=== PATIENT | female | born 1935 | race Caucasian/White ===

== ENCOUNTER 2016-11-12 12:59 | Emergency (ER) | payer MEDICARE ==
[~2016-11-12] VITALS: Ht 154.9 cm; Wt 54.4 kg
[~2016-11-12 12:59] MED LIST: /ADVA50050; /GLIM2TA; /GLIM4TA; /MOXI40TA; /TIOT18INH; ACET65TA; AGGRCAP; ALBUTEROL LIQ; AVAP150T; BABY81CH; CLAR5CHW; FLON0.05; IBUP600T; JANUVIA; KENALOG; LASI40TA; LIPI10TA; LOPERAMIDE; MUCINEX; PAXI40TA; PRED10TA2; PRED20TA; PREDPOW10; PROV90AE; TOPR100T; TRAVATAN EYE DROP; TRAVATAN Z; TYL; VICO5TAB; VITAMIN D
[2016-11-12] MEDS ORDERED: LANTINJ4 (13:20)
[2016-11-12] MEDS ORDERED: METO50TA2 PO (13:20)
[2016-11-12] MEDS ORDERED: FURO40TA2 (13:20)
[2016-11-12] MEDS ORDERED: CLON0.5T (13:20)
[2016-11-12] MEDS ORDERED: GLIP5TAB8 PO (13:20)
[2016-11-12] MEDS ORDERED: AMIT25TA PO (13:20)
[2016-11-12] MEDS ORDERED: PROA1AER (13:20)
[2016-11-12 14:25] VITALS: BP 126/72
== END 2016-11-12 14:28 | disposition home or self-care (01) ==
LOC: M ED 14:13
DX: R04.0 Epistaxis (principal); I10 Essential (primary) hypertension; I50.20 Unspecified systolic (congestive) heart failure; Z86.73 Personal history of transient ischemic attack (TIA), and cerebral infarction without residual deficits; E78.00 Pure hypercholesterolemia, unspecified; F41.9 Anxiety disorder, unspecified; F32.9 Major depressive disorder, single episode, unspecified; Z87.891 Personal history of nicotine dependence; Z79.899 Other long term (current) drug therapy; Z79.52 Long term (current) use of systemic steroids; Z79.4 Long term (current) use of insulin

== ENCOUNTER 2016-11-15 19:54 | Inpatient (IN) | payer MEDICARE ==
[~2016-11-15] VITALS: Ht 152.4 cm; Wt 56.4 kg
[~2016-11-15 19:54] MED LIST changes: +AMIT25TA PO; +CLON0.5T; +FURO40TA2; +GLIP5TAB8 PO; +LANTINJ4; +METO50TA2 PO; +PROA1AER
[2016-11-15 20:37] LABS: BASO % 0.4 % (0.0-1.0); EOS % 0.4 % (0.0-3.0); LARGE UNSTAINED CELL # 0.2 K/mm3 (0.0-0.4); LARGE UNSTAINED CELL % 2.2 % (0.0-4.0); LYMPH # 1.4 K/mm3 (1.5-4.5); LYMPH % 15.1 % (24.0-44.0); MEAN CORPUSCULAR HEMOGLOBIN 29.6 pg (27.0-33.0); MEAN CORPUSCULAR HGB CONC 31.5 g/dl (32.0-36.5); MEAN CORPUSCULAR VOLUME 94.2 fl (80.0-96.0); MONO # 0.6 K/mm3 (0.0-0.8); MONO % 6.8 % (0.0-5.0); NEUTROPHILS # 6.8 K/mm3 (1.8-7.7); PLATELET COUNT, AUTOMATED 373 k/mm3 (150-450); RED CELL DISTRIBUTION WIDTH 13.8 % (11.5-14.5)
[2016-11-15 20:54] LABS: ANION GAP 6 MEQ/L (8-16); BLOOD UREA NITROGEN 40 MG/DL (7-18); CALCIUM LEVEL 9.1 MG/DL (8.8-10.2); CARBON DIOXIDE LEVEL 34 MEQ/L (21-32); CHLORIDE LEVEL 97 MEQ/L (98-107); CREATININE FOR GFR 2.05 MG/DL (0.55-1.02); GLOMERULAR FILTRATION RATE 24.9 (>39); GLUCOSE, FASTING 94 MG/DL (83-110); POTASSIUM SERUM 4.2 MEQ/L (3.5-5.1); SODIUM LEVEL 137 MEQ/L (136-145)
[2016-11-15] MEDS ORDERED: IPRATROPIUM 0.5MG/ALBUTEROL 2.5MG INH SOL UD 3ML (DUONEB)(J7620) NEB ONE (22:00)
[2016-11-15] MEDS ORDERED: NS 500 ML IV ONE (22:45)
[2016-11-15] MEDS ORDERED: FURO40TA2 PO (23:47)
[2016-11-15] MEDS ORDERED: INSULANT SC (23:50)
[2016-11-15] MEDS ORDERED: PROA1AER INH (23:50)
[2016-11-15] MEDS ORDERED: ALEV1TAB PO (23:50)
[2016-11-16] VITALS (7 sets, daily range): BP systolic 92–166; BP diastolic 56–72
[2016-11-16] MEDS ORDERED: ONDANSETRON 4MG/2ML VIAL (J2405) IV PRN (02:15)
[2016-11-16] MEDS ORDERED: ALBUTEROL 90 MCG/ACT 8GM HFA INHALER INH PRN (02:30)
[2016-11-16] MEDS: NS 1,000 ML IV SCH ×2 (03:28→12:22)
[2016-11-16] MEDS: AMITRIPTYLINE 25 MG TAB PO SCH ×2 (04:47→21:18)
--- NOTE | 2016-11-16 06:28 | ECGEPIP ---
Stationary ECG Study [facility] - ED Test Date: 2016-11-15 Pat Name: PINKY COOPER Department: Room: - Gender: F Machine [employer]: estrella : 1935 Requested By: AARON Robles Order Number: [id number] Reading MD: Gwyn Gaines Measurements Intervals [place] Rate: 89 P: 83 OK: 177 QRS: 142 QRSD: 149 T: 34 QT: 356 QTc: 435 Interpretive Statements SINUS RHYTHM RIGHT BUNDLE BRANCH BLOCK LEFT POSTERIOR FASCICULAR BLOCK SIMIILAR TO 05/21/14 Electronically Signed On 11-16-2016 6:28:12 EDT by Gwyn Gaines
[2016-11-16] MEDS ORDERED: glipiZIDE (GLUCOTROL) 5 MG TAB PO SCH (07:30)
[2016-11-16 08:19] LABS: BASO % 0.3 % (0.0-1.0); EOS % 0.2 % (0.0-3.0); LARGE UNSTAINED CELL # 0.2 K/mm3 (0.0-0.4); LARGE UNSTAINED CELL % 2.6 % (0.0-4.0); LYMPH # 1.3 K/mm3 (1.5-4.5); LYMPH % 19.7 % (24.0-44.0); MEAN CORPUSCULAR HGB CONC 30.5 g/dl (32.0-36.5); MEAN CORPUSCULAR VOLUME 94.9 fl (80.0-96.0); MONO # 0.4 K/mm3 (0.0-0.8); MONO % 7.1 % (0.0-5.0); NEUTROPHILS # 4.1 K/mm3 (1.8-7.7); RED CELL DISTRIBUTION WIDTH 13.8 % (11.5-14.5); WHITE BLOOD COUNT 5.8 K/mm3 (4.0-10.0)
[2016-11-16 08:30] LABS: PLATELET COUNT, AUTOMATED 261 k/mm3 (150-450)
[2016-11-16 08:36] LABS: ALBUMIN 2.4 GM/DL (3.2-5.2); ALBUMIN/GLOBULIN RATIO 0.62 (1.00-1.93); BILIRUBIN,TOTAL 0.3 MG/DL (0.2-1.0); CALCIUM LEVEL 7.9 MG/DL (8.8-10.2); CREATININE FOR GFR 1.98 MG/DL (0.55-1.02); GLOMERULAR FILTRATION RATE 25.9 (>39); MAGNESIUM LEVEL 1.7 MG/DL (1.8-2.4); POTASSIUM SERUM 3.7 MEQ/L (3.5-5.1); TOTAL PROTEIN 6.3 GM/DL (6.4-8.2)
--- NOTE | 2016-11-16 08:49 | REP ---
PORTABLE CHEST: AP portable view of the chest is performed and compared to a prior study of 07/11/2015. There is no acute infiltrate. Mild interstitial fibrotic changes are stable. The heart is normal in size. There is calcification of the thoracic aorta. The mediastinal silhouette is unchanged. IMPRESSION: Stable chronic findings without evidence of acute infiltrate. Signed by Bernabe Hill MD 11/16/2016 05:39 P
[2016-11-16] MEDS: METOPROLOL TART 50 MG TAB PO SCH ×2 (09:00→18:45)
[2016-11-16] MEDS: LEVEMIR (INSULIN DETEMIR) 1 UNITS/0.01ML SC SCH (09:03)
[2016-11-16] MEDS: PANTOPRAZOLE 40MG TAB (PROTONIX) PO SCH (09:03)
[2016-11-16] MEDS: ACETAMINOPHEN TAB 650MG DOSE (2X325MG) PO PRN ×2 (10:42→18:45)
[2016-11-16] MEDS ORDERED: GLUCOSE 4 GM CHEW TABLET PO PRN (11:30)
[2016-11-16] MEDS ORDERED: GLUCAGON FOR INJ 1 MG VIAL (J1610) SC PRN (11:30)
[2016-11-16] MEDS ORDERED: DEXTROSE 50% 50 ML SYRINGE IV PRN (11:30)
[2016-11-16] MEDS: HumaLOG INSULIN (NovoLOG) PER UNIT SC SCH ×3 (12:22→21:00)
[2016-11-16] MEDS: VANCOMYCIN ORAL SOL 250MG/5ML ORAL SYRINGE PO SCH ×3 (12:23→23:33)
[2016-11-16] MEDS: MAG SULF 1GM/100ML (MAG RUN) 1 GM in APPROPRIATE DILUENT 1 EA IV SCH ×2 (12:23→13:09)
[2016-11-16] MEDS ORDERED: BALMEX CREAM 60GM TOP PRN (16:00)
--- NOTE | 2016-11-16 16:22 | HPE ---
DATE OF ADMISSION: 11/16/2016 CHIEF COMPLAINT: Short of breath, lightheadedness. PRIMARY CARE PROVIDER: Yaakov Archuleta MD HISTORY OF PRESENT ILLNESS: This is a 80-year-old female who has been depressed since her recently . She has had decreased appetite. For the last 3 days she states she has not felt quite right. She has not eaten. She states for 2-3 days she was having chills and hot spells. She states she had been sipping on just some fluids. She states that she has a history of Crohn's and that she normally has loose stools, but for the last 2 days she had been having more loose stools than was normal for her, she states she has been having 6-7 a day. Denies any hematochezia, no melana, rectal bleeding. She was feeling lightheaded. Per her daughter, she felt the patient was hallucinating. The patient when assessed was pleasant and cooperative, denied any hallucination, was alert and oriented. Blood pressure upon arrival was 84/46, pulse 93, respiration rate 18, oxygen saturation was 90% on room air, temperature was 99.3. IV fluids were started. Orthostatics were done, the patient's pressure systolic dropped from 94 while lying, 83 when sitting, and 68/31 while standing and patient was lightheaded, pulse increased to 100. Fluid bolus initiated. Blood pressure gradually improved with the initiation of fluids to 100/58 supine. LABORATORY STUDIES: Showed glucose to be 94, BUN was elevated at 40, creatinine was elevated at 2.05 , sodium 137, potassium 4.2, chloride 97, CO2 34, calcium 9.1, CK was 42, CK-MB less than 1.0, troponin was less than 0.02, white count was 9, hemoglobin and hematocrit was 14.1 and 44.7, platelets 373. EKG was done and showed sinus rhythm of 89. Patient received one DuoNeb treatment and had no further complaints of shortness of breath. Assessment was done. Patient will be admitted with symptomatic orthostatic hypotension, dehydration, diarrhea, observation status to the medical floor. SOCIAL HISTORY: She currently lives alone, was recently . She does not smoke cigarettes. She does not drink alcohol. She does not use recreational drugs. ALLERGIES: PIOGLITAZONE, PENICILLIN causes hives. CURRENT MEDICATIONS: - metoprolol 50 mg by mouth twice a day (which I will hold) - amitriptyline 25 mg by mouth at bedtime - glipizide 5 mg by mouth twice a day - Lasix 40 mg by mouth daily (which I will hold) - Lantus 15 units subcutaneous daily - Aleve two tablets by mouth daily at bedtime (which I will hold) - albuterol two puffs by mouth every 4 hours as needed for shortness of breath or wheeze PAST MEDICAL HISTORY: 1. Hypertension. 2. Insulin dependent diabetes. 3. Crohn's disease. PAST SURGICAL HISTORY: 1. Cholecystectomy. 2. section. FAMILY HISTORY: Noncontributory. REVIEW OF SYSTEMS: No complaint of headache. No blurry or double vision. She has had chills. No tinnitus. No hoarseness. No difficulty swallowing. She was lightheaded, no vertigo. BREASTS: No masses. CARDIOVASCULAR: No complaints of chest pain. No hemoptysis. No orthopnea. No wheeze. No chronic cough or sputum production. GASTROINTESTINAL (GI): Lack of appetite. No nausea. Increased loose stools. No hematochezia. No melena. No complaints of abdominal pain. GENITOURINARY (): No hematuria, dysuria, or frequency. MUSCULOSKELETAL: No joint redness or swelling. ENDOCRINE: History of insulin dependent diabetes. HEMATOLOGICAL: No history of anemia. NEUROLOGICAL: No history of seizures or paralysis. PSYCHOLOGICAL: She has been grieving over the of her . She denies any suicidal ideation. PHYSICAL EXAMINATION: 80-year-old cooperative female in no acute distress, but pressure currently 92/60, pulse 80, respirations 18, oxygen saturation is 95%. Height 5 foot, weight 120 pounds. Patient is alert and oriented times three. Pupils equal and reactive to light. Extraocular movements are intact. Cornea and sclerae clear. Conjunctivae is normal. No facial asymmetry. Buccal mucosa slightly dry. Tongue midline. NECK: Supple without lymphadenopathy. No thyromegaly. No goiter. Carotids 2+ without bruit. CHEST: Clear to auscultation without wheeze or retraction. HEART: Regular. ABDOMEN: Soft, nontender. No masses, pulsations, or bruits. No organomegaly. Bowel sounds are positive. GENITOURINARY/RECTAL: Not done. EXTREMITIES: Show equal strength. Full range of motion. No cyanosis, clubbing , or edema. Peripheral pulses equal and palpable bilaterally. SKIN: Warm and dry. IMPRESSION/PLAN: Patient will be admitted to observation status to the medical floor for orthostatic hypotension, dehydration. Patient will receive general IV hydration. Gastrointestinal (GI) panel will be sent. Anti Hypertensive medications will be held. Repeat labs in the morning. MTDD
[2016-11-16] MEDS ORDERED: NS 1,000 ML IV SCH (19:00)
[2016-11-17] VITALS (7 sets, daily range): BP systolic 108–160; BP diastolic 51–75
[2016-11-17] MEDS: VANCOMYCIN ORAL SOL 250MG/5ML ORAL SYRINGE PO SCH ×4 (06:00→23:31)
[2016-11-17 06:48] LABS: BASO % 0.3 % (0.0-1.0); EOS % 0.6 % (0.0-3.0); LARGE UNSTAINED CELL # 0.3 K/mm3 (0.0-0.4); LARGE UNSTAINED CELL % 3.4 % (0.0-4.0); LYMPH # 1.8 K/mm3 (1.5-4.5); LYMPH % 20.7 % (24.0-44.0); MEAN CORPUSCULAR HEMOGLOBIN 29.9 pg (27.0-33.0); MEAN CORPUSCULAR HGB CONC 30.8 g/dl (32.0-36.5); MEAN CORPUSCULAR VOLUME 97.1 fl (80.0-96.0); MONO # 0.6 K/mm3 (0.0-0.8); MONO % 6.3 % (0.0-5.0); NEUTROPHILS # 6.1 K/mm3 (1.8-7.7); NEUTROPHILS % 68.7 % (36.0-66.0); PLATELET COUNT, AUTOMATED 305 k/mm3 (150-450); RED CELL DISTRIBUTION WIDTH 13.7 % (11.5-14.5); WHITE BLOOD COUNT 8.8 K/mm3 (4.0-10.0)
[2016-11-17 07:04] LABS: CALCIUM LEVEL 8.7 MG/DL (8.8-10.2); CREATININE FOR GFR 1.64 MG/DL (0.55-1.02); GLOMERULAR FILTRATION RATE 32.2 (>39); MAGNESIUM LEVEL 2.2 MG/DL (1.8-2.4)
[2016-11-17] MEDS: HumaLOG INSULIN (NovoLOG) PER UNIT SC SCH ×4 (07:30→20:42)
[2016-11-17] MEDS: PANTOPRAZOLE 40MG TAB (PROTONIX) PO SCH (07:59)
[2016-11-17] MEDS: METOPROLOL TART 50 MG TAB PO SCH ×2 (07:59→20:11)
[2016-11-17] MEDS: LEVEMIR (INSULIN DETEMIR) 1 UNITS/0.01ML SC SCH (07:59)
--- NOTE | 2016-11-17 12:40 | IPNPDOC ---
Subjective Date Seen The patient was seen on 11/17/16. Subjective Chief Complaint/HPI The patient is a 80-year-old female admitted with a reason for visit of Diarrhea ,Hypotension. General: Denies: ROS Unobtainable, Chills, Night Sweats, Fatigue, Malaise, Normal Appetite, Other Symptoms Constitutional: Reports: Chills, Fever, Denies: Malaise, Night Sweats, Weakness, Fatigue, Weight Loss, Lethargy, Other Eyes: Denies: Pain, Vision change, Conjunctivae inflammation, Eyelid inflammation, Redness, Other ENT: Denies: Head Aches, Ear Pain, Dysphagia, Sinus Congestion, Post Nasal Drip , Sore Throat, Epistaxis, Other Symptoms Skin: Denies: Rash, Lesions, Jaundice, Bruising, Itching, Dry, Breakdown, Nail Changes, Other Pulmonary: Denies: Dyspnea, Cough, Pleuritic Chest Pain, Other Symptoms Cardiovascular: Denies: Chest Pain, Palpitations, Orthopnea, Paroxysmal Noc. Dyspnea, Edema, Lt Headedness, Other Symptoms Gastrointestinal: Denies: Nausea, Vomiting, Abdominal Pain, Diarrhea, Constipation, Melena, Hematochezia, Other Symptoms Genitourinary: Denies: Dysuria, Frequency, Incontinence, Hematuria, Retention, Other Symptoms Objective Physical Examination General Exam: Positive: Alert, Cooperative, No Acute Distress, Other (elderly, frail) Eye Exam: Positive: PERRLA, Conjunctiva & lids normal, EOMI, Negative: Sclera icteric ENT Exam: Positive: Atraumatic, Mucous membr. moist/pink Neck Exam: Positive: Supple Chest Exam: Positive: Clear to auscultation, Normal air movement Heart Exam: Positive: Rate Normal, Regular Rhythm Abdomen Exam: Positive: Normal bowel sounds, Soft, Negative: Tenderness Psych Exam: Positive: Oriented x 3 Assessment /Plan Problems (1) C. difficile colitis Status: Acute Response to Treatment: Improving Discussed With: Patient Problem Specific Plan: Monitor Clinically, Repeat Labs Problem Text: Continue PO vanco, probiotics. Diarrhea significantly improved. (2) Diabetes Status: Chronic Discussed With: Patient Problem Specific Plan: Repeat Labs (3) Crohns disease Status: Chronic Discussed With: Patient Problem Specific Plan: Monitor Clinically (4) Diarrhea Response to Treatment: Improving Discussed With: Patient Problem Specific Plan: Monitor Clinically, Repeat Labs (5) Hypotension Status: Resolved Discussed With: Patient Problem Specific Plan: Monitor Clinically Problem Text: Patient history of hypertension. Continue beta guy, other home meds on hold. IV fluids stopped. Follow clinically. Plan/VTE VTE Prophylaxis Ordered?: Yes (mechanical) Plan IVF: Discontinue Diet: Continue Current Activity: Continue Current Diagnostics: Repeat Labs in AM Anticipated Discharge: Home, Home With Services VS, I&O, 24H, Fishbone Vital Signs/I&O Vital Signs Date Time Temp Pulse Resp B/P (MAP) Pulse Ox O2 Delivery O2 Flow Rate FiO2 11/17/16 10:00 99.3 92 20 108/56 (73) 90 Room Air 11/16/16 06:00 2.0 I&O- Last 24 Hours up to 6 AM 11/17/16 06:00 Intake Total 2680 ml Output Total 550 ml Balance 2130 ml Laboratory Data 24H LABS Laboratory Tests 2 11/16/16 17:37: Bedside Glucose (Misc Panel) 76L 11/16/16 20:43: Bedside Glucose (Misc Panel) 106 11/17/16 06:30: White Blood Count 8.8, Red Blood Count 4.17, Hemoglobin 12.5, Hematocrit 40.5, Mean Corpuscular Volume 97.1H, Mean Corpuscular Hemoglobin 29.9, Mean Corpuscular Hemoglobin Concent 30.8L, Red Cell Distribution Width 13.7, Platelet Count 305, Neutrophils (%) (Auto) 68.7H, Lymphocytes (%) (Auto) 20.7L, Monocytes (%) (Auto) 6.3H, Eosinophils (%) (Auto) 0.6, Basophils (%) (Auto) 0.3 , Neutrophils # (Auto) 6.1, Lymphocytes # (Auto) 1.8, Monocytes # (Auto) 0.6, Eosinophils # (Auto) 0.0, Basophils # (Auto) 0.0, Large Unclassified Cells % 3.4 , Large Unclassified Cells # 0.3, Anion Gap 7L, Glomerular Filtration Rate 32.2L , Blood Urea Nitrogen 25H, Creatinine 1.64H, Sodium Level 141, Potassium Level 4.0, Chloride Level 109H, Carbon Dioxide Level 25, Calcium Level 8.7L, Magnesium Level 2.2 11/17/16 11:28: Bedside Glucose (Misc Panel) 79L CBC/BMP Laboratory Tests 11/17/16 06:30 Red Blood Count 4.17, Mean Corpuscular Volume 97.1 H, Mean Corpuscular Hemoglobin 29.9, Mean Corpuscular Hemoglobin Concent 30.8 L, Red Cell Distribution Width 13.7, Neutrophils (%) (Auto) 68.7 H, Lymphocytes (%) (Auto) 20.7 L, Monocytes (%) (Auto) 6.3 H, Eosinophils (%) (Auto) 0.6, Basophils (%) ( Auto) 0.3, Neutrophils # (Auto) 6.1, Lymphocytes # (Auto) 1.8, Monocytes # (Auto ) 0.6, Eosinophils # (Auto) 0.0, Basophils # (Auto) 0.0, Calcium Level 8.7 L Microbiology Microbiology 11/16/16 Blood Culture - Preliminary, Resulted No growth after 24 hours . All specim... 11/16/16 Blood Culture - Preliminary, Resulted No growth after 24 hours . All specim... 11/16/16 Gastrointestinal Tract Panel (PCR) - Final, Complete Clostridium Difficile A/B RANI PHILLIPS MD November 17, 2016 12:40
--- NOTE | 2016-11-17 15:31 | REP ---
Chest two views HISTORY: Shortness of breath Comparison: 11/15/2016 An increase in interstitial markings is present in the lungs consistent with chronic interstitial fibrosis. The heart is normal in size. The pulmonary vasculature is normal in appearance. The bony structure is intact. IMPRESSION: Chronic interstitial fibrosis. Signed by Joshua Kaur MD 11/17/2016 03:22 P
[2016-11-17] MEDS: AMITRIPTYLINE 25 MG TAB PO SCH (20:11)
[2016-11-17] MEDS: ACETAMINOPHEN TAB 650MG DOSE (2X325MG) PO PRN (20:53)
[2016-11-18] VITALS (17 sets, daily range): BP systolic 78–139; BP diastolic 40–91
[2016-11-18] MEDS: ACETAMINOPHEN TAB 650MG DOSE (2X325MG) PO PRN ×2 (03:37→19:46)
[2016-11-18] MEDS ORDERED: SODIUM CHLORIDE 0.9% 1000 ML IV ONE (04:00)
[2016-11-18 04:42] LABS: BASO % 0.3 % (0.0-1.0); EOS # 0.1 K/mm3 (0.0-0.50); EOS % 0.7 % (0.0-3.0); LARGE UNSTAINED CELL # 0.2 K/mm3 (0.0-0.4); LYMPH # 1.5 K/mm3 (1.5-4.5); LYMPH % 12.7 % (24.0-44.0); MEAN CORPUSCULAR HEMOGLOBIN 28.9 pg (27.0-33.0); MEAN CORPUSCULAR HGB CONC 30.3 g/dl (32.0-36.5); MEAN CORPUSCULAR VOLUME 95.6 fl (80.0-96.0); MONO # 0.8 K/mm3 (0.0-0.8); MONO % 7.6 % (0.0-5.0); NEUTROPHILS # 7.6 K/mm3 (1.8-7.7); NEUTROPHILS % 76.6 % (36.0-66.0); PLATELET COUNT, AUTOMATED 248 k/mm3 (150-450); RED CELL DISTRIBUTION WIDTH 13.8 % (11.5-14.5); WHITE BLOOD COUNT 9.9 K/mm3 (4.0-10.0)
[2016-11-18 04:47] LABS: CALCIUM LEVEL 7.9 MG/DL (8.8-10.2); CREATININE FOR GFR 1.66 MG/DL (0.55-1.02); GLOMERULAR FILTRATION RATE 31.7 (>39); MAGNESIUM LEVEL 1.6 MG/DL (1.8-2.4); POTASSIUM SERUM 3.9 MEQ/L (3.5-5.1)
[2016-11-18] MEDS: VANCOMYCIN ORAL SOL 250MG/5ML ORAL SYRINGE PO SCH ×3 (05:40→21:58)
--- NOTE | 2016-11-18 05:50 | REPUSA ---
CLINICAL HISTORY: Abnormal lung sounds. COMMENTS: AP view of chest reveals no evidence of active pleural or pulmonary parenchymal abnormality. The cardiac silhouette is enlarged. The mediastinum and pulmonary vessels appear normal. Aorta is tor tuous. Degenerative changes are noted in the thoracic spine. IMPRESSION: No evidence of acute pulmonary pathology. Enlarged cardiac silhouette. Tortuous aorta. Thank you for your kind referral of this patient.
[2016-11-18] MEDS ORDERED: metroNIDAZOLE 500 MG in APPROPRIATE DILUENT 1 EA IV SCH (06:00)
[2016-11-18] MEDS ORDERED: MAG SULF 1GM/100ML (MAG RUN) 1 GM in APPROPRIATE DILUENT 1 EA IV ONE (06:30)
[2016-11-18] MEDS: HumaLOG INSULIN (NovoLOG) PER UNIT SC SCH ×4 (07:56→21:00)
--- NOTE | 2016-11-18 07:57 | IPNPDOC ---
Subjective Date Seen The patient was seen on 11/18/16. Subjective Chief Complaint/HPI The patient is a 80-year-old female admitted with a reason for visit of Diarrhea ,Hypotension. Events since last encounter spiked fevers last night General: Denies: ROS Unobtainable, Chills, Night Sweats, Fatigue, Malaise, Normal Appetite, Other Symptoms Constitutional: Denies: Chills, Fever, Malaise, Night Sweats, Weakness, Fatigue , Weight Loss, Lethargy, Other Eyes: Denies: Pain, Vision change, Conjunctivae inflammation, Eyelid inflammation, Redness, Other ENT: Denies: Head Aches, Ear Pain, Dysphagia, Sinus Congestion, Post Nasal Drip , Sore Throat, Epistaxis, Other Symptoms Skin: Denies: Rash, Lesions, Jaundice, Bruising, Itching, Dry, Breakdown, Nail Changes, Other Pulmonary: Reports: Cough, Denies: Dyspnea, Pleuritic Chest Pain, Other Symptoms Cardiovascular: Denies: Chest Pain, Palpitations, Orthopnea, Paroxysmal Noc. Dyspnea, Edema, Lt Headedness, Other Symptoms Gastrointestinal: Denies: Nausea, Vomiting, Abdominal Pain, Diarrhea, Constipation, Melena, Hematochezia, Other Symptoms Genitourinary: Denies: Dysuria, Frequency, Incontinence, Hematuria, Retention, Other Symptoms Objective Physical Examination General Exam: Positive: Alert, Cooperative, No Acute Distress, Other (elderly, frail) Eye Exam: Positive: PERRLA, Conjunctiva & lids normal, EOMI, Negative: Sclera icteric ENT Exam: Positive: Atraumatic, Mucous membr. moist/pink Neck Exam: Positive: Supple Chest Exam: Positive: Clear to auscultation, Normal air movement Heart Exam: Positive: Rate Normal, Regular Rhythm, Murmurs (soft systolic murmur) Abdomen Exam: Positive: Normal bowel sounds, Soft, Negative: Tenderness Psych Exam: Positive: Oriented x 3 Assessment /Plan Problems (1) C. difficile colitis Status: Acute Response to Treatment: Improving Discussed With: Patient Problem Specific Plan: Monitor Clinically, Repeat Labs Problem Text: Continue PO vanco, probiotics. fevers last night - added iv flagyl Diarrhea significantly improved. (2) Diabetes Status: Chronic Discussed With: Patient Problem Specific Plan: Repeat Labs Problem Text: blood sugars have been on the low side. held morning levemir, continue sliding scale (3) Crohns disease Status: Chronic Discussed With: Patient Problem Specific Plan: Monitor Clinically Problem Text: KUB pending grossly stable at this time (4) Diarrhea Response to Treatment: Improving Discussed With: Patient Problem Specific Plan: Monitor Clinically, Repeat Labs (5) Hypotension Status: Resolved Discussed With: Patient Problem Specific Plan: Monitor Clinically Problem Text: Patient history of hypertension. Home meds on hold. IV fluid boluses. Follow clinically. Plan/VTE VTE Prophylaxis Ordered?: Yes (mechanical) Plan IVF: Discontinue Diet: Continue Current Activity: Continue Current Diagnostics: Repeat Labs in AM Anticipated Discharge: Home, Home With Services PO vanco, IV flagyl monitor for diarrhea, fevers ADDDENDUM: Patient continue to be hypotensive, desaturating. Transferring to ICU. IV fluids. VS, I&O, 24H, Fishbone Vital Signs/I&O Vital Signs Date Time Temp Pulse Resp B/P (MAP) Pulse Ox O2 Delivery O2 Flow Rate FiO2 11/18/16 06:00 97.8 104 19 115/62 (79) 93 Nasal Cannula 1.0 I&O- Last 24 Hours up to 6 AM 11/18/16 05:59 Intake Total 590 ml Output Total 1600 ml Balance -1010 ml Laboratory Data 24H LABS Laboratory Tests 2 11/17/16 11:28: Bedside Glucose (Misc Panel) 79L 11/17/16 16:13: Bedside Glucose (Misc Panel) 66L 11/17/16 20:37: Bedside Glucose (Misc Panel) 108 11/18/16 04:22: White Blood Count 9.9, Red Blood Count 3.83L, Hemoglobin 11.1L, Hematocrit 36.6 , Mean Corpuscular Volume 95.6, Mean Corpuscular Hemoglobin 28.9, Mean Corpuscular Hemoglobin Concent 30.3L, Red Cell Distribution Width 13.8, Platelet Count 248, Neutrophils (%) (Auto) 76.6H, Lymphocytes (%) (Auto) 12.7L, Monocytes (%) (Auto) 7.6H, Eosinophils (%) (Auto) 0.7, Basophils (%) (Auto) 0.3 , Neutrophils # (Auto) 7.6, Lymphocytes # (Auto) 1.5, Monocytes # (Auto) 0.8, Eosinophils # (Auto) 0.1, Basophils # (Auto) 0.0, Large Unclassified Cells % 2.0 , Large Unclassified Cells # 0.2, Anion Gap 6L, Glomerular Filtration Rate 31.7L , Lactic Acid Level 0.7, Blood Urea Nitrogen 21H, Creatinine 1.66H, Sodium Level 137, Potassium Level 3.9, Chloride Level 106, Carbon Dioxide Level 25, Calcium Level 7.9L, Magnesium Level 1.6L CBC/BMP Laboratory Tests 11/18/16 04:22 Red Blood Count 3.83 L, Mean Corpuscular Volume 95.6, Mean Corpuscular Hemoglobin 28.9, Mean Corpuscular Hemoglobin Concent 30.3 L, Red Cell Distribution Width 13.8, Neutrophils (%) (Auto) 76.6 H, Lymphocytes (%) (Auto) 12.7 L, Monocytes (%) (Auto) 7.6 H, Eosinophils (%) (Auto) 0.7, Basophils (%) ( Auto) 0.3, Neutrophils # (Auto) 7.6, Lymphocytes # (Auto) 1.5, Monocytes # (Auto ) 0.8, Eosinophils # (Auto) 0.1, Basophils # (Auto) 0.0, Calcium Level 7.9 L Microbiology Microbiology 11/18/16 Blood Culture, Received Pending 11/18/16 Blood Culture, Received Pending 11/16/16 Blood Culture - Preliminary, Resulted No growth after 24 hours . All specim... 11/16/16 Blood Culture - Preliminary, Resulted No growth after 24 hours . All specim... 11/16/16 Gastrointestinal Tract Panel (PCR) - Final, Complete Clostridium Difficile A/B RANI PHILLIPS MD November 18, 2016 07:57
[2016-11-18] MEDS: LEVEMIR (INSULIN DETEMIR) 1 UNITS/0.01ML SC SCH (08:02)
[2016-11-18] MEDS: PANTOPRAZOLE 40MG TAB (PROTONIX) PO SCH (08:20)
[2016-11-18] MEDS ORDERED: NS 500 ML IV ONE (08:45)
[2016-11-18] MEDS: METOPROLOL TART 50 MG TAB PO SCH ×2 (08:46→21:58)
--- NOTE | 2016-11-18 09:10 | REP ---
KUB, ONE VIEW: HISTORY: Abdominal distention. Air is present in small and large intestine. There are several dilated loops of intestine. There are no air fluid levels. There is no pneumoperitoneum. Surgical clips are present in the right upper quadrant. IMPRESSION: The above findings may represent ileus or possibly early small bowel obstruction. A repeat examination is recommended for further evaluation. Signed by Joshua Kaur MD 11/18/2016 09:42 A
[2016-11-18 10:17] LABS: ABG BASE EXCESS -6.6 (-2.0-2.0); ABG HCO3 20.5 MEQ/L (22.0-26.0); ABG PARTIAL PRESSURE CO2 47.5 mmHg (35.0-45.0); ABG PARTIAL PRESSURE O2 78.3 mmHg (75.0-100.0); ABG pH (ARTERIAL) 7.253 UNITS (7.350-7.450)
[2016-11-18 10:39] LABS: BASO % 0.3 % (0.0-1.0); EOS % 0.2 % (0.0-3.0); LARGE UNSTAINED CELL # 0.4 K/mm3 (0.0-0.4); LARGE UNSTAINED CELL % 3.3 % (0.0-4.0); LYMPH # 3.6 K/mm3 (1.5-4.5); LYMPH % 25.9 % (24.0-44.0); MEAN CORPUSCULAR VOLUME 96.9 fl (80.0-96.0); MONO # 0.8 K/mm3 (0.0-0.8); MONO % 6.3 % (0.0-5.0); NEUTROPHILS # 7.9 K/mm3 (1.8-7.7); NEUTROPHILS % 64.1 % (36.0-66.0); PLATELET COUNT, AUTOMATED 267 k/mm3 (150-450); RED CELL DISTRIBUTION WIDTH 13.7 % (11.5-14.5); WHITE BLOOD COUNT 12.2 K/mm3 (4.0-10.0)
[2016-11-18 11:11] LABS: ALBUMIN 2.6 GM/DL (3.2-5.2); ALBUMIN/GLOBULIN RATIO 0.74 (1.00-1.93); BILIRUBIN,TOTAL 0.2 MG/DL (0.2-1.0); CALCIUM LEVEL 7.9 MG/DL (8.8-10.2); CREATININE FOR GFR 1.66 MG/DL (0.55-1.02); GLOMERULAR FILTRATION RATE 31.7 (>39); TOTAL PROTEIN 6.1 GM/DL (6.4-8.2)
[2016-11-18] MEDS: NS 1,000 ML IV SCH ×2 (11:36→22:43)
[2016-11-18] MEDS: LACTOBACILLUS ACIDOPHILUS CAP (BACID) PO SCH ×3 (11:36→21:57)
--- NOTE | 2016-11-18 12:09 | REP ---
CT ABDOMEN AND PELVIS WITHOUT CONTRAST: CT abdomen and pelvis performed without oral or IV contrast with sagittal and coronal reconstruction images also performed. There appears to be mild fibroatelectatic change in each lung base. 9 mm pericardial lymph node is seen on the right. Liver is grossly unremarkable. Patient has had a prior cholecystectomy. Spleen, adrenals and pancreas are grossly unremarkable. There is a cyst of the lower pole of the right kidney which is exophytic and measures approximately 2.7 cm in diameter. There is no hydroureteronephrosis or evidence of renal or ureteral calculus. There is no abdominal aortic aneurysm. There is an aortobifemoral graft. I see no adenopathy. There is no free air or free fluid. Terminal ileum is not optimally evaluated without oral or IV contrast but may be mildly thickened. No other definite bowel wall thickening is seen. No pelvic mass is seen. Urinary bladder is grossly unremarkable. IMPRESSION: Possible mild diffuse thickening of the terminal ileum, evaluation limited without oral or IV contrast. No free air or free fluid. Status post cholecystectomy. Mild bibasilar fibroatelectatic change in the visualized lung bases with a 9 mm right pericardial lymph node noted. Signed by Bernabe Hill MD 11/18/2016 04:46 P
[2016-11-18] MEDS: HEPARIN SOD (PORCINE) 5000 UNITS/ML VIAL SQ SCH ×2 (14:58→21:57)
[2016-11-18] MEDS: AMITRIPTYLINE 25 MG TAB PO SCH (21:57)
[2016-11-19] VITALS (7 sets, daily range): BP systolic 97–140; BP diastolic 56–90
[2016-11-19 05:16] LABS: BASO % 0.2 % (0.0-1.0); EOS % 0.2 % (0.0-3.0); LARGE UNSTAINED CELL # 0.2 K/mm3 (0.0-0.4); LARGE UNSTAINED CELL % 2.7 % (0.0-4.0); LYMPH # 1.3 K/mm3 (1.5-4.5); LYMPH % 15.8 % (24.0-44.0); MEAN CORPUSCULAR HEMOGLOBIN 29.9 pg (27.0-33.0); MEAN CORPUSCULAR HGB CONC 30.3 g/dl (32.0-36.5); MEAN CORPUSCULAR VOLUME 98.9 fl (80.0-96.0); MONO # 0.6 K/mm3 (0.0-0.8); MONO % 6.5 % (0.0-5.0); NEUTROPHILS # 6.3 K/mm3 (1.8-7.7); NEUTROPHILS % 74.5 % (36.0-66.0); PLATELET COUNT, AUTOMATED 286 k/mm3 (150-450); RED CELL DISTRIBUTION WIDTH 13.6 % (11.5-14.5); WHITE BLOOD COUNT 8.4 K/mm3 (4.0-10.0)
[2016-11-19 05:33] LABS: CREATININE FOR GFR 1.56 MG/DL (0.55-1.02); GLOMERULAR FILTRATION RATE 34.1 (>39); MAGNESIUM LEVEL 1.9 MG/DL (1.8-2.4); POTASSIUM SERUM 4.1 MEQ/L (3.5-5.1)
[2016-11-19] MEDS: HEPARIN SOD (PORCINE) 5000 UNITS/ML VIAL SQ SCH ×3 (05:49→21:48)
[2016-11-19] MEDS: HumaLOG INSULIN (NovoLOG) PER UNIT SC SCH ×4 (07:30→21:00)
[2016-11-19] MEDS: VANCOMYCIN ORAL SOL 250MG/5ML ORAL SYRINGE PO SCH ×3 (09:10→21:48)
[2016-11-19] MEDS: METOPROLOL TART 50 MG TAB PO SCH ×2 (09:11→21:50)
[2016-11-19] MEDS: LACTOBACILLUS ACIDOPHILUS CAP (BACID) PO SCH ×3 (09:11→21:48)
[2016-11-19] MEDS: PANTOPRAZOLE 40MG TAB (PROTONIX) PO SCH (09:11)
[2016-11-19] MEDS: LEVEMIR (INSULIN DETEMIR) 1 UNITS/0.01ML SC SCH (09:12)
[2016-11-19] MEDS: NS 1,000 ML IV SCH ×3 (09:13→22:25)
--- NOTE | 2016-11-19 10:14 | CR ---
DATE OF CONSULTATION: 11/18/2016 REASON FOR CONSULTATION: Hypotension, diarrhea, and abdominal distension. HISTORY OF THE PRESENT ILLNESS: The patient is a very pleasant, 80 year-old woman who was admitted on 11/16/2016 with a history of diarrhea for several days. A family member reports that she had been having some intermittent fevers as well for the last several days. She apparently also complained of some lightheadedness and some shortness of breath. She was found to be hypotensive and with orthostatic hypotension as well. She received some fluids. She was tested for Clostridium difficile with a positive finding. She was then started on some oral antibiotics for coverage. She had seemed to improve with some persistent abdominal distension, but on the morning of 11/18/2016 was found again to be hypotensive. She was moved to the intensive care unit. She did receive some additional fluid. She had some abdominal discomfort with some abdominal distension and there was concern about a possible intestinal obstruction. She also reports a long history of Crohn disease, though she has not been receiving any care for this or any treatment for this for many years. Because of her constellation of hypotension, abdominal distension and pain, I was consulted. She had a CT scan obtained. MEDICATIONS: The patient's current medications include: - Tylenol 650 mg by mouth every 4 hours as needed - Zofran 4 mg intravenously every 6 hours as needed - Protonix 40 mg by mouth daily - albuterol inhaler 2 puffs every 4 hours as needed, shortness of breath - Elavil 25 mg by mouth nightly - insulin Levemir 15 units subcutaneous daily - Humalog insulin as a sliding scale before food and nightly - metoprolol tartrate 50 mg by mouth twice daily - vancomycin 250 mg by mouth three times a day - Bacid one each by mouth three times a day - heparin 5000 units subcutaneous every 8 hours and some normal saline at 90 mL/hr. The patient's allergies are reported to PENICILLIN AND PIOGLITAZONE. Surgical history includes a cholecystectomy, aortobifemoral bypass graft, and a section. Medical history is significant for hypertension, insulin-requiring diabetes mellitus, and a long history of Crohn disease. SOCIAL HISTORY: The patient was recently after a 62-year marriage. She is currently living alone. She does not smoke nor drink any alcohol. Family history is noncontributory. Review of systems reveals no history of chest pain or palpitations. She denies any melena, hematochezia, hepatitis, pancreatitis or jaundice. She denies dysuria or hematuria. She has had no lower extremity swelling. She denies any history of chronic severe headaches or seizures. She has been quite saddened recently over the loss of her . PHYSICAL EXAMINATION: The patient's most recent vital signs show a pulse of 104 with a blood pressure of 110/65. Her most recent temperature was 98.8. Her oxygen saturations have been good on 2 liters of nasal cannula oxygen. She is alert, oriented and cooperative. She appears somewhat pale. Sclerae are anicteric. The mucous membranes are moist. The neck is supple. Heart exam shows a regular rhythm. The lungs were clear to auscultation bilaterally. The abdomen is somewhat distended. She has scarring consistent with her prior known surgery. She has some bowel sounds throughout the abdomen. There is no tenderness to percussion. There is some mild tympany to percussion in the mid to upper abdomen. The abdomen is soft to palpation and without discrete tenderness. There is no sign of hernia. Extremities show no peripheral edema. She has palpable radial and dorsalis pedis pulses. Her laboratory studies from 1027 hours on 11/18/2016 show white count of 12 with a hemoglobin of 12, hematocrit 37 and platelet count of 267,000. Differential count showed 64% neutrophils and 26% lymphocytes. Chemistry profile showed a sodium of 139, potassium 4.0, chloride 107, CO2 of 24 , BUN of 21, creatinine 1.66 and a glucose of 197. Total protein is 6.1 with an albumin of 2.6 and her liver function tests are normal. A urinalysis was done in the afternoon of 11/18/2016 and this showed a pH of 5.0 , specific gravity 1.006 with 1+ protein, trace ketones, positive nitrite and 1+ leukocyte esterase. Microscopic exam showed 31 white cells and 1 red cell per high-power field with 1+ bacteria. A CT scan of the abdomen and pelvis was obtained the late morning of 11/18/2016. This revealed what the radiologist reported as some possible mild thickening of the terminal ileum. There was no free air or free fluid. There were multiple clips in the gallbladder bed consistent with prior cholecystectomy. She had an aortobifemoral bypass graft in place with no evidence of infection. There was a small cyst on the right kidney. There is no evidence of intestinal obstruction. Impression is hypotension with abdominal discomfort and distension of unclear etiology. Other diagnoses include hypertension, diabetes mellitus, and Crohn disease. RECOMMENDATIONS: At this point, the patient does not appear to have a surgical issue. It may be that her low blood pressure and abdominal distension relate to the Clostridium difficile. Certainly people with Clostridium (C) difficile colitis can become septic or become hypotensive just from loss of fluids. She is on some antibiotic at this time and has had additional blood cultures obtained. I would recommend continued monitoring with intervention as necessary for low blood pressure. Broadening of her antibiotic coverage may be appropriate if blood cultures are positive or if she remains febrile or with signs of sepsis. I will be happy to check on the patient again on 11/19/2016 to see how she is doing. I have taken the liberty of allowing her some clear liquids orally at this point. ERICKA
--- NOTE | 2016-11-19 10:18 | IPNPDOC ---
Subjective Date Seen The patient was seen on 11/19/16. Subjective Chief Complaint/HPI The patient is a 80-year-old female admitted with a reason for visit of Diarrhea ,Hypotension. Events since last encounter Patient was noted to be hypotensive, in respiratory distress and was subsequently transferred to ICU. Patient stabilized in ICU being normotensive with 2L supplemental oxygen. Likely significant component of anxiety causing her distress. Today she states she is feeling much better, with no medical complaints. General: Denies: ROS Unobtainable, Chills, Night Sweats, Fatigue, Malaise, Normal Appetite, Other Symptoms Constitutional: Denies: Chills, Fever, Malaise, Night Sweats, Weakness, Fatigue , Weight Loss, Lethargy, Other Eyes: Denies: Pain, Vision change, Conjunctivae inflammation, Eyelid inflammation, Redness, Other ENT: Denies: Head Aches, Ear Pain, Dysphagia, Sinus Congestion, Post Nasal Drip , Sore Throat, Epistaxis, Other Symptoms Skin: Denies: Rash, Lesions, Jaundice, Bruising, Itching, Dry, Breakdown, Nail Changes, Other Pulmonary: Denies: Dyspnea, Cough, Pleuritic Chest Pain, Other Symptoms Cardiovascular: Denies: Chest Pain, Palpitations, Orthopnea, Paroxysmal Noc. Dyspnea, Edema, Lt Headedness, Other Symptoms Gastrointestinal: Denies: Nausea, Vomiting, Abdominal Pain, Diarrhea, Constipation, Melena, Hematochezia, Other Symptoms Objective Physical Examination General Exam: Positive: Alert, Cooperative, No Acute Distress, Other (elderly, frail) Eye Exam: Positive: PERRLA, Conjunctiva & lids normal, EOMI, Negative: Sclera icteric ENT Exam: Positive: Atraumatic, Mucous membr. moist/pink Neck Exam: Positive: Supple Chest Exam: Positive: Clear to auscultation, Normal air movement Heart Exam: Positive: Rate Normal, Regular Rhythm, Murmurs (soft systolic murmur) Telemetry: Positive: Tachycardia Abdomen Exam: Positive: Normal bowel sounds, Soft, Negative: Tenderness Psych Exam: Positive: Oriented x 3 Assessment /Plan Problems (1) Hypotension Status: Resolved Discussed With: Patient Problem Specific Plan: Monitor Clinically Problem Text: Patient history of hypertension. Home meds on hold. IV fluids. Follow clinically. (2) C. difficile colitis Status: Acute Response to Treatment: Improving Discussed With: Patient Problem Specific Plan: Monitor Clinically, Repeat Labs Problem Text: Continue PO vanco, probiotics. added iv flagyl Diarrhea significantly improved. leukocytosis resolved (3) Diabetes Status: Chronic Discussed With: Patient Problem Specific Plan: Repeat Labs Problem Text: blood sugars have been on the low side. held morning levemir, continue sliding scale (4) Crohns disease Status: Chronic Discussed With: Patient Problem Specific Plan: Monitor Clinically Problem Text: CT abd pelvis possible mild diffuse thickening of the terminal ileum, limited eval without contrast tolerating clear liquids KUB showed possible ileus/early SBO Surgery c/s pending, assistance appreciated (5) Diarrhea Status: Resolved Response to Treatment: Improving Discussed With: Patient Problem Specific Plan: Monitor Clinically, Repeat Labs Plan/VTE VTE Prophylaxis Ordered?: Yes (mechanical) Plan IVF: Discontinue Diet: Continue Current Activity: Continue Current Diagnostics: Repeat Labs in AM Anticipated Discharge: Home, Home With Services Disposition Likely downgrade to PCU today, vs medical floor tomorrow. VS, I&O, 24H, Fishbone Vital Signs/I&O Vital Signs Date Time Temp Pulse Resp B/P (MAP) Pulse Ox O2 Delivery O2 Flow Rate FiO2 11/19/16 09:11 104 123/69 11/19/16 06:00 18 94 Nasal Cannula 3.0 11/19/16 04:00 98.9 11/18/16 14:52 50 I&O- Last 24 Hours up to 6 AM 11/19/16 05:59 Intake Total 1600 ml Output Total 1050 ml Balance 550 ml Laboratory Data 24H LABS Laboratory Tests 2 11/18/16 10:27: White Blood Count 12.2H, Red Blood Count 3.84L, Hemoglobin 11.5L, Hematocrit 37.2, Mean Corpuscular Volume 96.9H, Mean Corpuscular Hemoglobin 30.0, Mean Corpuscular Hemoglobin Concent 31.0L, Red Cell Distribution Width 13.7, Platelet Count 267, Neutrophils (%) (Auto) 64.1, Lymphocytes (%) (Auto) 25.9, Monocytes (%) (Auto) 6.3H, Eosinophils (%) (Auto) 0.2, Basophils (%) (Auto) 0.3 , Neutrophils # (Auto) 7.9H, Lymphocytes # (Auto) 3.6, Monocytes # (Auto) 0.8, Eosinophils # (Auto) 0.0, Basophils # (Auto) 0.0, Large Unclassified Cells % 3.3 , Large Unclassified Cells # 0.4, Anion Gap 8, Glomerular Filtration Rate 31.7L , Lactic Acid Level 1.5, Blood Urea Nitrogen 21H, Creatinine 1.66H, Sodium Level 139, Potassium Level 4.0, Chloride Level 107, Carbon Dioxide Level 24, Calcium Level 7.9L, Aspartate Amino Transf (AST/SGOT) 23, Alanine Aminotransferase (ALT/SGPT) 19, Alkaline Phosphatase 103, Total Bilirubin 0.2, Total Protein 6.1L, Albumin 2.6L, Total Creatine Kinase 66, Creatine Kinase MB 2.4, Creatine Kinase MB Relative Index 3.63, Troponin I < 0.02, Albumin/ Globulin Ratio 0.74L 11/18/16 11:56: Bedside Glucose (Misc Panel) 183H 11/18/16 15:00: Urine Appearance HAZY, Urine Color YELLOW, Urine pH 5.0, Urine Specific [place] 1.006, Urine Protein 1+H, Urine Glucose (UA) NEGATIVE, Urine Ketones TRACEH, Urine Urobilinogen 0.2, Urine Bilirubin NEGATIVE, Urine Leukocyte Esterase 1+H, Urine Blood NEGATIVE, Urine Nitrite POSITIVE, Urine WBC (Auto) 38H, Urine RBC ( Auto) 1, Urine Hyaline Casts (Auto) 0, Urine Bacteria (Auto) 1+H, Urine Squamous Epithelial Cells 0, Urine Amorphous Sediment SMALLH, Urine Mucus (Auto ) SMALL, Urine Sperm (Auto) 11/18/16 17:03: Bedside Glucose (Misc Panel) 152H 11/18/16 21:31: Bedside Glucose (Misc Panel) 145H 11/19/16 04:57: White Blood Count 8.4, Red Blood Count 3.59L, Hemoglobin 10.7L, Hematocrit 35.5L , Mean Corpuscular Volume 98.9H, Mean Corpuscular Hemoglobin 29.9, Mean Corpuscular Hemoglobin Concent 30.3L, Red Cell Distribution Width 13.6, Platelet Count 286, Neutrophils (%) (Auto) 74.5H, Lymphocytes (%) (Auto) 15.8L, Monocytes (%) (Auto) 6.5H, Eosinophils (%) (Auto) 0.2, Basophils (%) (Auto) 0.2 , Neutrophils # (Auto) 6.3, Lymphocytes # (Auto) 1.3L, Monocytes # (Auto) 0.6, Eosinophils # (Auto) 0.0, Basophils # (Auto) 0.0, Large Unclassified Cells % 2.7 , Large Unclassified Cells # 0.2, Anion Gap 8, Glomerular Filtration Rate 34.1L , Blood Urea Nitrogen 22H, Creatinine 1.56H, Sodium Level 141, Potassium Level 4.1, Chloride Level 110H, Carbon Dioxide Level 23, Calcium Level 8.0L, Magnesium Level 1.9 11/19/16 07:33: Bedside Glucose (Misc Panel) 118H CBC/BMP Laboratory Tests 11/18/16 10:27 Red Blood Count 3.84 L, Mean Corpuscular Volume 96.9 H, Mean Corpuscular Hemoglobin 30.0, Mean Corpuscular Hemoglobin Concent 31.0 L, Red Cell Distribution Width 13.7, Neutrophils (%) (Auto) 64.1, Lymphocytes (%) (Auto) 25.9, Monocytes (%) (Auto) 6.3 H, Eosinophils (%) (Auto) 0.2, Basophils (%) ( Auto) 0.3, Neutrophils # (Auto) 7.9 H, Lymphocytes # (Auto) 3.6, Monocytes # ( Auto) 0.8, Eosinophils # (Auto) 0.0, Basophils # (Auto) 0.0, Calcium Level 7.9 L , Aspartate Amino Transf (AST/SGOT) 23, Alanine Aminotransferase (ALT/SGPT) 19, Alkaline Phosphatase 103, Total Bilirubin 0.2, Total Protein 6.1 L, Albumin 2.6 L 11/19/16 04:57 Red Blood Count 3.59 L, Mean Corpuscular Volume 98.9 H, Mean Corpuscular Hemoglobin 29.9, Mean Corpuscular Hemoglobin Concent 30.3 L, Red Cell Distribution Width 13.6, Neutrophils (%) (Auto) 74.5 H, Lymphocytes (%) (Auto) 15.8 L, Monocytes (%) (Auto) 6.5 H, Eosinophils (%) (Auto) 0.2, Basophils (%) ( Auto) 0.2, Neutrophils # (Auto) 6.3, Lymphocytes # (Auto) 1.3 L, Monocytes # ( Auto) 0.6, Eosinophils # (Auto) 0.0, Basophils # (Auto) 0.0, Calcium Level 8.0 L Microbiology Microbiology 11/18/16 Blood Culture - Preliminary, Resulted No growth after 24 hours . All specim... 11/18/16 Blood Culture - Preliminary, Resulted No growth after 24 hours . All specim... 11/16/16 Blood Culture - Preliminary, Resulted No Growth after 48 hours. All Specime... 11/16/16 Blood Culture - Preliminary, Resulted No Growth after 48 hours. All Specime... 11/16/16 Gastrointestinal Tract Panel (PCR) - Final, Complete Clostridium Difficile A/B 11/18/16 Respiratory Virus Panel (PCR) ([facility]) - Final, Complete 11/18/16 Urine Culture, Received Pending RANI PHILLIPS MD November 19, 2016 10:18
--- NOTE | 2016-11-19 18:17 | ECGEPIP ---
Stationary ECG Study [facility] Test Date: 2016-11-18 Pat Name: PINKY COOPER Department: Room: [place] [address] Gender: F [employer]: : [id number] Requested By: JAYSHREE LOPEZ Order Number: [id number] Reading MD: Chaparro Ross Measurements Intervals [place] Rate: 110 P: 80 SC: 189 QRS: 141 QRSD: 154 T: 42 QT: 348 QTc: 471 Interpretive Statements SINUS TACHYCARDIA RIGHT BUNDLE BRANCH BLOCK LEFT POSTERIOR FASCICULAR BLOCK COMPARED TO THE LAST 3 TRACINGS IN THE SYSTEM, NO SIGNIFICANT CHANGES BUT FASTER HEART RATE Electronically Signed On 11-19-2016 18:17:33 EDT by Chaparro Ross
[2016-11-19] MEDS: AMITRIPTYLINE 25 MG TAB PO SCH (21:48)
[2016-11-20] VITALS (8 sets, daily range): BP systolic 97–141; BP diastolic 46–75
[2016-11-20] MEDS: ACETAMINOPHEN TAB 650MG DOSE (2X325MG) PO PRN (00:40)
[2016-11-20 04:54] LABS: BASO % 0.2 % (0.0-1.0); EOS % 0.3 % (0.0-3.0); LARGE UNSTAINED CELL # 0.2 K/mm3 (0.0-0.4); LARGE UNSTAINED CELL % 2.7 % (0.0-4.0); LYMPH # 1.3 K/mm3 (1.5-4.5); LYMPH % 12.3 % (24.0-44.0); MEAN CORPUSCULAR HEMOGLOBIN 29.6 pg (27.0-33.0); MEAN CORPUSCULAR HGB CONC 30.5 g/dl (32.0-36.5); MEAN CORPUSCULAR VOLUME 97.3 fl (80.0-96.0); MONO # 0.6 K/mm3 (0.0-0.8); MONO % 7.3 % (0.0-5.0); NEUTROPHILS # 6.6 K/mm3 (1.8-7.7); NEUTROPHILS % 77.2 % (36.0-66.0); PLATELET COUNT, AUTOMATED 292 k/mm3 (150-450); RED CELL DISTRIBUTION WIDTH 13.8 % (11.5-14.5); WHITE BLOOD COUNT 8.6 K/mm3 (4.0-10.0)
[2016-11-20 04:58] LABS: CREATININE FOR GFR 1.66 MG/DL (0.55-1.02); GLOMERULAR FILTRATION RATE 31.7 (>39); POTASSIUM SERUM 4.2 MEQ/L (3.5-5.1)
[2016-11-20] MEDS: HEPARIN SOD (PORCINE) 5000 UNITS/ML VIAL SQ SCH ×3 (05:23→21:31)
[2016-11-20 06:44] LABS: ABG BASE EXCESS -8.7 (-2.0-2.0); ABG HCO3 19.2 MEQ/L (22.0-26.0); ABG PARTIAL PRESSURE CO2 50.3 mmHg (35.0-45.0); ABG STANDARD HCO3 17.4 MEQ/L (22.0-26.0); ABG TOTAL CO2 20.7 MEQ/L (23.0-31.0)
[2016-11-20 06:47] LABS: ABG pH (ARTERIAL) 7.199 UNITS (7.350-7.450)
[2016-11-20] MEDS: HumaLOG INSULIN (NovoLOG) PER UNIT SC SCH ×4 (07:30→21:00)
--- NOTE | 2016-11-20 08:39 | IPNPDOC ---
Subjective Date Seen The patient was seen on 11/20/16. Subjective Chief Complaint/HPI The patient is a 80-year-old female admitted with a reason for visit of Diarrhea ,Hypotension. Events since last encounter Reported she was agitated and confused last night. This morning she does appear slightly off her baseline mentation. She does note frequent urination, also noted by overnight staff. She also admits to continued diarrhea. Denies chest pain, abdominal pain. TMax 103 General: Denies: ROS Unobtainable, Chills, Night Sweats, Fatigue, Malaise, Normal Appetite, Other Symptoms Constitutional: Reports: Fever, Denies: Chills, Malaise, Night Sweats, Weakness, Fatigue, Weight Loss, Lethargy, Other Eyes: Denies: Pain, Vision change, Conjunctivae inflammation, Eyelid inflammation, Redness, Other ENT: Denies: Head Aches, Ear Pain, Dysphagia, Sinus Congestion, Post Nasal Drip , Sore Throat, Epistaxis, Other Symptoms Skin: Denies: Rash, Lesions, Jaundice, Bruising, Itching, Dry, Breakdown, Nail Changes, Other Pulmonary: Reports: Dyspnea, Cough, Denies: Pleuritic Chest Pain, Other Symptoms Cardiovascular: Denies: Chest Pain, Palpitations, Orthopnea, Paroxysmal Noc. Dyspnea, Edema, Lt Headedness, Other Symptoms Gastrointestinal: Reports: Diarrhea, Denies: Nausea, Vomiting, Abdominal Pain, Constipation, Melena, Hematochezia , Other Symptoms Genitourinary: Reports: Frequency, Denies: Dysuria, Incontinence, Hematuria, Retention, Other Symptoms Objective Physical Examination General Exam: Positive: Alert, Cooperative, No Acute Distress, Other (elderly, frail) Eye Exam: Positive: PERRLA, Conjunctiva & lids normal, EOMI, Negative: Sclera icteric ENT Exam: Positive: Atraumatic, Mucous membr. moist/pink Neck Exam: Positive: Supple Chest Exam: Positive: Clear to auscultation, Normal air movement, Diminished Heart Exam: Positive: Rate Normal, Regular Rhythm, Murmurs (soft systolic murmur) Telemetry: Positive: No significant arrhythmia Abdomen Exam: Positive: Normal bowel sounds, Soft, Negative: Tenderness Psych Exam: Positive: Oriented x 3 (grossly oriented to person place and time with prompting) Assessment /Plan Problems (1) C. difficile colitis Status: Acute Response to Treatment: Improving Discussed With: Patient Problem Specific Plan: Consult Specialist, Monitor Clinically, Repeat Labs Problem Text: Transitioned PO vanco to dificid. Still having diarrhea, fevers - TMax 103 leukocytosis resolved id consulted (2) UTI (urinary tract infection) Status: Acute Discussed With: Patient Problem Specific Plan: Consult Specialist, Monitor Clinically Problem Text: UA positive, UCx + E coli Symptomatic with polyuria ID consultation for further assistance (3) Diarrhea Status: Acute Response to Treatment: Improving Discussed With: Patient Problem Specific Plan: Monitor Clinically, Repeat Labs Problem Text: Still having some diarrhea (4) SOB (shortness of breath) Status: Acute Response to Treatment: Progressing Discussed With: Patient Problem Specific Plan: Monitor Clinically Problem Text: will check 2d echo, possibly fluid overload from fluids administered for hypotension supplemental oxygen as needed (5) Hypotension Status: Resolved Discussed With: Patient Problem Specific Plan: Monitor Clinically Problem Text: Patient history of hypertension. Home meds on hold. IV fluids discontinued secondary to sob. Follow clinically. (6) Diabetes Status: Chronic Discussed With: Patient Problem Specific Plan: Repeat Labs Problem Text: blood sugars have been on the low side. held morning levemir, continue sliding scale (7) Crohns disease Status: Chronic Discussed With: Patient Problem Specific Plan: Monitor Clinically Problem Text: CT abd pelvis possible mild diffuse thickening of the terminal ileum, limited eval without contrast tolerating clear liquids KUB showed possible ileus/early SBO Surgery c/s pending, assistance appreciated Plan/VTE VTE Prophylaxis Ordered?: Yes (mechanical) Plan IVF: Discontinue Diet: Continue Current Activity: Continue Current Respiratory: Wean Oxygen Diagnostics: Repeat Labs in AM, Ultrasound Anticipated Discharge: Home, Home With Services SOB - LE dopplers, CXR, 2d echo still diarrhea with fevers - transitioned po vanco to dificid, complicated with UTI - ID c/s Further discussion with family indicates she does have history chronic hypoxic respiratory failure - but has refused to wear supplemental oxygen. Also a history of congestive heart failure. VS, I&O, 24H, Fishbone Vital Signs/I&O Vital Signs Date Time Temp Pulse Resp B/P (MAP) Pulse Ox O2 Delivery O2 Flow Rate FiO2 11/20/16 04:00 98.6 84 22 99/55 (70) 96 Nasal Cannula 4.0 11/18/16 14:52 50 I&O- Last 24 Hours up to 6 AM 11/20/16 05:59 Intake Total 2820 ml Output Total 700 ml Balance 2120 ml Laboratory Data 24H LABS Laboratory Tests 2 11/19/16 12:18: Bedside Glucose (Misc Panel) 153H 11/19/16 16:15: Bedside Glucose (Misc Panel) 166H 11/19/16 21:39: Bedside Glucose (Misc Panel) 99 11/20/16 04:18: White Blood Count 8.6, Red Blood Count 3.50L, Hemoglobin 10.4L, Hematocrit 34.0L , Mean Corpuscular Volume 97.3H, Mean Corpuscular Hemoglobin 29.6, Mean Corpuscular Hemoglobin Concent 30.5L, Red Cell Distribution Width 13.8, Platelet Count 292, Neutrophils (%) (Auto) 77.2H, Lymphocytes (%) (Auto) 12.3L, Monocytes (%) (Auto) 7.3H, Eosinophils (%) (Auto) 0.3, Basophils (%) (Auto) 0.2 , Neutrophils # (Auto) 6.6, Lymphocytes # (Auto) 1.3L, Monocytes # (Auto) 0.6, Eosinophils # (Auto) 0.0, Basophils # (Auto) 0.0, Large Unclassified Cells % 2.7 , Large Unclassified Cells # 0.2, Anion Gap 8, Glomerular Filtration Rate 31.7L , Blood Urea Nitrogen 20H, Creatinine 1.66H, Sodium Level 140, Potassium Level 4.2, Chloride Level 110H, Carbon Dioxide Level 22, Calcium Level 8.0L, Magnesium Level 2.0 11/20/16 06:32: Blood Gas Bicarbonate Standard 17.4L, Arterial Blood pH 7.199*L, Arterial Blood Partial Pressure CO2 50.3H, Arterial Blood Partial Pressure O2 126.0H, Arterial Blood Total CO2 20.7L, Arterial Blood HCO3 19.2L, Arterial Blood Base Excess - 8.7L, Arterial Blood Oxygen Saturation 97.6 CBC/BMP Laboratory Tests 11/20/16 04:18 Red Blood Count 3.50 L, Mean Corpuscular Volume 97.3 H, Mean Corpuscular Hemoglobin 29.6, Mean Corpuscular Hemoglobin Concent 30.5 L, Red Cell Distribution Width 13.8, Neutrophils (%) (Auto) 77.2 H, Lymphocytes (%) (Auto) 12.3 L, Monocytes (%) (Auto) 7.3 H, Eosinophils (%) (Auto) 0.3, Basophils (%) ( Auto) 0.2, Neutrophils # (Auto) 6.6, Lymphocytes # (Auto) 1.3 L, Monocytes # ( Auto) 0.6, Eosinophils # (Auto) 0.0, Basophils # (Auto) 0.0, Calcium Level 8.0 L Microbiology Microbiology 11/18/16 Blood Culture - Preliminary, Resulted No Growth after 48 hours. All Specime... 11/18/16 Blood Culture - Preliminary, Resulted No Growth after 48 hours. All Specime... 11/16/16 Blood Culture - Preliminary, Resulted No Growth after 72 hours. All specime... 11/16/16 Blood Culture - Preliminary, Resulted No Growth after 72 hours. All specime... 11/16/16 Gastrointestinal Tract Panel (PCR) - Final, Complete Clostridium Difficile A/B 11/18/16 Respiratory Virus Panel (PCR) ([facility]) - Final, Complete 11/18/16 Urine Culture - Final, Complete Escherichia Coli RANI PHILLIPS MD November 20, 2016 08:39
[2016-11-20] MEDS: FIDAXOMICIN 200 MG TAB (DIFICID) PO SCH ×2 (08:52→21:30)
[2016-11-20] MEDS: LACTOBACILLUS ACIDOPHILUS CAP (BACID) PO SCH ×3 (08:52→21:30)
[2016-11-20] MEDS: PANTOPRAZOLE 40MG TAB (PROTONIX) PO SCH (08:52)
[2016-11-20] MEDS: METOPROLOL TART 50 MG TAB PO SCH ×2 (08:58→21:31)
[2016-11-20] MEDS: LEVEMIR (INSULIN DETEMIR) 1 UNITS/0.01ML SC SCH (09:00)
--- NOTE | 2016-11-20 10:35 | REP ---
PORTABLE CHEST: AP portable view of the chest is performed and compared to prior study of 11/18/2016. The patient is rotated. There is some motion which limits the exam. Cardiomediastinal silhouette has not definitely changed. Diffuse increased interstitial markings appear stable. IMPRESSION: Grossly stable exam. Signed by Bernabe Hill MD 11/20/2016 05:17 P
[2016-11-20] MEDS ORDERED: FUROSEMIDE 40 MG/4 ML VIAL (J1940) IV ONE (12:00)
--- NOTE | 2016-11-20 12:11 | REP ---
Bilateral lower extremity Duplex Doppler venous ultrasound: Real time compression and duplex Doppler interrogation of the bilateral lower extremity deep venous system is performed. Bilaterally, the common femoral, superficial femoral and popliteal veins are fully compressible with transducer pressure and demonstrate normal spontaneous and phasic flow, without evidence of deep venous thrombosis. Impression: No evidence of deep venous thrombosis of the bilateral lower extremity femoral popliteal venous system. Signed by Bernabe Hill MD 11/20/2016 12:03 P
[2016-11-20 15:13] LABS: ABG BASE EXCESS -5.2 (-2.0-2.0); ABG HCO3 22.1 MEQ/L (22.0-26.0); ABG PARTIAL PRESSURE CO2 51.2 mmHg (35.0-45.0); ABG PARTIAL PRESSURE O2 85.6 mmHg (75.0-100.0); ABG STANDARD HCO3 20.1 MEQ/L (22.0-26.0); ABG TOTAL CO2 23.7 MEQ/L (23.0-31.0); ABG pH (ARTERIAL) 7.253 UNITS (7.350-7.450)
[2016-11-20] MEDS ORDERED: FOSFOMYCIN TROMETHAMINE 3 GM POWDER PACKET (MONUROL) PO ONE (15:30)
--- NOTE | 2016-11-20 15:38 | CR ---
DATE OF CONSULTATION: 11/20/2016 REQUESTING PHYSICIAN: Joshua Haley MD. REASON FOR CONSULTATION: Asked to consult by Dr. Haley for evaluation of Clostridium (C.) difficile colitis and abnormal urine culture with Escherichia (E.) coli, possible urinary tract infection (UTI). HISTORY OF PRESENT ILLNESS: Mrs. Knight is a 80-year-old female who was admitted to the hospital on 11/16 with complaints of decreased appetite, fever, and diarrhea. The patient states she has a history of Crohn's disease and normally she has loose stools about two a day, but before admission she was having about seven a day. She denied any hematochezia, melena, rectal bleeding. She was lightheaded and according to her daughter, she was confused. The patient was hypotensive in the emergency room with a systolic blood pressure of 84/46, oxygen saturation 90%, and a temperature of 99.3. She was given intravenous (IV) fluids with improvement. The patient was treated with oral vancomycin 125 mg four times a day, that was increased a couple of days later to 250 mg. She was also given one dose of IV Flagyl. Her diarrhea was not severe. According to the nurse today, was semiformed and only had one. She does complaining of some burning on urination but she blames it on the fact that she has a rash and is excoriated from the diarrhea. She denies any flank pain. She has been confused. PAST MEDICAL HISTORY: Significant for: 1. Diabetes type 2 insulin dependent. 2. Vitamin D deficiency. 3. Osteoporosis. 4. Chronic obstructive pulmonary disease (COPD). Supposed to be on Advair which she does not take. She only takes Ventolin. 5. Hypertensive heart disease She has diastolic dysfunction with an ejection fraction of 60% by echocardiogram done in 2007. 6. 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 Off Paxil since 2007. 7. Crohn's disease without complication. She had cancelled her colonoscopy which was due in 2009. 8. Peripheral vascular disease and carotid artery stenosis. 9. Glaucoma. 10. Chronic kidney disease stage III. 11. Spinal stenosis. PAST SURGICAL HISTORY: 1. Cholecystectomy. 2. section. 3. Aortobifemoral bypass 2002. 4. Bilateral cataract surgery in 2014. FAMILY HISTORY: Father of malignancy at the age of 74. Mother of malignancy at 53. Sister had coronary artery bypass graft (CABG). SOCIAL HISTORY: She recently lost her . They were since 1956, about 60 years, and she has been depressed since his loss. She does not smoke or drink. Quit over 30 years ago her smoking. ALLERGIES: PIOGLITAZONE and PENICILLIN. MEDICATIONS: - fidaxomicin 200 mg by mouth twice a day which was started on 11/20. Prior to that, she had received five days of vancomycin - zinc oxide to buttock area - probiotics one tablet by mouth three times a day - Protonix 40 mg by mouth daily - Levemir 15 units subcutaneous daily - metoprolol 50 mg by mouth twice a day - albuterol two puffs every four hours as needed - Zofran 4 mg IV every six hours as needed - amitriptyline 25 mg by mouth at bedtime LABORATORY DATA: White count on admission was 9 on 11/18, increased to 12.2, and currently 8.6, hemoglobin 10.4, hematocrit 34, platelets 292, 77% neutrophils, 12% lymphocytes, 7% monocytes. Sodium 140, potassium 4.2, chloride 110, bicarbonate 22, BUN 20, creatinine 1.6, glucose 157, calcium 8, magnesium 2. MICROBIOLOGY: Urinalysis had 38 white cells, +1 leukocyte esterase, trace ketones, +1 bacteria. Blood cultures were drawn on 11/16 and 11/18; were no growth after 48 hours. Respiratory panel was negative. Stool for C. difficile on 11/16 was positive. Urine culture on 11/18 was positive for E. coli more than 100,000, only resistant to ampicillin and Unasyn, intermediate to cefazolin, sensitive to levofloxacin, tobramycin, ceftriaxone. IMAGING: Vascular ultrasound today showed no evidence of deep venous thrombosis (DVT) on 11/20. Chest x-ray portable shows grossly normal exam. CT abdomen done on 11/18 showed possible mild diffuse thickening of the terminal ileum. Evaluation limited without oral or IV contrast. No free air. Status post cholecystectomy, and atelectasis at the bases. Chest x-ray on admission also showed stable chronic findings without evidence of acute infiltrate. PHYSICAL EXAMINATION: GENERAL: She is an elderly, frail female in mild respiratory discomfort. HEART: Normal S1, S2. Distant, with a systolic ejection murmur 2/6. LUNGS: Crackles and a few rhonchi at the bases with fair diminished air entry. ABDOMEN: Soft, nontender, with a very large mid scar, probably from bypass surgery. EXTREMITIES: Trace edema. BACK: No costovertebral angle or lumbosacral tenderness. HEENT: Oropharynx is clear with no lesions. NEUROLOGIC: She is alert, but not oriented to place. She is oriented to person. Sitting at the bedside in the intensive care unit (ICU). VITAL SIGNS: Temperature currently is 100.7, pulse 89, respirations 20, blood pressure 124/64, oxygen saturation 97% on four liters nasal cannula. IMPRESSION: This is a 80-year-old female with a history of chronic obstructive pulmonary disease (COPD), peripheral vascular disease, diabetes on insulin, Crohn's disease not on treatment, who was admitted with worsening diarrhea. Her stool for Clostridium (C.) difficile was positive, although I could not find anywhere in the outpatient or inpatient record use of prior antibiotic. She was treated with vancomycin for the past five days with some improvement, although her fever persists. She was switched from vancomycin to Bacid today. According to nursing, she only had one small bowel movement that is semiformed. The patient does complain of dysuria but also has some irritation from chronic diarrhea. Her urinalysis had 38 white cells with Escherichia (E.) coli, resistant to ampicillin, as well as intermediate to cephazolin. Blood cultures have been negative. The question is whether her persistent fever is related to a urinary tract infection (UTI) as the patient does have dysuria, or to the C. difficile colitis. PLAN: Suggest obtaining a straight catheterization urine to make sure this is a real UTI and not a contamination from the fact that she has had diarrhea. I would actually suggest treating her with fosfomycin 3 grams and obtaining susceptibility on the E. coli to decrease use of broad-spectrum antibiotic as she is resistant to ampicillin and intermediate to cephazolin. If the patient deteriorates, then we could use a broad-spectrum ceftriaxone or quinolone to treat the urinary tract infection. Otherwise, I would continue with the probiotic, Bacid.
--- NOTE | 2016-11-20 16:00 | ECHO ---
DATE OF PROCEDURE: 11/20/2016 REFERRING PHYSICIAN: Dr. Joshua Haley INDICATION: Dyspnea. HEIGHT: 150 cm. WEIGHT: 61.1 kg. 2D MEASUREMENTS: Left atrium: 3.6 cm Ventricular septum: 1.19 cm Posterior wall: 1.16 cm Left ventricle diastole: 3.6 cm Aortic root: 2.7 cm Left atrium: 1.8 cm Aortic annulus: 1.7 cm Inferior vena cava: 2.1 cm DOPPLER MEASUREMENTS: Aortic valve velocity: 153 cm/s LVOT velocity: 82.7 cm/s LVOT VTI: 16.9 cm Mitral E velocity: 75.0 cm/s Mitral A velocity: 96.3 cm/s Very mild tricuspid regurgitation. Estimated right ventricular systolic pressure 33 mmHg. MITRAL ANNULAR TISSUE DOPPLER: E-prime septal 6.4 cm/s E-prime lateral 9.4 cm/s DESCRIPTION: The rhythm was sinus. This was a moderately technically difficult echocardiogram. No pericardial effusion. Appearance of a right bundle branch block morphology. CONCLUSIONS: 1. Hyperdynamic left ventricle (LV) systolic function. Normal LV wall thickness. No regional wall motion abnormalities. 2. Suggestive of grade 1 LV diastolic dysfunction (impaired relaxation filling pattern). Normal left atrial size. 3. Mild aortic valve sclerosis. 4. Suggestive of very mild elevation of pulmonary artery systolic pressure. 5. Suggestive of elevated central venous pressure of at least 20 mmHg.
[2016-11-20] MEDS: AMITRIPTYLINE 25 MG TAB PO SCH (21:30)
[2016-11-21] VITALS (7 sets, daily range): BP systolic 110–158; BP diastolic 49–69
[2016-11-21] MEDS ORDERED: diphenhydrAMINE INJ 50MG/ML VIAL (J1200) IV ONE (02:45)
[2016-11-21] MEDS ORDERED: diphenhydrAMINE INJ 50MG/ML VIAL (J1200) As Ordered ONE (02:49)
[2016-11-21] MEDS: ACETAMINOPHEN TAB 650MG DOSE (2X325MG) PO PRN (02:51)
[2016-11-21 04:53] LABS: BASO % 0.3 % (0.0-1.0); EOS # 0.1 K/mm3 (0.0-0.50); EOS % 0.8 % (0.0-3.0); LARGE UNSTAINED CELL # 0.2 K/mm3 (0.0-0.4); LARGE UNSTAINED CELL % 2.1 % (0.0-4.0); LYMPH # 1.1 K/mm3 (1.5-4.5); LYMPH % 12.8 % (24.0-44.0); MEAN CORPUSCULAR HEMOGLOBIN 29.8 pg (27.0-33.0); MEAN CORPUSCULAR HGB CONC 30.1 g/dl (32.0-36.5); MONO # 0.6 K/mm3 (0.0-0.8); MONO % 7.1 % (0.0-5.0); NEUTROPHILS # 6.4 K/mm3 (1.8-7.7); PLATELET COUNT, AUTOMATED 304 k/mm3 (150-450); RED CELL DISTRIBUTION WIDTH 13.9 % (11.5-14.5); WHITE BLOOD COUNT 8.3 K/mm3 (4.0-10.0)
[2016-11-21 05:08] LABS: CREATININE FOR GFR 1.74 MG/DL (0.55-1.02); MAGNESIUM LEVEL 1.9 MG/DL (1.8-2.4); POTASSIUM SERUM 3.7 MEQ/L (3.5-5.1)
[2016-11-21] MEDS: HEPARIN SOD (PORCINE) 5000 UNITS/ML VIAL SQ SCH ×3 (06:00→21:22)
[2016-11-21] MEDS ORDERED: FUROSEMIDE 40 MG/4 ML VIAL (J1940) IV ONE (06:30)
[2016-11-21] MEDS: PANTOPRAZOLE 40MG TAB (PROTONIX) PO SCH (08:13)
[2016-11-21] MEDS: HumaLOG INSULIN (NovoLOG) PER UNIT SC SCH ×4 (08:13→21:00)
[2016-11-21] MEDS: LEVEMIR (INSULIN DETEMIR) 1 UNITS/0.01ML SC SCH (08:13)
[2016-11-21] MEDS: FIDAXOMICIN 200 MG TAB (DIFICID) PO SCH ×2 (08:14→21:22)
[2016-11-21] MEDS: LACTOBACILLUS ACIDOPHILUS CAP (BACID) PO SCH ×3 (08:14→21:22)
[2016-11-21] MEDS: METOPROLOL TART 50 MG TAB PO SCH ×2 (08:14→21:22)
--- NOTE | 2016-11-21 09:53 | IPNPDOC ---
Subjective Date Seen The patient was seen on 11/21/16. Subjective Chief Complaint/HPI The patient is a 80-year-old female admitted with a reason for visit of Diarrhea ,Hypotension. General: Reports: ROS Unobtainable, Denies: Chills, Night Sweats, Fatigue, Malaise, Normal Appetite, Other Symptoms Constitutional: Denies: Chills, Fever, Malaise, Night Sweats, Weakness, Fatigue , Weight Loss, Lethargy, Other Eyes: Denies: Pain, Vision change, Conjunctivae inflammation, Eyelid inflammation, Redness, Other ENT: Denies: Head Aches, Ear Pain, Dysphagia, Sinus Congestion, Post Nasal Drip , Sore Throat, Epistaxis, Other Symptoms Skin: Denies: Rash, Lesions, Jaundice, Bruising, Itching, Dry, Breakdown, Nail Changes, Other Pulmonary: Reports: Dyspnea, Denies: Cough, Pleuritic Chest Pain, Other Symptoms Cardiovascular: Denies: Chest Pain, Palpitations, Orthopnea, Paroxysmal Noc. Dyspnea, Edema, Lt Headedness, Other Symptoms Gastrointestinal: Reports: Diarrhea, Denies: Nausea, Vomiting, Abdominal Pain, Constipation, Melena, Hematochezia , Other Symptoms Objective Physical Examination General Exam: Positive: Alert, Cooperative, Mild Distress, Other (elderly, frail) Eye Exam: Positive: PERRLA, Conjunctiva & lids normal, EOMI, Negative: Sclera icteric ENT Exam: Positive: Atraumatic, Mucous membr. moist/pink Neck Exam: Positive: Supple Chest Exam: Positive: Clear to auscultation, Normal air movement, Diminished Heart Exam: Positive: Rate Normal, Regular Rhythm, Murmurs (soft systolic murmur) Telemetry: Positive: No significant arrhythmia Abdomen Exam: Positive: Normal bowel sounds, Soft, Negative: Tenderness Psych Exam: Positive: Oriented x 3 (grossly oriented to person and place and time with prompting) Assessment /Plan Problems (1) C. difficile colitis Status: Acute Response to Treatment: Improving Discussed With: Patient Problem Specific Plan: Consult Specialist, Monitor Clinically, Repeat Labs Problem Text: Transitioned PO vanco to dificid. Still having diarrhea, fevers - TMax 100.7 leukocytosis resolved id consultation appreciated (2) UTI (urinary tract infection) Status: Acute Discussed With: Patient Problem Specific Plan: Consult Specialist, Monitor Clinically Problem Text: UA positive, UCx + E coli - obtained as clean catch Repeat UA improved, repeat culture pending - both obtained as straight cath Symptomatic with polyuria ID consultation appreciated (3) Diarrhea Status: Acute Response to Treatment: Improving Discussed With: Patient Problem Specific Plan: Monitor Clinically, Repeat Labs Problem Text: continue with diarrhea - as per cdiff (4) SOB (shortness of breath) Status: Acute Response to Treatment: Progressing Discussed With: Patient Problem Specific Plan: Monitor Clinically Problem Text: 2d echo suggestive of grade 1 LV diastolic dysfunction will continue with diuresis supplemental oxygen as needed (5) Hypotension Status: Resolved Discussed With: Patient Problem Specific Plan: Monitor Clinically Problem Text: Patient history of hypertension. Home meds on hold. IV fluids discontinued secondary to sob. Follow clinically. (6) Diabetes Status: Chronic Discussed With: Patient Problem Specific Plan: Repeat Labs Problem Text: blood sugars have been on the low side. held morning levemir, continue sliding scale (7) Crohns disease Status: Chronic Discussed With: Patient Problem Specific Plan: Monitor Clinically Problem Text: CT abd pelvis possible mild diffuse thickening of the terminal ileum, limited eval without contrast tolerating clear liquids KUB showed possible ileus/early SBO Surgery c/s pending, assistance appreciated Plan/VTE VTE Prophylaxis Ordered?: Yes (mechanical) Plan IVF: Discontinue Diet: Continue Current Activity: Continue Current Respiratory: Wean Oxygen Diagnostics: Repeat Labs in AM, CT Anticipated Discharge: Home, Home With Services Continue diuresis, taper O2. AMS - ammonia levels pending, CT head - likely TME secondary to CDiff CDiff - dificid UTI - pending urine cultures VS[facility] Sign[facility]I&O Vital Signs Date Time Temp Pulse Resp B/P (MAP) Pulse Ox O2 Delivery O2 Flow Rate FiO2 11/21/16 04:00 98.7 90 22 151/69 (96) 95 Nasal Cannula 4.0 11/18/16 14:52 50 I&O- Last 24 Hours up to 6 AM 11/21/16 05:59 Intake Total 870 ml Output Total 1200 ml Balance -330 ml Laboratory Data 24H LABS Laboratory Tests 2 11/20/16 11:47: Bedside Glucose (Misc Panel) 87 11/20/16 15:04: Blood Gas Bicarbonate Standard 20.1L, Arterial Blood pH 7.253L, Arterial Blood Partial Pressure CO2 51.2H, Arterial Blood Partial Pressure O2 85.6, Arterial Blood Total CO2 23.7, Arterial Blood HCO3 22.1, Arterial Blood Base Excess -5.2L , Arterial Blood Oxygen Saturation 95.3 11/20/16 16:19: Urine Appearance CLEAR, Urine Color STRAW, Urine pH 5.0, Urine Specific [place] 1.004, Urine Protein NEGATIVE, Urine Glucose (UA) NEGATIVE, Urine Ketones NEGATIVE, Urine Urobilinogen 0.2, Urine Bilirubin NEGATIVE, Urine Leukocyte Esterase NEGATIVE, Urine Blood NEGATIVE, Urine Nitrite POSITIVE, Urine WBC (Auto ) 5H, Urine RBC (Auto) 2, Urine Hyaline Casts (Auto) 0, Urine Bacteria (Auto) 1+ H, Urine Squamous Epithelial Cells 0, Urine Amorphous Sediment SMALLH, Urine Mucus (Auto) SMALL, Urine Sperm (Auto) 11/20/16 17:07: Bedside Glucose (Misc Panel) 62L 11/20/16 21:18: Bedside Glucose (Misc Panel) 121H 11/21/16 04:11: White Blood Count 8.3, Red Blood Count 3.30L, Hemoglobin 9.8L, Hematocrit 32.6L , Mean Corpuscular Volume 99.0H, Mean Corpuscular Hemoglobin 29.8, Mean Corpuscular Hemoglobin Concent 30.1L, Red Cell Distribution Width 13.9, Platelet Count 304, Neutrophils (%) (Auto) 77.0H, Lymphocytes (%) (Auto) 12.8L, Monocytes (%) (Auto) 7.1H, Eosinophils (%) (Auto) 0.8, Basophils (%) (Auto) 0.3 , Neutrophils # (Auto) 6.4, Lymphocytes # (Auto) 1.1L, Monocytes # (Auto) 0.6, Eosinophils # (Auto) 0.1, Basophils # (Auto) 0.0, Large Unclassified Cells % 2.1 , Large Unclassified Cells # 0.2, Anion Gap 7L, Glomerular Filtration Rate 30.0L , Blood Urea Nitrogen 21H, Creatinine 1.74H, Sodium Level 141, Potassium Level 3.7, Chloride Level 109H, Carbon Dioxide Level 25, Calcium Level 8.0L, Magnesium Level 1.9 CBC/BMP Laboratory Tests 11/21/16 04:11 Red Blood Count 3.30 L, Mean Corpuscular Volume 99.0 H, Mean Corpuscular Hemoglobin 29.8, Mean Corpuscular Hemoglobin Concent 30.1 L, Red Cell Distribution Width 13.9, Neutrophils (%) (Auto) 77.0 H, Lymphocytes (%) (Auto) 12.8 L, Monocytes (%) (Auto) 7.1 H, Eosinophils (%) (Auto) 0.8, Basophils (%) ( Auto) 0.3, Neutrophils # (Auto) 6.4, Lymphocytes # (Auto) 1.1 L, Monocytes # ( Auto) 0.6, Eosinophils # (Auto) 0.1, Basophils # (Auto) 0.0, Calcium Level 8.0 L Microbiology Microbiology 11/20/16 Blood Culture - Preliminary, Resulted No growth after 24 hours . All specim... 11/20/16 Blood Culture - Preliminary, Resulted No growth after 24 hours . All specim... 11/18/16 Blood Culture - Preliminary, Resulted No Growth after 72 hours. All specime... 11/18/16 Blood Culture - Preliminary, Resulted No Growth after 72 hours. All specime... 11/16/16 Blood Culture - Preliminary, Resulted No Growth after 72 hours. All specime... 11/16/16 Blood Culture - Preliminary, Resulted No Growth after 72 hours. All specime... 11/16/16 Gastrointestinal Tract Panel (PCR) - Final, Complete Clostridium Difficile A/B 11/18/16 Respiratory Virus Panel (PCR) ([facility]) - Final, Complete 11/20/16 Urine Culture, Received Pending 11/18/16 Urine Culture - Final, Complete Escherichia Coli RANI PHILLIPS MD November 21, 2016 09:53
[2016-11-21] MEDS: AMITRIPTYLINE 25 MG TAB PO SCH (21:22)
[2016-11-22] VITALS (7 sets, daily range): BP systolic 105–180; BP diastolic 54–77
[2016-11-22 05:51] LABS: BASO % 0.4 % (0.0-1.0); EOS # 0.1 K/mm3 (0.0-0.50); EOS % 1.9 % (0.0-3.0); LARGE UNSTAINED CELL # 0.1 K/mm3 (0.0-0.4); LYMPH # 1.2 K/mm3 (1.5-4.5); LYMPH % 17.4 % (24.0-44.0); MEAN CORPUSCULAR HEMOGLOBIN 29.2 pg (27.0-33.0); MEAN CORPUSCULAR HGB CONC 29.9 g/dl (32.0-36.5); MEAN CORPUSCULAR VOLUME 97.7 fl (80.0-96.0); MONO # 0.6 K/mm3 (0.0-0.8); MONO % 8.7 % (0.0-5.0); NEUTROPHILS # 4.9 K/mm3 (1.8-7.7); NEUTROPHILS % 69.7 % (36.0-66.0); PLATELET COUNT, AUTOMATED 346 k/mm3 (150-450); RED CELL DISTRIBUTION WIDTH 13.9 % (11.5-14.5); WHITE BLOOD COUNT 7.1 K/mm3 (4.0-10.0)
[2016-11-22 06:05] LABS: CALCIUM LEVEL 8.3 MG/DL (8.8-10.2); CREATININE FOR GFR 1.65 MG/DL (0.55-1.02); GLOMERULAR FILTRATION RATE 31.9 (>39); MAGNESIUM LEVEL 1.8 MG/DL (1.8-2.4)
[2016-11-22] MEDS: HEPARIN SOD (PORCINE) 5000 UNITS/ML VIAL SQ SCH ×3 (06:11→22:16)
[2016-11-22] MEDS ORDERED: POTASSIUM CHLORIDE 10 MEQ SR TABLET PO ONE (06:30)
--- NOTE | 2016-11-22 07:14 | REP ---
CT HEAD: HISTORY: Altered mental status. COMPARISON: 04/14/2008, the latest prior. There is no significant change from the prior exam. The ventricles and sulci are stable. There are no acute extra-axial fluid collections. There is no evidence of an acute intracranial hemorrhagic or nonhemorrhagic event. There is no shift of the midline structures. There is no change in the appearance of the imaged paranasal sinuses or mastoid air cells. IMPRESSION: No significant change. No evidence of acute disease. Signed by Payam Ware DO 11/22/2016 09:54 A
[2016-11-22] MEDS: HumaLOG INSULIN (NovoLOG) PER UNIT SC SCH ×4 (07:30→21:00)
--- NOTE | 2016-11-22 08:24 | IPNPDOC ---
Subjective Date Seen The patient was seen on 11/22/16. Subjective Chief Complaint/HPI The patient is a 80-year-old female admitted with a reason for visit of Diarrhea ,Hypotension. General: Denies: ROS Unobtainable, Chills, Night Sweats, Fatigue, Malaise, Normal Appetite, Other Symptoms Constitutional: Denies: Chills, Fever, Malaise, Night Sweats, Weakness, Fatigue , Weight Loss, Lethargy, Other Eyes: Denies: Pain, Vision change, Conjunctivae inflammation, Eyelid inflammation, Redness, Other ENT: Denies: Head Aches, Ear Pain, Dysphagia, Sinus Congestion, Post Nasal Drip , Sore Throat, Epistaxis, Other Symptoms Skin: Denies: Rash, Lesions, Jaundice, Bruising, Itching, Dry, Breakdown, Nail Changes, Other Pulmonary: Reports: Dyspnea, Denies: Cough, Pleuritic Chest Pain, Other Symptoms Cardiovascular: Denies: Chest Pain, Palpitations, Orthopnea, Paroxysmal Noc. Dyspnea, Edema, Lt Headedness, Other Symptoms Gastrointestinal: Denies: Nausea, Vomiting, Abdominal Pain, Diarrhea, Constipation, Melena, Hematochezia, Other Symptoms Objective Physical Examination General Exam: Positive: Alert, Cooperative, No Acute Distress, Other (elderly, frail) Eye Exam: Positive: PERRLA, Conjunctiva & lids normal, EOMI, Negative: Sclera icteric ENT Exam: Positive: Atraumatic, Mucous membr. moist/pink Neck Exam: Positive: Supple Chest Exam: Positive: Clear to auscultation, Normal air movement, Diminished Heart Exam: Positive: Rate Normal, Regular Rhythm, Murmurs (soft systolic murmur) Telemetry: Positive: No significant arrhythmia Abdomen Exam: Positive: Normal bowel sounds, Soft, Negative: Tenderness Psych Exam: Positive: Oriented x 3 (grossly oriented to person and place and time with prompting) Assessment /Plan Problems (1) C. difficile colitis Status: Acute Response to Treatment: Improving Discussed With: Patient Problem Specific Plan: Consult Specialist, Monitor Clinically, Repeat Labs Problem Text: Transitioned from PO vanco to dificid. diarrhea improving, low grade fever at midnight - TMax 100.0 leukocytosis resolved id consultation appreciated (2) UTI (urinary tract infection) Status: Acute Discussed With: Patient Problem Specific Plan: Consult Specialist, Monitor Clinically Problem Text: UA positive, UCx + E coli - obtained as clean catch Repeat UA improved, repeat culture showing e coli with good sensitivities was symptomatic - appears to have improved ID consultation appreciated (3) Diarrhea Status: Acute Response to Treatment: Improving Discussed With: Patient Problem Specific Plan: Monitor Clinically, Repeat Labs Problem Text: improving - as per cdiff (4) SOB (shortness of breath) Status: Acute Response to Treatment: Progressing Discussed With: Patient Problem Specific Plan: Monitor Clinically Problem Text: 2d echo = grade 1 LV diastolic dysfunction will continue with diuresis supplemental oxygen as needed (5) Hypotension Status: Resolved Discussed With: Patient Problem Specific Plan: Monitor Clinically Problem Text: Patient history of hypertension. Home meds on hold. IV fluids discontinued secondary to sob. Follow clinically. (6) Diabetes Status: Chronic Discussed With: Patient Problem Specific Plan: Repeat Labs Problem Text: blood sugars have been on the low side. held morning levemir, continue sliding scale (7) Crohns disease Status: Chronic Discussed With: Patient Problem Specific Plan: Monitor Clinically Problem Text: CT abd pelvis possible mild diffuse thickening of the terminal ileum, limited eval without contrast tolerating clear liquids KUB showed possible ileus/early SBO Surgery c/s pending, assistance appreciated (8) Altered mental status Status: Acute Response to Treatment: Improving Discussed With: Patient Problem Specific Plan: Monitor Clinically Problem Text: likely TME secondary to cdiff complicated with decomp chf slowly improving (9) Noncompliance Status: Chronic Problem Text: further complicating factor to her medical care apparently has been prescribed supplemental oxygen which she refused did not follow thru surveillance colonoscopy for crohn's in 2009 Plan/VTE VTE Prophylaxis Ordered?: Yes (mechanical) Plan IVF: Discontinue Diet: Continue Current Activity: Continue Current Therapy: PT Pt and Family Services: Other PFS Respiratory: Wean Oxygen Diagnostics: Repeat Labs in AM Anticipated Discharge: Home, Home With Services VS, I&O, 24H, [facility] Vital Signs/I&O Vital Signs Date Time Temp Pulse Resp B/P (MAP) Pulse Ox O2 Delivery O2 Flow Rate FiO2 11/22/16 07:46 Nasal Cannula 3.0 11/22/16 04:00 97.8 94 18 105/54 (71) 92 11/18/16 14:52 50 I&O- Last 24 Hours up to 6 AM 11/22/16 06:00 Intake Total 590 ml Output Total 2500 ml Balance -1910 ml Laboratory Data 24H LABS Laboratory Tests 2 11/21/16 10:08: Ammonia 16 11/21/16 12:02: Bedside Glucose (Misc Panel) 81L 11/21/16 16:38: Bedside Glucose (Misc Panel) 102 11/21/16 21:26: Bedside Glucose (Misc Panel) 117H 11/22/16 04:58: B-Type Natriuretic Peptide 381H 11/22/16 05:00: White Blood Count 7.1, Red Blood Count 3.44L, Hemoglobin 10.1L, Hematocrit 33.6L , Mean Corpuscular Volume 97.7H, Mean Corpuscular Hemoglobin 29.2, Mean Corpuscular Hemoglobin Concent 29.9L, Red Cell Distribution Width 13.9, Platelet Count 346, Neutrophils (%) (Auto) 69.7H, Lymphocytes (%) (Auto) 17.4L, Monocytes (%) (Auto) 8.7H, Eosinophils (%) (Auto) 1.9, Basophils (%) (Auto) 0.4 , Neutrophils # (Auto) 4.9, Lymphocytes # (Auto) 1.2L, Monocytes # (Auto) 0.6, Eosinophils # (Auto) 0.1, Basophils # (Auto) 0.0, Large Unclassified Cells % 2.0 , Large Unclassified Cells # 0.1, Anion Gap 7L, Glomerular Filtration Rate 31.9L , Blood Urea Nitrogen 19H, Creatinine 1.65H, Sodium Level 142, Potassium Level 3.0L, Chloride Level 106, Carbon Dioxide Level 29, Calcium Level 8.3L, Magnesium Level 1.8 CBC/BMP Laboratory Tests 11/22/16 05:00 Red Blood Count 3.44 L, Mean Corpuscular Volume 97.7 H, Mean Corpuscular Hemoglobin 29.2, Mean Corpuscular Hemoglobin Concent 29.9 L, Red Cell Distribution Width 13.9, Neutrophils (%) (Auto) 69.7 H, Lymphocytes (%) (Auto) 17.4 L, Monocytes (%) (Auto) 8.7 H, Eosinophils (%) (Auto) 1.9, Basophils (%) ( Auto) 0.4, Neutrophils # (Auto) 4.9, Lymphocytes # (Auto) 1.2 L, Monocytes # ( Auto) 0.6, Eosinophils # (Auto) 0.1, Basophils # (Auto) 0.0, Calcium Level 8.3 L Microbiology Microbiology 11/20/16 Blood Culture - Preliminary, Resulted No growth after 24 hours . All specim... 11/20/16 Blood Culture - Preliminary, Resulted No growth after 24 hours . All specim... 11/18/16 Blood Culture - Preliminary, Resulted No Growth after 72 hours. All specime... 11/18/16 Blood Culture - Preliminary, Resulted No Growth after 72 hours. All specime... 11/16/16 Blood Culture - Final, Complete NO GROWTH AFTER 5 DAYS 11/16/16 Blood Culture - Final, Complete NO GROWTH AFTER 5 DAYS 11/16/16 Gastrointestinal Tract Panel (PCR) - Final, Complete Clostridium Difficile A/B 11/18/16 Respiratory Virus Panel (PCR) ([facility]) - Final, Complete 11/20/16 Urine Culture - Final, Complete Escherichia Coli 11/18/16 Urine Culture - Final, Complete Escherichia Coli RANI PHILLIPS MD November 22, 2016 08:24
[2016-11-22] MEDS ORDERED: POTASSIUM CHLORIDE 10% LIQ 20 MEQ/15 ML UDC PO ONE (08:30)
[2016-11-22] MEDS: LEVEMIR (INSULIN DETEMIR) 1 UNITS/0.01ML SC SCH (09:00)
[2016-11-22] MEDS: FIDAXOMICIN 200 MG TAB (DIFICID) PO SCH ×2 (09:52→22:16)
[2016-11-22] MEDS: METOPROLOL TART 50 MG TAB PO SCH ×2 (09:53→22:15)
[2016-11-22] MEDS: LACTOBACILLUS ACIDOPHILUS CAP (BACID) PO SCH ×3 (09:53→22:15)
[2016-11-22] MEDS: PANTOPRAZOLE 40MG TAB (PROTONIX) PO SCH (09:53)
[2016-11-22] MEDS ORDERED: FUROSEMIDE 40 MG/4 ML VIAL (J1940) IV ONE (11:45)
[2016-11-22] MEDS: AMITRIPTYLINE 25 MG TAB PO SCH (22:15)
[2016-11-23 04:00] VITALS: BP 109/55
[2016-11-23 05:22] LABS: BASO % 0.4 % (0.0-1.0); EOS # 0.1 K/mm3 (0.0-0.50); EOS % 1.4 % (0.0-3.0); LARGE UNSTAINED CELL # 0.2 K/mm3 (0.0-0.4); LYMPH # 1.4 K/mm3 (1.5-4.5); LYMPH % 14.7 % (24.0-44.0); MEAN CORPUSCULAR HEMOGLOBIN 29.2 pg (27.0-33.0); MEAN CORPUSCULAR HGB CONC 29.9 g/dl (32.0-36.5); MEAN CORPUSCULAR VOLUME 97.8 fl (80.0-96.0); MONO # 0.6 K/mm3 (0.0-0.8); NEUTROPHILS # 7.4 K/mm3 (1.8-7.7); NEUTROPHILS % 75.5 % (36.0-66.0); PLATELET COUNT, AUTOMATED 401 k/mm3 (150-450); RED CELL DISTRIBUTION WIDTH 13.8 % (11.5-14.5); WHITE BLOOD COUNT 9.7 K/mm3 (4.0-10.0)
[2016-11-23 05:35] LABS: CALCIUM LEVEL 8.5 MG/DL (8.8-10.2); CREATININE FOR GFR 1.58 MG/DL (0.55-1.02); GLOMERULAR FILTRATION RATE 33.6 (>39); MAGNESIUM LEVEL 1.7 MG/DL (1.8-2.4); POTASSIUM SERUM 3.4 MEQ/L (3.5-5.1)
[2016-11-23] MEDS ORDERED: POTASSIUM CHLORIDE 10% LIQ 20 MEQ/15 ML UDC PO ONE (06:30)
[2016-11-23] MEDS ORDERED: MAG SULF 1GM/100ML (MAG RUN) 1 GM in APPROPRIATE DILUENT 1 EA IV ONE (06:30)
[2016-11-23] MEDS: HEPARIN SOD (PORCINE) 5000 UNITS/ML VIAL SQ SCH ×2 (06:53→14:19)
[2016-11-23] MEDS: HumaLOG INSULIN (NovoLOG) PER UNIT SC SCH ×4 (07:30→21:00)
[2016-11-23 08:00] VITALS: BP 128/67
[2016-11-23] MEDS: FIDAXOMICIN 200 MG TAB (DIFICID) PO SCH ×2 (08:38→22:09)
[2016-11-23] MEDS: LACTOBACILLUS ACIDOPHILUS CAP (BACID) PO SCH ×3 (08:38→22:09)
[2016-11-23] MEDS: PANTOPRAZOLE 40MG TAB (PROTONIX) PO SCH (08:38)
[2016-11-23] MEDS: METOPROLOL TART 50 MG TAB PO SCH ×2 (08:38→21:00)
[2016-11-23] MEDS ORDERED: TUBERCULIN PPD 5 UNITS/0.1 ML ID ONE (10:00)
--- NOTE | 2016-11-23 10:11 | REP ---
CT CHEST WITHOUT IV CONTRAST: CT chest is performed without IV contrast with sagittal and coronal reconstruction images performed. Comparison made with prior CT of the chest 11/15/2007. Consolidative atelectasis and/or infiltrate is seen in the anterior segment of the right lower lobe. In the dependent portion of the posterior right lower lobe, there is patchy atelectasis/infiltrate. There is a small right effusion. Very mild patchy atelectasis or infiltrate is seen in the dependent left lower lobe with a tiny left effusion. The heart is not significantly enlarged. There is no pericardial effusion. Several nonenlarged lymph nodes are seen in the mediastinal and hilar regions. The largest are 11 mm in short axis dimension in the precarinal and subcarinal regions, only slightly enlarged. There are moderate atherosclerotic calcifications of the thoracic aorta without aneurysm. There are degenerative changes of the spine. In the visualized portions of the upper abdomen, multiple metallic clips are seen in the gallbladder fossa status post cholecystectomy. IMPRESSION: Consolidative atelectasis and/or infiltrate anterior segment right lower lobe. Patchy bibasilar atelectasis/infiltrate inferiorly and posteriorly, right greater than left with small effusions, right greater than left. Mildly enlarged mediastinal lymph nodes are probably reactive in nature. Signed by Bernabe Hill MD 11/24/2016 04:01 P
[2016-11-23] MEDS ORDERED: SLF 3 ML SYR IV PRN (10:15)
--- NOTE | 2016-11-23 11:04 | IPNPDOC ---
Subjective Date Seen The patient was seen on 11/23/16. Subjective Chief Complaint/HPI The patient is a 80-year-old female admitted with a reason for visit of Diarrhea ,Hypotension. Events since last encounter No new complaints today. Still confused. Wants to go home. General: Denies: ROS Unobtainable, Chills, Night Sweats, Fatigue, Malaise, Normal Appetite, Other Symptoms Constitutional: Denies: Chills, Fever, Malaise, Night Sweats, Weakness, Fatigue , Weight Loss, Lethargy, Other Eyes: Denies: Pain, Vision change, Conjunctivae inflammation, Eyelid inflammation, Redness, Other ENT: Denies: Head Aches, Ear Pain, Dysphagia, Sinus Congestion, Post Nasal Drip , Sore Throat, Epistaxis, Other Symptoms Skin: Denies: Rash, Lesions, Jaundice, Bruising, Itching, Dry, Breakdown, Nail Changes, Other Pulmonary: Denies: Dyspnea, Cough, Pleuritic Chest Pain, Other Symptoms Cardiovascular: Denies: Chest Pain, Palpitations, Orthopnea, Paroxysmal Noc. Dyspnea, Edema, Lt Headedness, Other Symptoms Gastrointestinal: Denies: Nausea, Vomiting, Abdominal Pain, Diarrhea, Constipation, Melena, Hematochezia, Other Symptoms Objective Physical Examination General Exam: Positive: Alert, Cooperative, No Acute Distress, Other (elderly, frail) Eye Exam: Positive: PERRLA, Conjunctiva & lids normal, EOMI, Negative: Sclera icteric ENT Exam: Positive: Atraumatic, Mucous membr. moist/pink Neck Exam: Positive: Supple Chest Exam: Positive: Clear to auscultation, Normal air movement, Diminished Heart Exam: Positive: Rate Normal, Regular Rhythm, Murmurs (soft systolic murmur) Telemetry: Positive: No significant arrhythmia Abdomen Exam: Positive: Normal bowel sounds, Soft, Negative: Tenderness Psych Exam: Positive: Oriented x 3 (grossly oriented to person and place only) Assessment /Plan Problems (1) C. difficile colitis Status: Acute Response to Treatment: Improving Discussed With: Patient Problem Specific Plan: Consult Specialist, Monitor Clinically, Repeat Labs Problem Text: Transitioned from PO vanco to dificid. still having intermittent diarrhea no fevers - leukocytosis resolved id consultation appreciated (2) UTI (urinary tract infection) Status: Acute Discussed With: Patient Problem Specific Plan: Consult Specialist, Monitor Clinically Problem Text: UA positive, UCx + E coli - obtained as clean catch Repeat UA improved, repeat culture showing e coli with good sensitivities was symptomatic - appears to have improved ID consultation appreciated (3) Diarrhea Status: Acute Response to Treatment: Improving Discussed With: Patient Problem Specific Plan: Monitor Clinically, Repeat Labs Problem Text: improving - as per cdiff (4) SOB (shortness of breath) Status: Acute Response to Treatment: Progressing Discussed With: Patient Problem Specific Plan: Monitor Clinically Problem Text: 2d echo = grade 1 LV diastolic dysfunction will continue with diuresis supplemental oxygen as needed patient did require oxygen at home, but refused (5) Hypotension Status: Resolved Discussed With: Patient Problem Specific Plan: Monitor Clinically Problem Text: Patient history of hypertension. Home meds on hold. IV fluids discontinued secondary to sob. Follow clinically. (6) Diabetes Status: Chronic Discussed With: Patient Problem Specific Plan: Repeat Labs Problem Text: blood sugars have been on the low side. held morning levemir, continue sliding scale (7) Crohns disease Status: Chronic Discussed With: Patient Problem Specific Plan: Monitor Clinically Problem Text: CT abd pelvis possible mild diffuse thickening of the terminal ileum, limited eval without contrast tolerating clear liquids KUB showed possible ileus/early SBO Surgery c/s pending, assistance appreciated (8) Altered mental status Status: Acute Response to Treatment: Improving Discussed With: Patient Problem Specific Plan: Monitor Clinically Problem Text: likely TME secondary to cdiff complicated with decomp chf slowly improving (9) Noncompliance Status: Chronic Problem Text: further complicating factor to her medical care apparently has been prescribed supplemental oxygen which she refused did not follow thru surveillance colonoscopy for crohn's in 2009 Plan/VTE VTE Prophylaxis Ordered?: Yes (mechanical) Plan IVF: Discontinue Diet: Continue Current Activity: Continue Current Therapy: PT Pt and Family Services: Other PFS Respiratory: Wean Oxygen Diagnostics: Repeat Labs in AM Anticipated Discharge: Home, Home With Services Still requiring supplemental oxygen, but she does have history of chronic hypoxic resp. failure, non-compliant with O2 (sent her oxygen equipment back to supplier). Still diarrhea, but improving, continue with dificid, follow up ID. AMS likely TME, slowly improving. Will need placement -family prefers [facility]. PPD placed. PT/OT eval. VS, I&O, 24H, Fishbone Vital Signs/I&O Vital Signs Date Time Temp Pulse Resp B/P (MAP) Pulse Ox O2 Delivery O2 Flow Rate FiO2 11/23/16 08:38 95 128/67 11/23/16 08:00 97.9 18 90 Nasal Cannula 3.0 11/18/16 14:52 50 I&O- Last 24 Hours up to 6 AM 11/23/16 06:00 Intake Total 990 ml Output Total 450 ml Balance 540 ml Laboratory Data 24H LABS Laboratory Tests 2 11/22/16 11:42: Bedside Glucose (Misc Panel) 263H 11/22/16 16:34: Bedside Glucose (Misc Panel) 94 11/22/16 21:16: Bedside Glucose (Misc Panel) 42L 11/22/16 22:08: Bedside Glucose (Misc Panel) 114H 11/23/16 04:45: White Blood Count 9.7, Red Blood Count 3.52L, Hemoglobin 10.3L, Hematocrit 34.4L , Mean Corpuscular Volume 97.8H, Mean Corpuscular Hemoglobin 29.2, Mean Corpuscular Hemoglobin Concent 29.9L, Red Cell Distribution Width 13.8, Platelet Count 401, Neutrophils (%) (Auto) 75.5H, Lymphocytes (%) (Auto) 14.7L, Monocytes (%) (Auto) 6.0H, Eosinophils (%) (Auto) 1.4, Basophils (%) (Auto) 0.4 , Neutrophils # (Auto) 7.4, Lymphocytes # (Auto) 1.4L, Monocytes # (Auto) 0.6, Eosinophils # (Auto) 0.1, Basophils # (Auto) 0.0, Large Unclassified Cells % 2.0 , Large Unclassified Cells # 0.2, Anion Gap 5L, Glomerular Filtration Rate 33.6L , Blood Urea Nitrogen 17, Creatinine 1.58H, Sodium Level 142, Potassium Level 3.4L, Chloride Level 102, Carbon Dioxide Level 35H, Calcium Level 8.5L, Magnesium Level 1.7L CBC/BMP Laboratory Tests 11/23/16 04:45 Red Blood Count 3.52 L, Mean Corpuscular Volume 97.8 H, Mean Corpuscular Hemoglobin 29.2, Mean Corpuscular Hemoglobin Concent 29.9 L, Red Cell Distribution Width 13.8, Neutrophils (%) (Auto) 75.5 H, Lymphocytes (%) (Auto) 14.7 L, Monocytes (%) (Auto) 6.0 H, Eosinophils (%) (Auto) 1.4, Basophils (%) ( Auto) 0.4, Neutrophils # (Auto) 7.4, Lymphocytes # (Auto) 1.4 L, Monocytes # ( Auto) 0.6, Eosinophils # (Auto) 0.1, Basophils # (Auto) 0.0, Calcium Level 8.5 L Microbiology Microbiology 11/20/16 Blood Culture - Preliminary, Resulted No Growth after 72 hours. All specime... 11/20/16 Blood Culture - Preliminary, Resulted No Growth after 72 hours. All specime... 11/18/16 Blood Culture - Final, Complete NO GROWTH AFTER 5 DAYS 11/18/16 Blood Culture - Final, Complete NO GROWTH AFTER 5 DAYS 11/16/16 Blood Culture - Final, Complete NO GROWTH AFTER 5 DAYS 11/16/16 Blood Culture - Final, Complete NO GROWTH AFTER 5 DAYS 11/16/16 Gastrointestinal Tract Panel (PCR) - Final, Complete Clostridium Difficile A/B 11/18/16 Respiratory Virus Panel (PCR) ([facility]) - Final, Complete 11/20/16 Urine Culture - Final, Complete Escherichia Coli 11/18/16 Urine Culture - Final, Complete Escherichia Coli RANI PHILLIPS MD November 23, 2016 11:04
[2016-11-23 12:00] VITALS: BP 117/59
[2016-11-23] MEDS: SLF 3 ML SYR IV SCH ×2 (14:19→22:09)
[2016-11-23 16:00] VITALS: BP 126/59
[2016-11-23 20:14] VITALS: BP 105/63
[2016-11-23] MEDS: AMITRIPTYLINE 25 MG TAB PO SCH (22:07)
--- NOTE | 2016-11-23 22:07 | IPN ---
DATE: 11/23/2016 Mrs. Knight does not feel good today. She has no appetite and has been short of breath. Patient denies any dysuria or flank pain or urinary symptoms, frequency. Her diarrhea has improved. She had five bowel movements yesterday, four today. She has no abdominal pain. Her oxygen saturation is 93% on 3 liters nasal cannula. Temperature is 98.7, pulse 81, respirations 18, blood pressure 117/59. HEART: Normal S1, S2. LUNGS: A few crackles at the bases, diminished air entry. ABDOMEN: Soft, nontender, no visceromegaly. EXTREMITIES: Trace edema. MEDICATIONS: - fidaxomicin 200 mg by mouth twice a day was started on 11/20/2016 - probiotics one tablet by mouth three times a day IMPRESSION: 1. Clostridium (C) difficile colitis. On oral fidaxomicin, doing much better. She has about 4-5 bowel movements a day. Continue with probiotics. 2. Asymptomatic bacteriuria. She had two urine cultures which were for positive for Escherichia (E) coli more than 100,000. I asked her multiple times today about any symptomatic urinary tract infection (UTI), she states she does not have any symptoms. Initially she had some irritation from the chronic diarrhea and had some burning. I did order susceptibilities for the E. coli for fosfomycin which will be available tomorrow and if patient is symptomatic she could be treated with 3 grams of Monurol. 3. Shortness of breath, slightly elevated BNP. Patient on supplemental oxygen. CT was concerning for atelectasis and/or / infiltrates with right lower lobe patchy bibasilar atelectasis / infiltrate inferiorly and posteriorly, right greater than left with small effusion. I am concerned that this is congestive heart failure other than infection as her white count has remained stable and she has been afebrile for over 48 hours. PLAN: May possibly need more IV diuresis. Continue fidaxomicin, probiotics. If patient is symptomatic from E. coli, then will treat her with Monurol 3 grams times one dose.
[2016-11-24] VITALS (7 sets, daily range): BP systolic 108–148; BP diastolic 56–65
[2016-11-24] MEDS: SLF 3 ML SYR IV SCH ×3 (05:40→21:04)
[2016-11-24] MEDS: FUROSEMIDE 40 MG/4 ML VIAL (J1940) IV SCH ×3 (06:00→18:20)
[2016-11-24 06:45] LABS: BASO % 0.3 % (0.0-1.0); EOS # 0.2 K/mm3 (0.0-0.50); EOS % 1.7 % (0.0-3.0); LARGE UNSTAINED CELL # 0.2 K/mm3 (0.0-0.4); LARGE UNSTAINED CELL % 1.8 % (0.0-4.0); LYMPH # 1.2 K/mm3 (1.5-4.5); LYMPH % 13.2 % (24.0-44.0); MEAN CORPUSCULAR HEMOGLOBIN 29.4 pg (27.0-33.0); MEAN CORPUSCULAR HGB CONC 30.3 g/dl (32.0-36.5); MEAN CORPUSCULAR VOLUME 97.1 fl (80.0-96.0); MONO # 0.5 K/mm3 (0.0-0.8); MONO % 5.4 % (0.0-5.0); NEUTROPHILS # 7.2 K/mm3 (1.8-7.7); NEUTROPHILS % 77.5 % (36.0-66.0); PLATELET COUNT, AUTOMATED 386 k/mm3 (150-450); RED CELL DISTRIBUTION WIDTH 13.9 % (11.5-14.5); WHITE BLOOD COUNT 9.3 K/mm3 (4.0-10.0)
[2016-11-24 07:13] LABS: CALCIUM LEVEL 8.9 MG/DL (8.8-10.2); CREATININE FOR GFR 1.43 MG/DL (0.55-1.02); GLOMERULAR FILTRATION RATE 37.7 (>39); MAGNESIUM LEVEL 2.1 MG/DL (1.8-2.4); POTASSIUM SERUM 3.7 MEQ/L (3.5-5.1)
[2016-11-24] MEDS: LACTOBACILLUS ACIDOPHILUS CAP (BACID) PO SCH ×3 (08:45→21:02)
[2016-11-24] MEDS ORDERED: NITROGLYCERIN 2% OINT 1 GM *U/D* PKT TOP ONE (08:45)
[2016-11-24] MEDS: PANTOPRAZOLE 40MG TAB (PROTONIX) PO SCH (08:46)
[2016-11-24] MEDS: METOPROLOL TART 50 MG TAB PO SCH ×2 (08:46→21:03)
[2016-11-24] MEDS: FIDAXOMICIN 200 MG TAB (DIFICID) PO SCH ×2 (08:46→21:02)
[2016-11-24] MEDS: HumaLOG INSULIN (NovoLOG) PER UNIT SC SCH ×4 (08:47→21:04)
--- NOTE | 2016-11-24 15:55 | REP ---
Chest x-ray: Two views: History: Hypoxia. Comparison chest x-ray: 11/20/2016 Findings: There is hazy opacity in the right middle lobe distribution consistent with right middle lobe infiltrate versus atelectasis. Lung nugent are otherwise clear. There is slight blunting of the posterior and lateral pleural angles indicating small bilateral pleural effusions. Heart is not enlarged. Pulmonary vasculature is improved and no longer congested. There are clips in the right upper quadrant of the abdomen. There are degenerative changes in the thoracic spine. Impression: Atelectasis versus infiltrate in the right middle lobe. Slight blunting of the pleural angles bilaterally. Improved pulmonary vascular congestion. Signed by Michael Barclay MD 11/24/2016 04:40 P
--- NOTE | 2016-11-24 17:10 | IPNPDOC ---
Subjective Date Seen The patient was seen on 11/24/16. Subjective Chief Complaint/HPI The patient is a 80-year-old female admitted with a reason for visit of Diarrhea ,Hypotension. Events since last encounter had episode of chest pain while on toilet today, self resolve, short- pressure type, with some sob. Constitutional: Denies: Chills, Fever Skin: Denies: Rash Pulmonary: Denies: Dyspnea, Cough Cardiovascular: Reports: Chest Pain, Denies: Palpitations Gastrointestinal: Denies: Nausea, Vomiting, Abdominal Pain Objective Physical Examination General Exam: Positive: Cooperative, Other (elderly, frail) Eye Exam: Negative: Sclera icteric ENT Exam: Positive: Mucous membr. moist/pink Neck Exam: Positive: Supple Chest Exam: Positive: Clear to auscultation, Normal air movement, Diminished, Negative: Wheezing Heart Exam: Positive: Rate Normal, Regular Rhythm Abdomen Exam: Positive: Normal bowel sounds, Soft, Negative: Tenderness Psych Exam: Positive: Oriented x 3 (grossly oriented to person and place only) Assessment /Plan Problems (1) C. difficile colitis Status: Acute Response to Treatment: Improving Discussed With: Patient Problem Specific Plan: Consult Specialist, Monitor Clinically, Repeat Labs Problem Text: Transitioned from PO vanco to dificid. still having intermittent diarrhea no fevers - leukocytosis resolved id consultation appreciated Stool maybe more formed today (2) UTI (urinary tract infection) Status: Acute Discussed With: Patient Problem Specific Plan: Consult Specialist, Monitor Clinically Problem Text: UA positive, UCx + E coli - obtained as clean catch Repeat UA improved, repeat culture showing e coli with good sensitivities was symptomatic - appears to have improved ID consultation appreciated- considering monuril (3) Diarrhea Status: Acute Response to Treatment: Improving Discussed With: Patient Problem Specific Plan: Monitor Clinically, Repeat Labs Problem Text: improving - as per cdiff (4) SOB (shortness of breath) Status: Acute Response to Treatment: Progressing Discussed With: Patient Problem Specific Plan: Monitor Clinically Problem Text: 2d echo = grade 1 LV diastolic dysfunction will continue with diuresis supplemental oxygen as needed patient did require oxygen at home, but refused- open to the idea of being dc'd with supplemental oxygen Had chest dscomfot and shortness f breath while on toilet today- scheduled diuresis instead of intermittent, gave a single dose of nitrobid, ekg unchanged , cxr shows effusion especially on right (5) Hypotension Status: Resolved Discussed With: Patient Problem Specific Plan: Monitor Clinically Problem Text: Patient history of hypertension. Home meds on hold. IV fluids discontinued secondary to sob. Follow clinically. (6) Diabetes Status: Chronic Discussed With: Patient Problem Specific Plan: Repeat Labs Problem Text: blood sugars have been on the low side. held morning levemir, continue sliding scale (7) Crohns disease Status: Chronic Discussed With: Patient Problem Specific Plan: Monitor Clinically Problem Text: CT abd pelvis possible mild diffuse thickening of the terminal ileum, limited eval without contrast tolerating clear liquids KUB showed possible ileus/early SBO Surgery c/s pending, assistance appreciated (8) Altered mental status Status: Acute Response to Treatment: Improving Discussed With: Patient Problem Specific Plan: Monitor Clinically Problem Text: likely TME secondary to cdiff complicated with decomp chf slowly improving (9) Noncompliance Status: Chronic Problem Text: further complicating factor to her medical care apparently has been prescribed supplemental oxygen which she refused did not follow thru surveillance colonoscopy for crohn's in 2009 Plan/VTE VTE Prophylaxis Ordered?: Yes (mechanical) Plan IVF: Discontinue Diet: Continue Current Activity: Continue Current Therapy: PT Pt and Family Services: Other PFS Respiratory: Wean Oxygen Diagnostics: Repeat Labs in AM Anticipated Discharge: Home, Home With Services VS, I&O, 24H, Ingrid Vital Signs/I&O Vital Signs Date Time Temp Pulse Resp B/P (MAP) Pulse Ox O2 Delivery O2 Flow Rate FiO2 11/24/16 14:00 98.0 82 20 110/65 (80) 96 Venturi Mask 8.0 31 I&O- Last 24 Hours up to 6 AM 11/24/16 06:00 Intake Total 720 ml Output Total 100 ml Balance 620 ml Laboratory Data 24H LABS Laboratory Tests 2 11/23/16 21:26: Bedside Glucose (Misc Panel) 114H 11/24/16 06:28: White Blood Count 9.3, Red Blood Count 3.41L, Hemoglobin 10.0L, Hematocrit 33.1L , Mean Corpuscular Volume 97.1H, Mean Corpuscular Hemoglobin 29.4, Mean Corpuscular Hemoglobin Concent 30.3L, Red Cell Distribution Width 13.9, Platelet Count 386, Neutrophils (%) (Auto) 77.5H, Lymphocytes (%) (Auto) 13.2L, Monocytes (%) (Auto) 5.4H, Eosinophils (%) (Auto) 1.7, Basophils (%) (Auto) 0.3 , Neutrophils # (Auto) 7.2, Lymphocytes # (Auto) 1.2L, Monocytes # (Auto) 0.5, Eosinophils # (Auto) 0.2, Basophils # (Auto) 0.0, Large Unclassified Cells % 1.8 , Large Unclassified Cells # 0.2, Anion Gap 5L, Glomerular Filtration Rate 37.7L , Blood Urea Nitrogen 13, Creatinine 1.43H, Sodium Level 142, Potassium Level 3.7, Chloride Level 104, Carbon Dioxide Level 33H, Calcium Level 8.9, Magnesium Level 2.1 11/24/16 11:08: Total Creatine Kinase 29, Creatine Kinase MB 1.0, Creatine Kinase MB Relative Index 3.44, Troponin I < 0.02, B-Type Natriuretic Peptide 357H 11/24/16 12:04: Bedside Glucose (Misc Panel) 238H 11/24/16 16:53: Bedside Glucose (Misc Panel) 148H CBC/BMP Laboratory Tests 11/24/16 06:28 Red Blood Count 3.41 L, Mean Corpuscular Volume 97.1 H, Mean Corpuscular Hemoglobin 29.4, Mean Corpuscular Hemoglobin Concent 30.3 L, Red Cell Distribution Width 13.9, Neutrophils (%) (Auto) 77.5 H, Lymphocytes (%) (Auto) 13.2 L, Monocytes (%) (Auto) 5.4 H, Eosinophils (%) (Auto) 1.7, Basophils (%) ( Auto) 0.3, Neutrophils # (Auto) 7.2, Lymphocytes # (Auto) 1.2 L, Monocytes # ( Auto) 0.5, Eosinophils # (Auto) 0.2, Basophils # (Auto) 0.0, Calcium Level 8.9 Microbiology Microbiology 11/20/16 Blood Culture - Preliminary, Resulted No Growth after 72 hours. All specime... 11/20/16 Blood Culture - Preliminary, Resulted No Growth after 72 hours. All specime... 11/18/16 Blood Culture - Final, Complete NO GROWTH AFTER 5 DAYS 11/18/16 Blood Culture - Final, Complete NO GROWTH AFTER 5 DAYS 11/16/16 Blood Culture - Final, Complete NO GROWTH AFTER 5 DAYS 11/16/16 Blood Culture - Final, Complete NO GROWTH AFTER 5 DAYS 11/16/16 Gastrointestinal Tract Panel (PCR) - Final, Complete Clostridium Difficile A/B 11/18/16 Respiratory Virus Panel (PCR) ([facility]) - Final, Complete 11/20/16 Urine Culture - Preliminary, Resulted Escherichia Coli 11/18/16 Urine Culture - Final, Complete Escherichia Coli AB ORTIZ MD November 24, 2016 17:10
--- NOTE | 2016-11-24 19:05 | ECGEPIP ---
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
[2016-11-24] MEDS: AMITRIPTYLINE 25 MG TAB PO SCH (21:02)
--- NOTE | 2016-11-24 23:16 | IPN ---
DATE: 11/24/2016 Mrs. Knight seems to be doing a little better today. She wants to go home. The diarrhea has not been too bad. She denies any dysuria. She still has significant shortness of breath. She remains afebrile. Temperature is 98.3, pulse 98, oxygen saturation is 94% on 31% FiO2, respiratory rate is 20. HEART: Normal S1, S2, regular. LUNGS: Diminished air entry with few crackles at the bases. ABDOMEN: Soft, nontender. No hepatosplenomegaly. EXTREMITIES: Trace edema. IMPRESSION: 1. Clostridium (C) difficile colitis, improving on by mouth Dificid and probiotics. No fevers, and leukocytosis has resolved. She had a total of four bowel movements yesterday and three today. 2. Asymptomatic bacteruria with Escherichia (E) coli. Fosfomycin susceptibility has been ordered. If the patient becomes symptomatic, I would treat her with fosfomycin 3 grams time one dose, but at this point I have asked her daily about her symptoms, and states that the initial burning has resolved after the rash in the perineal area has been healed. 3. Congestive heart failure. The patient is currently being treated with intravenous (IV) furosemide 40 mg every 6 hours. Will continue to monitor. Chest CT showed multiple atelectasis versus infiltrate and patchy infiltrates and effusions, which are probably more related to congestive heart failure. PLAN: Will continue to follow. Will treat with the fidaxomicin for a total of 10-14 days. She is currently day #5.
[2016-11-25] MEDS: FUROSEMIDE 40 MG/4 ML VIAL (J1940) IV SCH (00:14)
[2016-11-25 02:00] VITALS: BP 122/58
[2016-11-25] MEDS ORDERED: LASI80TA PO (05:54)
[2016-11-25] MEDS ORDERED: DIFI200T PO (05:54)
--- NOTE | 2016-11-25 06:39 | IPNPDOC ---
Text Note Date of Service The patient was seen on 11/25/16. NOTE I was called to the bedside by nursing stating that the patient wanted to leave AMA. I had an extensive discussion with the patient, and I outlined the potential detrimental effects of leaving the hospital right now, including inadequate oxygenation, respiratory arrest, and . The patient is currently requiring 8 L of oxygen. The patient was accompanied by her 2 daughters at the bedside. The patient is able to voice to me and her daughter that she realizes that is a potential side effect of not getting enough oxygen. She maintains that she wants to go home, and her daughter who is a nurse states that after we complete the appropriate paperwork, she will take her home. The nursing staff completed AMA paperwork with the patient. I provided the patient with prescriptions for her antibiotic, as well as increased doses of by mouth Lasix, although I did explain that I did not expect this Lasix to be anywhere near as potent as the IV medication she was receiving here in the hospital, and me providing her with prescriptions did not in any way suggest that I supported her leaving the hospital. This entire conversation was witnessed by the nursing home manager at her bedside. The discharge summary will be completed by her daytime attending. VS,Fishbone, I+O VS, Fishbone, I+O Vital Signs Date Time Temp Pulse Resp B/P (MAP) Pulse Ox O2 Delivery O2 Flow Rate FiO2 11/25/16 02:00 98.1 94 20 122/58 (79) 95 Venturi Mask 8.0 31 I&O- Last 24 Hours up to 6 AM 11/25/16 05:59 Intake Total 480 ml Output Total 3100 ml Balance -2620 ml SRINIVASA TANNER November 25, 2016 06:39
[2016-11-25] MEDS ORDERED: PPD DOCUMENTATION ENTRY MISC XX SCH (10:00)
[2016-11-25] MEDS ORDERED: CLON0.5T PO (11:00)
--- NOTE | 2016-11-26 12:58 | DSES ---
DATE OF ADMISSION: 11/17/2016 DATE OF DISCHARGE: 11/25/2016 Patient left against medical advice. SPECIALISTS INVOLVED IN CARE: Dr. Headley. COMPLICATIONS DURING STAY: None. PROCEDURES PERFORMED DURING STAY: None. DISCHARGE DIAGNOSES: 1. Clostridium (C.) difficile colitis. 2. Urinary tract infection (UTI) with Escherichia (E) coli. 3. Congestive heart failure (CHF). 4. Grade 1 diastolic dysfunction. 5. Hypotension. 6. Diabetes. 7. Crohn's. 8. Metabolic encephalopathy. 9. Noncompliance. 10. Suspected depression or adjustment disorder related to the recent of her . SUMMARY OF HOSPITALIZATION: This is a 80-year-old patient of Dr. Archuleta, who presented with shortness of breath and lightheadedness. She was having multiple stools at the time of her presentation. She was found to be orthostatic and was admitted to the hospitalist service with orthostatic hypotension and dehydration. GI panel grew C difficile. She also had an abnormal urine culture with E coli and a possible urinary tract infection (UTI) and was seen by Dr. Headley of infectious disease. She has been treated with vancomycin. She was started on Dificid with much improvement and continued on probiotics. Plan was to continue treatment for urinary tract infection (UTI) with fosfomycin. She became quite focused on going home. She always had excellent family support during her hospitalization, but on the salesperson pianos and organs hours of today, 11/25/2016, she wished to leave against medical advice. Family was at bedside and quite distraught with her plan, but she clearly had capacity to go and was discharged. Anticipate a quick return. She was given a prescription for Dificid to take at home and should followup with Dr. Archuleta.
== END 2016-11-25 06:15 | disposition left against medical advice (07) | DRG 371 ==
LOC: M ED 21:40 → M ED INP 11-16 02:19 → M MSPAV 11-16 03:12 → OBSVTOIN 11-17 16:26 → M ICU 11-18 10:04 → M PCU 11-21 15:54 → M MSPAV 11-23 20:14
PROVIDERS: ADMIT Family Medicine; ATTEND Internal Medicine
DX: A04.7 Enterocolitis due to Clostridium difficile (principal); G93.41 Metabolic encephalopathy; J96.01 Acute respiratory failure with hypoxia; N39.0 Urinary tract infection, site not specified; I13.0 Hypertensive heart and chronic kidney disease with heart failure and stage 1 through stage 4 chronic kidney disease, or unspecified chronic kidney disease; K50.90 Crohn's disease, unspecified, without complications; Z91.19 Patient's noncompliance with other medical treatment and regimen; B96.29 Other Escherichia coli [E. coli] as the cause of diseases classified elsewhere; E11.9 Type 2 diabetes mellitus without complications; E86.0 Dehydration; F43.21 Adjustment disorder with depressed mood; Z79.899 Other long term (current) drug therapy; Z79.4 Long term (current) use of insulin; Z79.01 Long term (current) use of anticoagulants; E55.9 Vitamin D deficiency, unspecified; M81.0 Age-related osteoporosis without current pathological fracture; J44.9 Chronic obstructive pulmonary disease, unspecified; N18.3 Chronic kidney disease, stage 3 (moderate); I73.9 Peripheral vascular disease, unspecified; Z88.0 Allergy status to penicillin; Z88.8 Allergy status to other drugs, medicaments and biological substances; I95.1 Orthostatic hypotension

== ENCOUNTER 2016-11-25 10:45 | Inpatient (IN) | payer MEDICARE ==
[~2016-11-25] VITALS: Ht 154.9 cm; Wt 56.2 kg
[2016-11-25] MEDS: FIDAXOMICIN 200 MG TAB (DIFICID) PO SCH ×2 (09:00→21:36)
[~2016-11-25 10:45] MED LIST changes: +ALEV1TAB PO; +DIFI200T PO; +FURO40TA2 PO; +INSULANT SC; +LASI80TA PO; +PROA1AER INH
[2016-11-25] MEDS ORDERED: CLON0.5T PO (11:00)
[2016-11-25] MEDS ORDERED: ALBUTEROL SULFATE 2.5 MG/0.5 ML INH NEB SOLN INH ONE (11:30)
[2016-11-25] MEDS ORDERED: IPRATROPIUM 0.5MG/ALBUTEROL 2.5MG INH SOL UD 3ML (DUONEB)(J7620) NEB ONE (11:30)
[2016-11-25] MEDS ORDERED: methylPREDNISolone INJ 125 MG/2 ML VIAL (J2930) IV ONE (11:30)
[2016-11-25 11:44] LABS: BASO % 0.5 % (0.0-1.0); EOS # 0.1 K/mm3 (0.0-0.50); EOS % 1.4 % (0.0-3.0); LARGE UNSTAINED CELL # 0.2 K/mm3 (0.0-0.4); LARGE UNSTAINED CELL % 2.1 % (0.0-4.0); LYMPH # 1.5 K/mm3 (1.5-4.5); LYMPH % 14.6 % (24.0-44.0); MEAN CORPUSCULAR HEMOGLOBIN 29.5 pg (27.0-33.0); MEAN CORPUSCULAR HGB CONC 31.6 g/dl (32.0-36.5); MEAN CORPUSCULAR VOLUME 93.4 fl (80.0-96.0); MONO # 0.4 K/mm3 (0.0-0.8); MONO % 4.8 % (0.0-5.0); NEUTROPHILS # 6.8 K/mm3 (1.8-7.7); NEUTROPHILS % 76.5 % (36.0-66.0); PLATELET COUNT, AUTOMATED 431 k/mm3 (150-450); RED CELL DISTRIBUTION WIDTH 14.1 % (11.5-14.5); WHITE BLOOD COUNT 8.9 K/mm3 (4.0-10.0)
[2016-11-25] MEDS: HumaLOG INSULIN (NovoLOG) PER UNIT SC SCH ×3 (12:00→21:37)
[2016-11-25 12:07] LABS: ALBUMIN 2.4 GM/DL (3.2-5.2); ALKALINE PHOSPHATASE 117 U/L (45-117); ALT/SGPT 14 U/L (12-78); ANION GAP 6 MEQ/L (8-16); AST/SGOT 14 U/L (15-37); BILIRUBIN,DIRECT 0.1 MG/DL (0.0-0.2); BILIRUBIN,TOTAL 0.3 MG/DL (0.2-1.0); BLOOD UREA NITROGEN 16 MG/DL (7-18); CALCIUM LEVEL 8.7 MG/DL (8.8-10.2); CARBON DIOXIDE LEVEL 38 MEQ/L (21-32); CHLORIDE LEVEL 97 MEQ/L (98-107); GLOMERULAR FILTRATION RATE 33.1 (>39); GLUCOSE, FASTING 191 MG/DL (83-110); POTASSIUM SERUM 3.4 MEQ/L (3.5-5.1); SODIUM LEVEL 141 MEQ/L (136-145); THYROXINE (T4) 9.5 UG/DL (4.5-12.0); TOTAL PROTEIN 6.4 GM/DL (6.4-8.2)
[2016-11-25 12:26] LABS: ABG BASE EXCESS 12.8 (-2.0-2.0); ABG HCO3 38.3 MEQ/L (22.0-26.0); ABG PARTIAL PRESSURE CO2 54.5 mmHg (35.0-45.0); ABG PARTIAL PRESSURE O2 55.4 mmHg (75.0-100.0); ABG STANDARD HCO3 36.3 MEQ/L (22.0-26.0); ABG pH (ARTERIAL) 7.465 UNITS (7.350-7.450)
[2016-11-25] MEDS ORDERED: NS 500 ML IV ONE (12:45)
[2016-11-25] MEDS ORDERED: ONDANSETRON 4 MG TAB (S0181) PO PRN (13:00)
[2016-11-25] MEDS ORDERED: DEXTROSE 50% 50 ML SYRINGE IV PRN (13:00)
[2016-11-25] MEDS ORDERED: GLUCAGON FOR INJ 1 MG VIAL (J1610) SC PRN (13:00)
[2016-11-25] MEDS ORDERED: GLUCOSE 4 GM CHEW TABLET PO PRN (13:00)
[2016-11-25] MEDS ORDERED: ACETAMINOPHEN TAB 650MG DOSE (2X325MG) PO PRN (13:00)
--- NOTE | 2016-11-25 13:17 | REP ---
PORTABLE CHEST: AP portable view of the chest is performed and compared to prior study of 11/24/2016. No change is seen in the bibasilar parenchymal opacities compared to the prior exam. The heart is not enlarged and the mediastinal silhouette is unchanged. There is calcification of the thoracic aorta. IMPRESSION: Stable bibasilar parenchymal opacities unchanged since prior study 11/24/2016. Signed by Bernabe Hill MD 11/25/2016 04:57 P
--- NOTE | 2016-11-25 13:54 | HPE ---
DATE OF ADMISSION: 11/25/2016 PRIMARY CARE PROVIDER: Dr. Yaakov Archuleta HISTORY OF PRESENT ILLNESS: This patient is a 80-year-old female with a past medical history significant for Clostridium (C) difficile, hypertension, Crohn's, diabetes. Was initially hospitalized in [facility] from 11/17/2016 for C. difficile infection. On 11/25/2016, the patient decided wanted to sign out against medical advice (AMA). It occurred early in the morning. After the patient went home, the patient started having difficulty breathing, and pulse oximetry was performed at home, and the patient has an oxygen (O2) saturation of 50%. Portable oxygen was given to the patient and increased to the maximum outflow rate to 5 liters. However, the patient still cannot maintain satisfactory O2 saturation. Therefore, the family member brought the patient back to [facility]. After the acute management in the emergency room, the patient's vital signs stabilized, and the patient's O2 saturation is able to maintain with 2 liter nasal cannula, and the hospitalist team was called. ALLERGIES: PIOGLITAZONE, PENICILLIN. PAST MEDICAL HISTORY: 1. C. difficile colitis. 2. Urinary tract infection (UTI). 3. Hypotension. 4. Acute infection. 5. Chronic hypertension. 6. Diabetes. 7. Crohn disease. 8. Chronic noncompliance. PAST SURGICAL HISTORY: 1. Cholecystectomy. 2. (C) section. SOCIAL HISTORY: Denies smoking. Denies alcohol use. Denies any recreational drug use. The patient is a FULL CODE. REVIEW OF SYSTEMS: General: No fever. No chills. HEENT: No vision changes. No auditory changes. CARDIOVASCULAR: No chest pain. No palpitations. RESPIRATORY: Acute shortness of breath after the patient left the hospital AMA this morning. Requiring increased oxygen requirement. Breathing improved in the emergency room now. No cough. No sputum production. No wheezes. GASTROINTESTINAL (GI): The patient has been under treatment for acute C. difficile. Since the patient left the hospital, the patient did not have any bowel movement MUSCULOSKELETAL: No muscle pain or joint pain. NEUROLOGICAL: No numbness or tingling. OBJECTIVE: VITAL SIGNS: Temperature 98.1, pulse is 102, respiration 24, blood pressure is 141/64, pulse oximetry is 93% with 2 liter nasal cannula. GENERAL: Anxious. No sign of acute distress. Alert and oriented times three. HEENT: Normocephalic, atraumatic. Extraocular motor grossly intact. CARDIOVASCULAR: Positive systolic murmur best heard at 2nd intercostal space. Mildly tachycardic. RESPIRATORY: Some fine crackles located bilateral lower lobe. I cannot appreciate any significant wheezes. GASTROINTESTINAL (GI): Abdomen soft, nontender, nondistended. Bowel sounds present. No rebound. No guarding. MUSCULOSKELETAL: Trace edema bilaterally. No sign of cyanosis. LABORATORY DATA: WBC is 8.9, hemoglobin 10.4, hematocrit 32.9, platelet count is 431. Sodium is 141, potassium 3.4, chloride 97, carbon dioxide 38, BUN 16, creatinine 1.6, GFR 33.1, fasting glucose 191, lactic acid 1, calcium 8.7, total bilirubin 0.3, direct bilirubin 0.1, AST 14, ALT 14, alkaline phosphatase is 117, total CK is 3, troponin I is less than 0.02, BNP is 172, total protein 6.4, albumin is 2.4, TSH is 0.99, free T4 is 9.5. Arterial blood gas (ABG) show a pH of 7.465, PCO2 is 54.5, pO2 is 55.4, HCO3 is 38.3. MICROBIOLOGY: Blood cultures pending times two. Influenza is negative. IMAGING STUDIES: A chest x-ray, official report pending. Preliminary results showed no change of bibasilar opacities. ASSESSMENT AND PLAN: 1. Acute on chronic respiratory distress. The patient will be admitted to medical-surgical floor on inpatient status. Will continue the patient with oxygen support to maintain O2 saturation greater than 90%. The patient currently being treated for acute C. difficile infection. The patient also being treated for fluid overload. The patient continued on the Lasix. 2. Hypotension. The patient has a history of hypertension. However, due to current multiple medical conditions, the patient had hypotension during the last admission. The patient's blood pressure medication will be on hold at this moment. 3. Insulin-dependent diabetes. The patient also had an episode of hypotension. Will hold the long-acting insulin. The patient will be covered with sliding scale only, and the patient will be on consistent-carbohydrate diet. 4. Crohn disease. 5. History of noncompliance. The patient has a history of not having routine colonoscopy done for her Crohn disease. The patient was given oxygen to use at home to maintain O2 saturation. However, the patient stated she does not need it, and she is very reluctant to use the oxygen at home. 6. Deep venous thrombosis (DVT) prophylaxis. The patient will be on heparin.
[2016-11-25] MEDS: HEPARIN SOD (PORCINE) 5000 UNITS/ML VIAL SC SCH ×2 (14:00→21:17)
[2016-11-25 14:40] VITALS: BP 115/70
[2016-11-25] MEDS: LACTOBACILLUS ACIDOPHILUS CAP (BACID) PO SCH (17:17)
--- NOTE | 2016-11-25 20:21 | ECGEPIP ---
Stationary ECG Study [facility] - ED Test Date: 2016-11-25 Pat Name: PINKY COOPER Department: Room: - Gender: F Production Tester: mario : [id number] Requested By: Karlos Xiong Order Number: [id number] Reading MD: Karlos Xiong Measurements Intervals [place] Rate: 95 P: 70 NM: 136 QRS: 145 QRSD: 149 T: 29 QT: 388 QTc: 490 Interpretive Statements SINUS RHYTHM RIGHT BUNDLE BRANCH BLOCK LEFT POSTERIOR FASCICULAR BLOCK RAD CW 11/24/[address] T WAVE CHANGES Electronically Signed On 11-25-2016 20:21:28 EDT by Karlos Xiong
[2016-11-25] MEDS: AMITRIPTYLINE 25 MG TAB PO SCH (21:36)
[2016-11-25 21:50] VITALS: BP 110/70
[2016-11-26] MEDS: HEPARIN SOD (PORCINE) 5000 UNITS/ML VIAL SC SCH ×3 (05:24→21:00)
[2016-11-26 05:31] VITALS: BP 118/68
[2016-11-26 06:46] LABS: MEAN CORPUSCULAR HEMOGLOBIN 28.9 pg (27.0-33.0); MEAN CORPUSCULAR HGB CONC 30.3 g/dl (32.0-36.5); MEAN CORPUSCULAR VOLUME 95.3 fl (80.0-96.0); WHITE BLOOD COUNT 10.8 K/mm3 (4.0-10.0)
[2016-11-26 07:13] LABS: CALCIUM LEVEL 8.6 MG/DL (8.8-10.2); CREATININE FOR GFR 1.61 MG/DL (0.55-1.02); GLOMERULAR FILTRATION RATE 32.9 (>39); POTASSIUM SERUM 3.2 MEQ/L (3.5-5.1)
[2016-11-26] MEDS: LACTOBACILLUS ACIDOPHILUS CAP (BACID) PO SCH ×3 (08:09→17:18)
[2016-11-26] MEDS: HumaLOG INSULIN (NovoLOG) PER UNIT SC SCH ×4 (08:09→20:59)
[2016-11-26] MEDS: FIDAXOMICIN 200 MG TAB (DIFICID) PO SCH ×2 (08:10→20:59)
[2016-11-26] MEDS ORDERED: FUROSEMIDE 40 MG TAB PO SCH (09:00)
--- NOTE | 2016-11-26 11:18 | CR ---
DATE OF CONSULTATION: 11/25/2016 REQUESTING PROVIDER: Dr. Rachel Mauro CHIEF COMPLAINT: "I am doing okay." HISTORY OF PRESENT ILLNESS: 80-year-old female with medical history significant for Clostridium (C.) difficile, hypertension, Crohn's disease, diabetes, urinary tract infection (UTI), and shortness of breath with a 50% oxygen saturation, who was readmitted to the medical floor after she left against medical advice a few hours ago. I talked to the patient's sons, Chris Knight and Soy Knight, who said that their mother has been very depressed since her in August. They reports that she has been depressed, tearful with low energy, unable to sleep or eat. They also said that the patient has not been going to see a doctor for evaluation of depression. During the interview with the patient, the patient is minimizing the above symptoms, although she admits that she has been depressed. She was tearful part of the interview, making the comment of "I miss my ." She is only sleeping 3 to 4 hours a day for the last few days. She says that her appetite has dropped and has low self esteem. The patient also was talking about "I don't like when people do things behind my back." Her son Chris stated that while at the intensive care unit (ICU) she was seeing people that were not there. During the interview, the patient today is alert and oriented and is willing to stay in the hospital to finish the treatment. The patient said that she is not used to staying in the hospital and she appears to realize that she needs to stay in the hospital until she is stabilized. PAST MEDICAL HISTORY: As above, has a diagnosis of Crohn's disease, colitis, urinary tract infection (UTI), hypertension, although now her blood pressure has been running low, diabetes, and shortness of breath due to congestive heart failure (CHF). PAST PSYCHIATRIC HISTORY: The patient has no prior psychiatric history except the current depressive episode after her in August. SOCIAL HISTORY: She lives alone. As above, she is recently . She does not smoke cigarettes. She does not have any problems with drugs or alcohol. FAMILY HISTORY: Negative for psychiatric problems. LABORATORY DATA: At admission, after her readmission today, her CBC showed red blood cells of 3.52, hemoglobin of 10.4, hematocrit of 32.9. CMP showed a sodium of 3.4, BUN of 16, creatinine of 1.6, calcium of 8.7, albumin of 2.4. TSH within normal limits. MENTAL STATUS EXAMINATION: The patient is dressed in a hospital gown. The patient is cooperative during the examination. Speech is clear, although soft spoken. Has fair eye contact. Mood is depressed. Affect is labile and tearful. The patient is oriented to time, place, person, and situation. Maintains attention and concentration correctly. The patient denies auditory or visual hallucinations. The patient is somewhat paranoid and is talking about people talking behind her back. The patient denies suicidal or homicidal ideation. Judgment and insight are limited. DIAGNOSIS: AXIS I: Major depressive disorder. RECOMMENDATIONS: At this point, the patient is agreeable to stay in the hospital and finish the treatment until she is completely stabilized. I discussed the medical problems with her sons, Chris and Soy, and they are going to be supportive of the patient and making sure that she gets all the treatment. They feel that the patient needs to be in the hospital and continue the treatment until she is stabilized and is discharged. I discussed with the patient the fact that she may need treatment for depression. She does not want to stay taking medications at this point, but stated that she will see Dr. Archuleta after discharge from the hospital and talk to him about her depression and follow the recommendation of Dr. Archuleta.
[2016-11-26] MEDS ORDERED: POTASSIUM CHLORIDE 10 MEQ SR TABLET PO ONE (12:30)
[2016-11-26 14:00] VITALS: BP 163/70
[2016-11-26] MEDS ORDERED: TORSEMIDE 10 MG TABLET PO ONE (14:00)
--- NOTE | 2016-11-26 20:55 | IPNPDOC ---
Subjective Date Seen The patient was seen on 11/26/16. Subjective Chief Complaint/HPI The patient is a 80-year-old female admitted with a reason for visit of C. Difficile Colitis; Copd Exacerbation. Events since last encounter Willing to stay in hospital- not short of breath, willing to wear oxygen- plans to go to [facility] at dc/ resistant to [place] Pulmonary: Denies: Dyspnea, Cough Cardiovascular: Denies: Chest Pain Gastrointestinal: Denies: Nausea, Vomiting, Abdominal Pain Objective Physical Examination General Exam: Positive: Alert, Cooperative Eye Exam: Negative: Sclera icteric Chest Exam: Positive: Diminished, Negative: Rhonchi, Wheezing Heart Exam: Positive: Rate Normal, Normal S1, Normal S2 Abdomen Exam: Positive: Normal bowel sounds, Soft, Negative: Tenderness Extremity Exam: Negative: Edema Psych Exam: Negative: Mood NL Assessment /Plan Problems (1) SOB (shortness of breath) Status: Acute Problem Text: Patient appears to have acute on chronic hypoxic respiratory failure- previously on home oxygen discontinued perhaps based on patient preference, perhaps for medical reasons- appears to have compensated fluid status- will encourage the use of supplemental oxygen with plans for discharge home with the same. start torsemide. patient has poor iv access- no obvious need for picc line- would like to avoid complications of central iv access (2) Depression Problem Specific Plan: Consult Specialist Problem Text: I discussed the case in person with Dr. Chow yesterday Patient currently lacks ability to make reasonable medical decisions Currently on tca at (3) Epistaxis Status: Chronic (4) Crohns disease Status: Chronic (5) Diabetes Status: Chronic (6) C. difficile colitis Status: Acute Problem Text: on dificid - continue current plan case discussed with Dr. Headley- no mendel for further consultations VS, I&O[facility] Vital Signs/I&O Vital Signs Date Time Temp Pulse Resp B/P (MAP) Pulse Ox O2 Delivery O2 Flow Rate FiO2 11/26/16 14:00 97.9 102 20 163/70 (101) 92 Nasal Cannula 3.0 I&O- Last 24 Hours up to 6 AM 11/26/16 06:00 Intake Total 1100 ml Output Total 450 ml Balance 650 ml Laboratory Data 24H LABS Laboratory Tests 2 11/25/16 20:18: Bedside Glucose (Misc Panel) 397H 11/26/16 05:48: Urine Blood NEGATIVE, Urine Nitrite POSITIVE, Urine WBC (Auto) 162H, Urine RBC ( Auto) 5H, Urine Hyaline Casts (Auto) 0, Urine Bacteria (Auto) 2+H, Urine Squamous Epithelial Cells 1, Urine Mucus (Auto) SMALL, Urine Sperm (Auto) 11/26/16 06:24: Anion Gap 9, Glomerular Filtration Rate 32.9L, Blood Urea Nitrogen 22H, Creatinine 1.61H, Sodium Level 138, Potassium Level 3.2L, Chloride Level 99, Carbon Dioxide Level 30, Calcium Level 8.6L 11/26/16 11:33: Bedside Glucose (Misc Panel) 91 11/26/16 16:05: Bedside Glucose (Misc Panel) 330H CBC/BMP Laboratory Tests 11/26/16 06:24 Red Blood Count 3.49 L, Mean Corpuscular Volume 95.3, Mean Corpuscular Hemoglobin 28.9, Mean Corpuscular Hemoglobin Concent 30.3 L, Red Cell Distribution Width 14.0, Calcium Level 8.6 L Microbiology Microbiology 11/25/16 Blood Culture - Preliminary, Resulted No growth after 24 hours . All specim... 11/25/16 Blood Culture - Preliminary, Resulted No growth after 24 hours . All specim... 11/25/16 Influenza Virus Type A Antigen - Final, Complete 11/25/16 Influenza Virus Type B Antigen - Final, Complete AB ORTIZ MD November 26, 2016 20:55
[2016-11-26] MEDS: AMITRIPTYLINE 25 MG TAB PO SCH (20:59)
[2016-11-26 22:00] VITALS: BP 168/62
[2016-11-27] MEDS: HEPARIN SOD (PORCINE) 5000 UNITS/ML VIAL SC SCH ×3 (05:26→21:31)
[2016-11-27 06:00] VITALS: BP 148/52
[2016-11-27 06:26] LABS: MEAN CORPUSCULAR HEMOGLOBIN 28.8 pg (27.0-33.0); MEAN CORPUSCULAR HGB CONC 30.6 g/dl (32.0-36.5); RED CELL DISTRIBUTION WIDTH 14.1 % (11.5-14.5); WHITE BLOOD COUNT 9.6 K/mm3 (4.0-10.0)
[2016-11-27 06:49] LABS: CALCIUM LEVEL 8.4 MG/DL (8.8-10.2); CREATININE FOR GFR 1.71 MG/DL (0.55-1.02); GLOMERULAR FILTRATION RATE 30.7 (>39); POTASSIUM SERUM 3.1 MEQ/L (3.5-5.1)
[2016-11-27] MEDS: FIDAXOMICIN 200 MG TAB (DIFICID) PO SCH ×2 (09:23→21:31)
[2016-11-27] MEDS: TORSEMIDE 10 MG TABLET PO SCH (09:23)
[2016-11-27] MEDS: LACTOBACILLUS ACIDOPHILUS CAP (BACID) PO SCH ×3 (09:23→17:45)
[2016-11-27] MEDS: HumaLOG INSULIN (NovoLOG) PER UNIT SC SCH ×4 (09:24→21:00)
[2016-11-27] MEDS: POTASSIUM CHLORIDE 10 MEQ SR TABLET PO SCH ×2 (11:48→21:32)
[2016-11-27 14:00] VITALS: BP 147/63
--- NOTE | 2016-11-27 15:25 | IPNPDOC ---
Subjective Date Seen The patient was seen on 11/27/16. Subjective Chief Complaint/HPI The patient is a 80-year-old female admitted with a reason for visit of C. Difficile Colitis; Copd Exacerbation. Events since last encounter Has been up to bathroom, wants to take a shower, wishes to return home, tolerating diet, loose stools back to baseline, no abdominal pain Constitutional: Denies: Chills, Fever Pulmonary: Denies: Dyspnea, Cough Cardiovascular: Denies: Chest Pain, Palpitations Gastrointestinal: Denies: Nausea, Vomiting, Abdominal Pain Objective Physical Examination General Exam: Positive: Alert, Cooperative, No Acute Distress Eye Exam: Negative: Sclera icteric Chest Exam: Positive: Diminished, Negative: Rhonchi, Wheezing Heart Exam: Positive: Rate Normal, Normal S1, Normal S2, Negative: Tachycardic Abdomen Exam: Positive: Normal bowel sounds, Soft, Negative: Tenderness Extremity Exam: Negative: Edema Psych Exam: Positive: Mood NL, Negative: Anxiety Assessment /Plan Problems (1) SOB (shortness of breath) Status: Acute Problem Text: Patient appears to have acute on chronic hypoxic respiratory failure- previously on home oxygen discontinued perhaps based on patient preference, perhaps for medical reasons- appears to have continued compensated fluid status- will encourage the use of supplemental oxygen with plans for discharge home with the same. started torsemide. Negative fluid status and increased weight? appears euvolemic patient has poor iv access- no obvious need for picc line- would like to avoid complications of central iv access (2) Depression Problem Specific Plan: Consult Specialist Problem Text: I discussed the case in person with Dr. Chow 11/26/16 Patient currently lacks ability to make reasonable medical decisions Currently on tca at which is a reasonable choice- she reports a good night of sleep last evening (3) Epistaxis Status: Chronic (4) Crohns disease Status: Chronic (5) Diabetes Status: Chronic (6) C. difficile colitis Status: Acute Problem Text: on dificid - continue current plan case discussed with Dr. Headley- no roll for further consultations Plan/VTE VTE Prophylaxis Ordered?: Yes VS, I&O, 24H, Fishbone Vital Signs/I&O Vital Signs Date Time Temp Pulse Resp B/P (MAP) Pulse Ox O2 Delivery O2 Flow Rate FiO2 11/27/16 14:00 97.2 101 18 147/63 (91) 94 Nasal Cannula 3.0 I&O- Last 24 Hours up to 6 AM 11/27/16 06:00 Intake Total 1080 ml Output Total 3125 ml Balance -2045 ml Laboratory Data 24H LABS Laboratory Tests 2 11/26/16 16:05: Bedside Glucose (Misc Panel) 330H 11/26/16 20:16: Bedside Glucose (Misc Panel) 65L 11/26/16 20:44: Bedside Glucose (Misc Panel) 92 11/27/16 06:16: Anion Gap 6L, Glomerular Filtration Rate 30.7L, Blood Urea Nitrogen 25H, Creatinine 1.71H, Sodium Level 141, Potassium Level 3.1L, Chloride Level 97L, Carbon Dioxide Level 38H, Calcium Level 8.4L 11/27/16 11:34: Bedside Glucose (Misc Panel) 160H CBC/BMP Laboratory Tests 11/27/16 06:16 Red Blood Count 3.52 L, Mean Corpuscular Volume 94.0, Mean Corpuscular Hemoglobin 28.8, Mean Corpuscular Hemoglobin Concent 30.6 L, Red Cell Distribution Width 14.1, Calcium Level 8.4 L Microbiology Microbiology 11/25/16 Blood Culture - Preliminary, Resulted No Growth after 48 hours. All Specime... 11/25/16 Blood Culture - Preliminary, Resulted No Growth after 48 hours. All Specime... 11/25/16 Influenza Virus Type A Antigen - Final, Complete 11/25/16 Influenza Virus Type B Antigen - Final, Complete AB ORTIZ MD November 27, 2016 15:25
[2016-11-27 20:30] VITALS: BP 169/74
[2016-11-27] MEDS: AMITRIPTYLINE 25 MG TAB PO SCH (21:31)
[2016-11-28] MEDS: HEPARIN SOD (PORCINE) 5000 UNITS/ML VIAL SC SCH (05:03)
[2016-11-28 05:35] VITALS: BP 128/56
[2016-11-28 06:04] LABS: MEAN CORPUSCULAR HEMOGLOBIN 29.1 pg (27.0-33.0); MEAN CORPUSCULAR HGB CONC 29.9 g/dl (32.0-36.5); MEAN CORPUSCULAR VOLUME 97.1 fl (80.0-96.0); WHITE BLOOD COUNT 8.7 K/mm3 (4.0-10.0)
[2016-11-28 06:11] LABS: CALCIUM LEVEL 8.6 MG/DL (8.8-10.2); CREATININE FOR GFR 1.67 MG/DL (0.55-1.02); GLOMERULAR FILTRATION RATE 31.5 (>39)
[2016-11-28] MEDS: TORSEMIDE 10 MG TABLET PO SCH (08:25)
[2016-11-28] MEDS: FIDAXOMICIN 200 MG TAB (DIFICID) PO SCH (08:25)
[2016-11-28] MEDS: LACTOBACILLUS ACIDOPHILUS CAP (BACID) PO SCH ×2 (08:25→12:30)
[2016-11-28] MEDS: HumaLOG INSULIN (NovoLOG) PER UNIT SC SCH ×2 (08:25→12:30)
[2016-11-28] MEDS ORDERED: RISATAB3 PO (10:17)
[2016-11-28] MEDS ORDERED: VANC1CAP6 PO (11:30)
--- NOTE | 2016-11-28 17:01 | DSES ---
DATE OF ADMISSION: 11/25/2016 DATE OF DISCHARGE: 11/28/2016 SPECIALISTS: There are no specialists involved in care. COMPLICATIONS: No complications during her stay. PROCEDURES: No procedures performed during her stay. CONSULTANTS DURING STAY: Dr. Chow. DISCHARGE DIAGNOSES: 1. Acute on chronic hypoxic respiratory failure, previously on home oxygen. 2. Poor intravenous (IV) access. 3. Depression. 4. Chronic epistaxis. 5. Crohn's disease. 6. Diabetes. 7. Clostridium (C.) difficile colitis. SUMMARY OF HER HOSPITALIZATION: This is a 80-year-old who during her recent hospitalization left against medical advice as she was tired of being in the hospital. She was brought in to the hospital to be evaluated, hypoxic at home. Was seen in consultation by Dr. Chow, and was found to lack the capacity to make her own medical decisions, although she did not need inpatient mental healthcare. She stayed in the hospital. Oxygen arranged for home. She continued on treatment for C. difficile. It was determined that the Dificid co-pay was 1200 dollars. After further discussion with Dr. Headley who was consulted during her previous stay, it was elected to return the patient to vancomycin at this point to continue her on treatment to her normal level of frequency and consistency, which would be abnormal by other people's standards due to her underlying Crohn's disease. Physical therapy and thought appropriate for discharge with 24-hour home care. Discussion today with the daughter at bedside is that has been arranged. Plan is to discharge the patient to her home with 24-hour home care. We have arranged for home physical therapy and alternate plan to get the patient to [facility]. PHYSICAL EXAMINATION: VITAL SIGNS: Temperature is 98, pulse 97, respiratory rate 18, blood pressure 128/56, 92% on three liters nasal cannula. GENERAL: She is awake, appropriately interactive, pleasantly conversant. Seems much more able to make her own medical decisions at this point. HEART: Distant sounding normal S1, S2. ABDOMEN: Soft, hyperactive bowel sounds. Nontender. Nondistended. LABORATORY DATA: White cell count 8.6, hemoglobin 10.8. BUN 24, creatinine 1.67. DISCHARGE INSTRUCTIONS: Followup with Dr. Archuleta within one week. Diet and activity as tolerated. She has been placed on: - probiotic tablets - vancomycin 125 mg by mouth four times a day for 10 days - albuterol every two hours as needed for shortness of breath - amitriptyline 25 mg by mouth at bedtime - Lasix 40 mg daily - glipizide 5 mg by mouth twice a day - Lantus 15 units subcutaneous daily - metoprolol tartrate 50 mg by mouth twice a day I have recommended that she stop her Aleve PM, and the patient is no longer to take Dificid due to the high co-pay. She was given a prescription for home oxygen with portability.
== END 2016-11-28 13:07 | disposition home health service (06) | DRG 189 ==
LOC: EDBD 10:45 → M ED 12:10 → M ED INP 13:00 → M MSPAV 14:29
PROVIDERS: ADMIT Internal Medicine; ATTEND Internal Medicine
DX: J96.21 Acute and chronic respiratory failure with hypoxia (principal); K50.90 Crohn's disease, unspecified, without complications; A04.7 Enterocolitis due to Clostridium difficile; J44.1 Chronic obstructive pulmonary disease with (acute) exacerbation; I10 Essential (primary) hypertension; R04.0 Epistaxis; F32.9 Major depressive disorder, single episode, unspecified; E11.9 Type 2 diabetes mellitus without complications; Z91.19 Patient's noncompliance with other medical treatment and regimen; Z88.0 Allergy status to penicillin; Z88.8 Allergy status to other drugs, medicaments and biological substances; Z63.4 Disappearance and death of family member; Z79.84 Long term (current) use of oral hypoglycemic drugs; Z79.4 Long term (current) use of insulin; Z79.899 Other long term (current) drug therapy

== ENCOUNTER → 2016-12-15 | Outpatient (CLI) | payer MEDICARE ==
[~2016-12-15] MED LIST changes: +CLON0.5T PO; +RISATAB3 PO; +VANC1CAP6 PO
--- NOTE | 2016-12-15 18:43 | REP ---
RIGHT HAND: REASON: Pain. COMPARISON: None. Degenerative changes are seen throughout the hand and wrist. There is no evidence of an acute fracture. IMPRESSION: Degenerative changes. Signed by Payam Ware DO 12/15/2016 07:03 P
== END ==
LOC: M WUC 17:49
PROVIDERS: ATTEND Physician Assistant
DX: M79.641 Pain in right hand (principal); M19.041 Primary osteoarthritis, right hand

== ENCOUNTER → 2017-02-05 | Outpatient (REF) | payer MEDICARE ==
[~2017-02-05] MED LIST changes: +ADV250INH INH; +AMIT50TA PO; +ASPI81TA85 PO; +CALC1CAP31 PO; +DOXY-278 PO; +FLAG500T PO; +LEVO500T3 PO; +METO1TAB87 PO; +METO25TA4 PO; -METO50TA2 PO; +METO50TA7 PO; +PRED10TA2 PO; -PROA1AER; -PROA1AER INH; +PROAAER10; +PROAAER10 INH; +SPIR1CAP INH; +TYLE650T35 PO
[2017-02-05 18:19] LABS: ALBUMIN 3.6 GM/DL (3.2-5.2); ALBUMIN/GLOBULIN RATIO 1.09 (1.00-1.93); BILIRUBIN,TOTAL 0.4 MG/DL (0.2-1.0); CALCIUM LEVEL 8.7 MG/DL (8.8-10.2); CREATININE FOR GFR 2.08 MG/DL (0.55-1.02); GLOMERULAR FILTRATION RATE 24.4 (>32); MAGNESIUM LEVEL 2.5 MG/DL (1.8-2.4); POTASSIUM SERUM 4.7 MEQ/L (3.5-5.1); TOTAL PROTEIN 6.9 GM/DL (6.4-8.2)
[2017-02-05 19:33] LABS: MEAN CORPUSCULAR HEMOGLOBIN 29.9 pg (27.0-33.0); MEAN CORPUSCULAR HGB CONC 31.3 g/dl (32.0-36.5); MEAN CORPUSCULAR VOLUME 95.5 fl (80.0-96.0); RED CELL DISTRIBUTION WIDTH 14.2 % (11.5-14.5); WHITE BLOOD COUNT 10.2 K/mm3 (4.0-10.0)
== END ==
LOC: M SFHCPLAZ 14:27
PROVIDERS: ATTEND Internal Medicine
DX: N18.3 Chronic kidney disease, stage 3 (moderate) (principal); E11.9 Type 2 diabetes mellitus without complications; E55.9 Vitamin D deficiency, unspecified

== ENCOUNTER 2017-02-23 17:29 | Inpatient (IN) | payer MEDICARE ==
[~2017-02-23] VITALS: Ht 154.9 cm; Wt 51.8 kg
[~2017-02-23 17:29] MED LIST changes: -ADV250INH INH; -AMIT50TA PO; -ASPI81TA85 PO; -CALC1CAP31 PO; -DOXY-278 PO; -FLAG500T PO; -LEVO500T3 PO; -METO1TAB87 PO; -METO25TA4 PO; -PRED10TA2 PO; -SPIR1CAP INH; -TYLE650T35 PO
[2017-02-23] MEDS ORDERED: CALC1CAP31 PO (17:44)
[2017-02-23] MEDS ORDERED: AMIT50TA PO (17:44)
[2017-02-23 19:08] LABS: BASO # 0.1 K/mm3 (0.0-0.2); BASO % 0.6 % (0.0-1.0); EOS # 0.2 K/mm3 (0.0-0.50); EOS % 2.1 % (0.0-3.0); LARGE UNSTAINED CELL # 0.2 K/mm3 (0.0-0.4); LYMPH # 1.6 K/mm3 (1.5-4.5); LYMPH % 12.6 % (24.0-44.0); MEAN CORPUSCULAR HEMOGLOBIN 29.3 pg (27.0-33.0); MEAN CORPUSCULAR HGB CONC 31.5 g/dl (32.0-36.5); MEAN CORPUSCULAR VOLUME 93.2 fl (80.0-96.0); MONO # 0.6 K/mm3 (0.0-0.8); MONO % 5.5 % (0.0-5.0); NEUTROPHILS # 8.6 K/mm3 (1.8-7.7); NEUTROPHILS % 77.2 % (36.0-66.0); PLATELET COUNT, AUTOMATED 354 k/mm3 (150-450); WHITE BLOOD COUNT 11.1 K/mm3 (4.0-10.0)
[2017-02-23 19:35] LABS: ALBUMIN 2.8 GM/DL (3.2-5.2); ALBUMIN/GLOBULIN RATIO 0.62 (1.00-1.93); ALKALINE PHOSPHATASE 121 U/L (45-117); ALT/SGPT 21 U/L (12-78); ANION GAP 3 MEQ/L (8-16); AST/SGOT 17 U/L (15-37); BILIRUBIN,DIRECT < 0.1 MG/DL (0.0-0.2); BILIRUBIN,TOTAL 0.2 MG/DL (0.2-1.0); BLOOD UREA NITROGEN 37 MG/DL (7-18); CARBON DIOXIDE LEVEL 33 MEQ/L (21-32); CHLORIDE LEVEL 100 MEQ/L (98-107); CREATININE FOR GFR 1.88 MG/DL (0.55-1.02); GLOMERULAR FILTRATION RATE 27.4 (>32); GLUCOSE, FASTING 88 MG/DL (83-110); SODIUM LEVEL 136 MEQ/L (136-145); TOTAL PROTEIN 7.3 GM/DL (6.4-8.2)
--- NOTE | 2017-02-23 19:35 | REP ---
PORTABLE CHEST: AP portable view of the chest is performed. There is no acute infiltrate. There is mild cardiomegaly. There is calcification of the thoracic aorta. The mediastinal silhouette is unchanged. IMPRESSION: No acute infiltrate. Mild cardiomegaly. Signed by Bernabe Hill MD 02/23/2017 08:16 P
[2017-02-23 19:49] LABS: POTASSIUM SERUM 5.4 MEQ/L (3.5-5.1)
[2017-02-23] MEDS ORDERED: DEXTROSE 50% 50 ML SYRINGE IV STA ×2 (20:14→22:34)
[2017-02-23] MEDS ORDERED: HumuLIN R (REGULAR) INSULIN (NovoLIN R) **100U/ML** PER UNIT IV STA (20:14)
[2017-02-23] MEDS ORDERED: SOD POLYSTYRENE SULFONATE SUSP 15 GM/60 ML UD PO ONE (20:15)
[2017-02-23] MEDS ORDERED: CALCIUM GLUCONATE 1,000 MG in D5W MINI-BAG PLUS 100 ML IV ONE (20:15)
[2017-02-23] MEDS ORDERED: DEXTROSE 50% 50 ML SYRINGE IV PRN (20:30)
[2017-02-23] MEDS ORDERED: GLUCAGON FOR INJ 1 MG VIAL (J1610) SC PRN (20:30)
[2017-02-23] MEDS ORDERED: ACETAMINOPHEN TAB 650MG DOSE (2X325MG) PO PRN (20:30)
[2017-02-23] MEDS ORDERED: GLUCOSE 4 GM CHEW TABLET PO PRN (20:30)
[2017-02-23] MEDS ORDERED: BISACODYL 5 MG TAB PO PRN (20:30)
[2017-02-23] MEDS ORDERED: ONDANSETRON 4MG/2ML VIAL (J2405) IV PRN (20:30)
[2017-02-23] MEDS ORDERED: HumaLOG INSULIN (NovoLOG) PER UNIT SC SCH (21:00)
[2017-02-23] MEDS: METOPROLOL TART 50 MG TAB PO SCH (21:00)
--- NOTE | 2017-02-23 21:30 | REPUSA ---
HISTORY: CHEST PAIN SOB. TECHNIQUE: Axial CT imaging of chest with coronal and sagittal reformatted imaging, without contrast. DLP= 282.3 mGy-cm. FINDINGS: Lung windows demonstrate hyperaeration of the lungs and early emphysematous changes with no nspecific interstitial disease and focal areas of groundglass opacification in the lungs bilaterally. No significant alveolar consolidation is seen. No suspicious pulmonary mass lesions are seen. No pneumothorax or pleural effusion is seen. Mediastinal windows demonstrate extensive calcification of the left main, LAD, circumflex, and RCA ar teries. The heart is enlarged. There is calcification throughout the thoracic aorta with no evidenc e of aneurysm. Thyroid gland is normal. Multiple small mediastinal lymph nodes are seen, largest in the pretracheal region measuring 1.2 cm in longitudinal dimension, most likely postinflammatory and benign. No other mediastinal mass lesions are seen. Upper abdomen demonstrates no pathologic mass o r abnormal fluid collections. Bone windows demonstrate degenerative changes in the thoracic spine. No fracture, destructive bony l esion is seen in the chest. IMPRESSION: 1. 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 2. Extensive calcifications noted in the left main, LAD, circumflex, and RCA coronary arteries and c ardiomegaly. 3. Small postinflammatory benign mediastinal and hilar lymph nodes noted with no other mediastinal m ass lesions seen.
[2017-02-23] MEDS ORDERED: TYLE650T35 PO (21:40)
--- NOTE | 2017-02-23 22:00 | REPUSA ---
CLINICAL HISTORY: Shortness of breath and chest pain. TECHNIQUE: Duplex ultrasound of the bilateral lower extremity veins was performed with grayscale, col or flow imaging and Doppler spectral analysis, without and with compression. BILATERAL LOWER EXTREMITY VENOUS DUPLEX ULTRASOUND: Right lower extremity: There is normal compressibility, flow and augmentation of the common femoral, superficial femoral, popliteal veins. Left lower extremity: There is normal compressibility, flow and augmentation of the common femoral, s uperficial femoral, popliteal veins. IMPRESSION: No evidence of DVT in the bilateral lower extremity veins.
[2017-02-23] MEDS ORDERED: LEVALBUTEROL 1.25 MG/0.5 ML CONCENTRATE NEB INH PRN (22:30)
--- NOTE | 2017-02-23 22:31 | HPE ---
DATE OF ADMISSION: 02/23/2017 PRIMARY CARE PROVIDER: Dr. Yaakov Archuleta HOSPITALIST ATTENDING: Joshua Haley MD. CHIEF COMPLAINT: Chest pain, shortness of breath. HISTORY OF PRESENT ILLNESS: 81-year-old female with history of congestive heart failure, grade I left ventricular diastolic dysfunction with preserved ejection fraction, chronic right bundle branch block, left posterior fascicular block with abnormal EKG, chronic hypoxic respiratory failure on as needed oxygen, prior history of COPD with no documented pulmonary function testing follows with Dr. Yaakov Archuleta. History of Crohn disease, Clostridium (C.) difficile colitis, urinary tract infection (UTI), diabetes, hypertension and chronic noncompliance presents to the emergency room with complaints of chest pain, shortness of breath that was noted initially on Wednesday into Wednesday. The patient usually is able to clean her home without any oxygen. On Wednesday and into Wednesday after exposure to a daughter with upper respiratory infection the patient did have increasing shortness of breath, unable to ambulate from bedroom to the kitchen without difficulty. She denies any fever, chills, has had a clear cough productive of white sputum and felt cold. No nausea, vomiting, abdominal pain or headaches. She describes the chest pain as substernal with no radiation. Described as heaviness. No aspirin or nitroglycerin taken for this, associated with cough, at times resolves with rest, worse with exertion. She also describes numbness of bilateral lower extremities on and off for the past few days without any back pain, urine or problem with incontinence, and no lower extremity weakness. She has had to get some assistance when she ambulates due to numbness of the legs, but usually does not walk with a cane or walker. She denies any lower extremity edema, no weight gain, weight loss, changes in appetite. Hospitalist service was called for admission for evaluation of chest pain, shortness of breath. EKG was unremarkable. Has chronic right bundle branch block. Sinus rhythm. No acute ischemic changes with chronic left posterior fascicular block. Chest x-ray shows no acute infiltrate or consolidation, effusion or pulmonary edema. CT chest is pending. Lab data notable for potassium 5.4, chronic kidney disease with creatinine 1.8, BNP of 224 with negative troponin. PAST MEDICAL HISTORY: C. difficile colitis. UTI. CHF. Diastolic dysfunction. Grade I left ventricular diastolic dysfunction. Chronic hypertension. Diabetes. Coronary artery disease. Chronic noncompliance. History of COPD with no pulmonary function testing. Vitamin D deficiency. Hypertensive heart disease. Chronic kidney disease, stage III. Dysthymic disorder. PAST SURGICAL HISTORY: Cholecystectomy. section. Aortobifemoral bypass. Right eye cataract extraction. Left eye cataract extraction. SOCIAL HISTORY: Currently denies any smoking cigarette use. Smoked over 10 years ago. 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 The patient is a FULL CODE. ALLERGIES: PIOGLITAZONE causes severe hives and PENICILLIN. PENICILLIN CROSS-REACTORS. ACTOS causing allergy. HOME MEDICATIONS: - albuterol HFA two puffs every 4 hours as needed - amitriptyline 50 mg at bedtime - calcitriol 1 tablet daily - Lasix 40 daily - glipizide 5 mg twice a day - Lantus insulin 50 units subcutaneous daily - metoprolol 50 twice a day - probiotics 2 tablets with meals FAMILY HISTORY: Noncontributory due to age. Father of malignancy age 74. Mother at age 53. Sister with CABG. Four children. Daughter had brain tumor. Daughter at the age of 27. REVIEW OF SYSTEMS: Twelve point system negative aside from positive findings in HPI. PHYSICAL EXAMINATION: Temperature 99.4, pulse 68, respiratory rate 18, currently on 94% 2 liters nasal cannula. Blood pressure 146/62. GENERAL: Awake, alert, oriented times three, answering questions appropriately. No icterus. No jaundice. Anicteric sclera. Pupils round, reactive to light and accommodation. Poor dentition. Missing teeth. No jugular venous distention, thyromegaly. No cervical lymphadenopathy. LUNGS: Diminished. No wheezing or rales. HEART: S1, S2, sinus rhythm. ABDOMEN: Soft, nontender, nondistended. Positive bowel sounds. EXTREMITIES: No cyanosis, clubbing or trace pitting edema. NEUROLOGICAL: Awake, alert and oriented times three. Answering questions appropriately. Motor function 5 out of 5 lower extremities. Diminished sensation bilateral lower extremities. White count 11, hemoglobin 10, hematocrit 33, platelet count 354. Sodium 136, potassium 5.4, chloride 100, bicarbonate 32, BUN 37, creatinine 1.88. Baseline creatinine is 1.7 to 2.08. ASSESSMENT AND PLAN: This is an 81-year-old female with history of diastolic dysfunction, CHF, preserved ejection fraction, COPD, no pulmonary function tests , hypertensive heart disease, diabetes, Crohn disease, chronic noncompliance presents to the emergency room with complaints of chest heaviness and shortness of breath since Wednesday, worsening into Wednesday, found to be hypoxic. Chest x- ray was unremarkable for acute infiltrate or edema. No wheezing on examination. CURRENT ISSUES: 1. Shortness of breath associated with chest heaviness. Rule out acute coronary syndrome. The patient will be admitted to telemetry. Continue on nebulizer treatments. If needed, Supplemental oxygen. Obtain CT chest without contrast tonight to rule out infectious etiology, no empiric steroids as no wheezing on exam, no empiric antibiotics due to risk of Cdiff. Obtain a V/Q scan to rule out pulmonary embolism (PE) in the morning. Check venous Dopplers of lower extremities. The patient has been ambulating well in the past few weeks. Change since last Wednesday and this Wednesday. Unlikely to be secondary to deep venous thrombosis (DVT). Therefore, will continue on heparin subcutaneous due to history of chronic kidney disease. At this time, the patient does not appear to be fluid overloaded. Has not had any weight gain, paroxysmal nocturnal dyspnea (PND) orthopnea. No significant lower extremity edema and no pulmonary edema on chest x-ray despite slightly increased BNP. Patient will be kept in PCU for arhythmia monitoring. Check respiratory panel. 2. Hyperkalemia. Kayexalate, calcium gluconate, regular insulin and D50. Recheck potassium every 6 hourly. hypertension, 3. Type 2 diabetes. Sliding scale Lantus insulin for now. Check A1c. Hold oral hypogylcemics duriing hospital stay. consistent carbs diet. 4. Hypoxia. Unknown etiology. Prior history of COPD. Will need pulmonary function testing as outpatient. Keep saturations above 92% with supplemental oxygen, nebs. 6. Hypertensive heart disease. Continue on home medications, metoprolol., hypertension, uncontrolled at the bedside. Currently 167/87. Resume home dose of metoprolol 50 twice a day. 7. History of bilateral lower extremity numbness. Obtain venous Doppler to the lower extremities. May need vascular surgery referral as outpatient if to followup symptomatic claudication symptoms. Currently denies any pain with ambulation. 8. Chronic anemia. Most likely related to chronic renal failure. Check iron studies. 9. Chronic kidney disease, stage III, avoid nephrotoxins, renally dose all medications. May resume home dose of calcitriol. DVT prophylaxis: heparin sq. The patient will be assigned to Dr. Joshua Haley at 7:00 a.m 02/24/17. MTDD
[2017-02-23] MEDS ORDERED: D5W/0.45% SODIUM CHLORIDE 1,000 ML IV SCH (22:45)
[2017-02-24] VITALS (7 sets, daily range): BP systolic 113–189; BP diastolic 53–88
[2017-02-24] MEDS: LEVALBUTEROL 1.25 MG/0.5 ML CONCENTRATE NEB INH SCH ×7 (03:12→23:22)
[2017-02-24] MEDS: HEPARIN SOD (PORCINE) 5000 UNITS/ML VIAL SC SCH ×3 (05:01→21:18)
[2017-02-24 06:14] LABS: BASO % 0.5 % (0.0-1.0); EOS # 0.2 K/mm3 (0.0-0.50); EOS % 2.2 % (0.0-3.0); LARGE UNSTAINED CELL # 0.1 K/mm3 (0.0-0.4); LARGE UNSTAINED CELL % 1.4 % (0.0-4.0); LYMPH # 1.5 K/mm3 (1.5-4.5); MEAN CORPUSCULAR HEMOGLOBIN 29.2 pg (27.0-33.0); MEAN CORPUSCULAR HGB CONC 31.1 g/dl (32.0-36.5); MEAN CORPUSCULAR VOLUME 93.9 fl (80.0-96.0); MONO # 0.8 K/mm3 (0.0-0.8); MONO % 7.8 % (0.0-5.0); NEUTROPHILS # 7.8 K/mm3 (1.8-7.7); NEUTROPHILS % 75.1 % (36.0-66.0); PLATELET COUNT, AUTOMATED 376 k/mm3 (150-450); WHITE BLOOD COUNT 10.3 K/mm3 (4.0-10.0)
[2017-02-24 06:35] LABS: ANION GAP 10 MEQ/L (8-16); CALCIUM LEVEL 8.7 MG/DL (8.8-10.2); CARBON DIOXIDE LEVEL 27 MEQ/L (21-32); CHLORIDE LEVEL 104 MEQ/L (98-107); CREATININE FOR GFR 1.57 MG/DL (0.55-1.02); GLOMERULAR FILTRATION RATE 33.7 (>32); GLUCOSE, FASTING 129 MG/DL (83-110); POTASSIUM SERUM 4.7 MEQ/L (3.5-5.1); SODIUM LEVEL 141 MEQ/L (136-145)
[2017-02-24 06:37] LABS: BLOOD UREA NITROGEN 31 MG/DL (7-18)
[2017-02-24] MEDS ORDERED: LEVEMIR (INSULIN DETEMIR) 1 UNITS/0.01ML SC SCH (09:00)
[2017-02-24] MEDS: METOPROLOL TART 50 MG TAB PO SCH ×2 (09:00→21:17)
[2017-02-24] MEDS: HumaLOG INSULIN (NovoLOG) PER UNIT SC SCH ×3 (09:43→17:28)
--- NOTE | 2017-02-24 11:21 | REP ---
Radionuclide pulmonary ventilation and perfusion scan: Comparison studies are the portable plain film study of the chest dated 02/23/[address] without IV contrast dated 02/23/2017. The study is performed with 1 mCi of technetium 99m labeled DTPA aerosol followed by 5 mCi of technetium 99m labeled MAA intravenously. There are multiple matched ventilation / perfusion defects. No mismatched defects are identified. There is precipitation radiotracer in the central large airways compatible with COPD. Impression: Low probability of pulmonary embolus. There are no mismatched defects. There are multiple matched defects. Signed by Bernabe Gorman MD 02/24/2017 11:13 A
--- NOTE | 2017-02-24 13:43 | IPNPDOC ---
Text Note Date of Service The patient was seen on 02/24/17. NOTE This is an 81-year-old female with history of diastolic dysfunction, CHF, preserved ejection fraction, COPD, no pulmonary function tests, hypertensive heart disease, diabetes, Crohn disease, chronic noncompliance presents to the emergency room with complaints of chest heaviness and shortness of breath since Wednesday, worsening into Wednesday, found to be hypoxic. Chest x-ray was unremarkable for acute infiltrate or edema. No wheezing on examination. Subjective: Patient seen and examined at bedside. Family at bedside. No new medical complaints. Denies any worsening shortness of breath, denies chest pain. Objective: GENERAL: NAD, lying comfortably in bed, elderly, frail LUNGS: Diminished. No wheezing or rales. HEART: S1, S2, sinus rhythm, systolic murmur ABDOMEN: Soft, nontender, nondistended. Positive bowel sounds. EXTREMITIES: No cyanosis, clubbing or trace pitting edema. NEUROLOGICAL: Awake, alert and oriented times three. Answering questions appropriately. No calf tenderness PLAN: 1. Shortness of breath associated with chest heaviness. - Rule out acute coronary syndrome. - Supplemental oxygen - VQ scan low probability - LE dopplers negative - likely secondary to over exertion and not using supplemental oxygen 2. Hyperkalemia - resolved - s/p Kayexalate, calcium gluconate, regular insulin and D50. 3. Type 2 diabetes - Sliding scale Lantus insulin for now - consistent carbs diet. 4. Hypertensive heart disease - Continue on home medications, metoprolol. 5. History of bilateral lower extremity numbness 6. Chronic anemia 7. Chronic kidney disease, stage III DVT prophylaxis: heparin sq. VS,Fishbone, I+O VS, Fishbone, I+O Laboratory Tests 02/23/17 17:53 Red Blood Count 3.63 L, Mean Corpuscular Volume 93.2, Mean Corpuscular Hemoglobin 29.3, Mean Corpuscular Hemoglobin Concent 31.5 L, Red Cell Distribution Width 14.0, Neutrophils (%) (Auto) 77.2 H, Lymphocytes (%) (Auto) 12.6 L, Monocytes (%) (Auto) 5.5 H, Eosinophils (%) (Auto) 2.1, Basophils (%) ( Auto) 0.6, Neutrophils # (Auto) 8.6 H, Lymphocytes # (Auto) 1.6, Monocytes # ( Auto) 0.6, Eosinophils # (Auto) 0.2, Basophils # (Auto) 0.1 02/24/17 05:19 Red Blood Count 3.64 L, Mean Corpuscular Volume 93.9, Mean Corpuscular Hemoglobin 29.2, Mean Corpuscular Hemoglobin Concent 31.1 L, Red Cell Distribution Width 14.0, Neutrophils (%) (Auto) 75.1 H, Lymphocytes (%) (Auto) 13.0 L, Monocytes (%) (Auto) 7.8 H, Eosinophils (%) (Auto) 2.2, Basophils (%) ( Auto) 0.5, Neutrophils # (Auto) 7.8 H, Lymphocytes # (Auto) 1.5, Monocytes # ( Auto) 0.8, Eosinophils # (Auto) 0.2, Basophils # (Auto) 0.0, Calcium Level 8.7 L , Total Creatine Kinase 73 02/24/17 12:11 Vital Signs Date Time Temp Pulse Resp B/P (MAP) Pulse Ox O2 Delivery O2 Flow Rate FiO2 02/24/17 12:00 97.3 110 18 120/53 (75) 97 Nasal Cannula 3.0 I&O- Last 24 Hours up to 6 AM 02/24/17 05:59 Intake Total 240 ml Output Total 0 ml Balance 240 ml RANI PHILLIPS MD Feb 24, 2017 13:43
--- NOTE | 2017-02-24 20:16 | ECGEPIP ---
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
[2017-02-25 00:11] VITALS: BP 100/60
[2017-02-25] MEDS: LEVALBUTEROL 1.25 MG/0.5 ML CONCENTRATE NEB INH SCH ×4 (03:46→16:00)
[2017-02-25 04:00] VITALS: BP 144/67
[2017-02-25] MEDS: HEPARIN SOD (PORCINE) 5000 UNITS/ML VIAL SC SCH ×2 (06:17→13:13)
[2017-02-25 06:58] LABS: BASO % 0.5 % (0.0-1.0); EOS # 0.3 K/mm3 (0.0-0.50); EOS % 3.7 % (0.0-3.0); LARGE UNSTAINED CELL # 0.2 K/mm3 (0.0-0.4); LARGE UNSTAINED CELL % 2.4 % (0.0-4.0); LYMPH # 1.9 K/mm3 (1.5-4.5); LYMPH % 19.7 % (24.0-44.0); MEAN CORPUSCULAR HEMOGLOBIN 29.1 pg (27.0-33.0); MEAN CORPUSCULAR HGB CONC 30.8 g/dl (32.0-36.5); MEAN CORPUSCULAR VOLUME 94.3 fl (80.0-96.0); MONO # 0.7 K/mm3 (0.0-0.8); MONO % 7.6 % (0.0-5.0); NEUTROPHILS # 5.7 K/mm3 (1.8-7.7); NEUTROPHILS % 66.1 % (36.0-66.0); PLATELET COUNT, AUTOMATED 383 k/mm3 (150-450); RED CELL DISTRIBUTION WIDTH 14.1 % (11.5-14.5); WHITE BLOOD COUNT 8.7 K/mm3 (4.0-10.0)
[2017-02-25 07:15] LABS: CALCIUM LEVEL 8.6 MG/DL (8.8-10.2); CREATININE FOR GFR 1.51 MG/DL (0.55-1.02); GLOMERULAR FILTRATION RATE 35.3 (>32); POTASSIUM SERUM 3.9 MEQ/L (3.5-5.1)
[2017-02-25 08:00] VITALS: BP 120/63
[2017-02-25 08:34] VITALS: BP 126/78
[2017-02-25] MEDS: METOPROLOL TART 50 MG TAB PO SCH (08:34)
[2017-02-25 11:53] VITALS: BP 160/72
[2017-02-25] MEDS ORDERED: METO25TA4 PO (14:26)
--- NOTE | 2017-02-26 13:09 | DS.PDOC ---
Discharge Summary General Date of Admission Feb 23, 2017 at 20:16 Date of Discharge 02/25/17 Discharge Summary PROCEDURES PERFORMED DURING STAY: [None]. DISCHARGE DIAGNOSES: 1. CHF - diastolic dysfunction 2. hypertension 3. diabetes 4. CAD 5. noncompliance 6. COPD 7. hypertensive heart disease 8. CKD COMPLICATIONS/CHIEF COMPLAINT: Chest Pain. HOSPITAL COURSE: 81 yo female presents for chest heaviness and shortness of breath. Admitted for further evaluation. ACS ruled out, low probability for PE by V/Q scan. Lower extremity dopplers were negative for DVT. Shortness of breath likely secondary to non-compliance, patient states she was not using her oxygen, and was very active, at which point she developed her shortness of breath and chest heaviness. Potassium was elevated on admission, which resolved. Hospital stay unremarkable, patient discharge in stable condition. DISCHARGE MEDICATIONS: Please see below. ALLERGIES: Please see below. PHYSICAL EXAMINATION ON DISCHARGE: VITAL SIGNS: Please see below. GENERAL: NAD, elderly, frail HEENT: NC/AT NECK: supple CARDIOVASCULAR EXAMINATION: +S1S2, RRR, systolic murmur RESPIRATORY EXAMINATION: CTA B/L ABDOMINAL EXAMINATION: soft, NT, +BS EXTREMITIES: no edema PSYCHIATRIC EXAMINATION: AAOx3 LABORATORY DATA: Please see below. ACTIVITY: [As tolerated]. DIET: 2 gram sodium, carb consistent DISPOSITION: 01 Home, Self-Care. DISCHARGE INSTRUCTIONS: 1. PCP in 3-5 days DISCHARGE CONDITION: [Stable]. TIME SPENT ON DISCHARGE: Greater than 30 minutes. Vital Signs/I&Os Vital Signs Date Time Temp Pulse Resp B/P (MAP) Pulse Ox O2 Delivery O2 Flow Rate FiO2 02/25/17 11:53 98.0 96 18 160/72 (101) 96 Nasal Cannula 3.0 I&O- Last 24 Hours up to 6 AM 02/26/17 05:59 Intake Total 960 ml Output Total 600 ml Balance 360 ml Microbiology Microbiology 02/23/17 Blood Culture - Preliminary, Resulted No Growth after 48 hours. All Specime... 02/23/17 Blood Culture - Preliminary, Resulted No Growth after 48 hours. All Specime... 02/24/17 Respiratory Virus Panel (PCR) ([facility]) - Final, Complete Discharge Medications Scheduled Acetaminophen (Tylenol 8 Hour Arthritis) 650 Mg Tab, 650 MG PO QHS, (Reported) Amitriptyline HCl (Amitriptyline HCl) 50 Mg Tab, 1 TAB PO QHS, (Reported) Calcitriol (Calcitriol) 0.25 Mcg Cap, 1 TAB PO DAILY, (Reported) Furosemide (Furosemide) 40 Mg Tab, 40 MG PO DAILY, (Reported) Glipizide (Glipizide) 5 Mg Tab, 5 MG PO BID, (Reported) Insulin Glargine (Lantus) 1 Units/0.01 Ml Susp, 15 UNITS SC DAILY, (Reported) Metoprolol Tartrate (Metoprolol Tartrate) 25 Mg Tab, 25 MG PO BID Scheduled PRN Albuterol Sulfate (Proair Hfa) 108 Mcg/Act Aer, 2 PUFF INH Q4H PRN for SHORTNESS OF BREATH, (Reported) Allergies Coded Allergies: Penicillins (Verified Allergy, Unknown, HIVES, 11/15/16) Penicillins Cross Reactors (Verified Allergy, Unknown, HIVES, 11/15/16) Pioglitazone (Verified Adverse Reaction, Intermediate, CHF, 11/15/16) RANI PHILLIPS MD Feb 26, 2017 13:09
== END 2017-02-25 18:30 | disposition home or self-care (01) | DRG 191 ==
LOC: M ED 17:29 → M ED INP 20:16 → M PCU 23:58
PROVIDERS: ADMIT General Practice; ATTEND Internal Medicine
DX: J44.9 Chronic obstructive pulmonary disease, unspecified (principal); I13.0 Hypertensive heart and chronic kidney disease with heart failure and stage 1 through stage 4 chronic kidney disease, or unspecified chronic kidney disease; I50.32 Chronic diastolic (congestive) heart failure; R06.02 Shortness of breath; R07.9 Chest pain, unspecified; N18.3 Chronic kidney disease, stage 3 (moderate); E11.9 Type 2 diabetes mellitus without complications; Z79.4 Long term (current) use of insulin; Z88.0 Allergy status to penicillin; Z79.899 Other long term (current) drug therapy; Z90.49 Acquired absence of other specified parts of digestive tract; Z98.41 Cataract extraction status, right eye; Z98.42 Cataract extraction status, left eye; Z87.891 Personal history of nicotine dependence; E87.5 Hyperkalemia

== ENCOUNTER 2017-05-07 17:22 | Inpatient (IN) | payer MEDICARE ==
[~2017-05-07] VITALS: Ht 152.4 cm; Wt 53.1 kg
[~2017-05-07 17:22] MED LIST changes: +AMIT50TA PO; +CALC1CAP31 PO; +METO25TA4 PO; +TYLE650T35 PO
[2017-05-07] MEDS ORDERED: SPIR1CAP INH (17:37)
[2017-05-07] MEDS ORDERED: ADV250INH INH (17:37)
[2017-05-07 18:40] LABS: BASO # 0.1 10^3/uL (0.0-0.2); BASO % 0.4 % (0.0-1.0); EOS % 0.3 % (0.0-3.0); IMMATURE GRANULOCYTE % 0.6 % (0-0); LYMPH # 1.6 10^3/uL (1.5-4.5); LYMPH % 10.3 % (24.0-44.0); MEAN CORPUSCULAR HEMOGLOBIN 26.7 pg (27.0-33.0); MEAN CORPUSCULAR VOLUME 86.4 fl (80.0-96.0); MONO # 1.5 10^3/uL (0.0-0.8); MONO % 9.2 % (0.0-5.0); NEUTROPHILS # 12.6 10^3/uL (1.8-7.7); NEUTROPHILS % 79.2 % (36.0-66.0); PLATELET COUNT, AUTOMATED 493 10^3/uL (150-450); RED CELL DISTRIBUTION WIDTH 15.9 % (11.5-14.5); WHITE BLOOD COUNT 15.9 10^3/uL (4.0-10.0)
[2017-05-07 18:54] LABS: ANION GAP 6 MEQ/L (8-16); BLOOD UREA NITROGEN 54 MG/DL (7-18); CALCIUM LEVEL 9.3 MG/DL (8.8-10.2); CARBON DIOXIDE LEVEL 30 MEQ/L (21-32); CHLORIDE LEVEL 95 MEQ/L (98-107); GLOMERULAR FILTRATION RATE 25.5 (>32); GLUCOSE, FASTING 186 MG/DL (83-110); SODIUM LEVEL 131 MEQ/L (136-145)
[2017-05-07 18:55] LABS: POTASSIUM SERUM 5.2 MEQ/L (3.5-5.1)
[2017-05-07 18:59] LABS: ALBUMIN 2.7 GM/DL (3.2-5.2); ALBUMIN/GLOBULIN RATIO 0.69 (1.00-1.93); BILIRUBIN,DIRECT 0.2 MG/DL (0.0-0.2); BILIRUBIN,TOTAL 0.4 MG/DL (0.2-1.0); TOTAL PROTEIN 6.6 GM/DL (6.4-8.2)
--- NOTE | 2017-05-07 19:50 | REPUSA ---
HISTORY: SOB. TECHNIQUE: Frontal and lateral views. FINDINGS: Heart and vessels are normal. Aorta is partially calcified. No mediastinal or hilar mass lesions are seen. There is hyperaeration of the lungs and flattening of the diaphragms consistent with COPD. There is hazy infiltrate or fibrosis in the left upper lobe in which pneumonia cannot be excluded at this celestina e. Right lung is clear of consolidation. No pneumothorax or pleural effusion is seen. IMPRESSION: 1. COPD with hazy infiltrate or fibrosis in the left upper lobe in which pneumonia canno t be excluded at this time. 2. No evidence of CHF. Clinical correlation and followup imaging may be warranted as clinically indicated.
[2017-05-07] MEDS ORDERED: SOD POLYSTYRENE SULFONATE SUSP 15 GM/60 ML UD PO ONE (20:15)
[2017-05-07] MEDS ORDERED: METO1TAB87 PO (20:18)
[2017-05-07] MEDS ORDERED: ASPI81TA85 PO (20:20)
[2017-05-07] MEDS ORDERED: GLUCAGON FOR INJ 1 MG VIAL (J1610) SC PRN (20:45)
[2017-05-07] MEDS ORDERED: DEXTROSE 50% 50 ML SYRINGE IV PRN (20:45)
[2017-05-07] MEDS ORDERED: ONDANSETRON 4MG/2ML VIAL (J2405) IV PRN (20:45)
[2017-05-07] MEDS ORDERED: IPRATROPIUM 0.5MG/ALBUTEROL 2.5MG INH SOL UD 3ML (DUONEB)(J7620) NEB PRN (20:45)
[2017-05-07] MEDS ORDERED: GLUCOSE 4 GM CHEW TABLET PO PRN (20:45)
[2017-05-07] MEDS: HumaLOG INSULIN (NovoLOG) PER UNIT SC SCH (21:00)
--- NOTE | 2017-05-07 22:12 | HPEPDOC ---
General Date of Admission May 07, 2017 at 20:43 Primary Care Physician: Yaakov Archuleta Attending Physician: ASUNCION NEIL MD Chief Complaint The patient is a 81-year-old female admitted with a reason for visit of Copd Exacerbation. Source: Patient, Family History of Present Illness 81-year-old female with past medical history of diastolic congestive heart failure, COPD, diabetes mellitus, hypertension, chronic kidney disease stage III , Crohn's disease, and C. difficile presented to the ER with a chief complaint of increased shortness of breath, cough productive of yellowish sputum, and generalized lethargy/malaise over the last 3 days. The patient states that this has been accompanied by subjective fevers, chills, and also generalized body aches. She denies any sick contacts. She does state that she most recently had her influenza vaccination. She denies any acute complaints of chest pain, palpitations, abdominal pain, or any nausea/vomiting. Home Medications Scheduled Acetaminophen (Tylenol 8 Hour Arthritis) 650 Mg Tab, 650 MG PO QHS, (Reported) Amitriptyline HCl (Amitriptyline HCl) 50 Mg Tab, 50 MG PO QHS, (Reported) Aspirin (Aspir-81) 81 Mg Tab, 81 MG PO DAILY, (Reported) Calcitriol (Calcitriol) 0.25 Mcg Cap, 0.25 MG PO DAILY, (Reported) Furosemide (Furosemide) 40 Mg Tab, 40 MG PO DAILY, (Reported) Glipizide (Glipizide) 5 Mg Tab, 5 MG PO BID, (Reported) Insulin Glargine (Lantus) 1 Units/0.01 Ml Susp, 15 UNITS SC DAILY, (Reported) Metoprolol Tartrate (Metoprolol Tartrate) 25 Mg Tab, 25 MG PO BID, (Reported) Salmeterol/Fluticasone (Advair Diskus 250-50 Mcg/Dose) 14 Puff/Inhaler Aerp, 1 PUFF INH BID, (Reported) Tiotropium [place] Monohydrate (Spiriva Handihaler) 18 Mcg Cap, 1 PUFF INH DAILY , (Reported) Scheduled PRN Albuterol Sulfate (Proair Hfa) 108 Mcg/Act Aer, 2 PUFF INH Q4H PRN for SHORTNESS OF BREATH, (Reported) Allergies Coded Allergies: Penicillins (Verified Allergy, Unknown, HIVES, 11/15/16) Penicillins Cross Reactors (Verified Allergy, Unknown, HIVES, 11/15/16) Pioglitazone (Verified Adverse Reaction, Intermediate, CHF, 11/15/16) Past Medical History Medical History As noted above. Surgical History 1. Cholecystectomy. 2. (C) section. Family History Significant Family History: No pertinent family hx Social History * Smoker: former Smoker (smoked half pack per day for 40+ years, quit 23 years ago) Alcohol: Denies Drugs: denies Lives at [facility]. Usually ambulates independently, however has been using a rolling walker over the last few days. Review of Symptoms Other systems 10 point review of systems negative unless otherwise specified in HPI. Physical Examination General Exam: Positive: Alert, Cooperative, No Acute Distress ENT Exam: Positive: Atraumatic, Mucous membr. moist/pink Neck Exam: Negative: JVD Chest Exam: Positive: Diminished Heart Exam: Positive: Rate Normal, Normal S1, Normal S2 Abdomen Exam: Positive: Soft, Negative: Tenderness Extremity Exam: Negative: Tenderness, Swelling Psych Exam: Positive: Oriented x 3 Vital Signs Vital Signs Date Time Temp Pulse Resp B/P (MAP) Pulse Ox O2 Delivery O2 Flow Rate FiO2 05/07/17 20:07 94 96 05/07/17 17:54 Nasal Cannula 2.0 05/07/17 17:54 05/07/17 17:23 99.7 16 Laboratory Data Labs 24H Laboratory Tests 2 05/07/17 18:19: Immature Granulocyte % (Auto) 0.6H, White Blood Count 15.9H, Red Blood Count 3.74L, Hemoglobin 10.0L, Hematocrit 32.3L, Mean Corpuscular Volume 86.4, Mean Corpuscular Hemoglobin 26.7L, Mean Corpuscular Hemoglobin Concent 31.0L, Red Cell Distribution Width 15.9H, Platelet Count 493H, Neutrophils (%) (Auto) 79.2H , Lymphocytes (%) (Auto) 10.3L, Monocytes (%) (Auto) 9.2H, Eosinophils (%) (Auto ) 0.3, Basophils (%) (Auto) 0.4, Neutrophils # (Auto) 12.6H, Lymphocytes # (Auto ) 1.6, Monocytes # (Auto) 1.5H, Eosinophils # (Auto) 0.0, Basophils # (Auto) 0.1 , Immature Granulocyte # (Auto) 0.1H, Nucleated Red Blood Cells % (auto) 0.0, Anion Gap 6L, Glomerular Filtration Rate 25.5L, Blood Urea Nitrogen 54H, Creatinine 2.00H, Sodium Level 131L, Potassium Level 5.2H, Chloride Level 95L, Carbon Dioxide Level 30, Calcium Level 9.3, Total Creatine Kinase 43, Aspartate Amino Transf (AST/SGOT) 40H, Alanine Aminotransferase (ALT/SGPT) 37, Alkaline Phosphatase 139H, Total Bilirubin 0.4, Direct Bilirubin 0.2, Creatine Kinase MB 1.0, Creatine Kinase MB Relative Index 2.32, Troponin I < 0.02, XS-Izm-F-Type Natriuretic Peptide 2347H, Total Protein 6.6, Albumin 2.7L, Albumin/Globulin Ratio 0.69L, Thyroid Stimulating Hormone (TSH) 0.829 CBC/BMP Laboratory Tests 05/07/17 18:19 Red Blood Count 3.74 L, Mean Corpuscular Volume 86.4, Mean Corpuscular Hemoglobin 26.7 L, Mean Corpuscular Hemoglobin Concent 31.0 L, Red Cell Distribution Width 15.9 H, Neutrophils (%) (Auto) 79.2 H, Lymphocytes (%) (Auto ) 10.3 L, Monocytes (%) (Auto) 9.2 H, Eosinophils (%) (Auto) 0.3, Basophils (%) (Auto) 0.4, Neutrophils # (Auto) 12.6 H, Lymphocytes # (Auto) 1.6, Monocytes # ( Auto) 1.5 H, Eosinophils # (Auto) 0.0, Basophils # (Auto) 0.1, Calcium Level 9.3 , Total Creatine Kinase 43 Microbiology Microbiology 05/07/17 Blood Culture, Received Pending 05/07/17 Blood Culture, Received Pending 05/07/17 Influenza Virus Type A Antigen - Final, Complete 05/07/17 Influenza Virus Type B Antigen - Final, Complete Plan / VTE VTE Prophylaxis Ordered?: Yes Plan Plan COPD Exacerbation Possibly 2/2 Viral Etiology CXR noted Sputum Culture, Respiratory Panel, Rapid Flu studies ordered IV Steroids, inhaler, and nebulizer therapy ordered The patient's symptomatology and presentation more consistent with a viral etiology. Given the patient's history of C. difficile, and lower probability of bacterial infection at this time--We will with-hold Abx therapy at this time. However, if the patient's symptoms and clinical presentation do not improve, and the patient's viral respiratory panel is negative--can consider starting antibiotics We will continue to monitor the patient's respiratory status Chronic kidney disease stage III Serum Cr noted to be 2.0 (Baseline 1.5-1.8) Will hold nephrotoxic meds at this time Encourage PO Intake of gentle fluids Will cont to monitor BMP Hyperkalemia Serum K noted to be 5.2 Given a dose of Kayexalate Recheck Serum K in the AM Hyponatremia Serum Sodium noted to be 131 Likely 2/2 Decreased PO Intake Serum Cortisol, Urine Studies ordered Encouraged PO Intake We will recheck serum Na in the AM Hx of Diastolic CHF The patient does not appear volume overloaded Lasix dose held 2/2 above Diabetes mellitus Continue home dose of basal insulin Insulin sliding scale ordered for additional coverage Hypertension, stable Continue antihypertensive regimen as ordered Hx of Crohn's Disease, C. Diff The patient does state that she has diarrhea at baseline but there has been an increase in the frequency of loose stools over the last 2 weeks. She denies any complaints of abdominal pain, or any nausea/vomiting GI panel ordered DVT prophylaxis Subcutaneous heparin The patient will be admitted under the service of Dr. Neil, who will begin to follow the patient on 05/08/17 at 7 AM ARMANDO CAT MD May 07, 2017 22:12
[2017-05-07] MEDS: ADVAIR HFA 115/21MCG INHALER INH SCH (22:36)
[2017-05-08] VITALS: BP 132/74
[2017-05-08] MEDS: AMITRIPTYLINE 50 MG TAB PO SCH ×2 (00:24→21:16)
[2017-05-08] MEDS: methylPREDNISolone INJ 40 MG/1 ML VIAL (J2920) IV SCH ×3 (00:25→16:05)
[2017-05-08] MEDS: METOPROLOL TART 25 MG TABLET PO SCH ×3 (00:26→21:00)
[2017-05-08] MEDS: ACETAMINOPHEN 650MG ER TAB (TYLENOL ARTHRITIS) PO SCH ×2 (00:30→21:16)
[2017-05-08] MEDS: IPRATROPIUM 0.5MG/ALBUTEROL 2.5MG INH SOL UD 3ML (DUONEB)(J7620) NEB SCH ×4 (02:00→19:50)
[2017-05-08 03:08] LABS: BASO # 0.1 10^3/uL (0.0-0.2); BASO % 0.4 % (0.0-1.0); EOS % 0.2 % (0.0-3.0); IMMATURE GRANULOCYTE % 0.5 % (0-0); LYMPH # 0.9 10^3/uL (1.5-4.5); LYMPH % 5.2 % (24.0-44.0); MEAN CORPUSCULAR HEMOGLOBIN 26.8 pg (27.0-33.0); MEAN CORPUSCULAR HGB CONC 31.1 g/dl (32.0-36.5); MEAN CORPUSCULAR VOLUME 86.1 fl (80.0-96.0); MONO # 0.5 10^3/uL (0.0-0.8); MONO % 3.1 % (0.0-5.0); NEUTROPHILS # 14.7 10^3/uL (1.8-7.7); NEUTROPHILS % 90.6 % (36.0-66.0); PLATELET COUNT, AUTOMATED 474 10^3/uL (150-450); RED CELL DISTRIBUTION WIDTH 15.8 % (11.5-14.5); WHITE BLOOD COUNT 16.2 10^3/uL (4.0-10.0)
[2017-05-08 03:38] LABS: ALBUMIN 2.8 GM/DL (3.2-5.2); ALBUMIN/GLOBULIN RATIO 0.7 (1.00-1.93); BILIRUBIN,TOTAL 0.4 MG/DL (0.2-1.0); CREATININE FOR GFR 2.14 MG/DL (0.55-1.02); GLOMERULAR FILTRATION RATE 23.6 (>32); MAGNESIUM LEVEL 1.9 MG/DL (1.8-2.4); TOTAL PROTEIN 6.8 GM/DL (6.4-8.2)
[2017-05-08] MEDS: HEPARIN SOD (PORCINE) 5000 UNITS/ML VIAL SC SCH ×3 (05:22→21:16)
--- NOTE | 2017-05-08 05:58 | ECGEPIP ---
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
[2017-05-08 06:00] VITALS: BP 125/59
[2017-05-08] MEDS: TIOTROPIUM INHALER/CAPSULE (SPIRIVA) INH SCH (08:09)
[2017-05-08] MEDS: ADVAIR HFA 115/21MCG INHALER INH SCH ×2 (08:10→19:50)
[2017-05-08] MEDS: HumaLOG INSULIN (NovoLOG) PER UNIT SC SCH ×4 (08:41→21:16)
[2017-05-08] MEDS: CALCITRIOL 0.25 MCG CAP (S0169) PO SCH (08:41)
[2017-05-08] MEDS: ASPIRIN 81 MG ENTERIC TAB PO SCH (08:41)
[2017-05-08] MEDS: LEVEMIR (INSULIN DETEMIR) 1 UNITS/0.01ML SC SCH (08:42)
[2017-05-08 09:21] LABS: OSMOLALITY URINE 289 MOSM/KG (500-800)
[2017-05-08] MEDS ORDERED: NS 1,000 ML IV SCH (13:30)
[2017-05-08 14:00] VITALS: BP 123/62
--- NOTE | 2017-05-08 14:17 | IPN ---
DATE OF EXAM: 05/08/2017 SUBJECTIVE: The patient tells me that she is feeling significantly better, and briefly tells me that she presented to the hospital because the last several days she had been so weak and shortness of breath that she could not walk and did not feel like eating. She tells me that after receiving treatments in the emergency room and on the medical floor yesterday she feel significantly better and is able to eat her own breakfast and is able to go a walk. She denies chest pressure, fevers, chills, nausea, vomiting, or diarrhea. OBJECTIVE: VITAL SIGNS: Temperature 97.1, pulse 84, respiratory rate 17, blood pressure (BP) 125/59, oxygen saturation 89% on 2 liters, on room air at rest she desaturates to 85%. GENERAL: She is a frail elderly female sitting on the edge of her bed. She does not appear to be in acute distress. She was accompanied by one her daughters and also assisted with much of the history, and spends nights with her. HEENT: Cranial nerves II-XII are grossly intact. She has moist mucous membranes. She appears mildly pale. No elevation in jugular venous pulse (JVP). CARDIOVASCULAR EXAM: S1, S2, regular. RESPIRATORY EXAM: Is actually, fairly clear at this time. However, she has prolonged expiratory phase and is mildly barrel-chested. ABDOMINAL EXAM: Is benign. EXTREMITIES: No clubbing, cyanosis or edema. LABORATORY STUDIES: WBC 16.2, hemoglobin 10.2, platelet count 474. Chemistry panel: Sodium 133, up from 131, potassium 4.0, down from 5.2, chloride 96, bicarbonate 38, BUN 51, creatinine 2.4. Two sets of cardiac enzymes are negative. Slightly elevated AST at 44 and a low sodium of 133 and alkaline phosphatase at 140. MICROBIOLOGY: Blood cultures are pending. Sputum culture is pending. Influenza swab is negative. IMAGING: The patient did have a chest x-ray. This revealed chronic obstructive pulmonary disease (COPD) with hazy infiltrate of fibrosis in the left upper lobe, which pneumonia cannot be excluded. No evidence of congestive heart failure. ASSESSMENT AND PLAN: This is an 81-year-old female with shortness of breath. PROBLEMS: 1. Shortness of breath. Possibly decompensated COPD versus secondary to non adherence. Patient admits to me that she at home is prescribed oxygen but she does not wear it. I suspect that if she had been prescribed it in the past she likely needs it and not wearing may have led her to have her progressive shortness of breath. She does have increased cough but no increased sputum production. No change in its quality. At this time, we will continue her on nebulized treatments and Solu-Medrol. She is improving with this regimen. I agree with Dr. Hawkins's suspicion for an infectious etiology is quite low. I will check a respiratory polymerase chain reaction (PCR) panel and hold off on bacterial studies given that she does have some hyponatremia, elevation in her AST, given her advanced age and her pulmonary disease with recent outbreaks, will check urine legionella as well as sputum legionella culture. I would not expect her to improve without antibiotic bacterial therapy. 2. Acute on chronic kidney injury. She tells me that in present history that she has not eaten very well for the last several days. BUN and creatinine ratio are greater than 41. At this time, we will provide with gentle fluid hydration. We are holding nephrotoxin medications. 3. Hyperkalemia, resolved. 4. Hyponatremia. Likely hypovolemic hyponatremia. Will gently hydrate and reassess. She does appear to be improving at this time. 5. Diastolic congestive heart failure. She is euvolemic. We are holding her Lasix. We are actually providing her with gentle fluid hydration. She is continued on her beta-guy. 6. Diabetes mellitus. She is on sliding scale insulin. 7. History of Crohn's disease, Controlled at her baseline. No symptoms. 8. Deep venous thrombosis (DVT) prophylaxis. She is on heparin. DISPOSITION: Will continue to monitor the patient for an additional 24 hours. I suspect if she continues to improve at her current rate she may be able to discharged within the next 24-48.
[2017-05-08] MEDS ORDERED: cefTRIAXone SOD 1 GM in D5W 50 ML IV ONE (15:30)
[2017-05-08 22:00] VITALS: BP 92/51
[2017-05-09] MEDS: methylPREDNISolone INJ 40 MG/1 ML VIAL (J2920) IV SCH ×2 (00:11→08:29)
[2017-05-09] MEDS: IPRATROPIUM 0.5MG/ALBUTEROL 2.5MG INH SOL UD 3ML (DUONEB)(J7620) NEB SCH ×4 (01:48→20:00)
[2017-05-09] MEDS: HEPARIN SOD (PORCINE) 5000 UNITS/ML VIAL SC SCH ×3 (05:26→22:24)
[2017-05-09 06:00] VITALS: BP 141/64
[2017-05-09 06:11] LABS: BASO % 0.1 % (0.0-1.0); IMMATURE GRANULOCYTE % 0.7 % (0-0); LYMPH # 1.1 10^3/uL (1.5-4.5); LYMPH % 5.3 % (24.0-44.0); MEAN CORPUSCULAR HEMOGLOBIN 26.5 pg (27.0-33.0); MEAN CORPUSCULAR VOLUME 85.7 fl (80.0-96.0); MONO # 0.6 10^3/uL (0.0-0.8); MONO % 2.8 % (0.0-5.0); NEUTROPHILS # 19.1 10^3/uL (1.8-7.7); NEUTROPHILS % 91.1 % (36.0-66.0); PLATELET COUNT, AUTOMATED 601 10^3/uL (150-450); RED CELL DISTRIBUTION WIDTH 15.6 % (11.5-14.5)
[2017-05-09 06:35] LABS: ALBUMIN 2.6 GM/DL (3.2-5.2); ALBUMIN/GLOBULIN RATIO 0.52 (1.00-1.93); BILIRUBIN,TOTAL 0.1 MG/DL (0.2-1.0); CALCIUM LEVEL 9.1 MG/DL (8.8-10.2); CREATININE FOR GFR 2.41 MG/DL (0.55-1.02); GLOMERULAR FILTRATION RATE 20.6 (>32); MAGNESIUM LEVEL 2.1 MG/DL (1.8-2.4); POTASSIUM SERUM 3.5 MEQ/L (3.5-5.1); TOTAL PROTEIN 7.6 GM/DL (6.4-8.2)
[2017-05-09] MEDS: TIOTROPIUM INHALER/CAPSULE (SPIRIVA) INH SCH (08:25)
[2017-05-09] MEDS: ADVAIR HFA 115/21MCG INHALER INH SCH ×2 (08:25→20:10)
[2017-05-09] MEDS: CALCITRIOL 0.25 MCG CAP (S0169) PO SCH (08:29)
[2017-05-09 08:30] VITALS: BP 141/64
[2017-05-09] MEDS: METOPROLOL TART 25 MG TABLET PO SCH ×2 (08:30→22:23)
[2017-05-09] MEDS: ASPIRIN 81 MG ENTERIC TAB PO SCH (08:30)
[2017-05-09] MEDS: HumaLOG INSULIN (NovoLOG) PER UNIT SC SCH ×4 (08:30→21:00)
[2017-05-09] MEDS: LEVEMIR (INSULIN DETEMIR) 1 UNITS/0.01ML SC SCH (08:31)
--- NOTE | 2017-05-09 09:17 | REP ---
CT of the chest without IV contrast: Comparisons are the PA and lateral chest 05/07/[address] of 11/23/2016. There is a right upper lobe infiltrate compatible with pneumonia. This was not present on the comparison CT but can be seen on the comparison plain film study. There are no other infiltrates. No pleural effusions. No interstitial infiltrates. There is no mediastinal adenopathy. There are a few normal-sized nodes. Thoracic aorta is unremarkable except for calcified atheroma. Cardiac size is normal. There is a small pericardial effusion measuring 3 ml in depth anteriorly. The upper abdomen there is a cholecystectomy. The visualized upper abdominal contents are otherwise unremarkable. Impression: Left upper lobe infiltrate. No interstitial infiltrates. No pleural effusions. Small pericardial effusion. Signed by Bernabe Gorman MD 05/09/2017 08:15 A
[2017-05-09 14:00] VITALS: BP 153/72
[2017-05-09] MEDS ORDERED: AZITHROMYCIN INJ 500 MG, VIAL MATE ADAPTER 1 EACH in D5W 250 ML IV SCH (14:00)
[2017-05-09] MEDS: predniSONE 20 MG TAB PO SCH (14:17)
--- NOTE | 2017-05-09 15:01 | REP ---
Renal ultrasound: The kidneys are in the low normal size range. Right kidney measures 9.5 x 4.2 x 3.9 cm. Left kidney measures 9.5 x 4.43 point 5 cm. The right renal cortex demonstrates normal echogenicity. The left renal cortex is echogenic compatible with medical renal disease. There is no hydronephrosis. There are no solid renal masses. There is a 2.3 cm right renal cyst. There are no renal calculi. The bladder is not adequately distended and cannot be evaluated. Impression: Right renal cyst. Left renal cortex is echogenic. Otherwise, negative renal ultrasound. No hydronephrosis. Signed by Bernabe Gorman MD 05/09/2017 02:51 P
[2017-05-09] MEDS ORDERED: cefTRIAXone SOD 1 GM in D5W 50 ML IV SCH (16:00)
[2017-05-09 22:00] VITALS: BP 136/59
[2017-05-09] MEDS: ACETAMINOPHEN 650MG ER TAB (TYLENOL ARTHRITIS) PO SCH (22:24)
[2017-05-09] MEDS: AMITRIPTYLINE 50 MG TAB PO SCH (22:24)
[2017-05-10] MEDS: IPRATROPIUM 0.5MG/ALBUTEROL 2.5MG INH SOL UD 3ML (DUONEB)(J7620) NEB SCH ×2 (02:00→08:00)
[2017-05-10] MEDS: HEPARIN SOD (PORCINE) 5000 UNITS/ML VIAL SC SCH (05:16)
[2017-05-10 06:00] VITALS: BP 153/68
[2017-05-10 06:50] LABS: BASO % 0.1 % (0.0-1.0); EOS % 0.1 % (0.0-3.0); IMMATURE GRANULOCYTE % 0.7 % (0-0); LYMPH # 1.2 10^3/uL (1.5-4.5); LYMPH % 6.5 % (24.0-44.0); MEAN CORPUSCULAR HEMOGLOBIN 26.4 pg (27.0-33.0); MEAN CORPUSCULAR HGB CONC 30.6 g/dl (32.0-36.5); MEAN CORPUSCULAR VOLUME 86.2 fl (80.0-96.0); MONO # 0.9 10^3/uL (0.0-0.8); MONO % 4.9 % (0.0-5.0); NEUTROPHILS # 16.1 10^3/uL (1.8-7.7); NEUTROPHILS % 87.7 % (36.0-66.0); PLATELET COUNT, AUTOMATED 580 10^3/uL (150-450); RED CELL DISTRIBUTION WIDTH 15.6 % (11.5-14.5); WHITE BLOOD COUNT 18.3 10^3/uL (4.0-10.0)
[2017-05-10 07:11] LABS: ALBUMIN 2.6 GM/DL (3.2-5.2); ALBUMIN/GLOBULIN RATIO 0.55 (1.00-1.93); BILIRUBIN,TOTAL 0.2 MG/DL (0.2-1.0); CALCIUM LEVEL 9.1 MG/DL (8.8-10.2); CREATININE FOR GFR 1.82 MG/DL (0.55-1.02); GLOMERULAR FILTRATION RATE 28.5 (>32); MAGNESIUM LEVEL 2.1 MG/DL (1.8-2.4); POTASSIUM SERUM 3.7 MEQ/L (3.5-5.1); TOTAL PROTEIN 7.3 GM/DL (6.4-8.2)
[2017-05-10] MEDS: HumaLOG INSULIN (NovoLOG) PER UNIT SC SCH (07:30)
[2017-05-10] MEDS: CALCITRIOL 0.25 MCG CAP (S0169) PO SCH (08:24)
[2017-05-10] MEDS: METOPROLOL TART 25 MG TABLET PO SCH (08:24)
[2017-05-10] MEDS: ASPIRIN 81 MG ENTERIC TAB PO SCH (08:24)
[2017-05-10] MEDS: predniSONE 20 MG TAB PO SCH (08:25)
[2017-05-10] MEDS: LEVEMIR (INSULIN DETEMIR) 1 UNITS/0.01ML SC SCH (08:27)
[2017-05-10] MEDS: TIOTROPIUM INHALER/CAPSULE (SPIRIVA) INH SCH (08:55)
[2017-05-10] MEDS: ADVAIR HFA 115/21MCG INHALER INH SCH (08:55)
[2017-05-10] MEDS ORDERED: LEVO500T3 PO (09:45)
[2017-05-10] MEDS ORDERED: PRED10TA2 PO (09:45)
--- NOTE | 2017-05-10 09:55 | IPN ---
DATE OF EXAMINATION: 05/09/2017 SUBJECTIVE: The patient tells me that she is feeling significantly better. She denies chest pressure, shortness of breath, nausea, vomiting, diarrhea. She tells me that she feels back to her normal. OBJECTIVE: VITAL SIGNS: Temperature 96.8, pulse 96, respiratory rate 20, blood pressure (BP) 141/64, oxygen (O2) saturation she is 95% on room air while I am in the room examining her. In general, she appears pale. An elderly female sitting on the edge of her bed. She is accompanied by her daughter. HEENT: Cranial nerves II-XII are grossly intact. She has moist mucous membranes. No elevation in central venous pressure (CVP). CARDIOVASCULAR EXAMINATION: S1, S2. She is not tachycardic at the time of my examination. RESPIRATORY EXAMINATION: Is surprisingly clear with prolonged expiratory phase. ABDOMINAL EXAMINATION: Is benign. EXTREMITIES: No clubbing, cyanosis, or edema. LABORATORY STUDIES: WBC 21, hemoglobin 10.4, platelet count 601. Chemistry panel: Sodium 132, potassium 3.5, chloride 95, bicarbonate 25, BUN 68, creatinine 2.4 up from 2.0 at the time of admission. She has multiple sets of cardiac enzymes, which are negative. MICROBIOLOGY: An influenza swab from 05/07/2017 is negative. Blood cultures: One of two bottles from 05/07/2017 is preliminarily positive for gram-positive cocci in pairs and chains. A respiratory PCR panel is negative. Repeat blood cultures and Legionella cultures are currently pending. ASSESSMENT AND PLAN: This is an 81-year-old female with shortness of breath. PROBLEMS: 1. Shortness of breath. There is concern for decompensated chronic obstructive pulmonary disease (COPD) versus now I am also more concerned for community-acquired pneumonia. The patient is on steroids and nebulizer treatments, and her shortness of breath has improved. However, leukocytosis appears to be rising out of proportion, and she did have a leukocytosis prior to her arrival and initiation of steroids. She is tachycardic, and her renal function continues to decline with one out of two bottles positive for blood cultures. Fluid is said to be Streptococcus pneumoniae. She did receive a dose of ceftriaxone yesterday afternoon. I will continue her on ceftriaxone and azithromycin. Her respiratory status is improving. We will continue to monitor her closely. 2. Acute on chronic kidney injury. She did receive intravenous (IV) fluids yesterday, but this actually worsened her renal function. She does not appear to be fluid overloaded at all on her examination. We will treat her for pneumonia and will followup her BUN and creatinine. Tomorrow will check a renal ultrasound, as well as urine electrolytes. Should her renal function fail to improve, will treat her for pneumonia. At that point, I will consider a nephrology consultation. 3. Hyperkalemia, resolved. 4. Hyponatremia, worsened with IV fluid resuscitation. Will hold off on any further fluid resuscitation at this time, and we will treat her with antibiotics for pneumonia. I will not diurese her at this time, as she does not appear to be grossly volume overloaded whatsoever on examination. 5. Diastolic congestive heart failure. She is fairly euvolemic. Her Lasix is on hold. She did receive some gentle fluids, but she does not appear to be fluid overloaded at this time. We will simply continue to monitor. 6. Diabetes mellitus. She is on sliding scale insulin. 7. History of Crohn disease. She is at her baseline. No symptoms. 8. Deep venous thrombosis (DVT) prophylaxis. She is on heparin. DISPOSITION: Pending improvement in her renal function.
[2017-05-10] MEDS ORDERED: FLAG500T PO (11:54)
[2017-05-10] MEDS ORDERED: DOXY-278 PO (11:55)
[2017-05-10 12:01] LABS: CORTISOL AM 14.7 UG/DL (4.3-22.4)
--- NOTE | 2017-05-10 14:24 | DSES ---
DATE OF ADMISSION: 05/07/2017 DATE OF DISCHARGE: 05/10/2017 DISCHARGE DIAGNOSIS: Community-acquired pneumonia. SECONDARY DIAGNOSES: Acute kidney injury. Decompensated chronic obstructive pulmonary disease (COPD). Clostridium (C) difficile colitis. Shortness of breath. Hyperkalemia. Hyponatremia. Diastolic congestive heart failure. Type 2 diabetes. Crohn disease. HOSPITAL COURSE: The patient is an 81-year-old female who presented with shortness of breath, poor appetite, and dyspnea on exertion. She was felt initially to having decompensated chronic obstructive pulmonary disease (COPD) and was admitted with intravenous (IV) Solu-Medrol and nebulizer treatments. Her respiratory status did improve. However, renal function continued to decline, and she did have leukocytosis at the time of her admission prior to steroid administration. As such, CT of her chest was checked, and it did reveal a left lobe infiltrate. She was started on treatment for community-acquired pneumonia, and her renal function did quickly improve. At the time of admission, there was initially concern that the patient had episodes of diarrhea during her stay. However, it had resolved. A gastrointestinal (GI) PCR panel was eventually collected, and on the day of discharge, it returned positive for C. difficile. The patient had one bowel movement this morning and had no bowel movements yesterday, and her bowel movements were soft. However, given that the patient is being discharged home on further antibiotics, she is being treated for C. difficile concurrently. SUBJECTIVE: This morning, the patient tells me that she feels great, she wants to go home, and has no complaints. OBJECTIVE: VITAL SIGNS: Temperature 96.7. Pulse 89. Respiratory rate 17. Blood pressure (BP) 153/68. Oxygen (O2) saturation 97% on 2 liters nasal cannula. GENERAL: She is a very pleasant elderly female, sitting on the edge of the bed. She does not appear to be in any acute distress whatsoever. HEENT: Cranial nerves II-XII are grossly intact. She has moist mucous membranes. No elevation in central venous pressure (CVP). CARDIOVASCULAR EXAMINATION: S1, S2, regular. She is not tachycardic. RESPIRATORY EXAMINATION: Is actually fairly clear with a prolonged expiratory phase. ABDOMINAL EXAMINATION: Bowel sounds are present. The abdomen is soft and nontender. Even to deep palpation, her examination is benign. EXTREMITIES: No clubbing, cyanosis, or edema. LABORATORY STUDIES: WBC 18.3 down from 21, hemoglobin 9.4, platelet count 580. Chemistry panel: Sodium 140, potassium 3.7, chloride 105, bicarbonate 28, BUN 64, creatinine 1.8 down from 2.4. 1.8 appears to be close to her baseline. Multiple sets of cardiac enzymes were negative. TSH was within normal limits. MICROBIOLOGY: Blood cultures were negative. Urine and Legionella is pending. Respiratory PCR panel was negative. She did have one blood culture that was preliminarily positive from 05/08/2017, but all repeats were negative, and there was only one of two bottles. Influenza swab was negative. Her stool PCR panel from 05/10/2017 is positive for C. difficile. IMAGING: She had a renal ultrasound that did not reveal any hydronephrosis. A CT scan of the chest that revealed left upper lobe infiltrate. ASSESSMENT AND PLAN: This is an 81-year-old female with community-acquired pneumonia. PROBLEMS: 1. Community-acquired pneumonia, improving with antibiotics. Respiratory status is at her baseline. She has home oxygen. She has been cleared by physical therapy. She is independent of her activities of daily living (ADLs), and she is being discharged home. Her family is at bedside and have been notified. All questions were answered to their satisfaction and to the patient's. 2. Acute kidney injury, improving with treatment for pneumonia. She does not appear to be fluid overloaded whatsoever. 3. Hyperkalemia, resolved. 4. Hyponatremia, resolved. 5. Diastolic congestive heart failure, euvolemic. Her Lasix was on hold during this stay and recommended it be held at the time of discharge until followup with her primary care provider within the next 1 week. She will be provided a prescription to have her basic metabolic panel checked on 05/12/2017 with the results sent to Dr. Archuleta. 6. Diabetes mellitus. She is on sliding scale insulin. 7. Crohn disease. She is at her baseline without any symptoms. 8. Clostridium (C) difficile colitis. The patient had that prior to her hospitalization. While she was here, she did not have a significant number of bowel movements. A sample was collected and did return positive. My suspicion for C. difficile is lower. However, she is now on antibiotics and will be on antibiotics to complete 5 more days. I will provide her with 10 days of by mouth Flagyl to help get her through this period and, hopefully, without developing significant diarrheal symptoms associated with her C. difficile. 9. Chronic obstructive pulmonary disease (COPD). Likely, a contributing factor to her shortness of breath. She did improve with Solu-Medrol and nebulizer treatments. She will be discharged on a prednisone taper and continued on her home breathing treatments. DISPOSITION: The patient is being discharged home, she has been cleared by physical therapy, to her previous living environment. She will followup with her primary care provider in 7 days. Her activity and diet are as prior to admission. She is to hold Lasix until followup with her primary care provider and recheck a basic metabolic profile (BMP) on 05/12/2017 with results sent to Dr. Archuleta. MEDICATIONS AT THE TIME OF DISCHARGE: - doxycycline 100 mg every 12 hours for 5 days - Flagyl 500 mg every 8 hours for 10 days - prednisone taper, four tablets for 3 days, three tablets for 3 days, two tablets for 3 days, one tablet for 3 days, and then stop - Tylenol 650 mg nightly - ProAir HFA two puffs every 4 hours as needed for shortness of breath - amitriptyline 50 mg nightly - aspirin 81 mg daily - calcitriol 0.25 mg daily - glipizide 5 mg twice a day - Lantus 15 units daily - metoprolol tartrate 25 mg twice a day - Advair Diskus 250/50 one puff twice a day - Spiriva 18 mcg inhaled daily Greater than 30 minutes in organizing disposition.
== END 2017-05-10 12:13 | disposition home or self-care (01) | DRG 190 ==
LOC: M ED 17:22 → M ED INP 20:43 → M MSPAV 23:56
PROVIDERS: ADMIT Internal Medicine; ATTEND Internal Medicine
DX: J44.1 Chronic obstructive pulmonary disease with (acute) exacerbation (principal); J18.9 Pneumonia, unspecified organism; I50.32 Chronic diastolic (congestive) heart failure; N17.9 Acute kidney failure, unspecified; E87.1 Hypo-osmolality and hyponatremia; A04.71 Enterocolitis due to Clostridium difficile, recurrent; I13.0 Hypertensive heart and chronic kidney disease with heart failure and stage 1 through stage 4 chronic kidney disease, or unspecified chronic kidney disease; E11.9 Type 2 diabetes mellitus without complications; E87.5 Hyperkalemia; R06.02 Shortness of breath; D72.829 Elevated white blood cell count, unspecified; K52.9 Noninfective gastroenteritis and colitis, unspecified; Z79.899 Other long term (current) drug therapy; Z79.4 Long term (current) use of insulin; N18.3 Chronic kidney disease, stage 3 (moderate); Z79.82 Long term (current) use of aspirin; Z88.0 Allergy status to penicillin; Z88.8 Allergy status to other drugs, medicaments and biological substances; Z87.891 Personal history of nicotine dependence; Z91.19 Patient's noncompliance with other medical treatment and regimen; J84.10 Pulmonary fibrosis, unspecified

== ENCOUNTER 2017-07-07 14:35 | Emergency (ER) | payer MEDICARE ==
[~2017-07-07] VITALS: Ht 154.9 cm; Wt 53.6 kg
[~2017-07-07 14:35] MED LIST changes: +ADV250INH INH; +ASPI81TA85 PO; +DOXY-278 PO; +FLAG500T PO; +LEVO500T3 PO; +METO1TAB87 PO; +PRED10TA2 PO; +SPIR1CAP INH
[2017-07-07] MEDS ORDERED: NS 1,000 ML IV ONE (16:00)
[2017-07-07 16:46] LABS: WHITE BLOOD COUNT 11.3 10^3/uL (4.0-10.0)
[2017-07-07 16:47] LABS: BASO # 0.1 10^3/uL (0.0-0.2); BASO % 0.7 % (0.0-1.0); EOS # 0.3 10^3/uL (0.0-0.50); EOS % 2.5 % (0.0-3.0); IMMATURE GRANULOCYTE % 0.2 % (0-0); LYMPH # 2.2 10^3/uL (1.5-4.5); LYMPH % 19.2 % (24.0-44.0); MEAN CORPUSCULAR HEMOGLOBIN 27.8 pg (27.0-33.0); MEAN CORPUSCULAR HGB CONC 30.8 g/dl (32.0-36.5); MEAN CORPUSCULAR VOLUME 90.2 fl (80.0-96.0); MONO % 8.4 % (0.0-5.0); NEUTROPHILS # 7.8 10^3/uL (1.8-7.7); PLATELET COUNT, AUTOMATED 376 10^3/uL (150-450); RED CELL DISTRIBUTION WIDTH 17.2 % (11.5-14.5)
[2017-07-07 17:15] LABS: ALBUMIN 3.6 GM/DL (3.2-5.2); ALBUMIN/GLOBULIN RATIO 0.97 (1.00-1.93); BILIRUBIN,TOTAL 0.2 MG/DL (0.2-1.0); CALCIUM LEVEL 9.6 MG/DL (8.8-10.2); CREATININE FOR GFR 1.87 MG/DL (0.55-1.02); GLOMERULAR FILTRATION RATE 27.6 (>32); POTASSIUM SERUM 4.9 MEQ/L (3.5-5.1); TOTAL PROTEIN 7.3 GM/DL (6.4-8.2)
[2017-07-07 18:17] LABS: MUCUS, URINE RFX SMALL (NEGATIVE); SQUAM EPITHELIAL CELL UR AURFX 0 /HPF (0-6)
[2017-07-07 19:34] LABS: ALBUMIN 3.3 GM/DL (3.2-5.2); ALBUMIN/GLOBULIN RATIO 0.85 (1.00-1.93); BILIRUBIN,TOTAL 0.2 MG/DL (0.2-1.0); CALCIUM LEVEL 9.3 MG/DL (8.8-10.2); CREATININE FOR GFR 1.75 MG/DL (0.55-1.02); GLOMERULAR FILTRATION RATE 29.8 (>32); POTASSIUM SERUM 4.3 MEQ/L (3.5-5.1); TOTAL PROTEIN 7.2 GM/DL (6.4-8.2)
[2017-07-07 20:37] VITALS: BP 156/80
--- NOTE | 2017-07-08 07:27 | REP ---
REASON: Pain after trauma. COMPARISON: None. The bones are demineralized. There are chronic changes seen throughout the wrist. There is a lucency seen involving the radial styloid. There are calcifications in the triangular fibrocartilage complex. IMPRESSION: There are chronic degenerative changes noted and evidence of a subtle radial styloid fracture. Signed by Payam Ware DO 07/09/2017 01:53 P
--- NOTE | 2017-07-08 07:29 | REP ---
REASON: Pain after trauma. There is heavy partial syndesmophyte formation seen at every level bilaterally particularly L2-3. There is advanced disc space narrowing at every level with air densities in the L3-4 and L4-5 disc spaces consistent with vacuum phenomenon from degenerative disc disease. Degenerative facet joint changes are present at every level bilaterally particularly L4-5 and L5-S1. Vertebral body height is within normal limits. There is no evidence of spondylolysis or spondylolisthesis. Vertebral body alignment is within normal limits. The bones appear somewhat demineralized. IMPRESSION: Advanced chronic changes. Signed by Payam Ware DO 07/09/2017 01:53 P
== END 2017-07-07 20:38 | disposition home or self-care (01) ==
LOC: M ED 14:35
DX: S52.615A Nondisplaced fracture of left ulna styloid process, initial encounter for closed fracture (principal); W01.0XXA Fall on same level from slipping, tripping and stumbling without subsequent striking against object, initial encounter; Y92.099 Unspecified place in other non-institutional residence as the place of occurrence of the external cause; Y93.9 Activity, unspecified; Y99.9 Unspecified external cause status; N18.3 Chronic kidney disease, stage 3 (moderate); E11.9 Type 2 diabetes mellitus without complications; M48.00 Spinal stenosis, site unspecified; Z91.81 History of falling; I10 Essential (primary) hypertension; J44.9 Chronic obstructive pulmonary disease, unspecified; F32.9 Major depressive disorder, single episode, unspecified; Z87.891 Personal history of nicotine dependence; Z79.82 Long term (current) use of aspirin; Z79.4 Long term (current) use of insulin; Z79.899 Other long term (current) drug therapy; Z88.0 Allergy status to penicillin; Z88.8 Allergy status to other drugs, medicaments and biological substances

== ENCOUNTER → 2017-08-09 | Outpatient (REF) | payer MEDICARE ==
[2017-08-09 13:36] LABS: ALBUMIN 3.6 GM/DL (3.2-5.2); ALBUMIN/GLOBULIN RATIO 1.13 (1.00-1.93); ALKALINE PHOSPHATASE 85 U/L (45-117); ALT/SGPT 18 U/L (12-78); ANION GAP 6 MEQ/L (8-16); AST/SGOT 18 U/L (7-37); BILIRUBIN,TOTAL 0.3 MG/DL (0.2-1.0); BLOOD UREA NITROGEN 55 MG/DL (7-18); CALCIUM LEVEL 9.9 MG/DL (8.8-10.2); CARBON DIOXIDE LEVEL 35 MEQ/L (21-32); CHLORIDE LEVEL 100 MEQ/L (98-107); CHOLESTEROL LEVEL 179 MG/DL (<200); CHOLESTEROL RISK RATIO 2.521 (<5); CREATININE FOR GFR 2.24 MG/DL (0.55-1.02); GLOMERULAR FILTRATION RATE 22.4 (>32); GLUCOSE, FASTING 82 MG/DL (70-100); HDL CHOLESTEROL 71 MG/DL (>40); HEMOGLOBIN 12.9 g/dl (12.0-16.0); LDL CHOLESTEROL 82.2 MG/DL (<100); MEAN CORPUSCULAR HEMOGLOBIN 28.2 pg (27.0-33.0); MEAN CORPUSCULAR HGB CONC 30.7 g/dl (32.0-36.5); MEAN CORPUSCULAR VOLUME 91.7 fl (80.0-96.0); NON-HDL-C 108 MG/DL; PLATELET COUNT, AUTOMATED 323 10^3/uL (150-450); POTASSIUM SERUM 4.2 MEQ/L (3.5-5.1); RED BLOOD COUNT 4.58 10^6/uL (4.00-5.40); RED CELL DISTRIBUTION WIDTH 14.8 % (11.5-14.5); SODIUM LEVEL 141 MEQ/L (136-145); TOTAL PROTEIN 6.8 GM/DL (6.4-8.2); TRIGLYCERIDES LEVEL 129 MG/DL (<150); WHITE BLOOD COUNT 9.8 10^3/uL (4.0-10.0)
[2017-08-09 13:44] LABS: PTH INTACT 46.4 PG/ML (14.0-72.0); TOTAL 25(OH) VITAMIN D 22.8 NG/ML (30.0-100.0)
[2017-08-09 14:22] LABS: CREATININE, URINE 75.2 MG/DL; MAU/CREAT RATIO 41.2 MCG/MG (0.0-30.0)
[2017-08-09 14:24] LABS: ESTIMATED AVERAGE GLUCOSE 148 MG/DL (60-110); HEMOGLOBIN A1c 6.8 %
== END ==
LOC: M SFHCPLAZ 09:05
DX: N18.3 Chronic kidney disease, stage 3 (moderate) (principal); E11.9 Type 2 diabetes mellitus without complications; E55.9 Vitamin D deficiency, unspecified
CPT/HCPCS: 80053

== ENCOUNTER 2017-09-20 17:39 | Emergency (ER) | payer MEDICARE ==
[2017-09-20] MEDS: methylPREDNISolone INJ 125 MG/2 ML VIAL (J2930) IV (18:30)
[2017-09-20] MEDS: ALBUTEROL SULFATE 2.5 MG/0.5 ML INH NEB SOLN NEB (18:31)
[2017-09-20 18:37] LABS: BASO # 0.1 10^3/uL (0.0-0.2); BASO % 0.4 % (0.0-1.0); EOS # 0.1 10^3/uL (0.0-0.50); EOS % 0.7 % (0.0-3.0); HEMATOCRIT 44.8 % (36.0-47.0); HEMOGLOBIN 14.5 g/dl (12.0-16.0); IMMATURE GRANULOCYTE % 0.4 % (0-3.0); LYMPH # 2.2 10^3/uL (1.5-4.5); LYMPH % 11.7 % (24.0-44.0); MEAN CORPUSCULAR HEMOGLOBIN 29.2 pg (27.0-33.0); MEAN CORPUSCULAR HGB CONC 32.4 g/dl (32.0-36.5); MEAN CORPUSCULAR VOLUME 90.1 fl (80.0-96.0); MONO # 1.2 10^3/uL (0.0-0.8); MONO % 6.5 % (0.0-5.0); NEUTROPHILS % 80.3 % (36.0-66.0); PLATELET COUNT, AUTOMATED 292 10^3/uL (150-450); RED BLOOD COUNT 4.97 10^6/uL (4.00-5.40); RED CELL DISTRIBUTION WIDTH 14.2 % (11.5-14.5); WHITE BLOOD COUNT 18.7 10^3/uL (4.0-10.0)
[2017-09-20 18:49] LABS: INFLUENZA A AMPLIFICATION NEGATIVE (NEGATIVE); INFLUENZA B AMPLIFICATION NEGATIVE (NEGATIVE)
[2017-09-20 19:01] LABS: ANION GAP 8 MEQ/L (8-16); BLOOD UREA NITROGEN 71 MG/DL (7-18); CARBON DIOXIDE LEVEL 31 MEQ/L (21-32); CHLORIDE LEVEL 104 MEQ/L (98-107); CREATININE FOR GFR 2.14 MG/DL (0.55-1.30); GLOMERULAR FILTRATION RATE 23.6 (>32); GLUCOSE, FASTING 119 MG/DL (70-100); POTASSIUM SERUM 3.9 MEQ/L (3.5-5.1); SODIUM LEVEL 143 MEQ/L (136-145)
[2017-09-20] MEDS: NS 1,000 ML IV (19:10)
[2017-09-20 19:36] LABS: KETONE, URINE AUTO RFX NEGATIVE (NEGATIVE); MUCUS, URINE RFX SMALL (NEGATIVE); NITRITE, URINE AUTO RFX NEGATIVE (NEGATIVE); RBC, URINE AUTO RFX 2 /HPF (0-3); SPECIFIC GRAVITY UR AUTO RFX 1.008 (1.002-1.035); SQUAM EPITHELIAL CELL UR AURFX 2 /HPF (0-6); WBC, URINE AUTO RFX 4 /HPF (0-3)
[2017-09-20 19:37] LABS: LEUKOCYTE ESTERASE UR AUTO RFX 1+ (NEGATIVE)
== END 2017-09-20 21:25 | disposition home or self-care (01) ==
LOC: M ED 17:39
DX: J44.1 Chronic obstructive pulmonary disease with (acute) exacerbation (principal); N39.0 Urinary tract infection, site not specified; I50.9 Heart failure, unspecified; E11.9 Type 2 diabetes mellitus without complications; I10 Essential (primary) hypertension; Z86.73 Personal history of transient ischemic attack (TIA), and cerebral infarction without residual deficits; E78.5 Hyperlipidemia, unspecified; Z86.19 Personal history of other infectious and parasitic diseases; N18.3 Chronic kidney disease, stage 3 (moderate); M48.00 Spinal stenosis, site unspecified; Z87.891 Personal history of nicotine dependence; Z79.82 Long term (current) use of aspirin; Z79.4 Long term (current) use of insulin; Z79.899 Other long term (current) drug therapy; Z88.0 Allergy status to penicillin; Z88.8 Allergy status to other drugs, medicaments and biological substances
CPT/HCPCS: J2930

== ENCOUNTER 2017-10-06 15:50 | Emergency (ER) | payer MEDICARE | END 2017-10-06 19:33 | disposition home or self-care (01) | LOC: M ED 15:50 | DX: S70.01XA Contusion of right hip, initial encounter (principal); S70.02XA Contusion of left hip, initial encounter; S00.03XA Contusion of scalp, initial encounter; W01.0XXD Fall on same level from slipping, tripping and stumbling without subsequent striking against object, subsequent encounter; Y92.098 Other place in other non-institutional residence as the place of occurrence of the external cause; I11.0 Hypertensive heart disease with heart failure; I50.9 Heart failure, unspecified; I73.9 Peripheral vascular disease, unspecified; E78.9 Disorder of lipoprotein metabolism, unspecified; Z86.73 Personal history of transient ischemic attack (TIA), and cerebral infarction without residual deficits; Z87.891 Personal history of nicotine dependence; Z88.8 Allergy status to other drugs, medicaments and biological substances; Z88.0 Allergy status to penicillin; Z79.899 Other long term (current) drug therapy; Z79.51 Long term (current) use of inhaled steroids; Z79.4 Long term (current) use of insulin; Z79.82 Long term (current) use of aspirin | CPT/HCPCS: 73502 ==

== ENCOUNTER → 2018-01-26 | Outpatient (REF) | payer MEDICARE ==
[2018-01-26 13:17] LABS: HEMATOCRIT 45.9 % (36.0-47.0); HEMOGLOBIN 14.9 g/dl (12.0-15.5); MEAN CORPUSCULAR HEMOGLOBIN 29.9 pg (27.0-33.0); MEAN CORPUSCULAR HGB CONC 32.5 g/dl (32.0-36.5); MEAN CORPUSCULAR VOLUME 92.2 fl (80.0-96.0); PLATELET COUNT, AUTOMATED 397 10^3/uL (150-450); RED BLOOD COUNT 4.98 10^6/uL (4.00-5.40); RED CELL DISTRIBUTION WIDTH 12.7 % (11.5-14.5); WHITE BLOOD COUNT 11.1 10^3/uL (4.0-10.0)
[2018-01-26 13:50] LABS: PTH INTACT 35.9 PG/ML (18.5-88.0)
[2018-01-26 14:00] LABS: BLOOD UREA NITROGEN 51 MG/DL (7-18); CREATININE FOR GFR 2.35 MG/DL (0.55-1.30); GLUCOSE, FASTING 82 MG/DL (70-100)
[2018-01-26 14:01] LABS: ALBUMIN 3.8 GM/DL (3.2-5.2); ALBUMIN/GLOBULIN RATIO 0.97 (1.00-1.93); ALKALINE PHOSPHATASE 102 U/L (45-117); ALT/SGPT 23 U/L (12-78); ANION GAP 5 MEQ/L (8-16); AST/SGOT 20 U/L (7-37); BILIRUBIN,TOTAL 0.4 MG/DL (0.2-1.0); CALCIUM LEVEL 10.6 MG/DL (8.8-10.2); CARBON DIOXIDE LEVEL 35 MEQ/L (21-32); CHLORIDE LEVEL 99 MEQ/L (98-107); GLOMERULAR FILTRATION RATE 21.1 (>32); POTASSIUM SERUM 4.6 MEQ/L (3.5-5.1); SODIUM LEVEL 139 MEQ/L (136-145); TOTAL PROTEIN 7.7 GM/DL (6.4-8.2)
[2018-01-26 15:56] LABS: ESTIMATED AVERAGE GLUCOSE 166 MG/DL (60-110); HEMOGLOBIN A1c 7.4 %
== END ==
LOC: M SFHCPLAZ 11:56
DX: J44.9 Chronic obstructive pulmonary disease, unspecified (principal); N18.3 Chronic kidney disease, stage 3 (moderate); E11.22 Type 2 diabetes mellitus with diabetic chronic kidney disease
CPT/HCPCS: 83735

== ENCOUNTER 2018-02-05 19:16 | Emergency (ER) | payer MEDICARE ==
[2018-02-05 20:38] LABS: BASO # 0.1 10^3/uL (0.0-0.2); BASO % 0.5 % (0.0-1.0); EOS # 0.3 10^3/uL (0.0-0.50); EOS % 3.2 % (0.0-3.0); HEMATOCRIT 42.9 % (36.0-47.0); HEMOGLOBIN 13.8 g/dl (12.0-15.5); IMMATURE GRANULOCYTE % 0.2 % (0-3.0); LYMPH # 2.2 10^3/uL (1.5-4.5); LYMPH % 22.4 % (24.0-44.0); MEAN CORPUSCULAR HEMOGLOBIN 29.8 pg (27.0-33.0); MEAN CORPUSCULAR HGB CONC 32.2 g/dl (32.0-36.5); MEAN CORPUSCULAR VOLUME 92.7 fl (80.0-96.0); MONO # 0.8 10^3/uL (0.0-0.8); MONO % 7.8 % (0.0-5.0); NEUTROPHILS # 6.4 10^3/uL (1.8-7.7); NEUTROPHILS % 65.9 % (36.0-66.0); PLATELET COUNT, AUTOMATED 356 10^3/uL (150-450); RED BLOOD COUNT 4.63 10^6/uL (4.00-5.40); WHITE BLOOD COUNT 9.6 10^3/uL (4.0-10.0)
[2018-02-05 20:54] LABS: ANION GAP 8 MEQ/L (8-16); BLOOD UREA NITROGEN 44 MG/DL (7-18); CALCIUM LEVEL 9.5 MG/DL (8.8-10.2); CARBON DIOXIDE LEVEL 34 MEQ/L (21-32); CHLORIDE LEVEL 97 MEQ/L (98-107); CREATININE FOR GFR 2.18 MG/DL (0.55-1.30); GLUCOSE, FASTING 185 MG/DL (70-100); POTASSIUM SERUM 3.8 MEQ/L (3.5-5.1); SODIUM LEVEL 139 MEQ/L (136-145)
[2018-02-05] MEDS: LevoFLOXacin 500 MG TABLET PO (22:38)
== END 2018-02-05 22:42 | disposition home or self-care (01) ==
LOC: M ED 19:16
DX: L03.115 Cellulitis of right lower limb (principal); R60.0 Localized edema; I10 Essential (primary) hypertension; E11.9 Type 2 diabetes mellitus without complications; J44.9 Chronic obstructive pulmonary disease, unspecified; K50.90 Crohn's disease, unspecified, without complications; N28.9 Disorder of kidney and ureter, unspecified; Z87.891 Personal history of nicotine dependence; Z79.899 Other long term (current) drug therapy; Z79.51 Long term (current) use of inhaled steroids; Z79.4 Long term (current) use of insulin; Z79.82 Long term (current) use of aspirin; Z86.73 Personal history of transient ischemic attack (TIA), and cerebral infarction without residual deficits
CPT/HCPCS: 93971

== ENCOUNTER 2018-02-09 18:26 | Inpatient (IN) | payer MEDICARE ==
[2018-02-09 19:31] LABS: BASO % 0.4 % (0.0-1.0); EOS # 0.2 10^3/uL (0.0-0.50); EOS % 1.9 % (0.0-3.0); HEMATOCRIT 42.3 % (36.0-47.0); HEMOGLOBIN 13.6 g/dl (12.0-15.5); IMMATURE GRANULOCYTE % 0.5 % (0-3.0); LYMPH # 1.5 10^3/uL (1.5-4.5); LYMPH % 15.3 % (24.0-44.0); MEAN CORPUSCULAR HGB CONC 32.2 g/dl (32.0-36.5); MEAN CORPUSCULAR VOLUME 93.4 fl (80.0-96.0); MONO # 0.8 10^3/uL (0.0-0.8); MONO % 8.1 % (0.0-5.0); NEUTROPHILS # 7.2 10^3/uL (1.8-7.7); NEUTROPHILS % 73.8 % (36.0-66.0); PLATELET COUNT, AUTOMATED 406 10^3/uL (150-450); RED BLOOD COUNT 4.53 10^6/uL (4.00-5.40); RED CELL DISTRIBUTION WIDTH 12.9 % (11.5-14.5); WHITE BLOOD COUNT 9.8 10^3/uL (4.0-10.0)
[2018-02-09 19:35] LABS: INR 0.93; PROTHROMBIN TIME 12.5 SECONDS (12.1-14.4)
[2018-02-09 19:36] LABS: PARTIAL THROMBOPLASTIN TIME 33.7 SECONDS (25.4-37.6)
[2018-02-09 19:43] LABS: ANION GAP 7 MEQ/L (8-16); BLOOD UREA NITROGEN 38 MG/DL (7-18); CALCIUM LEVEL 10.2 MG/DL (8.8-10.2); CARBON DIOXIDE LEVEL 33 MEQ/L (21-32); CHLORIDE LEVEL 99 MEQ/L (98-107); CPK CREATINE PHOSPHOKINASE 167 U/L (26-192); CREATININE FOR GFR 2.62 MG/DL (0.55-1.30); GLOMERULAR FILTRATION RATE 18.6 (>32); GLUCOSE, FASTING 249 MG/DL (70-100); POTASSIUM SERUM 4.4 MEQ/L (3.5-5.1); SODIUM LEVEL 139 MEQ/L (136-145); TROPONIN I < 0.02 NG/ML (< 0.10)
[2018-02-09 19:49] LABS: CK-MB VALUE MASS 6.7 NG/ML (<3.6); MB/CK RELATIVE INDEX 4.01 (< OR =4)
[2018-02-09] MEDS ORDERED: GLUCOSE 4 GM CHEW TABLET PO (21:45)
[2018-02-09] MEDS ORDERED: GLUCAGON FOR INJ 1 MG VIAL (J1610) SC (21:45)
[2018-02-09] MEDS: HumaLOG INSULIN (NovoLOG) PER UNIT SC (23:08)
[2018-02-09] MEDS: AMITRIPTYLINE 50 MG TAB PO (23:10)
[2018-02-09] MEDS: NS 1,000 ML IV (23:55)
[2018-02-09] MEDS: ACETAMINOPHEN TAB 650MG DOSE (2X325MG) PO (23:59)
[2018-02-10 02:37] LABS: BEDSIDE GLUCOSE 134 MG/DL (83-110)
[2018-02-10 05:36] LABS: ANION GAP 6 MEQ/L (8-16); BLOOD UREA NITROGEN 39 MG/DL (7-18); CALCIUM LEVEL 9.8 MG/DL (8.8-10.2); CARBON DIOXIDE LEVEL 32 MEQ/L (21-32); CHLORIDE LEVEL 102 MEQ/L (98-107); GLOMERULAR FILTRATION RATE 20.6 (>32); GLUCOSE, FASTING 93 MG/DL (70-100); POTASSIUM SERUM 4.1 MEQ/L (3.5-5.1); SODIUM LEVEL 140 MEQ/L (136-145)
[2018-02-10] MEDS: HEPARIN SOD (PORCINE) 5000 UNITS/ML VIAL SC (06:32)
[2018-02-10] MEDS: HumaLOG INSULIN (NovoLOG) PER UNIT SC ×4 (07:30→21:00)
[2018-02-10] MEDS: NS 1,000 ML IV (08:48)
[2018-02-10] MEDS: LEVEMIR (INSULIN DETEMIR) 1 UNITS/0.01ML SC (09:00)
[2018-02-10] MEDS ORDERED: ASPIRIN 81 MG ENTERIC TAB PO (09:00)
[2018-02-10 12:13] LABS: BEDSIDE GLUCOSE 53 MG/DL (83-110)
[2018-02-10] MEDS: DEXTROSE 50% 50 ML SYRINGE IV ×2 (12:22→16:50)
[2018-02-10 12:49] LABS: BEDSIDE GLUCOSE 107 MG/DL (83-110)
[2018-02-10] MEDS: D5W/0.45% SODIUM CHLORIDE 1,000 ML IV (12:51)
[2018-02-10 14:58] LABS: BEDSIDE GLUCOSE 75 MG/DL (83-110)
[2018-02-10] MEDS ORDERED: SLF 3 ML SYR IV ×3 (17:30→22:00)
[2018-02-10 17:43] LABS: BEDSIDE GLUCOSE 71 MG/DL (83-110)
[2018-02-10 17:52] LABS: BEDSIDE GLUCOSE 110 MG/DL (83-110)
[2018-02-10] MEDS: VANCOMYCIN HCL 1,000 MG, VIAL MATE ADAPTER 1 EACH in D5W 250 ML IV (20:49)
[2018-02-10] MEDS: SLF 3 ML SYR IV (22:00)
[2018-02-10 22:19] LABS: BEDSIDE GLUCOSE 140 MG/DL (83-110)
[2018-02-10] MEDS: AMITRIPTYLINE 50 MG TAB PO (22:20)
[2018-02-11] MEDS: ACETAMINOPHEN TAB 650MG DOSE (2X325MG) PO ×3 (00:28→20:14)
[2018-02-11] MEDS: SLF 3 ML SYR IV ×3 (06:00→20:14)
[2018-02-11] MEDS: HumaLOG INSULIN (NovoLOG) PER UNIT SC ×4 (07:30→20:15)
[2018-02-11 07:56] LABS: HEMATOCRIT 40.8 % (36.0-47.0); HEMOGLOBIN 13.2 g/dl (12.0-15.5); MEAN CORPUSCULAR HEMOGLOBIN 30.1 pg (27.0-33.0); MEAN CORPUSCULAR HGB CONC 32.4 g/dl (32.0-36.5); MEAN CORPUSCULAR VOLUME 92.9 fl (80.0-96.0); PLATELET COUNT, AUTOMATED 359 10^3/uL (150-450); RED BLOOD COUNT 4.39 10^6/uL (4.00-5.40); RED CELL DISTRIBUTION WIDTH 12.9 % (11.5-14.5)
[2018-02-11 08:01] LABS: BEDSIDE GLUCOSE 141 MG/DL (83-110)
[2018-02-11] MEDS: LEVEMIR (INSULIN DETEMIR) 1 UNITS/0.01ML SC (09:00)
[2018-02-11 09:18] LABS: ANION GAP 4 MEQ/L (8-16); BLOOD UREA NITROGEN 26 MG/DL (7-18); CALCIUM LEVEL 8.5 MG/DL (8.8-10.2); CARBON DIOXIDE LEVEL 32 MEQ/L (21-32); CHLORIDE LEVEL 107 MEQ/L (98-107); CREATININE FOR GFR 1.86 MG/DL (0.55-1.30); GLOMERULAR FILTRATION RATE 27.7 (>32); GLUCOSE, FASTING 113 MG/DL (70-100); POTASSIUM SERUM 3.8 MEQ/L (3.5-5.1); SODIUM LEVEL 143 MEQ/L (136-145)
[2018-02-11] MEDS: D5W/0.45% SODIUM CHLORIDE 1,000 ML IV (09:55)
[2018-02-11 11:16] LABS: BEDSIDE GLUCOSE 128 MG/DL (83-110)
[2018-02-11] MEDS: LIDOCAINE 1% SDV INJ 30 ML VIAL As Ordered (12:35)
[2018-02-11] MEDS: MUPIROCIN 2% OINT 22 GM TUBE As Ordered (12:35)
[2018-02-11] MEDS: VANCOMYCIN 1000 MG/20 ML VIAL (J3370) As Ordered (13:54)
[2018-02-11] MEDS ORDERED: ONDANSETRON 4MG/2ML VIAL (J2405) As Ordered (14:09)
[2018-02-11] MEDS ORDERED: PROPOFOL 200 MG/20 ML VIAL As Ordered ×4 (14:09→15:27)
[2018-02-11] MEDS ORDERED: PHENYLephrine HCL 500 MCG/5 ML (100MCG/ML) SYRINGE (J2370) As Ordered (14:33)
[2018-02-11] MEDS: ISOVUE-300 61% 50ML VIAL (Q9967) As Ordered (14:46)
[2018-02-11 17:26] LABS: BEDSIDE GLUCOSE 107 MG/DL (83-110)
[2018-02-11] MEDS ORDERED: SLF 3 ML SYR IV (17:30)
[2018-02-11] MEDS ORDERED: LR 1,000 ML IV (17:30)
[2018-02-11] MEDS ORDERED: ONDANSETRON 4MG/2ML VIAL (J2405) IV (17:30)
[2018-02-11] MEDS ORDERED: fentaNYL 100 MCG/2 ML INJECTION (J3010) As Ordered (17:40)
[2018-02-11] MEDS: fentaNYL 100 MCG/2 ML INJECTION (J3010) IV (17:41)
[2018-02-11 20:03] LABS: BEDSIDE GLUCOSE 182 MG/DL (83-110)
[2018-02-11] MEDS: AMITRIPTYLINE 50 MG TAB PO (20:14)
[2018-02-11] MEDS: ASCORBIC ACID 250 MG TAB PO (20:14)
[2018-02-11] MEDS: METOPROLOL TART 50 MG TAB PO (20:52)
[2018-02-12] MEDS: NS 250 ML IV
[2018-02-12 04:57] LABS: HEMOGLOBIN 11.4 g/dl (12.0-15.5); MEAN CORPUSCULAR HEMOGLOBIN 29.2 pg (27.0-33.0); MEAN CORPUSCULAR HGB CONC 30.8 g/dl (32.0-36.5); MEAN CORPUSCULAR VOLUME 94.9 fl (80.0-96.0); PLATELET COUNT, AUTOMATED 314 10^3/uL (150-450); RED CELL DISTRIBUTION WIDTH 12.8 % (11.5-14.5); WHITE BLOOD COUNT 14.4 10^3/uL (4.0-10.0)
[2018-02-12 05:12] LABS: ANION GAP 7 MEQ/L (8-16); BLOOD UREA NITROGEN 26 MG/DL (7-18); CALCIUM LEVEL 8.4 MG/DL (8.8-10.2); CARBON DIOXIDE LEVEL 29 MEQ/L (21-32); CHLORIDE LEVEL 104 MEQ/L (98-107); GLUCOSE, FASTING 170 MG/DL (70-100); POTASSIUM SERUM 3.7 MEQ/L (3.5-5.1); SODIUM LEVEL 140 MEQ/L (136-145)
[2018-02-12] MEDS: SLF 3 ML SYR IV ×3 (05:18→20:49)
[2018-02-12] MEDS: NS 500 ML IV (08:00)
[2018-02-12] MEDS: NS 1,000 ML IV ×2 (08:00→16:09)
[2018-02-12] MEDS: HumaLOG INSULIN (NovoLOG) PER UNIT SC ×4 (09:01→20:49)
[2018-02-12] MEDS: LEVEMIR (INSULIN DETEMIR) 1 UNITS/0.01ML SC (09:01)
[2018-02-12] MEDS: ASCORBIC ACID 250 MG TAB PO ×2 (09:02→20:49)
[2018-02-12 12:05] LABS: BEDSIDE GLUCOSE 177 MG/DL (83-110)
[2018-02-12 13:12] LABS: LACTIC ACID SEPSIS PROTOCOL 1.6 MMOL/L (0.4-2.0)
[2018-02-12] MEDS: ACETAMINOPHEN TAB 650MG DOSE (2X325MG) PO (16:09)
[2018-02-12 17:07] LABS: BEDSIDE GLUCOSE 175 MG/DL (83-110)
[2018-02-12 20:18] LABS: BEDSIDE GLUCOSE 181 MG/DL (83-110)
[2018-02-12] MEDS: AMITRIPTYLINE 50 MG TAB PO (20:49)
[2018-02-13] MEDS: ACETAMINOPHEN TAB 650MG DOSE (2X325MG) PO ×3 (01:06→16:33)
[2018-02-13 04:34] LABS: HEMATOCRIT 36.1 % (36.0-47.0); HEMOGLOBIN 11.3 g/dl (12.0-15.5); MEAN CORPUSCULAR HEMOGLOBIN 29.5 pg (27.0-33.0); MEAN CORPUSCULAR HGB CONC 31.3 g/dl (32.0-36.5); MEAN CORPUSCULAR VOLUME 94.3 fl (80.0-96.0); PLATELET COUNT, AUTOMATED 257 10^3/uL (150-450); RED BLOOD COUNT 3.83 10^6/uL (4.00-5.40); WHITE BLOOD COUNT 9.9 10^3/uL (4.0-10.0)
[2018-02-13 04:48] LABS: ANION GAP 5 MEQ/L (8-16); BLOOD UREA NITROGEN 22 MG/DL (7-18); CALCIUM LEVEL 8.1 MG/DL (8.8-10.2); CARBON DIOXIDE LEVEL 27 MEQ/L (21-32); CHLORIDE LEVEL 113 MEQ/L (98-107); CREATININE FOR GFR 1.69 MG/DL (0.55-1.30); GLOMERULAR FILTRATION RATE 30.9 (>32); GLUCOSE, FASTING 89 MG/DL (70-100); POTASSIUM SERUM 3.9 MEQ/L (3.5-5.1); SODIUM LEVEL 145 MEQ/L (136-145)
[2018-02-13] MEDS: NS 1,000 ML IV (05:04)
[2018-02-13] MEDS: SLF 3 ML SYR IV ×3 (05:04→21:02)
[2018-02-13] MEDS: HumaLOG INSULIN (NovoLOG) PER UNIT SC ×4 (07:10→21:00)
[2018-02-13] MEDS: ASCORBIC ACID 250 MG TAB PO ×2 (09:51→21:00)
[2018-02-13] MEDS: LEVEMIR (INSULIN DETEMIR) 1 UNITS/0.01ML SC (09:51)
[2018-02-13 12:15] LABS: BEDSIDE GLUCOSE 190 MG/DL (83-110)
[2018-02-13] MEDS: ATORVASTATIN 20 MG TAB PO (13:13)
[2018-02-13 16:35] LABS: BEDSIDE GLUCOSE 138 MG/DL (83-110)
[2018-02-13 20:53] LABS: BEDSIDE GLUCOSE 183 MG/DL (83-110)
[2018-02-13] MEDS: AMITRIPTYLINE 50 MG TAB PO (21:00)
[2018-02-14 04:34] LABS: HEMATOCRIT 36.3 % (36.0-47.0); HEMOGLOBIN 11.5 g/dl (12.0-15.5); MEAN CORPUSCULAR HEMOGLOBIN 29.4 pg (27.0-33.0); MEAN CORPUSCULAR HGB CONC 31.7 g/dl (32.0-36.5); MEAN CORPUSCULAR VOLUME 92.8 fl (80.0-96.0); PLATELET COUNT, AUTOMATED 291 10^3/uL (150-450); RED BLOOD COUNT 3.91 10^6/uL (4.00-5.40); RED CELL DISTRIBUTION WIDTH 12.8 % (11.5-14.5); WHITE BLOOD COUNT 12.1 10^3/uL (4.0-10.0)
[2018-02-14 04:48] LABS: ANION GAP 5 MEQ/L (8-16); BLOOD UREA NITROGEN 18 MG/DL (7-18); CALCIUM LEVEL 8.3 MG/DL (8.8-10.2); CARBON DIOXIDE LEVEL 27 MEQ/L (21-32); CHLORIDE LEVEL 111 MEQ/L (98-107); GLOMERULAR FILTRATION RATE 35.5 (>32); GLUCOSE, FASTING 157 MG/DL (70-100); POTASSIUM SERUM 4.2 MEQ/L (3.5-5.1); SODIUM LEVEL 143 MEQ/L (136-145)
[2018-02-14] MEDS: SLF 3 ML SYR IV ×3 (06:00→20:59)
[2018-02-14] MEDS: ACETAMINOPHEN TAB 650MG DOSE (2X325MG) PO ×2 (06:16→20:59)
[2018-02-14] MEDS: HumaLOG INSULIN (NovoLOG) PER UNIT SC ×4 (07:55→20:58)
[2018-02-14] MEDS: ASCORBIC ACID 250 MG TAB PO ×2 (09:41→20:59)
[2018-02-14] MEDS: ATORVASTATIN 20 MG TAB PO (09:41)
[2018-02-14] MEDS: LEVEMIR (INSULIN DETEMIR) 1 UNITS/0.01ML SC (09:42)
[2018-02-14 11:57] LABS: BEDSIDE GLUCOSE 96 MG/DL (83-110)
[2018-02-14 16:51] LABS: BEDSIDE GLUCOSE 124 MG/DL (83-110)
[2018-02-14] MEDS: FUROSEMIDE 40 MG TAB PO (17:00)
[2018-02-14 20:43] LABS: BEDSIDE GLUCOSE 109 MG/DL (83-110)
[2018-02-14] MEDS: AMITRIPTYLINE 50 MG TAB PO (20:59)
[2018-02-14] MEDS: RAMELTEON 8 MG TAB (ROZEREM) PO (23:48)
[2018-02-15 05:04] LABS: HEMATOCRIT 37.7 % (36.0-47.0); HEMOGLOBIN 12.1 g/dl (12.0-15.5); MEAN CORPUSCULAR HEMOGLOBIN 29.4 pg (27.0-33.0); MEAN CORPUSCULAR HGB CONC 32.1 g/dl (32.0-36.5); MEAN CORPUSCULAR VOLUME 91.5 fl (80.0-96.0); PLATELET COUNT, AUTOMATED 280 10^3/uL (150-450); RED BLOOD COUNT 4.12 10^6/uL (4.00-5.40); RED CELL DISTRIBUTION WIDTH 12.5 % (11.5-14.5); WHITE BLOOD COUNT 9.1 10^3/uL (4.0-10.0)
[2018-02-15 05:18] LABS: ANION GAP 8 MEQ/L (8-16); BLOOD UREA NITROGEN 17 MG/DL (7-18); CALCIUM LEVEL 8.5 MG/DL (8.8-10.2); CARBON DIOXIDE LEVEL 29 MEQ/L (21-32); CHLORIDE LEVEL 109 MEQ/L (98-107); CREATININE FOR GFR 1.43 MG/DL (0.55-1.30); GLOMERULAR FILTRATION RATE 37.5 (>32); GLUCOSE, FASTING 54 MG/DL (70-100); POTASSIUM SERUM 3.6 MEQ/L (3.5-5.1); SODIUM LEVEL 146 MEQ/L (136-145)
[2018-02-15] MEDS: SLF 3 ML SYR IV ×3 (06:00→20:24)
[2018-02-15] MEDS: HumaLOG INSULIN (NovoLOG) PER UNIT SC ×4 (07:30→20:20)
[2018-02-15] MEDS: ATORVASTATIN 20 MG TAB PO (08:07)
[2018-02-15] MEDS: FUROSEMIDE 40 MG TAB PO (08:07)
[2018-02-15] MEDS: ASCORBIC ACID 250 MG TAB PO ×2 (08:07→20:23)
[2018-02-15 12:01] LABS: BEDSIDE GLUCOSE 202 MG/DL (83-110)
[2018-02-15] MEDS: ASPIRIN 325 MG TAB PO (12:09)
[2018-02-15 15:46] LABS: BEDSIDE GLUCOSE 178 MG/DL (83-110)
[2018-02-15 16:23] LABS: BEDSIDE GLUCOSE 178 MG/DL (83-110)
[2018-02-15 19:57] LABS: BEDSIDE GLUCOSE 155 MG/DL (83-110)
[2018-02-15] MEDS: AMITRIPTYLINE 50 MG TAB PO (20:23)
[2018-02-15] MEDS: ACETAMINOPHEN TAB 650MG DOSE (2X325MG) PO (20:23)
[2018-02-16] MEDS: SLF 3 ML SYR IV ×3 (05:12→20:22)
[2018-02-16 06:21] LABS: HEMATOCRIT 37.1 % (36.0-47.0); HEMOGLOBIN 11.9 g/dl (12.0-15.5); MEAN CORPUSCULAR HEMOGLOBIN 29.1 pg (27.0-33.0); MEAN CORPUSCULAR HGB CONC 32.1 g/dl (32.0-36.5); MEAN CORPUSCULAR VOLUME 90.7 fl (80.0-96.0); PLATELET COUNT, AUTOMATED 321 10^3/uL (150-450); RED BLOOD COUNT 4.09 10^6/uL (4.00-5.40); RED CELL DISTRIBUTION WIDTH 12.5 % (11.5-14.5); WHITE BLOOD COUNT 7.8 10^3/uL (4.0-10.0)
[2018-02-16 06:34] LABS: ANION GAP 7 MEQ/L (8-16); BLOOD UREA NITROGEN 20 MG/DL (7-18); CALCIUM LEVEL 8.5 MG/DL (8.8-10.2); CARBON DIOXIDE LEVEL 32 MEQ/L (21-32); CHLORIDE LEVEL 105 MEQ/L (98-107); CREATININE FOR GFR 1.67 MG/DL (0.55-1.30); GLOMERULAR FILTRATION RATE 31.3 (>32); GLUCOSE, FASTING 131 MG/DL (70-100); POTASSIUM SERUM 4.1 MEQ/L (3.5-5.1); SODIUM LEVEL 144 MEQ/L (136-145)
[2018-02-16] MEDS: ATORVASTATIN 20 MG TAB PO (08:16)
[2018-02-16] MEDS: ASCORBIC ACID 250 MG TAB PO ×2 (08:16→20:21)
[2018-02-16] MEDS: ASPIRIN 325 MG TAB PO (08:16)
[2018-02-16] MEDS: FUROSEMIDE 40 MG TAB PO (08:16)
[2018-02-16] MEDS: HumaLOG INSULIN (NovoLOG) PER UNIT SC ×4 (08:18→20:18)
[2018-02-16] MEDS: ALBUTEROL 90 MCG/ACT 8GM HFA INHALER INH (09:13)
[2018-02-16 11:19] LABS: BEDSIDE GLUCOSE 220 MG/DL (83-110)
[2018-02-16 13:07] LABS: URIC ACID 7.3 MG/DL (2.6-6.0)
[2018-02-16 17:01] LABS: BEDSIDE GLUCOSE 79 MG/DL (83-110)
[2018-02-16] MEDS: methylPREDNISolone INJ 125 MG/2 ML VIAL (J2930) IV (17:51)
[2018-02-16 20:16] LABS: BEDSIDE GLUCOSE 158 MG/DL (83-110)
[2018-02-16] MEDS: AMITRIPTYLINE 50 MG TAB PO (20:21)
[2018-02-16] MEDS: ACETAMINOPHEN TAB 650MG DOSE (2X325MG) PO (20:22)
[2018-02-17] MEDS: SLF 3 ML SYR IV ×2 (05:22→14:00)
[2018-02-17 06:27] LABS: HEMATOCRIT 38.5 % (36.0-47.0); HEMOGLOBIN 12.3 g/dl (12.0-15.5); MEAN CORPUSCULAR HEMOGLOBIN 28.9 pg (27.0-33.0); MEAN CORPUSCULAR HGB CONC 31.9 g/dl (32.0-36.5); MEAN CORPUSCULAR VOLUME 90.4 fl (80.0-96.0); PLATELET COUNT, AUTOMATED 356 10^3/uL (150-450); RED BLOOD COUNT 4.26 10^6/uL (4.00-5.40); RED CELL DISTRIBUTION WIDTH 12.3 % (11.5-14.5); WHITE BLOOD COUNT 7.7 10^3/uL (4.0-10.0)
[2018-02-17 06:41] LABS: ANION GAP 8 MEQ/L (8-16); BLOOD UREA NITROGEN 29 MG/DL (7-18); CALCIUM LEVEL 8.7 MG/DL (8.8-10.2); CARBON DIOXIDE LEVEL 33 MEQ/L (21-32); CHLORIDE LEVEL 100 MEQ/L (98-107); CREATININE FOR GFR 1.96 MG/DL (0.55-1.30); GLOMERULAR FILTRATION RATE 26.1 (>32); GLUCOSE, FASTING 372 MG/DL (70-100); POTASSIUM SERUM 4.8 MEQ/L (3.5-5.1); SODIUM LEVEL 141 MEQ/L (136-145)
[2018-02-17 07:51] LABS: BEDSIDE GLUCOSE 347 MG/DL (83-110)
[2018-02-17] MEDS: ASPIRIN 325 MG TAB PO (08:11)
[2018-02-17] MEDS: HumaLOG INSULIN (NovoLOG) PER UNIT SC ×2 (08:11→12:10)
[2018-02-17] MEDS: ATORVASTATIN 20 MG TAB PO (08:12)
[2018-02-17] MEDS: ASCORBIC ACID 250 MG TAB PO (08:12)
[2018-02-17] MEDS: FUROSEMIDE 40 MG TAB PO (08:12)
[2018-02-17 12:00] LABS: BEDSIDE GLUCOSE 246 MG/DL (83-110)
== END 2018-02-17 17:52 | disposition home health service (06) | DRG 243 ==
LOC: M ICU 02-10 00:34 → M MSPAV 02-15 15:08 → M ED 18:26 → M ED INP 21:39
PROC: 0JH606Z Insertion of Pacemaker, Dual Chamber into Chest Subcutaneous Tissue and Fascia, Open Approach (ICD-10-PCS; principal; 2018-02-11 13:30)
PROC: 02HK3JZ Insertion of Pacemaker Lead into Right Ventricle, Percutaneous Approach (ICD-10-PCS; 2018-02-11 13:30)
PROC: 02H63JZ Insertion of Pacemaker Lead into Right Atrium, Percutaneous Approach (ICD-10-PCS; 2018-02-11 13:30)
DX: I44.2 Atrioventricular block, complete (principal); I50.32 Chronic diastolic (congestive) heart failure; N18.4 Chronic kidney disease, stage 4 (severe); I13.0 Hypertensive heart and chronic kidney disease with heart failure and stage 1 through stage 4 chronic kidney disease, or unspecified chronic kidney disease; J44.9 Chronic obstructive pulmonary disease, unspecified; E11.51 Type 2 diabetes mellitus with diabetic peripheral angiopathy without gangrene; E78.00 Pure hypercholesterolemia, unspecified; E11.22 Type 2 diabetes mellitus with diabetic chronic kidney disease; Z90.49 Acquired absence of other specified parts of digestive tract; Z87.891 Personal history of nicotine dependence; Z79.82 Long term (current) use of aspirin; Z79.4 Long term (current) use of insulin; Z86.73 Personal history of transient ischemic attack (TIA), and cerebral infarction without residual deficits; Z98.41 Cataract extraction status, right eye; Z98.42 Cataract extraction status, left eye; Z99.81 Dependence on supplemental oxygen; Z88.0 Allergy status to penicillin; Z88.8 Allergy status to other drugs, medicaments and biological substances; I25.10 Atherosclerotic heart disease of native coronary artery without angina pectoris; I65.29 Occlusion and stenosis of unspecified carotid artery

== ENCOUNTER 2018-05-19 20:05 | Emergency (ER) | payer MEDICARE | END 2018-05-19 22:02 | disposition home or self-care (01) | LOC: M ED 20:05 | DX: S59.901A Unspecified injury of right elbow, initial encounter (principal); W22.03XA Walked into furniture, initial encounter; Y92.019 Unspecified place in single-family (private) house as the place of occurrence of the external cause; Z87.891 Personal history of nicotine dependence | CPT/HCPCS: 73080 ==

== ENCOUNTER 2018-05-30 09:03 | Inpatient (IN) | payer MEDICARE ==
[2018-05-30 10:17] LABS: BASO # 0.1 10^3/uL (0.0-0.2); BASO % 0.5 % (0.0-1.0); EOS # 0.2 10^3/uL (0.0-0.50); EOS % 1.4 % (0.0-3.0); HEMATOCRIT 39.7 % (36.0-47.0); HEMOGLOBIN 12.2 g/dl (12.0-15.5); IMMATURE GRANULOCYTE % 0.3 % (0-3.0); LYMPH # 1.5 10^3/uL (1.5-4.5); LYMPH % 11.3 % (24.0-44.0); MEAN CORPUSCULAR HEMOGLOBIN 29.3 pg (27.0-33.0); MEAN CORPUSCULAR HGB CONC 30.7 g/dl (32.0-36.5); MEAN CORPUSCULAR VOLUME 95.4 fl (80.0-96.0); MONO # 1.2 10^3/uL (0.0-0.8); MONO % 9.1 % (0.0-5.0); NEUTROPHILS # 10.3 10^3/uL (1.8-7.7); NEUTROPHILS % 77.4 % (36.0-66.0); PLATELET COUNT, AUTOMATED 321 10^3/uL (150-450); RED BLOOD COUNT 4.16 10^6/uL (4.00-5.40); RED CELL DISTRIBUTION WIDTH 13.7 % (11.5-14.5); WHITE BLOOD COUNT 13.4 10^3/uL (4.0-10.0)
[2018-05-30 10:49] LABS: POS COUNT POS FLAG
[2018-05-30 11:07] LABS: ALBUMIN 3.4 GM/DL (3.2-5.2); ALBUMIN/GLOBULIN RATIO 1.03 (1.00-1.93); ALKALINE PHOSPHATASE 99 U/L (45-117); ALT/SGPT 15 U/L (12-78); ANION GAP 9 MEQ/L (8-16); AST/SGOT 23 U/L (7-37); BILIRUBIN,DIRECT 0.1 MG/DL (0.0-0.2); BILIRUBIN,TOTAL 0.5 MG/DL (0.2-1.0); BLOOD UREA NITROGEN 28 MG/DL (7-18); CARBON DIOXIDE LEVEL 27 MEQ/L (21-32); CHLORIDE LEVEL 99 MEQ/L (98-107); CPK CREATINE PHOSPHOKINASE 127 U/L (26-192); GLOMERULAR FILTRATION RATE 24.1 (>32); GLUCOSE, FASTING 125 MG/DL (70-100); MB/CK RELATIVE INDEX 1.81 (< OR =4); NT-PRO BNP 7091 PG/ML (<450); SODIUM LEVEL 135 MEQ/L (136-145); TOTAL PROTEIN 6.7 GM/DL (6.4-8.2); TROPONIN I < 0.02 NG/ML (< 0.10)
[2018-05-30] MEDS: IPRATROPIUM 0.5MG/ALBUTEROL 2.5MG INH SOL UD 3ML (DUONEB)(J7620) NEB ×3 (12:25)
[2018-05-30] MEDS: methylPREDNISolone INJ 125 MG/2 ML VIAL (J2930) IV (12:34)
[2018-05-30 14:48] LABS: ABG BASE EXCESS 4.7 (-2.0-2.0); ABG PARTIAL PRESSURE CO2 47.4 mmHg (35.0-45.0); ABG PARTIAL PRESSURE O2 67.4 mmHg (75.0-100.0); ABG STANDARD HCO3 28.6 MEQ/L (22.0-26.0); ABG TOTAL CO2 31.4 MEQ/L (23.0-31.0); ABG pH (ARTERIAL) 7.419 UNITS (7.350-7.450)
[2018-05-30 15:19] LABS: D-DIMER QUANT > 4000.0 ng/ml (<500)
[2018-05-30] MEDS ORDERED: BISACODYL 10 MG SUPP PR (16:00)
[2018-05-30] MEDS ORDERED: RAMELTEON 8 MG TAB (ROZEREM) PO (16:15)
[2018-05-30] MEDS ORDERED: GLUCOSE 4 GM CHEW TABLET PO (16:30)
[2018-05-30] MEDS ORDERED: GLUCAGON FOR INJ 1 MG VIAL (J1610) SC (16:30)
[2018-05-30 17:00] LABS: TROPONIN I < 0.02 NG/ML (< 0.10)
[2018-05-30] MEDS: FUROSEMIDE 40 MG TAB PO (17:08)
[2018-05-30 17:45] LABS: BEDSIDE GLUCOSE 204 MG/DL (83-110)
[2018-05-30] MEDS ORDERED: SLF 3 ML SYR IV (18:30)
[2018-05-30] MEDS: HumaLOG INSULIN (NovoLOG) PER UNIT SC ×2 (18:52→20:25)
[2018-05-30 20:06] LABS: BEDSIDE GLUCOSE 283 MG/DL (83-110)
[2018-05-30] MEDS: AMITRIPTYLINE 25 MG TAB PO (20:23)
[2018-05-30] MEDS: ENOXAPARIN 60 MG/0.6 ML SYR (J1650) SC (20:25)
[2018-05-30] MEDS: SLF 3 ML SYR IV (20:26)
[2018-05-31] MEDS: SLF 3 ML SYR IV ×3 (05:45→20:38)
[2018-05-31 06:23] LABS: HEMATOCRIT 36.5 % (36.0-47.0); HEMOGLOBIN 11.4 g/dl (12.0-15.5); MEAN CORPUSCULAR HEMOGLOBIN 29.5 pg (27.0-33.0); MEAN CORPUSCULAR HGB CONC 31.2 g/dl (32.0-36.5); MEAN CORPUSCULAR VOLUME 94.6 fl (80.0-96.0); PLATELET COUNT, AUTOMATED 321 10^3/uL (150-450); RED BLOOD COUNT 3.86 10^6/uL (4.00-5.40); RED CELL DISTRIBUTION WIDTH 13.4 % (11.5-14.5); WHITE BLOOD COUNT 9.8 10^3/uL (4.0-10.0)
[2018-05-31 06:45] LABS: ANION GAP 6 MEQ/L (8-16); BLOOD UREA NITROGEN 32 MG/DL (7-18); CALCIUM LEVEL 8.7 MG/DL (8.8-10.2); CARBON DIOXIDE LEVEL 31 MEQ/L (21-32); CHLORIDE LEVEL 99 MEQ/L (98-107); CREATININE FOR GFR 2.09 MG/DL (0.55-1.30); GLOMERULAR FILTRATION RATE 24.2 (>32); GLUCOSE, FASTING 336 MG/DL (70-100); POTASSIUM SERUM 4.3 MEQ/L (3.5-5.1); SODIUM LEVEL 136 MEQ/L (136-145)
[2018-05-31 07:49] LABS: BEDSIDE GLUCOSE 295 MG/DL (83-110)
[2018-05-31] MEDS ORDERED: ENOXAPARIN 30 MG/0.3 ML SYR (J1650) SC (09:00)
[2018-05-31] MEDS: VITAMIN D 1,000 INTERNATIONAL UNITS TABLET PO (09:07)
[2018-05-31] MEDS: FUROSEMIDE 40 MG TAB PO (09:07)
[2018-05-31] MEDS: ASPIRIN ENTERIC 325 MG TAB PO (09:07)
[2018-05-31] MEDS: CitaloPRAM (CeleXA) 10 MG TABLET PO (09:07)
[2018-05-31] MEDS: HumaLOG INSULIN (NovoLOG) PER UNIT SC (09:08)
[2018-05-31 12:37] LABS: BEDSIDE GLUCOSE 31 MG/DL (83-110)
[2018-05-31] MEDS: DEXTROSE 50% 50 ML SYRINGE IV (12:37)
[2018-05-31] MEDS ORDERED: IPRATROPIUM 0.5MG/ALBUTEROL 2.5MG INH SOL UD 3ML (DUONEB)(J7620) NEB (12:45)
[2018-05-31 12:55] LABS: BEDSIDE GLUCOSE 90 MG/DL (83-110)
[2018-05-31] MEDS: IPRATROPIUM 0.5MG/ALBUTEROL 2.5MG INH SOL UD 3ML (DUONEB)(J7620) NEB ×2 (13:00→19:53)
[2018-05-31 17:02] LABS: BEDSIDE GLUCOSE 216 MG/DL (83-110)
[2018-05-31 20:31] LABS: BEDSIDE GLUCOSE 260 MG/DL (83-110)
[2018-05-31] MEDS: AMITRIPTYLINE 25 MG TAB PO (20:38)
[2018-06-01] MEDS: IPRATROPIUM 0.5MG/ALBUTEROL 2.5MG INH SOL UD 3ML (DUONEB)(J7620) NEB ×4 (01:44→20:53)
[2018-06-01] MEDS: SLF 3 ML SYR IV ×3 (05:24→20:57)
[2018-06-01 05:45] LABS: HEMATOCRIT 37.4 % (36.0-47.0); HEMOGLOBIN 11.5 g/dl (12.0-15.5); MEAN CORPUSCULAR HEMOGLOBIN 28.9 pg (27.0-33.0); MEAN CORPUSCULAR HGB CONC 30.7 g/dl (32.0-36.5); PLATELET COUNT, AUTOMATED 314 10^3/uL (150-450); RED BLOOD COUNT 3.98 10^6/uL (4.00-5.40); RED CELL DISTRIBUTION WIDTH 13.5 % (11.5-14.5)
[2018-06-01 06:05] LABS: ANION GAP 5 MEQ/L (8-16); BLOOD UREA NITROGEN 31 MG/DL (7-18); CALCIUM LEVEL 8.6 MG/DL (8.8-10.2); CARBON DIOXIDE LEVEL 33 MEQ/L (21-32); CHLORIDE LEVEL 102 MEQ/L (98-107); CREATININE FOR GFR 2.03 MG/DL (0.55-1.30); GLUCOSE, FASTING 208 MG/DL (70-100); MAGNESIUM LEVEL 2.1 MG/DL (1.8-2.4); POTASSIUM SERUM 3.9 MEQ/L (3.5-5.1); SODIUM LEVEL 140 MEQ/L (136-145)
[2018-06-01] MEDS: CitaloPRAM (CeleXA) 10 MG TABLET PO (08:21)
[2018-06-01] MEDS: FUROSEMIDE 40 MG TAB PO (08:21)
[2018-06-01] MEDS: VITAMIN D 1,000 INTERNATIONAL UNITS TABLET PO (08:21)
[2018-06-01] MEDS: ASPIRIN ENTERIC 325 MG TAB PO (08:21)
[2018-06-01 12:47] LABS: BEDSIDE GLUCOSE 266 MG/DL (83-110)
[2018-06-01 17:23] LABS: BEDSIDE GLUCOSE 200 MG/DL (83-110)
[2018-06-01 20:04] LABS: BEDSIDE GLUCOSE 235 MG/DL (83-110)
[2018-06-01] MEDS: AMITRIPTYLINE 25 MG TAB PO (20:57)
[2018-06-02] MEDS: IPRATROPIUM 0.5MG/ALBUTEROL 2.5MG INH SOL UD 3ML (DUONEB)(J7620) NEB ×2 (00:28→07:47)
[2018-06-02] MEDS: SLF 3 ML SYR IV (06:00)
[2018-06-02 07:28] LABS: HEMATOCRIT 39.1 % (36.0-47.0); HEMOGLOBIN 12.2 g/dl (12.0-15.5); MEAN CORPUSCULAR HEMOGLOBIN 29.4 pg (27.0-33.0); MEAN CORPUSCULAR HGB CONC 31.2 g/dl (32.0-36.5); MEAN CORPUSCULAR VOLUME 94.2 fl (80.0-96.0); PLATELET COUNT, AUTOMATED 327 10^3/uL (150-450); RED BLOOD COUNT 4.15 10^6/uL (4.00-5.40); RED CELL DISTRIBUTION WIDTH 13.3 % (11.5-14.5); WHITE BLOOD COUNT 9.8 10^3/uL (4.0-10.0)
[2018-06-02 07:51] LABS: ANION GAP 5 MEQ/L (8-16); BLOOD UREA NITROGEN 27 MG/DL (7-18); CALCIUM LEVEL 8.3 MG/DL (8.8-10.2); CARBON DIOXIDE LEVEL 30 MEQ/L (21-32); CHLORIDE LEVEL 103 MEQ/L (98-107); CREATININE FOR GFR 1.91 MG/DL (0.55-1.30); GLOMERULAR FILTRATION RATE 26.8 (>32); GLUCOSE, FASTING 198 MG/DL (70-100); MAGNESIUM LEVEL 1.9 MG/DL (1.8-2.4); POTASSIUM SERUM 3.9 MEQ/L (3.5-5.1); SODIUM LEVEL 138 MEQ/L (136-145)
[2018-06-02] MEDS: VITAMIN D 1,000 INTERNATIONAL UNITS TABLET PO (08:11)
[2018-06-02] MEDS: FUROSEMIDE 40 MG TAB PO (08:11)
[2018-06-02] MEDS: CitaloPRAM (CeleXA) 10 MG TABLET PO (08:11)
[2018-06-02] MEDS: ASPIRIN ENTERIC 325 MG TAB PO (08:11)
== END 2018-06-02 10:45 | disposition home or self-care (01) | DRG 191 ==
LOC: M MS5PR 06-01 14:46 → M ED 09:03 → M ED INP 16:08 → M PCU 17:33
DX: J44.1 Chronic obstructive pulmonary disease with (acute) exacerbation (principal); I50.32 Chronic diastolic (congestive) heart failure; N18.4 Chronic kidney disease, stage 4 (severe); I13.0 Hypertensive heart and chronic kidney disease with heart failure and stage 1 through stage 4 chronic kidney disease, or unspecified chronic kidney disease; E87.2 Acidosis; K50.90 Crohn's disease, unspecified, without complications; M70.31 Other bursitis of elbow, right elbow; R91.1 Solitary pulmonary nodule; E11.9 Type 2 diabetes mellitus without complications; Z79.82 Long term (current) use of aspirin; Z79.899 Other long term (current) drug therapy; Z88.0 Allergy status to penicillin; Z91.19 Patient's noncompliance with other medical treatment and regimen; Z95.0 Presence of cardiac pacemaker; Z86.73 Personal history of transient ischemic attack (TIA), and cerebral infarction without residual deficits; Z87.891 Personal history of nicotine dependence

== ENCOUNTER 2018-06-16 13:54 | Emergency (ER) | payer MEDICARE ==
[2018-06-16] MEDS: IPRATROPIUM 0.5MG/ALBUTEROL 2.5MG INH SOL UD 3ML (DUONEB)(J7620) NEB (15:59)
[2018-06-16 16:02] LABS: ABG BASE EXCESS 6.6 (-2.0-2.0); ABG O2 SATURATION 98.2 % (95.0-99.0); ABG PARTIAL PRESSURE CO2 43.8 mmHg (35.0-45.0); ABG PARTIAL PRESSURE O2 145.1 mmHg (75.0-100.0); ABG STANDARD HCO3 30.5 MEQ/L (22.0-26.0); ABG TOTAL CO2 32.4 MEQ/L (23.0-31.0); ABG pH (ARTERIAL) 7.468 UNITS (7.350-7.450)
[2018-06-16] MEDS: methylPREDNISolone INJ 125 MG/2 ML VIAL (J2930) IV (16:12)
[2018-06-16 16:29] LABS: BASO # 0.1 10^3/uL (0.0-0.2); BASO % 0.6 % (0.0-1.0); EOS # 0.2 10^3/uL (0.0-0.50); EOS % 2.8 % (0.0-3.0); HEMATOCRIT 38.5 % (36.0-47.0); HEMOGLOBIN 11.9 g/dl (12.0-15.5); IMMATURE GRANULOCYTE % 0.4 % (0-3.0); LYMPH # 1.7 10^3/uL (1.5-4.5); LYMPH % 21.1 % (24.0-44.0); MEAN CORPUSCULAR HGB CONC 30.9 g/dl (32.0-36.5); MEAN CORPUSCULAR VOLUME 93.9 fl (80.0-96.0); MONO # 0.9 10^3/uL (0.0-0.8); MONO % 10.6 % (0.0-5.0); NEUTROPHILS # 5.3 10^3/uL (1.8-7.7); NEUTROPHILS % 64.5 % (36.0-66.0); PLATELET COUNT, AUTOMATED 369 10^3/uL (150-450); WHITE BLOOD COUNT 8.2 10^3/uL (4.0-10.0)
[2018-06-16] MEDS ORDERED: hydrOXYzine 25 MG TAB PO (16:30)
[2018-06-16 16:51] LABS: ANION GAP 7 MEQ/L (8-16); BLOOD UREA NITROGEN 33 MG/DL (7-18); CALCIUM LEVEL 10.2 MG/DL (8.8-10.2); CARBON DIOXIDE LEVEL 33 MEQ/L (21-32); CHLORIDE LEVEL 97 MEQ/L (98-107); CPK CREATINE PHOSPHOKINASE 87 U/L (26-192); CREATININE FOR GFR 2.12 MG/DL (0.55-1.30); GLOMERULAR FILTRATION RATE 23.8 (>32); GLUCOSE, FASTING 46 MG/DL (70-100); MB/CK RELATIVE INDEX 3.22 (< OR =4); NT-PRO BNP 12144 PG/ML (<450); POTASSIUM SERUM 4.2 MEQ/L (3.5-5.1); SODIUM LEVEL 137 MEQ/L (136-145); TROPONIN I < 0.02 NG/ML (< 0.10)
[2018-06-16] MEDS: FUROSEMIDE 40 MG/4 ML VIAL (J1940) IV (17:57)
== END 2018-06-16 19:48 | disposition home or self-care (01) ==
LOC: M ED 13:54
DX: J44.1 Chronic obstructive pulmonary disease with (acute) exacerbation (principal); I27.20 Pulmonary hypertension, unspecified; E11.9 Type 2 diabetes mellitus without complications; N18.4 Chronic kidney disease, stage 4 (severe); I50.9 Heart failure, unspecified; K50.90 Crohn's disease, unspecified, without complications; Z95.0 Presence of cardiac pacemaker; Z79.899 Other long term (current) drug therapy; Z79.82 Long term (current) use of aspirin; Z79.4 Long term (current) use of insulin; Z88.0 Allergy status to penicillin; Z87.891 Personal history of nicotine dependence
CPT/HCPCS: J1940

== ENCOUNTER 2018-07-19 17:43 | Observation (INO) | payer MEDICARE ==
[~2018-07-19] VITALS: Ht 152.4 cm; Wt 57.7 kg
[~2018-07-19 17:43] MED LIST changes: +ASPI-222 PO; +ASPI1TAB20 PO; +BACT400T PO; +CITA10TA5 PO; -CLON0.5T; -CLON0.5T PO; +CLON0.5T8; +CLON0.5T8 PO; +DEXA1TA PO; -DOXY-278 PO; +DOXY-350 PO; +LASI40TA9 PO; -LASI80TA PO; +LASI80TA3 PO; +LEVA250T13 PO; +MELA5TAB20 PO; +ROZE8TAB16 PO; +VITA-122 PO
[2018-07-19] MEDS ORDERED: ASPI81TA85 PO (17:51)
--- NOTE | 2018-07-19 18:16 | REP ---
Clinical: Cough and dyspnea . Comparison: 06/16/2018 . Findings: The mediastinum and cardiac silhouette are stable and within normal limits for portable technique. The lung nugent are clear without acute consolidation, effusion, or pneumothorax. Skeletal structures are intact. Impression: Chronic stable changes are appreciated. If the patient remains symptomatic consider chest CT for further investigation. Electronically Signed by Sky Weinberg MD 07/19/2018 06:08 P
[2018-07-19 18:32] LABS: BASO % 0.5 % (0.0-1.0); EOS # 0.1 10^3/uL (0.0-0.50); EOS % 1.1 % (0.0-3.0); HEMATOCRIT 35.6 % (36.0-47.0); HEMOGLOBIN 10.8 g/dl (12.0-15.5); LYMPH # 1.2 10^3/uL (1.5-4.5); LYMPH % 15.9 % (24.0-44.0); MEAN CORPUSCULAR HEMOGLOBIN 28.5 pg (27.0-33.0); MEAN CORPUSCULAR HGB CONC 30.3 g/dl (32.0-36.5); MEAN CORPUSCULAR VOLUME 93.9 fl (80.0-96.0); MONO # 0.8 10^3/uL (0.0-0.8); MONO % 10.4 % (0.0-5.0); NEUTROPHILS # 5.3 10^3/uL (1.8-7.7); NEUTROPHILS % 71.6 % (36.0-66.0); PLATELET COUNT, AUTOMATED 419 10^3/uL (150-450); RED BLOOD COUNT 3.79 10^6/uL (4.00-5.40); WHITE BLOOD COUNT 7.3 10^3/uL (4.0-10.0)
[2018-07-19 18:48] LABS: VENOUS BASE EXCESS 5.8 (-2.0-2.0); VENOUS HCO3 33.6 MEQ/L (23.0-27.0); VENOUS O2 SATURATION 54.8 % (60.0-80.0); VENOUS PARTIAL PRESSURE CO2 65.7 mmHg (38.0-50.0); VENOUS PH 7.326 UNITS (7.330-7.430); VENOUS STANDARD HCO3 28.8 MEQ/L; VENOUS TOTAL CO2 35.6 MEQ/L (24.0-28.0)
[2018-07-19 19:02] LABS: ALBUMIN 3.5 GM/DL (3.2-5.2); BILIRUBIN,DIRECT 0.2 MG/DL (0.0-0.2); BILIRUBIN,TOTAL 0.5 MG/DL (0.2-1.0); CALCIUM LEVEL 8.9 MG/DL (8.8-10.2); CREATININE FOR GFR 2.17 MG/DL (0.55-1.30); GLOMERULAR FILTRATION RATE 23.2 (>32); MB/CK RELATIVE INDEX 4.29 (< OR =4); POTASSIUM SERUM 5.3 MEQ/L (3.5-5.1); THYROID STIMULATING HORMONE 2.38 uIU/ML (0.358-3.740); TOTAL PROTEIN 6.7 GM/DL (6.4-8.2); TROPONIN I 0.02 NG/ML (< 0.10)
[2018-07-19] MEDS ORDERED: IPRATROPIUM 0.5MG/ALBUTEROL 2.5MG INH SOL UD 3ML (DUONEB)(J7620) NEB ONE (19:30)
[2018-07-19] MEDS ORDERED: methylPREDNISolone INJ 125 MG/2 ML VIAL (J2930) IV ONE (19:30)
--- NOTE | 2018-07-19 21:07 | REPVR ---
EXAM: CT Chest Without Contrast EXAM DATE/TIME: 07/19/2018 8:00 PM CLINICAL HISTORY: 82 years old, female; Signs and symptoms; Shortness of breath; Additional info: SOB TECHNIQUE: Axial computed tomography images of the chest without intravenous contrast. All CT scans at this facility use at least one of these dose optimization techniques: automated exposure control; mA and/or kV adjustment per patient size (includes targeted exams where dose is matched to clinical indication); or iterative reconstruction. Coronal and sagittal reformatted images were created and reviewed. MIP reconstructed images were created and reviewed. COMPARISON: CT Chest without contrast 05/30/2018 2:15 PM FINDINGS: Lungs: Marked bilateral centrilobular emphysema with changes most pronounced in the mid and upper lung zones. Irregular spiculated shaped opacity in the right middle lobe measures 5.8 x 7.4 mm, not demonstrated previously. Although the finding may represent a small infiltrate the possibility of neoplasm is not absolutely excluded. Followup suggested. Mixed reticular and ground glass opacity right lower lobe not present previously may represent an active infiltrate. There is bibasilar compressive atelectasis. 3.5 mm noncalcified nodule and small irregular adjacent density measuring 4 x 6 mm located in the medial aspect of the left lower lobe not demonstrated previously. Several scattered 2-3 mm subpleural noncalcified nodules likely postinflammatory. Small parenchymal density medial left apex measures 9 x 6 mm, not present previously. Stable scarring left apex. Pleural space: Small bilateral pleural effusions new since the prior study. Heart: There is moderate atherosclerotic calcification of the coronary arteries. Aorta: Moderate atherosclerosis thoracic aorta. Lymph nodes: Multiple small mediastinal lymph nodes likely postinflammatory.The spine demonstrates moderate degenerative changes. Bones/joints: Unremarkable. No acute fracture. Soft tissues: Unremarkable. Intraperitoneal space: Focal thickening of the lateral aspect of the major fissure stable in appearance. IMPRESSION: 1. Irregular spiculated shaped opacity in the right middle lobe measures 5.8 x 7.4 mm, not demonstrated previously. Although the finding may represent a small infiltrate the possibility of neoplasm is not absolutely excluded. For low and high risk patients, CT at 3-6 months, then consider CT at 18-24 months. 2. Small bilateral pleural effusions new since the prior study. 3. Multiple other small parenchymal opacities in the infiltrates not present on the prior examination. The findings may represent foci of infectious or inflammatory pneumonitis and/or peripheral airway disease. Continued interval followup suggested to document resolution, as indicated above. Electronically signed by: Dandy Carballo On 07/19/2018 21:06:40 PM
[2018-07-19] MEDS ORDERED: ASPI81TAEC PO (22:41)
--- NOTE | 2018-07-19 22:41 | HPEPDOC ---
[facility] Medical History & Physical Date of Admission Jul 19, 2018 Primary Care Physician: Yaakov Archuleta Attending Physician: France Scott DO History and Physical PRIMARY CARE PROVIDER: Dr. Archuleta ATTENDING: Dr. Scott CHIEF COMPLAINT: Shortness of breath HISTORY OF PRESENT ILLNESS: 82-year-old female with past medical history of COPD on 2 L of oxygen at home, CKD IV, T2DM, Crohn's disease, diastolic CHF, pacemaker placement presenting for worsening shortness of breath for the last couple weeks. She states she was able to get her medications at home however was unable to get the nebulizer device itself and so has been not taking her albuterol treatments. She denies any other complaints at this time including fevers, chills, sore throat, productive cough, hemoptysis, chest pain, palpita tions, nausea, vomiting, abdominal pain, constipation, diarrhea, swelling or pain in her arms/legs. Of note no fever , cough, sputum production or elevated wbcs. PAST MEDICAL HISTORY: See HPI PAST SURGICAL HISTORY: Cholecystectomy Aortobifemoral bypass pacemaker implantation bilateral cataract extraction SOCIAL HISTORY: States she smoked over 30 years ago. Denies any EtOH. Denies any illicit drugs. Homemaker. Patient is FULL CODE. FAMILY HISTORY: ALLERGIES: Please see below. REVIEW OF SYSTEMS: GENERAL: Denies fevers, chills, recent unexpected weight change, hemoptysis HEENT: Denies headache, dizziness, vision changes, hearing loss, sore throat CARDIOVASCULAR: Denies chest pain,palpitations, orthopnea RESPIRATORY: Denies wheezing, cough. Admits to dyspnea. GASTROINTESTINAL: denies nausea,vomiting, abdominal pain, constipation, diarrhea, bloody stool GENITOURINARY: Denies dysuria,urinary urgency, hematuria. MUSCULOSKELETAL: Denies muscle/joint pain, weakness, stiffness NEUROLOGICAL: Denies any numbness/tingling, focal weakness, or syncope HOME MEDICATIONS: Please see below. PHYSICAL EXAMINATION: Vitals: (see below) General: No acute distress, laying comfortably in bed. HEENT: Normocephalic, atraumatic. EOMI. Moist mucous membranes. Neck: No JVD or lymphadenopathy Cardiac: RRR, No murmurs Pulm: Clear to auscultation b/l. No wheezing, rhonchi Abd: Soft, non-tender, non-distended, no guarding, rebound tenderness, or rigidity. BSx4. Ext: No edema or cyanosis Neuro: Strength 5/5 BUE and BLE. CN 3-12 grossly intact. Sensation to touch intact. LABORATORY DATA: See below. IMAGIN07/19/18 chest x-ray: Chronic stable changes are appreciated. If the patient remains symptomatic consider chest CT for further investigation. 07/19/[address]: 1. Irregular spiculated shaped opacity in the right middle lobe measures 5.8 x 7.4 mm, 4mm in 05/2018 not present 04/2017 The possibility of neoplasm is not excluded. Needs follow up and discussion with patient 2. Small bilateral pleural effusions new since the prior study. 3. Multiple other small parenchymal opacities in the infiltrates not present on the prior examination. The findings may represent foci of infectious or inflammatory pneumonitis and/or peripheral airway disease. Continued interval followup suggested to document resolution, as indicated above. clinically doubt infectious etiol. MICROBIOLOGY: Please see below. ASSESSMENT/PLAN: Given how well the patient looked clinically their was consideration of discharge, however when we walked the patient with an oxygen monitor and her home oxygen, her saturations dropped to 75-80% and she was short of breath. Given this and her lack of adequate access to her nebulizer treatments this evening, the decision was made to admit the patient for observation and nebulizer treatments overnight. Abnormal CT Chest see discussion above Concerning nodules Discussion has to be had with pt and family #. COPD exacerbation 2/2 to non-compliance with medication Nebulizers not available - We will continue the patient on home medications and nebulizer treatments since she responded well to these treatments. She received a one time dose of IV steroids in the emergency department. Is suppose to receive nebulizers for home use - Obtaining ABG - Initial trops negative, getting repeats - CTA unable to be done due to renal function, can consider VQ scan if deemed appropriate by AM team, well's score of 0. #. Prior echos with preserved EF -Patient's BNP is 19,376 however clinically the patient shows no signs of volume overload BNPs also elevated on prior admission in May without clearly mentioning CHF Currently slightly higher Difficult to interp with chronic stage 4 renal failure - There are small bilateral pleural effusions documented on the chest CT - Last echo was in 05/2018 with preserved EF and 2 echos in 02/02 - Continue with home lasix #. Normocytic Anemia - Continue to monitor, patient shows no signs of bleeding, this is likely chronic can consider further work up if it fails to resolve. #.Hyperglycemia/DM - Likely reactionary from steroid dose received in emergency department #. Hyponatremia/ hyperkalemia - Will continue to monitor with AM labs. #. Chronic Kidney disease stage 4 baseline - Will continue to monitor for worsening renal function. #.T2DM -sliding scale insulin -Consistent carbohydrates -DVT prophy: kt's and federico's Disposition: Patient will be admitted to hospitalist service day team starting tomorrow at 7AM. Arrange nebulizers for home and follow up CT as outpatient if it is the patients wishes to do so. May require increased O2 flow for ambulation and does fall to the 80s with activity Vital Signs Vital Signs Date Time Temp Pulse Resp B/P (MAP) Pulse Ox O2 Delivery O2 Flow Rate FiO2 07/19/18 21:41 98.2 07/19/18 21:33 93 93 07/19/18 21:31 18 95/76 (82) Nasal Cannula 2.0 Laboratory Data Labs 24H Laboratory Tests 2 07/19/18 18:23: Immature Granulocyte % (Auto) 0.5, White Blood Count 7.3, Red Blood Count 3.79L, Hemoglobin 10.8L, Hematocrit 35.6L, Mean Corpuscular Volume 93.9, Mean Corpuscular Hemoglobin 28.5, Mean Corpuscular Hemoglobin Concent 30.3L, Red Cell Distribution Width 14.6H, Platelet Count 419, Neutrophils (%) (Auto) 71.6H, L ymphocytes (%) (Auto) 15.9L, Monocytes (%) (Auto) 10.4H, Eosinophils (%) (Auto) 1.1, Basophils (%) (Auto) 0.5, Neutrophils # (Auto) 5.3, Lymphocytes # (Auto) 1.2L, Monocytes # (Auto) 0.8, Eosinophils # (Auto) 0.1, Basophils # (Auto) 0.0, Nucleated Red Blood Cells % (auto) 0.0, Blood Gas Bicarbonate Standard 28.8, Venous Blood pH 7.326L, Venous Blood Partial Pressure CO2 65.7H, Venous Blood Partial Pressure O2 32.0, Venous Blood Total Carbon Dioxide 35.6H, Venous Blood HCO3 33.6H, Venous Blood Oxygen Saturation 54.8L, Venous Blood Base Excess 5.8H, Anion Gap 5L, Glomerular Filtration Rate 23.2L, Lactic Acid Level 1.3, Calcium Level 8.9, Aspartate Amino Transf (AST/SGOT) 15, Alanine Aminotransferase (ALT/SGPT) 17, Alkaline Phosphatase 134H, Total Bilirubin 0.5, Direct Bilirubin 0.2, Total Creatine Kinase 56, Creatine Kinase MB 2.0, Creatine Kinase MB Relative Index 4.29H, Troponin I 0.02, ND-Sfe-O-Type Natriuretic Peptide 99380H, Total Protein 6.7, Albumin 3.5, Albumin/Globulin Ratio 1.09, Thyroid Stimulating Hormone (TSH) 2.380 CBC/BMP Laboratory Tests 07/19/18 18:23 Red Blood Count 3.79 L, Mean Corpuscular Volume 93.9, Mean Corpuscular Hemoglobin 28.5, Mean Corpuscular Hemoglobin Concent 30.3 L, Red Cell Distribution Width 14.6 H, Neutrophils (%) (Auto) 71.6 H, Lymphocytes (%) (Auto) 15.9 L, Monocytes (%) (Auto) 10.4 H, Eosinophils (%) (Auto) 1.1, Basophils (%) (Auto) 0.5, Neutrophils # (Auto) 5.3, Lymphocytes # (Auto) 1.2 L, Monocytes # (Auto) 0.8, Eosinophils # (Auto) 0.1, Basophils # (Auto) 0.0 Microbiology Microbiology 07/19/18 Blood Culture, Received Pending 07/19/18 Blood Culture, Received Pending 07/19/18 Respiratory Virus Panel (PCR) ([facility]) - Final, Complete Home Medications Scheduled Amitriptyline HCl (Amitriptyline HCl) 25 Mg Tab, 25 MG PO QHS Aspirin (Aspirin EC) 81 Mg Tabec, 81 MG PO DAILY TAKES AT LUNCHTIME Calcitriol (Calcitriol) 0.25 Mcg Cap, 0.25 MG PO DAILY TAKES AT LUNCHTIME Cholecalciferol (Vitamin D3) 1,000 Unit Tab, 1,000 UNIT PO DAILY TAKES AT LUNCHTIME Citalopram Hydrobromide (Citalopram Hydrobromide) 10 Mg Tab, 10 MG PO DAILY TAKES AT LUNCHTIME Furosemide (Lasix) 40 Mg Tab, 40 MG PO DAILY TAKES AT LUNCHTIME Glipizide (Glipizide) 5 Mg Tab, 5 MG PO QPM TAKES AT DINNERTIME Insulin Glargine (Lantus) 1 Units/0.01 Ml Susp, 15 UNITS SC DAILY TAKES AT LUNCHTIME Melatonin (Melatonin) 5 Mg Tab, 10 MG PO QHS Salmeterol/Fluticasone (Advair Diskus 250-50 Mcg/Dose) 14 Puff/Inhaler Aerp, 1 PUFF INH BID Tiotropium Diana Monohydrate (Spiriva Handihaler) 18 Mcg Cap, 1 INHALATION INH DAILY Scheduled PRN Albuterol Sulfate (Proair Hfa) 108 Mcg/Act Aer, 2 PUFF INH Q4H PRN for SHORTNESS OF BREATH Albuterol Sulfate (Albuterol Sulfate) 0.63 Mg/3 Ml Neb, 0.63 MG INH Q4H PRN for SHORTNESS OF BREATH Allergies Coded Allergies: Penicillins (Verified Allergy, Intermediate, 05/19/18) GME ATTESTATION GME ATTESTATION My faculty preceptor for this patient encounter was physically present during the encounter and was fully available. All aspects of the patient interview, examination, medical decision making process, and medical care plan development were reviewed and approved by the faculty preceptor. The faculty preceptor is aware and concurs with the plan as stated in the body of this note and will attest to such by his/her cosignature. TUNG YU DO Jul 19, 2018 22:41 France Scott DO Jul 20, 2018 02:17
[2018-07-19] MEDS ORDERED: MELA5TAB17 PO (22:46)
[2018-07-19] MEDS ORDERED: ALBU0.63 INH (22:46)
[2018-07-19] MEDS ORDERED: ADV250INH INH (22:46)
[2018-07-19] MEDS ORDERED: SPIR1CAP INH (22:46)
[2018-07-19] MEDS ORDERED: GLUCOSE 4 GM CHEW TABLET PO PRN (23:15)
[2018-07-19] MEDS ORDERED: GLUCAGON FOR INJ 1 MG VIAL (J1610) SC PRN (23:15)
[2018-07-19] MEDS ORDERED: DEXTROSE 50% 50 ML SYRINGE IV PRN (23:15)
[2018-07-20 00:40] VITALS: BP 137/66
[2018-07-20] MEDS: HumaLOG INSULIN (NovoLOG) PER UNIT SC SCH ×5 (01:12→20:50)
[2018-07-20] MEDS: ADVAIR HFA 115/21MCG INHALER INH SCH ×3 (03:01→20:00)
[2018-07-20 06:00] VITALS: BP 102/55
[2018-07-20 06:05] LABS: HEMATOCRIT 35.9 % (36.0-47.0); HEMOGLOBIN 10.8 g/dl (12.0-15.5); MEAN CORPUSCULAR HEMOGLOBIN 28.1 pg (27.0-33.0); MEAN CORPUSCULAR HGB CONC 30.1 g/dl (32.0-36.5); MEAN CORPUSCULAR VOLUME 93.5 fl (80.0-96.0); PLATELET COUNT, AUTOMATED 445 10^3/uL (150-450); RED BLOOD COUNT 3.84 10^6/uL (4.00-5.40); WHITE BLOOD COUNT 5.5 10^3/uL (4.0-10.0)
[2018-07-20 06:33] LABS: CALCIUM LEVEL 9.3 MG/DL (8.8-10.2); CREATININE FOR GFR 2.15 MG/DL (0.55-1.30); GLOMERULAR FILTRATION RATE 23.4 (>32); POTASSIUM SERUM 4.3 MEQ/L (3.5-5.1)
[2018-07-20] MEDS: LEVEMIR (INSULIN DETEMIR) 1 UNITS/0.01ML SC SCH (09:00)
[2018-07-20] MEDS ORDERED: CitaloPRAM (CeleXA) 10 MG TABLET PO SCH (09:00)
[2018-07-20] MEDS ORDERED: FUROSEMIDE 40 MG TAB PO SCH (09:00)
[2018-07-20] MEDS: ASPIRIN 81 MG ENTERIC TAB PO SCH (09:27)
[2018-07-20] MEDS: CALCITRIOL 0.25 MCG CAP (S0169) PO SCH (09:28)
[2018-07-20] MEDS: VITAMIN D 1,000 INTERNATIONAL UNITS TABLET PO SCH (09:28)
[2018-07-20] MEDS: FUROSEMIDE 40 MG TAB PO SCH (12:48)
[2018-07-20] MEDS: IPRATROPIUM 0.5MG/ALBUTEROL 2.5MG INH SOL UD 3ML (DUONEB)(J7620) NEB SCH ×2 (13:25→13:27)
[2018-07-20] MEDS: TIOTROPIUM INHALER/CAPSULE (SPIRIVA) INH SCH (13:26)
[2018-07-20 14:00] VITALS: BP 131/52
--- NOTE | 2018-07-20 17:00 | ECGEPIP ---
Stationary ECG Study [facility] - ED Test Date: 2018-07-19 Pat Name: PINKY COOPER Department: Room: [place] [address] Gender: F Micro Lab Analyst: otilia : [id number] Requested By: Arline Martinez Order Number: [id number] Reading MD: Arline Martinez Measurements Intervals Duck Rate: 100 P: 74 NJ: 196 QRS: 270 QRSD: 154 T: 97 QT: 389 QTc: 503 Interpretive Statements ELECTRONIC VENTRICULAR PACEMAKER ABNORMAL RHYTHM ECG SINUS RHYTHM SIMILAR 06/16/18 Electronically Signed On 07-20-2018 17:00:03 EST by Arline Martinez
[2018-07-20 20:00] VITALS: BP 127/61
[2018-07-20] MEDS ORDERED: AMITRIPTYLINE 25 MG TAB PO SCH (21:00)
[2018-07-20] MEDS ORDERED: RAMELTEON 8 MG TAB (ROZEREM) PO SCH (21:00)
[2018-07-20] MEDS ORDERED: IPRATROPIUM 0.5MG/ALBUTEROL 2.5MG INH SOL UD 3ML (DUONEB)(J7620) NEB PRN (21:15)
--- NOTE | 2018-07-20 21:38 | IPNPDOC ---
Text Note Date of Service The patient was seen on 07/20/18. NOTE Subjective: feels better this morning. Her breathing is better but feels tired. SHe has not got the nebulizer yet. She tells me her daughter who is a nurse will go to get it today. No fever or chills, no cough. PHYSICAL EXAMINATION: Vitals: (see below) General: No acute distress, laying comfortably in bed. HEENT: Normocephalic, atraumatic. EOMI. Moist mucous membranes. Neck: No JVD or lymphadenopathy Cardiac: RRR, No murmurs Pulm: Clear to auscultation b/l. No wheezing, rhonchi, Overall poor air entry Abd: Soft, non-tender, non-distended, no guarding, rebound tenderness, or rigidity. BSx4. Ext: No edema or cyanosis Neuro: Strength 5/5 BUE and BLE. CN 3-12 grossly intact. Sensation to touch intact. LABORATORY DATA and radiology reviewed: See below. ASSESSMENT/PLAN: 82-year-old female with past medical history of COPD on 2 L of oxygen at home, CKD IV, T2DM, Crohn's disease, diastolic CHF, pacemaker placement presenting for worsening shortness of breath for the last couple weeks. She states she was able to get her medications at home however was unable to get the nebulizer device itself and so has been not taking her albuterol treatments. Given how well the patient looked clinically their was consideration of discharge, however when we walked the patient with an oxygen monitor and her home oxygen, her saturations dropped to 75-80% and she was short of breath. Given this and her lack of adequate access to her nebulizer treatments this evening, the decision was made to admit the patient for observation and nebulizer treatments. COPD with mild pulmonary hypertension now in exacerbation 2/2 to non-compliance with medication Nebulizers not available We will continue the patient on home medications and nebulizer treatments since she responded well to these treatments. She received a one time dose of IV steroids in the emergency department. continue symbicort, spiriva, albuterol, prednisone from kim azithromycin. Right middle lobe spiculated nodule 5mm x 7 mm and also other smaller nodules on the left could be infiltrate possibility of malignancy is not excluded will need follow up CT in 3 to 6 months. Elevated BNP Has mild reduction in EF at 55% which is lower than earlier echos. Patient's BNP is 19,376 however clinically the patient shows no signs of volume overload BNPs also elevated on prior admission in May without clearly mentioning CHF Currently slightly higher Difficult to interp with chronic stage 4 renal failure There are small bilateral pleural effusions documented on the chest CT Last echo was in 05/2018 with preserved EF and 2 echos in 02/02 Continue with home lasix Normocytic Anemia Anemia of chronic disease will check iron studies. HH at goal for her CKD. Hyponatremia/ hyperkalemia resolved Chronic Kidney disease stage 4 baseline Will continue to monitor for worsening renal function. Diabetes sliding scale insulin, levemir. Consistent carbohydrates DVT prophy: kt's and seq's VS,Fishbone, I+O VS, Fishbone, I+O Laboratory Tests 07/20/18 05:40 Red Blood Count 3.84 L, Mean Corpuscular Volume 93.5, Mean Corpuscular Hemoglobin 28.1, Mean Corpuscular Hemoglobin Concent 30.1 L, Red Cell Distribution Width 14.5, Calcium Level 9.3 Vital Signs Date Time Temp Pulse Resp B/P (MAP) Pulse Ox O2 Delivery O2 Flow Rate FiO2 07/20/18 14:00 98.5 100 16 131/52 (78) 92 Nasal Cannula 2.0 I&O- Last 24 Hours up to 6 AM 07/20/18 06:00 Intake Total 20 ml Output Total 300 ml Balance -280 ml RONALDO VELEZ MD Jul 20, 2018 21:13
[2018-07-20] MEDS ORDERED: AZITHROMYCIN 250 MG TAB PO ONE (21:45)
[2018-07-21] MEDS: ALBUTEROL SULFATE 2.5 MG/0.5 ML INH NEB SOLN NEB SCH ×2 (05:53→07:29)
[2018-07-21] MEDS: TIOTROPIUM INHALER/CAPSULE (SPIRIVA) INH SCH (07:27)
[2018-07-21] MEDS: ADVAIR HFA 115/21MCG INHALER INH SCH (07:27)
[2018-07-21] MEDS: VITAMIN D 1,000 INTERNATIONAL UNITS TABLET PO SCH (08:09)
[2018-07-21] MEDS: LEVEMIR (INSULIN DETEMIR) 1 UNITS/0.01ML SC SCH (08:09)
[2018-07-21] MEDS: HumaLOG INSULIN (NovoLOG) PER UNIT SC SCH ×2 (08:09→12:46)
[2018-07-21] MEDS: ASPIRIN 81 MG ENTERIC TAB PO SCH (08:11)
[2018-07-21] MEDS: CALCITRIOL 0.25 MCG CAP (S0169) PO SCH (08:11)
[2018-07-21] MEDS ORDERED: AZIT-12 PO (08:21)
[2018-07-21] MEDS ORDERED: PRED10TA2 PO (08:21)
[2018-07-21] MEDS ORDERED: FERR1TAB8 PO (08:28)
[2018-07-21] MEDS ORDERED: CYAN1000VL IM (08:28)
--- NOTE | 2018-07-21 08:30 | IPNPDOC ---
Text Note Date of Service The patient was seen on 07/21/18. NOTE Subjective:Feels good this morning. No complaints this am. SOB has improved her breathing is at baseline. No fever or chills, no cough or phlegm. No abdominal pain , nausea or vomiting. PHYSICAL EXAMINATION: Vitals: (see below) General: No acute distress, laying comfortably in bed. HEENT: Normocephalic, atraumatic. EOMI. Moist mucous membranes. Neck: No JVD or lymphadenopathy Cardiac: RRR, No murmurs Pulm: Clear to auscultation b/l. No wheezing, rhonchi, Overall poor air entry Abd: Soft, non-tender, non-distended, no guarding, rebound tenderness, or rigidity. BSx4. Ext: No edema or cyanosis Neuro: Strength 5/5 BUE and BLE. CN 3-12 grossly intact. Sensation to touch intact. LABORATORY DATA and radiology reviewed: See below. ASSESSMENT/PLAN: 82-year-old female with past medical history of COPD on 2 L of oxygen at home, CKD IV, T2DM, Crohn's disease, diastolic CHF, pacemaker placemen t presenting for worsening shortness of breath for the last couple weeks. She states she was able to get her medications at home however was unable to get the nebulizer device itself and so has been not taking her albuterol treatments. Given how well the patient looked clinically their was consideration of discharge, however when we walked the patient with an oxygen monitor and her home oxygen, her saturations dropped to 75-80% and she was short of breath. Given this and her lack of adequate access to her nebulizer treatments this evening, the decision was made to admit the patient for observation and nebulizer treatments. COPD with mild pulmonary hypertension now in exacerbation 2/2 to non-compliance with medication Nebulizers not available We will continue the patient on home medications and nebulizer treatments since she responded well to these treatments. She received a one time dose of IV steroids in the emergency department. continue advair, spiriva, albuterol, prednisone taper azithromycin. Right middle lobe spiculated nodule 5mm x 7 mm and also other smaller nodules on the left could be infiltrate possibility of malignancy is not excluded will need follow up CT in 3 to 6 months. Elevated BNP Has mild reduction in EF at 55% which is lower than earlier echos. Patient's BNP is 19,376 however clinically the patient shows no signs of volume overload BNPs also elevated on prior admission in May without clearly mentioning CHF Currently slightly higher Difficult to interp with chronic stage 4 renal failure There are small bilateral pleural effusions documented on the chest CT Last echo was in 05/2018 with preserved EF and 2 echos in 02/02 Continue with home lasix Normocytic Anemia Anemia of chronic disease Vit b 12 is low, ferritin low normal , will start vit b12 supplements and ferrous sulphate HH at goal for her CKD. Hyponatremia/ hyperkalemia resolved Chronic Kidney disease stage 4 baseline Will continue to monitor for worsening renal function. Diabetes sliding scale insulin, levemir. Consistent carbohydrates Disposition: Discharge home. VS,Fishbone, I+O VS, Fishbone, I+O Vital Signs Date Time Temp Pulse Resp B/P (MAP) Pulse Ox O2 Delivery O2 Flow Rate FiO2 07/21/18 08:20 2.0 07/21/18 04:00 97.9 89 16 95 Nasal Cannula 07/20/18 20:00 127/61 (83) I&O- Last 24 Hours up to 6 AM 07/21/18 06:00 Intake Total 1080 ml Output Total 1250 ml Balance -170 ml RONALDO VELEZ MD Jul 21, 2018 08:30
[2018-07-21] MEDS ORDERED: predniSONE 20 MG TAB PO SCH (09:00)
[2018-07-21] MEDS ORDERED: CYANOCOBALAMIN 1,000 MCG/ML VIAL (J3420) IM SCH (09:00)
[2018-07-21] MEDS ORDERED: FERROUS SULFATE 325MG TAB PO SCH (09:00)
[2018-07-21] MEDS: FUROSEMIDE 40 MG TAB PO SCH (12:46)
[2018-07-21] MEDS ORDERED: AZITHROMYCIN 250 MG TAB PO SCH (21:00)
== END 2018-07-21 13:45 | disposition home health service (06) ==
LOC: M ED 17:43 → M ED INP 23:01 → M MS5PR 07-20 00:40
PROVIDERS: ATTEND Internal Medicine Nephrology
DX: J44.1 Chronic obstructive pulmonary disease with (acute) exacerbation (principal); Z91.120 Patient's intentional underdosing of medication regimen due to financial hardship; Z99.81 Dependence on supplemental oxygen; N18.4 Chronic kidney disease, stage 4 (severe); E11.9 Type 2 diabetes mellitus without complications; I50.30 Unspecified diastolic (congestive) heart failure; Z95.0 Presence of cardiac pacemaker; I27.20 Pulmonary hypertension, unspecified; R91.1 Solitary pulmonary nodule; D64.9 Anemia, unspecified; E87.1 Hypo-osmolality and hyponatremia; E87.5 Hyperkalemia; Z87.891 Personal history of nicotine dependence; Z79.82 Long term (current) use of aspirin; Z79.4 Long term (current) use of insulin; Z79.899 Other long term (current) drug therapy; Z88.0 Allergy status to penicillin
CPT/HCPCS: 36415; 71045; 71250; 80048; 80076; 82550; 82553; 82607; 82728; 82746; 82803; 83550; 83605; 83880; 84443; 84484; 85025; 85027; 87040; 87486; 87581; 87633; 87798; 93005; 93041; 94640; 94760; 96372; 96374; 99285; J2930; J3420

== ENCOUNTER → 2018-07-28 | Outpatient (REF) | payer MEDICARE ==
[~2018-07-28] MED LIST changes: +ALBU0.63 INH; +ASPI81TAEC PO; +AZIT-12 PO; +CYAN1000VL IM; +FERR1TAB8 PO; +MELA5TAB17 PO
[2018-07-28 16:07] LABS: ALBUMIN 3.6 GM/DL (3.2-5.2); BILIRUBIN,TOTAL 0.6 MG/DL (0.2-1.0); CALCIUM LEVEL 9.1 MG/DL (8.8-10.2); CHOLESTEROL RISK RATIO 1.842 (<5); CREATININE FOR GFR 2.11 MG/DL (0.55-1.30); GLOMERULAR FILTRATION RATE 23.9 (>32); POTASSIUM SERUM 4.5 MEQ/L (3.5-5.1); TOTAL PROTEIN 6.8 GM/DL (6.4-8.2)
[2018-07-28 16:15] LABS: PTH INTACT 108.6 PG/ML (18.5-88.0); TOTAL 25(OH) VITAMIN D 25.8 NG/ML (30.0-100.0)
[2018-07-28 16:17] LABS: HEMOGLOBIN A1c 10.4 %
[2018-07-28 16:45] LABS: CREATININE, URINE 74.5 MG/DL; MALB URINE SIEMENS 98.1 MG/L; MAU/CREAT RATIO 131.6 MCG/MG (0.0-30.0)
== END ==
LOC: M SFHCPLAZ 13:10
PROVIDERS: ATTEND Internal Medicine
DX: N18.4 Chronic kidney disease, stage 4 (severe) (principal); E11.22 Type 2 diabetes mellitus with diabetic chronic kidney disease; E55.9 Vitamin D deficiency, unspecified

== ENCOUNTER 2018-08-05 13:41 | Inpatient (IN) | payer MEDICARE ==
[~2018-08-05] VITALS: Ht 154.9 cm; Wt 61.1 kg
[2018-08-05] MEDS ORDERED: IPRATROPIUM 0.5MG/ALBUTEROL 2.5MG INH SOL UD 3ML (DUONEB)(J7620) NEB ONE (14:00)
[2018-08-05] MEDS ORDERED: NS 500 ML IV ONE (14:00)
[2018-08-05 14:34] LABS: BASO # 0.1 10^3/uL (0.0-0.2); BASO % 0.5 % (0.0-1.0); EOS # 0.2 10^3/uL (0.0-0.50); EOS % 1.5 % (0.0-3.0); HEMATOCRIT 35.4 % (36.0-47.0); HEMOGLOBIN 10.8 g/dl (12.0-15.5); LYMPH # 1.3 10^3/uL (1.5-4.5); LYMPH % 9.4 % (24.0-44.0); MEAN CORPUSCULAR HEMOGLOBIN 28.5 pg (27.0-33.0); MEAN CORPUSCULAR HGB CONC 30.5 g/dl (32.0-36.5); MEAN CORPUSCULAR VOLUME 93.4 fl (80.0-96.0); MONO # 1.1 10^3/uL (0.0-0.8); MONO % 8.4 % (0.0-5.0); NEUTROPHILS # 10.6 10^3/uL (1.8-7.7); NEUTROPHILS % 79.8 % (36.0-66.0); PLATELET COUNT, AUTOMATED 276 10^3/uL (150-450); RED BLOOD COUNT 3.79 10^6/uL (4.00-5.40); WHITE BLOOD COUNT 13.3 10^3/uL (4.0-10.0)
[2018-08-05 14:37] LABS: VENOUS BASE EXCESS 8.7 (-2.0-2.0); VENOUS HCO3 36.5 MEQ/L (23.0-27.0); VENOUS O2 SATURATION 59.4 % (60.0-80.0); VENOUS PARTIAL PRESSURE CO2 67.3 mmHg (38.0-50.0); VENOUS PARTIAL PRESSURE O2 35.7 mmHg (30.0-50.0); VENOUS PH 7.352 UNITS (7.330-7.430); VENOUS STANDARD HCO3 31.6 MEQ/L; VENOUS TOTAL CO2 38.6 MEQ/L (24.0-28.0)
[2018-08-05 15:11] LABS: CREATININE FOR GFR 2.22 MG/DL (0.55-1.30)
[2018-08-05 15:12] LABS: ALBUMIN 3.2 GM/DL (3.2-5.2); BILIRUBIN,DIRECT 0.2 MG/DL (0.0-0.2); BILIRUBIN,TOTAL 0.7 MG/DL (0.2-1.0); CALCIUM LEVEL 9.9 MG/DL (8.8-10.2); GLOMERULAR FILTRATION RATE 22.6 (>32); MB/CK RELATIVE INDEX 3.13 (< OR =4); POTASSIUM SERUM 4.4 MEQ/L (3.5-5.1); THYROID STIMULATING HORMONE 1.47 uIU/ML (0.358-3.740); TOTAL PROTEIN 6.3 GM/DL (6.4-8.2); TROPONIN I 0.04 NG/ML (< 0.10)
--- NOTE | 2018-08-05 15:19 | REP ---
CT Head without contrast HISTORY: Altered mental status COMPARISON: 02/09/2018 Areas of decreased attenuation are present in the periventricular white matter. This represents small-vessel ischemic disease. There is no intraparenchymal hemorrhage, acute infarct, mass or midline shift. The ventricular system i and cortical sulci as well as subarachnoid space in the posterior fossa are dilated consistent with moderate volume loss. There is no extra cerebral collection. There is no fracture. The visualized sinuses are clear. IMPRESSION: 1. Small vessel ischemic disease. 2. Moderate volume loss. Electronically Signed by Joshua Kaur MD 08/05/2018 03:11 P
--- NOTE | 2018-08-05 15:36 | REP ---
Portable chest x-ray: Single view. History: Altered mental status. Comparison study: July 19, 2018. Findings: There are increased markings in the right base consistent with pneumonia. Cardiomegaly is observed with bipolar pacemaker unchanged. Interstitial markings are slightly prominent diffusely. No pleural effusion seen. Impression: Right lower lobe infiltrate consistent with pneumonia. Cardiomegaly. Pacemaker. Slightly prominent interstitial markings consistent with fibrosis. Electronically Signed by Michael Barclay MD 08/05/2018 03:26 P
--- NOTE | 2018-08-05 16:59 | REP ---
CT chest without contrast: History: Pneumonia. Comparison chest CT study July 19, 2018. CT findings: There is a small right pleural effusion again noted. This is essentially unchanged from the recent CT study. There is minimal ascitic fluid adjacent to the liver and spleen in the upper abdomen. There is no longer any evidence of small left pleural effusion. A pacemaker is noted in the right heart. Cardiomegaly is observed. Vascular calcification is seen. No mass or obvious adenopathy. There are scattered normal-sized mediastinal lymph nodes. There is a patchy infiltrate in the right lower lobe which is similar but a little more extensive than it was on July 19. No dense consolidation is seen. There is some fibrosis in the right middle lobe. There is a new nodular opacity anteriorly in the right upper lobe, on the minor fissure consistent with inflammatory change. No other new nodule is seen. Emphysematous changes are noted in the upper lobes. There is some linear fibrosis in the left upper lobe posteriorly. Impression: Small right pleural effusion persists. There is some interstitial infiltrate persisting in the right lower lobe which may reflect pneumonia. Slightly more prominent than on the July 19, 2018 study. Scattered areas of atelectasis and fibrosis. Improved left pleural effusion. Minimal upper abdominal ascites. Electronically Signed by Michael Barclay MD 08/05/2018 08:03 P
[2018-08-05] MEDS ORDERED: MOXIFLOXACIN HCL 400 MG in APPROPRIATE DILUENT 1 EA IV ONE (17:00)
[2018-08-05] MEDS ORDERED: FERR1TAB8 PO (17:20)
[2018-08-05] MEDS ORDERED: CYAN1000VL IM (17:21)
[2018-08-05] MEDS ORDERED: GABA-843 PO (17:22)
[2018-08-05] MEDS ORDERED: PRED10TA2 PO (17:22)
[2018-08-05] MEDS ORDERED: ALBUTEROL SULFATE 2.5 MG/0.5 ML INH NEB SOLN INH PRN (18:00)
[2018-08-05] MEDS ORDERED: MEROPENEM INJ 1 GM in APPROPRIATE DILUENT 1 EA IV SCH (18:00)
[2018-08-05] MEDS ORDERED: ALBUTEROL 90 MCG/ACT 8GM HFA INHALER INH PRN (18:00)
[2018-08-05 20:50] VITALS: BP 121/73
[2018-08-05] MEDS: AMITRIPTYLINE 25 MG TAB PO SCH (21:00)
[2018-08-05] MEDS ORDERED: VANCOMYCIN HCL 750 MG, VIAL MATE ADAPTER 1 EACH in D5W 250 ML IV ONE (21:00)
[2018-08-05] MEDS: GABAPENTIN 300 MG CAP PO SCH (22:27)
[2018-08-05] MEDS: HEPARIN SOD (PORCINE) 5000 UNITS/ML VIAL SC SCH (22:27)
--- NOTE | 2018-08-05 23:19 | HPE ---
DATE OF ADMISSION: 08/05/2018 This is an 82-year-old female with past medical history of chronic obstructive pulmonary disease (COPD), chronic kidney disease (CKD) IV, type 2 diabetes, Crohn disease, chronic diastolic heart failure, history of pacemaker placement who presents to the emergency room with generalized malaise for the last week and in the last three days she has been having cough with productive yellow sputum and subjective feeling of aches and chills. In the ER, she was afebrile, had a chest x-ray which showed a questionable consolidation with CT chest showed the same spiculated mass, however, and also consolidation, however, the consolidation has worsened since previous CT. The patient was placed on IV Avelox by the ER attending. Patient at this time is speaking in complete sentences. She is not short of breath and appears in no distress. She will be admitted for further management. PAST MEDICAL HISTORY: Chronic oxygen dependent COPD requiring 2 liters nasal cannula. History of CKD IV. Type 2 diabetes. Crohn disease. Chronic diastolic heart failure. Coronary artery disease, status post pacemaker placement. PAST SURGICAL HISTORY: section. Cholecystectomy. Aortobifemoral bypass. Bilateral cataract surgery. ALLERGIES: PENICILLIN. FAMILY HISTORY: Noncontributory. SOCIAL HISTORY: Patient was a heavy smoker for over 30 years. Denies alcohol or illicit drugs. MEDICATIONS SHE TAKES AT HOME: Are as follows: - albuterol inhaler every 4 as needed - amitriptyline 25 mg by mouth at bedtime - aspirin 81 mg orally daily - calcitriol 0.25 mg orally daily - cholecalciferol 1000 units orally daily - cyanocobalamin 1000 mcg IM every weekly - ferrous sulfate 325 mg orally daily - Lasix 40 mg orally daily - gabapentin 300 mg orally at bedtime - glipizide 5 mg orally daily - insulin Glargine 15 units subcutaneous daily - melatonin 10 mg orally at bedtime - prednisone 10 mg orally daily - salmeterol/fluticasone 1 puff inhaled twice a day - tiotropium bromide 1 inhalation daily REVIEW OF SYSTEMS: Negative all 10 major systems except what is mentioned in HPI. VITAL SIGNS: Blood pressure is 99/57, heart rate is 91 and regular. Respiratory rate is 20, temperature is 98.2. Oxygen saturation is 95% on 2 liters nasal cannula. Head: Atraumatic. Normocephalic. Neck: Supple. No jugular venous distention (JVD). Lungs: Diminished breath sounds bilaterally. S1, S2 audible. No murmurs appreciated. Abdomen: Soft, positive bowel sounds. No pedal edema. Skin: Intact. Neurological examination: Patient awake, alert and oriented times three. LABS: WBC 13.3, hemoglobin is 10.8, hematocrit 35.4, platelets are 276,000. VBG: PH is 7.352, pCO2 67.3. Sodium 136, potassium 4.4, chloride 94, CO2 34, albumin 56, creatinine 2.22, which is her baseline. Glucose is 190. Lactic acid 1.3. TSH 1.4. Troponin 0.04. IMPRESSION: Hospital acquired pneumonia. PLAN: Patient is being admitted to the PCU. Will start the patient on IV meropenem 1 gram every 8 and vancomycin 1 gram daily. Will get sputum cultures if possible. She is not in active COPD exacerbation, but will continue her home nebulizer treatments and her by mouth prednisone and will continue all of her other pre-admission medications and continue her care in the PCU.
[2018-08-05] MEDS: ADVAIR HFA 115/21MCG INHALER INH SCH (23:47)
[2018-08-06] VITALS (7 sets, daily range): BP systolic 91–112; BP diastolic 55–78
[2018-08-06] MEDS: MEROPENEM INJ 500 MG in APPROPRIATE DILUENT 1 EA IV SCH ×3 (00:13→21:59)
[2018-08-06] MEDS: HEPARIN SOD (PORCINE) 5000 UNITS/ML VIAL SC SCH ×3 (05:08→21:58)
[2018-08-06 05:52] LABS: BASO # 0.1 10^3/uL (0.0-0.2); BASO % 0.5 % (0.0-1.0); EOS # 0.2 10^3/uL (0.0-0.50); HEMATOCRIT 34.2 % (36.0-47.0); HEMOGLOBIN 10.5 g/dl (12.0-15.5); LYMPH % 8.6 % (24.0-44.0); MEAN CORPUSCULAR HEMOGLOBIN 28.4 pg (27.0-33.0); MEAN CORPUSCULAR HGB CONC 30.7 g/dl (32.0-36.5); MEAN CORPUSCULAR VOLUME 92.4 fl (80.0-96.0); MONO % 8.4 % (0.0-5.0); NEUTROPHILS # 9.6 10^3/uL (1.8-7.7); PLATELET COUNT, AUTOMATED 247 10^3/uL (150-450)
[2018-08-06 06:21] LABS: CALCIUM LEVEL 9.4 MG/DL (8.8-10.2); CREATININE FOR GFR 2.06 MG/DL (0.55-1.30); GLOMERULAR FILTRATION RATE 24.6 (>32); POTASSIUM SERUM 4.4 MEQ/L (3.5-5.1)
[2018-08-06] MEDS: TIOTROPIUM INHALER/CAPSULE (SPIRIVA) INH SCH (08:00)
[2018-08-06] MEDS: ADVAIR HFA 115/21MCG INHALER INH SCH ×2 (09:00→21:06)
[2018-08-06] MEDS: LEVEMIR (INSULIN DETEMIR) 1 UNITS/0.01ML SC SCH (09:19)
[2018-08-06] MEDS: VANCOMYCIN HCL 1,000 MG, VIAL MATE ADAPTER 1 EACH in D5W 250 ML IV SCH (09:19)
[2018-08-06] MEDS: FERROUS SULFATE 325MG TAB PO SCH (09:19)
[2018-08-06] MEDS: predniSONE 10 MG TAB PO SCH (09:19)
[2018-08-06] MEDS ORDERED: FUROSEMIDE 40 MG TAB PO SCH (12:00)
[2018-08-06] MEDS: VITAMIN D 1,000 INTERNATIONAL UNITS TABLET PO SCH (13:41)
[2018-08-06] MEDS: glipiZIDE (GLUCOTROL) 5 MG TAB PO SCH (13:41)
[2018-08-06] MEDS: ASPIRIN 81 MG ENTERIC TAB PO SCH (13:41)
[2018-08-06] MEDS ORDERED: BISACODYL 10 MG SUPP PR PRN (16:00)
--- NOTE | 2018-08-06 19:17 | IPNPDOC ---
Text Note Date of Service The patient was seen on 08/06/18. NOTE SUBJECTIVE: Complains of feeling weak and tired. SOB is better but still has the cough. Had low grade temperature this am. No nausea or vomiting or diarrhea, Blood pressues is soft. Physical Exam: VITAL SIGNS: As below GENERAL: awake, alert, lying comfortably in bed in no acute distress Head: Atraumatic. Normocephalic. Neck: Supple. No jugular venous distention (JVD). Lungs: Diminished breath sounds bilaterally. some right basal crackles. CVS: S1, S2 regular. No murmurs appreciated. No rub or gallop Abdomen: Soft, positive bowel sounds. Extremities: No pedal edema. Skin: Intact. Neurological examination: No focal neurodeficits. LABS and Radiology: Reviewed. ASSESSMENT AND PLAN: This is an 82-year-old female with past medical history of chronic obstructive pulmonary disease (COPD), chronic kidney disease (CKD) IV, type 2 diabetes, Crohn disease, chronic diastolic heart failure, history of pacemaker placement who presents to the emergency room with generalized malaise for the last week and in the last three days she has been having cough with productive yellow sputum and subjective feeling of aches and chills. In the ER, she was afebrile, had a chest x-ray which showed a questionable consolidation with CT chest showed the same spiculated mass, however, and also consolidation, however, the consolidation has worsened since previous CT. The patient was placed on IV Avelox by the ER attending. Patient at this time is speaking in complete sentences. She is not short of breath and appears in no distress. She will be admitted for further management. Hospital acquired pneumonia. continue meropenem and vancomycin await cultures COPD with Chronic hypoxic respiratory failure with mild pulmonary hypertension continue advair, spiriva, albuterol, prednisone taper azithromycin. Chronic Kidney disease stage 4 baseline creatinine at baseline Will continue to monitor for worsening renal function. Diabetes sliding scale insulin, levemir and glipizide Consistent carbohydrates Possible Diastolic CHF patient is euvolemic and has hypotension on admission will hold lasix. Right middle lobe spiculated nodule 5mm x 7 mm and also other smaller nodules on the left could be infiltrate possibility of malignancy is not excluded will need follow up CT in 3 to 6 months. Normocytic Anemia Anemia of chronic disease Vit b 12 is low, ferritin low normal , will start vit b12 supplements and ferrous sulphate HH at goal for her CKD. 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 H/O Crohn's disease. VS,Fishbone, I+O VS, Fishbone, I+O Laboratory Tests 08/05/18 14:27 Red Blood Count 3.79 L, Mean Corpuscular Volume 93.4, Mean Corpuscular Hemoglobin 28.5, Mean Corpuscular Hemoglobin Concent 30.5 L, Red Cell Distribution Width 15.9 H, Neutrophils (%) (Auto) 79.8 H, Lymphocytes (%) (Auto) 9.4 L, Monocytes (%) (Auto) 8.4 H, Eosinophils (%) (Auto) 1.5, Basophils (%) (Auto) 0.5, Neutrophils # (Auto) 10.6 H, Lymphocytes # (Auto) 1.3 L, Monocytes # (Auto) 1.1 H, Eosinophils # (Auto) 0.2, Basophils # (Auto) 0.1 08/06/18 05:08 Red Blood Count 3.70 L, Mean Corpuscular Volume 92.4, Mean Corpuscular Hemoglobin 28.4, Mean Corpuscular Hemoglobin Concent 30.7 L, Red Cell Distribution Width 15.9 H, Neutrophils (%) (Auto) 80.0 H, Lymphocytes (%) (Auto) 8.6 L, Monocytes (%) (Auto) 8.4 H, Eosinophils (%) (Auto) 2.0, Basophils (%) (Auto) 0.5, Neutrophils # (Auto) 9.6 H, Lymphocytes # (Auto) 1.0 L, Monocytes # (Auto) 1.0 H, Eosinophils # (Auto) 0.2, Basophils # (Auto) 0.1, Calcium Level 9.4 Vital Signs Date Time Temp Pulse Resp B/P (MAP) Pulse Ox O2 Delivery O2 Flow Rate FiO2 08/06/18 04:00 3.0 08/06/18 04:00 99.1 95 20 91/59 (70) 92 Nasal Cannula I&O- Last 24 Hours up to 6 AM 08/06/18 06:00 Intake Total 325 ml Output Total 0 ml Balance 325 ml RONALDO VELEZ MD Aug 06, 2018 07:46
[2018-08-06] MEDS: SENOKOT S TAB PO SCH (21:00)
[2018-08-06] MEDS: AMITRIPTYLINE 25 MG TAB PO SCH (21:59)
[2018-08-06] MEDS: GABAPENTIN 300 MG CAP PO SCH (21:59)
[2018-08-07] VITALS: BP 116/62
[2018-08-07 04:00] VITALS: BP 116/65
[2018-08-07] MEDS: HEPARIN SOD (PORCINE) 5000 UNITS/ML VIAL SC SCH ×3 (06:14→22:00)
--- NOTE | 2018-08-07 06:45 | ECGEPIP ---
Stationary ECG Study [facility] - ED Test Date: 2018-08-05 Pat Name: PINKY COOPER Department: Room: - Gender: F Issuer: : [id number] Requested By: AB Cobb Order Number: [id number] Reading MD: Karlos Xiong Measurements Intervals [place] Rate: 90 P: 85 TN: 194 QRS: -86 QRSD: 165 T: 83 QT: 406 QTc: 499 Interpretive Statements ELECTRONIC VENTRICULAR PACEMAKER ABNORMAL RHYTHM ECG NONSPECIFIC ST T WAVE CHANGES CW 07/19/18 RATE LOWER Electronically Signed On 08-07-2018 6:45:35 EST by Karlos Xiong
[2018-08-07] MEDS: ADVAIR HFA 115/21MCG INHALER INH SCH ×2 (07:20→23:29)
[2018-08-07] MEDS: TIOTROPIUM INHALER/CAPSULE (SPIRIVA) INH SCH (07:20)
[2018-08-07 08:00] VITALS: BP 97/63
[2018-08-07] MEDS: predniSONE 10 MG TAB PO SCH (08:26)
[2018-08-07] MEDS: SENOKOT S TAB PO SCH ×2 (08:26→22:25)
[2018-08-07] MEDS: VANCOMYCIN HCL 1,000 MG, VIAL MATE ADAPTER 1 EACH in D5W 250 ML IV SCH (08:27)
[2018-08-07] MEDS: LEVEMIR (INSULIN DETEMIR) 1 UNITS/0.01ML SC SCH (08:29)
[2018-08-07] MEDS: FERROUS SULFATE 325MG TAB PO SCH (08:38)
[2018-08-07] MEDS ORDERED: DEXTROSE 50% 50 ML SYRINGE IV PRN (09:00)
[2018-08-07] MEDS ORDERED: GLUCAGON FOR INJ 1 MG VIAL (J1610) SC PRN (09:00)
[2018-08-07] MEDS ORDERED: GLUCOSE 4 GM CHEW TABLET PO PRN (09:00)
[2018-08-07] MEDS ORDERED: PREVNAR 13 VACCINE SYRINGE (CPT CODE:90670) IM ONE (09:00)
[2018-08-07] MEDS: MEROPENEM INJ 500 MG in APPROPRIATE DILUENT 1 EA IV SCH ×2 (09:55→22:26)
[2018-08-07] MEDS: glipiZIDE (GLUCOTROL) 5 MG TAB PO SCH (11:55)
[2018-08-07] MEDS: VITAMIN D 1,000 INTERNATIONAL UNITS TABLET PO SCH (11:56)
[2018-08-07] MEDS: ASPIRIN 81 MG ENTERIC TAB PO SCH (11:56)
[2018-08-07] MEDS: HumaLOG INSULIN (NovoLOG) PER UNIT SC SCH ×4 (11:56→22:26)
[2018-08-07 12:00] VITALS: BP 91/52
[2018-08-07] MEDS ORDERED: ONDANSETRON 4MG/2ML VIAL (J2405) IV PRN (15:15)
--- NOTE | 2018-08-07 15:38 | IPNPDOC ---
Text Note Date of Service The patient was seen on 08/07/18. NOTE Subjective: Patient denies any complaints at this time. States her dyspnea is improving. No chest pain or palpitations. Objective: Vitals: (see below) General: No acute distress, laying comfortably in bed. HEENT: Moist mucous membranes. Neck: No JVD or lymphadenopathy Cardiac: RRR, No murmurs Pulm: Crackles at the bases.No wheezing, rhonchi. No use of accessory muscles. Abd: NT/ND + BS Ext: No edema or cyanosis Labs (see below) Assessment/Plan 1. Hospital-acquired pneumonia- continue meropenem and vancomycin. Pending cultures. Improving. 2. Acute COPD exacerbation secondary to the above. Continue Advair, Spiriva, steroid taper. 3. Chronic kidney disease stage IV. Creatinine at baseline. Continue to monitor. 4. Diabetes mellitus continue Levemir, slight scale insulin. Hold glipizide for now. 5.Right middle lobe spiculated nodule 5 x 7 mm. Will need outpatient pulmonary follow-up. Will need outpatient CT repeated in 3 months by PCP. 6. Normocytic anemia, anemia chronic disease. B12 deficiency on supplementation. Iron supplementation. 7. History of complete AV block status post PPM 8. History of Crohn's disease will need outpatient follow-up. DVT prophy: Heparin subcutaneous Overall prognosis guarded. VS,Fishbone, I+O VS, Fishbone, I+O Vital Signs Date Time Temp Pulse Resp B/P (MAP) Pulse Ox O2 Delivery O2 Flow Rate FiO2 08/07/18 12:00 3.0 08/07/18 12:00 99.1 96 24 91/52 (65) 92 Nasal Cannula I&O- Last 24 Hours up to 6 AM 08/07/18 06:00 Intake Total 1330 ml Output Total 900 ml Balance 430 ml SAMIR LOZANO MD Aug 07, 2018 15:38
[2018-08-07 15:48] LABS: BASO % 0.2 % (0.0-1.0); EOS % 0.2 % (0.0-3.0); HEMATOCRIT 34.1 % (36.0-47.0); HEMOGLOBIN 10.3 g/dl (12.0-15.5); LYMPH # 0.5 10^3/uL (1.5-4.5); LYMPH % 3.6 % (24.0-44.0); MEAN CORPUSCULAR HEMOGLOBIN 28.6 pg (27.0-33.0); MEAN CORPUSCULAR HGB CONC 30.2 g/dl (32.0-36.5); MEAN CORPUSCULAR VOLUME 94.7 fl (80.0-96.0); MONO # 0.7 10^3/uL (0.0-0.8); NEUTROPHILS # 12.4 10^3/uL (1.8-7.7); NEUTROPHILS % 90.5 % (36.0-66.0); PLATELET COUNT, AUTOMATED 249 10^3/uL (150-450); WHITE BLOOD COUNT 13.8 10^3/uL (4.0-10.0)
[2018-08-07 16:00] VITALS: BP 128/60
[2018-08-07 16:01] LABS: ALBUMIN 2.9 GM/DL (3.2-5.2); BILIRUBIN,TOTAL 0.5 MG/DL (0.2-1.0); CALCIUM LEVEL 8.9 MG/DL (8.8-10.2); CREATININE FOR GFR 2.07 MG/DL (0.55-1.30); GLOMERULAR FILTRATION RATE 24.5 (>32); MAGNESIUM LEVEL 1.9 MG/DL (1.8-2.4); POTASSIUM SERUM 4.2 MEQ/L (3.5-5.1); TOTAL PROTEIN 5.6 GM/DL (6.4-8.2)
[2018-08-07 20:00] VITALS: BP 142/64
[2018-08-07] MEDS: AMITRIPTYLINE 25 MG TAB PO SCH (22:25)
[2018-08-07] MEDS: GABAPENTIN 300 MG CAP PO SCH (22:26)
[2018-08-08] VITALS (8 sets, daily range): BP systolic 92–130; BP diastolic 53–65
[2018-08-08] MEDS: HEPARIN SOD (PORCINE) 5000 UNITS/ML VIAL SC SCH ×3 (05:06→22:22)
[2018-08-08] MEDS: ADVAIR HFA 115/21MCG INHALER INH SCH ×2 (07:10→20:32)
[2018-08-08] MEDS: TIOTROPIUM INHALER/CAPSULE (SPIRIVA) INH SCH (07:10)
[2018-08-08] MEDS: HumaLOG INSULIN (NovoLOG) PER UNIT SC SCH ×4 (08:58→21:00)
[2018-08-08] MEDS: VANCOMYCIN HCL 1,000 MG, VIAL MATE ADAPTER 1 EACH in D5W 250 ML IV SCH (08:58)
[2018-08-08] MEDS: FERROUS SULFATE 325MG TAB PO SCH (08:58)
[2018-08-08] MEDS: SENOKOT S TAB PO SCH ×2 (08:58→21:00)
[2018-08-08] MEDS: predniSONE 10 MG TAB PO SCH (08:58)
[2018-08-08] MEDS: LEVEMIR (INSULIN DETEMIR) 1 UNITS/0.01ML SC SCH (08:59)
[2018-08-08] MEDS: MEROPENEM INJ 500 MG in APPROPRIATE DILUENT 1 EA IV SCH ×2 (10:46→22:22)
[2018-08-08 11:07] LABS: ABG BASE EXCESS 1.2 (-2.0-2.0); ABG O2 SATURATION 97.1 % (95.0-99.0); ABG PARTIAL PRESSURE CO2 48.2 mmHg (35.0-45.0); ABG PARTIAL PRESSURE O2 89.1 mmHg (75.0-100.0); ABG STANDARD HCO3 25.5 MEQ/L (22.0-26.0); ABG TOTAL CO2 28.5 MEQ/L (23.0-31.0); ABG pH (ARTERIAL) 7.366 UNITS (7.350-7.450)
--- NOTE | 2018-08-08 11:11 | REP ---
PORTABLE CHEST, ONE VIEW: HISTORY: Shortness of breath. COMPARISON: 08/05/2018. A diffuse increase in interstitial markings is present in the lungs consistent with chronic interstitial fibrosis. Patchy density is present in the right lower lobe consistent with an infiltrate unchanged compared to the previous study. The cardiac silhouette is enlarged. The pulmonary vasculature is normal in appearance. A cardiac pacemaker is present. IMPRESSION: 1. Chronic interstitial fibrosis. 2. Right lower lobe infiltrate unchanged compared to the previous study. 3. Cardiomegaly. Electronically Signed by Joshua Kaur MD 08/08/2018 11:22 A
[2018-08-08] MEDS: ASPIRIN 81 MG ENTERIC TAB PO SCH (12:07)
[2018-08-08] MEDS: VITAMIN D 1,000 INTERNATIONAL UNITS TABLET PO SCH (12:07)
[2018-08-08] MEDS: guaiFENesin ER 600 MG TAB PO SCH ×2 (12:07→21:03)
--- NOTE | 2018-08-08 16:48 | IPNPDOC ---
Text Note Date of Service The patient was seen on 08/08/18. NOTE Subjective: Pt with GARVEY, although she can only walk short distances at home. No chest pain or palpitations. Objective: Vitals: (see below) General: No acute distress, laying comfortably in bed. HEENT: Moist mucous membranes. Neck: No JVD or lymphadenopathy Cardiac: RRR, No murmurs Pulm: Crackles at the bases. Mild exp wheezing, rhonchi. No use of accessory muscles. Abd: NT/ND + BS Ext: No edema or cyanosis Labs (see below) Assessment/Plan 1. Hospital-acquired pneumonia- continue meropenem and vancomycin. Pending cultures. Improving. 2. Acute COPD exacerbation secondary to the above. Continue Advair, Spiriva, steroid taper. Will consult pulmonary. 3. Chronic kidney disease stage IV. Creatinine at baseline. Continue to monitor. 4. Diabetes mellitus continue Levemir, slight scale insulin. Hold glipizide for now. 5.Right middle lobe 5mm. Will need outpatient pulmonary follow-up. Will need outpatient CT repeated in 3-6 months by PCP. Daughter states she was aware of the nodule and will be following up closely. 6. Normocytic anemia, anemia chronic disease. B12 deficiency on supplementation. Iron supplementation. 7. History of complete AV block status post PPM 8. History of Crohn's disease will need outpatient follow-up. DVT prophy: Heparin subcutaneous Overall prognosis guarded. VS,Fishbone, I+O VS, Fishbone, I+O Vital Signs Date Time Temp Pulse Resp B/P (MAP) Pulse Ox O2 Delivery O2 Flow Rate FiO2 08/08/18 12:00 98.8 62 20 125/60 (81) 98 Nasal Cannula 3.0 I&O- Last 24 Hours up to 6 AM 08/08/18 06:00 Intake Total 610 ml Output Total 300 ml Balance 310 ml SAMIR LOZANO MD Aug 08, 2018 16:48
[2018-08-08] MEDS: GABAPENTIN 300 MG CAP PO SCH (21:03)
[2018-08-09] VITALS: BP 140/85
[2018-08-09 04:00] VITALS: BP 124/61
[2018-08-09] MEDS: HEPARIN SOD (PORCINE) 5000 UNITS/ML VIAL SC SCH ×3 (05:28→21:44)
[2018-08-09 05:57] LABS: HEMATOCRIT 33.7 % (36.0-47.0); HEMOGLOBIN 9.9 g/dl (12.0-15.5); MEAN CORPUSCULAR HEMOGLOBIN 28.2 pg (27.0-33.0); MEAN CORPUSCULAR HGB CONC 29.4 g/dl (32.0-36.5); PLATELET COUNT, AUTOMATED 254 10^3/uL (150-450); RED BLOOD COUNT 3.51 10^6/uL (4.00-5.40)
[2018-08-09 06:17] LABS: C REACTIVE PROTEIN QUANTITATIV 3.76 MG/DL (0.00-0.30); CALCIUM LEVEL 8.6 MG/DL (8.8-10.2); CREATININE FOR GFR 2.06 MG/DL (0.55-1.30); GLOMERULAR FILTRATION RATE 24.6 (>32); POTASSIUM SERUM 4.3 MEQ/L (3.5-5.1)
[2018-08-09] MEDS: TIOTROPIUM INHALER/CAPSULE (SPIRIVA) INH SCH (07:25)
[2018-08-09] MEDS: ADVAIR HFA 115/21MCG INHALER INH SCH ×2 (07:26→18:04)
[2018-08-09 07:58] VITALS: BP 100/60
[2018-08-09] MEDS: predniSONE 10 MG TAB PO SCH (09:21)
[2018-08-09] MEDS: SENOKOT S TAB PO SCH ×2 (09:21→21:41)
[2018-08-09] MEDS: FERROUS SULFATE 325MG TAB PO SCH (09:21)
[2018-08-09] MEDS: HumaLOG INSULIN (NovoLOG) PER UNIT SC SCH ×4 (09:22→21:00)
[2018-08-09] MEDS: guaiFENesin ER 600 MG TAB PO SCH ×2 (09:22→21:41)
[2018-08-09] MEDS: LEVEMIR (INSULIN DETEMIR) 1 UNITS/0.01ML SC SCH (09:22)
[2018-08-09] MEDS ORDERED: FUROSEMIDE 20 MG/2 ML VIAL (J1940) IV ONE (11:00)
[2018-08-09] MEDS: MEROPENEM INJ 500 MG in APPROPRIATE DILUENT 1 EA IV SCH ×2 (11:21→21:45)
[2018-08-09 11:48] VITALS: BP 96/60
--- NOTE | 2018-08-09 11:48 | CR ---
DATE OF CONSULTATION: 08/09/2018 Ms. Mayda Knight is essentially an 82-year-old female who the hospitalist requested pulmonary consultation on for the patient's pneumonia, lung disease and pulmonary nodule. The patient is admitted to the hospital currently with community acquired pneumonia and is being treated with antibiotic therapy. She is currently getting meropenem. Of note, her white blood cell count has been trending down, and she has remained afebrile for many days. On bedside examination, the patient was not short of breath and appeared comfortable lying in bed watching television. She is not a very good historian. She states that she thinks that she is on 6 liters at home of oxygen, but does not see any pulmonary doctor, just sees her primary care doctor. She does think that her breathing has improved since she has come to the hospital. She states that she smoked for 3 years, about a pack a day, in her 20s and then stopped. We did review the patient's prior chest CT, which does show prominent emphysematous disease and a small infiltrate in the right lower lobe. This is accompanied with a small right pleural effusion. She also does have a small right sided pulmonary nodule measuring almost 5 mm in size. It is noted to be a bit irregular, spiculated. The infiltrate, as mentioned above, could possibly represent a component of the patient's heart failure as well. The most recent echocardiogram that we have showed a systolic left ventricular ejection fraction of 55% with mild aortic valve sclerosis and mild mitral annular calcifications. PAST MEDICAL HISTORY: 1. Crohn's disease. 2. Type 2 diabetes. 3. History of chronic kidney disease. 4. History of systolic heart failure. 5. Coronary artery disease, status post pacemaker placement. 6. 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 7. History of Clostridium (C.) difficile infection. 8. Stress incontinence. PAST SURGICAL HISTORY: 1. Aortobifemoral bypass. 2. Cataract surgery. 3. Cholecystectomy. 4. section. ALLERGIES: Reportedly to PENICILLIN. FAMILY HISTORY: Her son has hypertension. Coronary artery disease in a sister and a son. History of cancer in her mother, sister and daughter. History of chronic obstructive lung disease in her sister. SOCIAL HISTORY: The patient tells me that she only smoked for 3 years in her early 20s, one pack a day; however, records indicate that she was a heavy smoker for the past 30 years, this would correlate with her CT findings of emphysematous changes. No alcohol or illicit drug use. MEDICATIONS: Taken from medical records: - prednisone 10 mg daily - melatonin 10 mg at bedtime daily - insulin glargine 15 units subcutaneously daily - glipizide 5 mg orally daily - gabapentin 300 mg orally at bedtime daily - Lasix 40 mg orally per day - ferrous sulfate 325 mg orally per day - cyanocobalamin 1000 mcg intramuscularly every week - cholecalciferol 1000 units by mouth daily - calcitriol 0.25 mg orally daily - aspirin 81 mg by mouth daily - amitriptyline 25 mg by mouth daily - albuterol inhaler every 4 hours as needed - prednisone 10 mg daily - Solu-Medrol/fluticasone one puff inhaled twice a day - ipratropium bromide one inhalation daily REVIEW OF SYSTEMS: CARDIOVASCULAR: The patient denies having any chest pain or palpitations. RESPIRATORY: The patient states that she is a little short of breath but does state that her shortness of breath has improved quite a bit during her stay in the hospital. The patient denies cough or wheeze. GASTROINTESTINAL: The patient denies any nausea, vomiting, or abdominal pain. EXTREMITIES: The patient does state that sometimes she swells in her bilateral lower extremities, especially more so at the end of the day. PHYSICAL EXAMINATION: LABORATORIES: White blood cell count 11, hemoglobin and hematocrit 9.9 and 33.7, respectively with a platelet count of 254, sodium 134, potassium 4.3, BUN and creatinine 46 and 2.06, respectively with a fasting glucose of 264 and a calcium of 8.6, C-reactive protein noted to be 3.76. ABG performed yesterday showed a pH of 7.36, PCO2 of 48.2, PO2 of 89.1. Bicarbonate was not obtained on laboratory evaluation as the patient seemingly did not have laboratories drawn yesterday. PHYSICAL EXAMINATION: VITAL SIGNS: Temperature 98.0, pulse 94, respiratory rate 19, blood pressure 100/60, pulse oximetry 92% on 4 liters. HEENT: Dentures. Moist mucous membranes. Mallampati 3. Nares patent bilaterally. RESPIRATORY: The patient has decreased breath sounds with bibasilar crackles, could not appreciate any rales, rhonchi or wheeze. She was hyperresonant to percussion. CARDIOVASCULAR: Normal S1, S2 without any murmurs, rubs or gallops. ABDOMEN: Soft. Normoactive bowel sounds times four. No appreciable hepatosplenomegaly. No pain to palpation. No distention. No rebound or guarding. EXTREMITIES: Some mild, trace, bilateral lower extremity edema. Otherwise, no cyanosis, mottling appreciated. IMAGING: Chest CT and chest x-ray were reviewed and did show right sided interstitial infiltrate and right lower lobe with small right effusion, she does have scattered areas of atelectasis, diffuse emphysematous disease and a right sided nodule, noted to be almost 5 mm. ASSESSMENT AND PLAN: 1. Pulmonary nodule. According to the Fleischner and NCCN guidelines, the patient DOES NOT require followup for this lesion. If anything, could consider one year CT; however, screening guidelines recommend to stop screening at age 74 or more aggressive criteria is at age 80, both of which the patient does not qualify her given her age and comorbidities. She does not need any further followup with pulmonology outpatient, she should continue to see her primary care provider. 2. Hypoxemia. This could likely represent a component of pulmonary hypertension. Would continue with oxygen therapy. We did wean down the patient while she was in the room from 5 liters down to 3 liters and she sees to be saturating well. She is in no acute distress without conversational dyspnea. 3. Compensated heart failure. The patient does appear compensated. PLAN: We agree with the current plan with antibiotic use, although the infiltrate noted on chest imaging could also likely represent a component of her congestive heart failure (CHF). As stated above, her pulmonary lesion does not need followup for the aforementioned reasons. If she were to followup with imaging, it would be in 1 year per current guidelines. She is on a good pulmonary regimen already for her chronic obstructive pulmonary disease (COPD). Continue with oxygen therapy. She does not necessarily have to followup with a yarn winder outpatient, but could continue to see her primary care provider. Thank you for this consultation. If you have any further questions, please feel free to reach out to pulmonology and reconsult. My faculty preceptor for this patient encounter was physically present during the encounter and was fully available. All aspects of the patient interview, examination, medical decision making process, and medical care plan development were reviewed and approved by the faculty preceptor. The faculty preceptor is aware and concurs with the plan as stated in the body of this note and will attest to such by his/her co-signature.
[2018-08-09] MEDS: VITAMIN D 1,000 INTERNATIONAL UNITS TABLET PO SCH (12:18)
[2018-08-09] MEDS: ASPIRIN 81 MG ENTERIC TAB PO SCH (12:18)
--- NOTE | 2018-08-09 13:18 | REP ---
Bilateral lower extremity Duplex Doppler venous ultrasound: Real time compression and duplex Doppler interrogation of the bilateral lower extremity deep venous system is performed. Bilaterally, the common femoral, superficial femoral and popliteal veins are fully compressible with transducer pressure and demonstrate normal spontaneous and phasic flow, without evidence of deep venous thrombosis. Impression: No evidence of deep venous thrombosis of the bilateral lower extremity femoral popliteal venous system. Electronically Signed by Bernabe Hill MD 08/09/2018 01:08 P
--- NOTE | 2018-08-09 13:28 | IPNPDOC ---
Text Note Date of Service The patient was seen on 08/09/18. NOTE Subjective: Patient states her dyspnea is improving. She is ambulating to the bathroom without difficulty. No chest pain or palpitations. Objective: Vitals: (see below) General: No acute distress, laying comfortably in bed. HEENT: Moist mucous membranes. Neck: No JVD or lymphadenopathy Cardiac: RRR, No murmurs Pulm: Crackles at the bases. Mild exp wheezing, rhonchi. No use of accessory muscles. Abd: NT/ND + BS Ext: 1+ edema or cyanosis Labs (see below) Assessment/Plan 1. Hospital-acquired pneumonia- continue meropenem and vancomycin. Pending cultures. Improving. 2. Acute COPD exacerbation secondary to the above. Continue Advair, Spiriva, steroid taper. Will consult pulmonary. 3. Chronic kidney disease stage IV. Creatinine at baseline. Continue to monitor. 4. Diabetes mellitus continue Levemir, slight scale insulin. Hold glipizide for now. 5.Right middle lobe 5mm. Will need outpatient pulmonary follow-up. Will need outpatient CT repeated in [address] Augustine. Patient will need close follow-up with her primary care physician. Daughter states she was aware of the nodule and will be following up closely. 6. Normocytic anemia, anemia chronic disease. B12 deficiency on supplementation. Iron supplementation. 7. History of complete AV block status post PPM 8. History of Crohn's disease will need outpatient follow-up. 9. Lower extremity edema. Started on Lasix. DVT prophy: Heparin subcutaneous Overall prognosis guarded. VS,Fishbone, I+O VS, Fishbone, I+O Laboratory Tests 08/09/18 05:30 Red Blood Count 3.51 L, Mean Corpuscular Volume 96.0, Mean Corpuscular Hemoglobin 28.2, Mean Corpuscular Hemoglobin Concent 29.4 L, Red Cell Distribution Width 15.6 H, Calcium Level 8.6 L Vital Signs Date Time Temp Pulse Resp B/P (MAP) Pulse Ox O2 Delivery O2 Flow Rate FiO2 08/09/18 12:00 3.0 08/09/18 11:48 98.0 101 19 96/60 (72) 92 Nasal Cannula I&O- Last 24 Hours up to 6 AM 08/09/18 06:00 Intake Total 1520 ml Output Total 400 ml Balance 1120 ml ABED,SAMIR MD Aug 09, 2018 13:28
[2018-08-09 16:00] VITALS: BP 153/68
[2018-08-09 20:00] VITALS: BP 96/61
[2018-08-09] MEDS: GABAPENTIN 300 MG CAP PO SCH (21:41)
[2018-08-10] VITALS: BP 112/83
[2018-08-10 04:00] VITALS: BP 120/73
[2018-08-10] MEDS: HEPARIN SOD (PORCINE) 5000 UNITS/ML VIAL SC SCH ×3 (05:27→21:29)
[2018-08-10 06:43] LABS: C REACTIVE PROTEIN QUANTITATIV 3.49 MG/DL (0.00-0.30)
[2018-08-10] MEDS: HumaLOG INSULIN (NovoLOG) PER UNIT SC SCH ×4 (07:30→21:30)
[2018-08-10 08:00] VITALS: BP 110/70
[2018-08-10] MEDS: TIOTROPIUM INHALER/CAPSULE (SPIRIVA) INH SCH (08:14)
[2018-08-10] MEDS: ADVAIR HFA 115/21MCG INHALER INH SCH ×2 (08:15→20:50)
[2018-08-10 08:50] LABS: HEMOGLOBIN 9.5 g/dl (12.0-15.5); MEAN CORPUSCULAR HEMOGLOBIN 27.9 pg (27.0-33.0); MEAN CORPUSCULAR HGB CONC 29.7 g/dl (32.0-36.5); MEAN CORPUSCULAR VOLUME 94.1 fl (80.0-96.0); PLATELET COUNT, AUTOMATED 278 10^3/uL (150-450); WHITE BLOOD COUNT 9.8 10^3/uL (4.0-10.0)
[2018-08-10 09:01] LABS: CALCIUM LEVEL 8.4 MG/DL (8.8-10.2); CREATININE FOR GFR 1.86 MG/DL (0.55-1.30); GLOMERULAR FILTRATION RATE 27.7 (>32); MAGNESIUM LEVEL 2.1 MG/DL (1.8-2.4)
[2018-08-10] MEDS: predniSONE 10 MG TAB PO SCH (09:13)
[2018-08-10] MEDS: FERROUS SULFATE 325MG TAB PO SCH (09:13)
[2018-08-10] MEDS: guaiFENesin ER 600 MG TAB PO SCH ×2 (09:14→21:29)
[2018-08-10] MEDS: SENOKOT S TAB PO SCH ×2 (09:14→21:00)
[2018-08-10 12:00] VITALS: BP 157/76
[2018-08-10] MEDS: ASPIRIN 81 MG ENTERIC TAB PO SCH (12:06)
[2018-08-10] MEDS: VITAMIN D 1,000 INTERNATIONAL UNITS TABLET PO SCH (12:06)
[2018-08-10] MEDS: DOXYCYCLINE HYCLATE 100 MG TAB PO SCH ×2 (12:07→21:29)
--- NOTE | 2018-08-10 13:14 | IPNPDOC ---
Text Note Date of Service The patient was seen on 08/10/18. NOTE Subjective: Patient states her dyspnea is improving. No chest pain or palpita tions. Feels well today. Objective: Vitals: (see below) General: No acute distress, laying comfortably in bed. HEENT: Moist mucous membranes. Neck: No JVD or lymphadenopathy Cardiac: RRR, No murmurs Pulm: Crackles at the bases. Mild exp wheezing, rhonchi. No use of accessory muscles. Abd: NT/ND + BS Ext: 1+ edema or cyanosis Labs (see below) Assessment/Plan 1. Hospital-acquired pneumonia- s/p meropenem and vancomycin. Started on Doxy. Pending cultures. Improving. 2. Acute COPD exacerbation secondary to the above. Continue Advair, Spiriva, steroid taper. Appreciate pulmonary input. 3. Chronic kidney disease stage IV. Creatinine at baseline. Continue to monitor. 4. Diabetes mellitus continue Levemir, slight scale insulin. Hold glipizide for now. 5.Right middle lobe 5mm. Will need outpatient pulmonary follow-up. Will need outpatient CT repeated in [address] Augustine. Patient will need close follow-up with her primary care physician. Daughter states she was aware of the nodule and will be following up closely. 6. Normocytic anemia, anemia chronic disease. B12 deficiency on supplementation. Iron supplementation. 7. History of complete AV block status post PPM 8. History of Crohn's disease will need outpatient follow-up. 9. Lower extremity edema. Cont Lasix. DVT prophy: Heparin subcutaneous Overall prognosis guarded. Pending PT clearance. VS,Fishbone, I+O VS, Fishbone, I+O Laboratory Tests 08/10/18 05:28 Red Blood Count 3.40 L, Mean Corpuscular Volume 94.1, Mean Corpuscular Hemoglobin 27.9, Mean Corpuscular Hemoglobin Concent 29.7 L, Red Cell Distribution Width 15.7 H 08/10/18 05:30 Calcium Level 8.4 L Vital Signs Date Time Temp Pulse Resp B/P (MAP) Pulse Ox O2 Delivery O2 Flow Rate FiO2 08/10/18 12:00 99.1 109 20 157/76 (103) 89 Nasal Cannula 3.0 I&O- Last 24 Hours up to 6 AM 08/10/18 06:00 Intake Total 1370 ml Output Total 700 ml Balance 670 ml SAMIR LOZANO MD Aug 10, 2018 13:14
[2018-08-10 20:00] VITALS: BP 122/70
[2018-08-10] MEDS: GABAPENTIN 300 MG CAP PO SCH (21:29)
[2018-08-11] VITALS: BP 143/75
[2018-08-11 04:00] VITALS: BP 121/65
[2018-08-11] MEDS ORDERED: ACETAMINOPHEN TAB 650MG DOSE (2X325MG) PO PRN (05:00)
[2018-08-11] MEDS ORDERED: FUROSEMIDE 40 MG TAB PO ONE ×2 (05:00→12:00)
[2018-08-11] MEDS: HEPARIN SOD (PORCINE) 5000 UNITS/ML VIAL SC SCH ×3 (05:20→21:55)
[2018-08-11] MEDS: TIOTROPIUM INHALER/CAPSULE (SPIRIVA) INH SCH (07:39)
[2018-08-11] MEDS: ADVAIR HFA 115/21MCG INHALER INH SCH ×2 (07:41→20:34)
[2018-08-11 08:00] VITALS: BP 148/60
[2018-08-11] MEDS: SENOKOT S TAB PO SCH ×2 (09:00→21:52)
[2018-08-11] MEDS: HumaLOG INSULIN (NovoLOG) PER UNIT SC SCH ×4 (09:31→21:00)
[2018-08-11] MEDS: FERROUS SULFATE 325MG TAB PO SCH (09:32)
[2018-08-11] MEDS: predniSONE 10 MG TAB PO SCH (09:32)
[2018-08-11] MEDS: DOXYCYCLINE HYCLATE 100 MG TAB PO SCH ×2 (09:32→21:52)
[2018-08-11] MEDS: guaiFENesin ER 600 MG TAB PO SCH ×2 (09:32→21:52)
--- NOTE | 2018-08-11 11:44 | CR ---
DATE OF CONSULTATION: 08/09/2018 I was asked by Dr. George to evaluate Ms. Knight for an abnormal chest CT scan. Ms. Mayda Knight is an 82-year-old female who the hospitalist requested pulmonary consultation on for the patient's pneumonia, lung disease and pulmonary nodule. The patient is admitted to the hospital currently with hospital associated pneumonia and is being treated with antibiotic therapy. She is currently getting meropenem. Of note, her white blood cell count has been trending down, and she has remained afebrile for many days. On bedside examination, the patient was not short of breath and appeared comfortable lying in bed watching television. She is not a very good historian. She states that she thinks that she is on 6 liters at home of oxygen, but does not see any pulmonary doctor, just sees her primary care doctor. She does think that her breathing has improved since she has come to the hospital. She denies a cough. No wheezing. No chest pain or pressure. No paroxysmal nocturnal dyspnea (PND) or orthopnea. No abdominal pain. No nausea or emesis. She occasionally notes lower extremity edema, but it appears dependent. She denies chills or drenching night sweats. No significant postnasal drip. No gastroesophageal reflux disease (GERD) symptoms. She states that she smoked for 3 years, about a pack a day, in her 20s and then stopped. We did review the patient's prior chest CT, which does show prominent emphysematous disease and a small infiltrate in the right lower lobe. This is accompanied with small right pleural effusion. She also does have a small right sided pulmonary nodule/opacity measuring slightly less than 5 mm in size. It is noted to be a bit irregular in shape. The most recent echocardiogram that we have showed a systolic left ventricular ejection fraction of 55% with mild aortic valve sclerosis and mild mitral annular calcifications. PAST MEDICAL HISTORY: 1. Crohn's disease. 2. Type 2 diabetes. 3. History of chronic kidney disease. 4. History of systolic heart failure. 5. Coronary artery disease, status post pacemaker placement. 6. 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 7. History of Clostridium (C.) difficile infection. 8. Stress incontinence. 9. History of tobacco usage. PAST SURGICAL HISTORY: 1. Aortobifemoral bypass. 2. Cataract surgery. 3. Cholecystectomy. 4. section. ALLERGIES: Reportedly to PENICILLIN. FAMILY HISTORY: Her son has hypertension. Coronary artery disease in a sister and a son. History of cancer in her mother, sister and daughter. History of chronic obstructive lung disease in her sister. SOCIAL HISTORY: The patient tells me that she only smoked for 3 years in her early 20s, one pack a day; however, records indicate that she was a heavy smoker for the past 30 years, this would correlate with her CT findings of emphysematous changes. No alcohol or illicit drug use. MEDICATIONS: Taken from medical records: - prednisone 10 mg daily - melatonin 10 mg at bedtime daily - insulin glargine 15 units subcutaneously daily - glipizide 5 mg orally daily - gabapentin 300 mg orally at bedtime daily - Lasix 40 mg orally per day - ferrous sulfate 325 mg orally per day - cyanocobalamin 1000 mcg intramuscularly every week - cholecalciferol 1000 units by mouth daily - calcitriol 0.25 mg orally daily - aspirin 81 mg by mouth daily - amitriptyline 25 mg by mouth daily - albuterol inhaler every 4 hours as needed - prednisone 10 mg daily - Solu-Medrol/fluticasone one puff inhaled twice a day - ipratropium bromide one inhalation daily REVIEW OF SYSTEMS: Per history of present illness, remainder of pertinent review of systems is negative. PHYSICAL EXAMINATION: VITAL SIGNS: Temperature 98.0, pulse 94, respiratory rate 19, blood pressure 100/60, pulse oximetry 92% on 4 liters. HEENT: Dentures. Moist mucous membranes. Mallampati 3. Nares patent Bilaterally. NECK: Supple, without jugular venous distention (JVD), without thyromegaly or masses. LYMPHS: Without cervical or supraclavicular lymphadenopathy. CHEST: Normal shape. RESPIRATORY: Symmetric excursion. The patient has decreased breath sounds with bibasilar crackles, could not appreciate any rhonchi or wheeze. She was hyperresonant to percussion. Normal to I:E. No accessory muscle usage or retractions. CARDIOVASCULAR: Regular rate and rhythm. Normal S1, S2 without any murmurs, rubs or gallops. ABDOMEN: Soft. Normoactive bowel sounds times four. No appreciable hepatosplenomegaly. No pain to palpation. No distention. No rebound or guarding. EXTREMITIES: Some mild, trace, bilateral lower extremity edema. Otherwise, no cyanosis, mottling appreciated. No clubbing. Palpable pedal pulses bilaterally. SKIN: No rashes, significant bruising on face and extremities.. LABORATORIES: White blood cell count 11, hemoglobin and hematocrit 9.9 and 33.7, respectively with a platelet count of 254, sodium 134, potassium 4.3, BUN and creatinine 46 and 2.06, respectively with a fasting glucose of 264 and a calcium of 8.6, C-reactive protein noted to be 3.76. ABG performed yesterday showed a pH of 7.36, PCO2 of 48.2, PO2 of 89.1. Bicarbonate was not obtained on laboratory evaluation as the patient seemingly did not have laboratories drawn yesterday. IMAGING: We reviewed her chest x-ray as well as the report from 08/05/2018. That x-ray showed enlarged cardiac silhouette with normal appearing pulmonary vascular shadows. Normal appearing mediastinal region. There was increased interstitial markings bilaterally. There was a right lower lobe infiltrate. We also reviewed her chest CT scan as well as the report from 08/05/2018. That CT scan showed enlarged cardiac silhouette, likely normal pulmonary vascular shadows. No mediastinal or hilar adenopathy. There was patchy infiltrate in the right lower lobe that per the report is more extensive than that from her 07/19/2018 CT scan, though on our view, it was not significantly different. There are bilateral emphysematous changes, most predominantly upper lobes. There was linear fibrosis in the left upper lobe. There was a tiny left pleural effusion. There were scattered regions of fibroatelectasis. There were two small opacities along the fissure in the right upper lobe, the largest of which is slightly less than 5 mm. ASSESSMENT AND PLAN: 1. Abnormal chest CT scan, pulmonary nodule/opacities. I also reviewed her chest CT scan from 07/19/2018. She had a nodular opacity on that CT scan in the right middle lobe that was measured at around 5 mm. On this scan, she now has a right upper lobe nodular opacity. Both of these are likely inflammatory in nature. Regardless, I DO NOT RECOMMEND FOLLOWUP FOR THESE LESIONS: If you were to follow these based on the Fleischner Society guidelines, their recommendation would be to "consider" a followup chest CT scan in 1 year if her heavy smoking history was to be considered or not to follow it up at all if her self reported history of a very light smoking history years ago were to be followed. Given her age, I would not recommend a followup CT even if the heavy smoking history was accurate. Per the NCCN guidelines, it would be to re-enroll her in the lung cancer screening program in one year, which she is not a candidate for because she is of her age. Therefore, combining the recommendations of both of these societies, I do not feel that this lesion needs to be followed up and recommend against that. 2. Hypoxemia. This could likely represent a component of pulmonary edema. Would continue with oxygen therapy. We did wean down the patient while she was in the room from 5 liters down to 3 liters and she sees to be saturating well. She is in no acute distress without conversational dyspnea. 3. Compensated heart failure. The patient does appear compensated. RECOMMENDATIONS: 1. Recommend against following the pulmonary lesions. 2. Agree with treatment for pneumonia. Thank you for this consultation. If you have any further questions, please feel free to reach out to pulmonology and reconsult. ERICKA
[2018-08-11 12:00] VITALS: BP 156/74
--- NOTE | 2018-08-11 13:05 | IPNPDOC ---
Text Note Date of Service The patient was seen on 08/11/18. NOTE Subjective: Dyspnea improving and ambulating with PT. No chest pain or palpitations. Lower extremity edema improving. Objective: Vitals: (see below) General: No acute distress, laying comfortably in bed. HEENT: Moist mucous membranes. Neck: No JVD or lymphadenopathy Cardiac: RRR, No murmurs Pulm: Crackles at the bases. Mild exp wheezing, rhonchi. No use of accessory muscles. Abd: NT/ND + BS Ext: Trace to 1+ edema or cyanosis Labs (see below) Assessment/Plan 1. Hospital-acquired pneumonia- s/p meropenem and vancomycin. Started on Doxy. Pending cultures. Improving. 2. Acute COPD exacerbation secondary to the above. Continue Advair, Spiriva, steroid taper. Appreciate pulmonary input. 3. Chronic kidney disease stage IV. Creatinine at baseline. Continue to monitor. 4. Diabetes mellitus continue Levemir, slight scale insulin. Hold glipizide for now. 5.Right middle lobe 5mm. Will need outpatient pulmonary follow-up. Will need outpatient CT repeated in [address] Augustine. Patient will need close follow-up with her primary care physician. Daughter states she was aware of the nodule and will be following up closely. 6. Normocytic anemia, anemia chronic disease. B12 deficiency on supplementation. Iron supplementation. 7. History of complete AV block status post PPM 8. History of Crohn's disease will need outpatient follow-up. 9. Lower extremity edema. Restarted on home dose of Lasix as blood pressure is improved. DVT prophy: Heparin subcutaneous Overall prognosis guarded. Pending PT clearance. VS,Fishbone, I+O VS, Fishbone, I+O Vital Signs Date Time Temp Pulse Resp B/P (MAP) Pulse Ox O2 Delivery O2 Flow Rate FiO2 08/11/18 12:00 96.4 87 18 156/74 (101) 95 Nasal Cannula 3.0 I&O- Last 24 Hours up to 6 AM 08/11/18 06:00 Intake Total 1070 ml Output Total 700 ml Balance 370 ml SAMIR LOZANO MD Aug 11, 2018 13:05
[2018-08-11] MEDS: VITAMIN D 1,000 INTERNATIONAL UNITS TABLET PO SCH (13:48)
[2018-08-11] MEDS: ASPIRIN 81 MG ENTERIC TAB PO SCH (13:49)
[2018-08-11] MEDS ORDERED: SLF 3 ML SYR IV PRN (18:00)
[2018-08-11 20:00] VITALS: BP 128/58
[2018-08-11] MEDS: GABAPENTIN 300 MG CAP PO SCH (21:52)
[2018-08-11] MEDS: SLF 3 ML SYR IV SCH (21:55)
[2018-08-11] MEDS: NYSTATIN 500,000 U/5 ML SUSP UDC SS SCH (22:37)
[2018-08-12 04:10] VITALS: BP 134/73
[2018-08-12] MEDS: SLF 3 ML SYR IV SCH ×2 (05:21→14:00)
[2018-08-12] MEDS: HEPARIN SOD (PORCINE) 5000 UNITS/ML VIAL SC SCH ×2 (05:46→14:00)
[2018-08-12] MEDS: HumaLOG INSULIN (NovoLOG) PER UNIT SC SCH ×2 (07:30→12:00)
[2018-08-12] MEDS: TIOTROPIUM INHALER/CAPSULE (SPIRIVA) INH SCH (07:36)
[2018-08-12] MEDS: ADVAIR HFA 115/21MCG INHALER INH SCH (07:37)
[2018-08-12 08:00] VITALS: BP 126/59
[2018-08-12 08:57] LABS: HEMATOCRIT 34.9 % (36.0-47.0); HEMOGLOBIN 10.6 g/dl (12.0-15.5); MEAN CORPUSCULAR HGB CONC 30.4 g/dl (32.0-36.5); MEAN CORPUSCULAR VOLUME 92.3 fl (80.0-96.0); PLATELET COUNT, AUTOMATED 331 10^3/uL (150-450); RED BLOOD COUNT 3.78 10^6/uL (4.00-5.40); WHITE BLOOD COUNT 9.9 10^3/uL (4.0-10.0)
[2018-08-12] MEDS ORDERED: FUROSEMIDE 40 MG TAB PO SCH (09:00)
[2018-08-12 09:05] LABS: CALCIUM LEVEL 8.6 MG/DL (8.8-10.2); CREATININE FOR GFR 1.73 MG/DL (0.55-1.30); GLOMERULAR FILTRATION RATE 30.1 (>32); POTASSIUM SERUM 4.2 MEQ/L (3.5-5.1)
[2018-08-12] MEDS: NYSTATIN 500,000 U/5 ML SUSP UDC SS SCH (09:48)
[2018-08-12] MEDS: FERROUS SULFATE 325MG TAB PO SCH (09:48)
[2018-08-12] MEDS: DOXYCYCLINE HYCLATE 100 MG TAB PO SCH (09:48)
[2018-08-12] MEDS: predniSONE 10 MG TAB PO SCH (09:48)
[2018-08-12] MEDS: guaiFENesin ER 600 MG TAB PO SCH (09:48)
[2018-08-12] MEDS: SENOKOT S TAB PO SCH (09:48)
[2018-08-12] MEDS: VITAMIN D 1,000 INTERNATIONAL UNITS TABLET PO SCH (12:59)
[2018-08-12] MEDS: ASPIRIN 81 MG ENTERIC TAB PO SCH (12:59)
--- NOTE | 2018-08-12 15:19 | DS.PDOC ---
Discharge Summary General Date of Admission Aug 05, 2018 at 17:52 Date of Discharge 08/12/18 Attending Physician: SAMIR LOZANO MD Specialist/Consultants Involve: Nuzhat CROFT MD Discharge Summary PROCEDURES PERFORMED DURING STAY: None. ADMITTING/DISCHARGE DIAGNOSES: 1. Acute COPD exacerbation secondary to healthcare cord pneumonia 2. Chronic kidney disease stage 3-4 3. Diabetes mellitus 4. Pulmonary nodule 5. Normocytic anemia 6. History of complete AV block status post PPM 7. History of Crohn's disease COMPLICATIONS/CHIEF COMPLAINT: Shortness of breath and cough HISTORY OF PRESENT ILLNESS/HOSPITAL COURSE: This 82-year-old female past medical history of COPD, chronic kidney disease, diabetes mellitus, status post PPM, history of Crohn's disease with presents complaining of shortness of breath and cough. Patient was noted to have a healthcare acquired pneumonia and started on meropenem and vancomycin. Patient tolerated therapy well and was transitioned to doxycycline. Over the course of hospitalization, the patient was treated for COPD exacerbation since admission, and Dr. Croft was consulted for assistance. Patient progressed well, was restarted on her diuretics, and is hemodynamically stable. The patient is now doing well physical therapy and has been cleared for discharge. Patient will be discharged today to home. DISCHARGE MEDICATIONS: Please see below. ALLERGIES: Please see below. PHYSICAL EXAMINATION ON DISCHARGE: Objective: Vitals: (see below) General: No acute distress, laying comfortably in bed. HEENT: Moist mucous membranes. Neck: No JVD or lymphadenopathy Cardiac: RRR, No murmurs Pulm: Crackles at the bases improved. No wheezing, rhonchi. No use of accessory muscles. Abd: NT/ND + BS Ext: Trace edema. No cyanosis LABORATORY DATA: Please see below. PROGNOSIS: Poor given comorbidities ACTIVITY: As tolerated. DIET: Renal diet, low-sodium diet DISCHARGE PLAN/DISPOSITION: Home DISCHARGE INSTRUCTIONS: 1. Follow-up with PCP and pulmonary in 1-2 weeks. Return to the ED if symptoms worsen. DISCHARGE CONDITION: Stable. TIME SPENT ON DISCHARGE: Greater than 30 minutes. Vital Signs/I&Os Vital Signs Date Time Temp Pulse Resp B/P (MAP) Pulse Ox O2 Delivery O2 Flow Rate FiO2 08/12/18 08:00 97.8 93 18 126/59 (81) 94 Nasal Cannula 2.0 I&O- Last 24 Hours up to 6 AM 08/12/18 06:00 Intake Total 1200 ml Output Total 700 ml Balance 500 ml Laboratory Data Labs 24H Laboratory Tests 2 08/11/18 16:37: Bedside Glucose (Misc Panel) 204H 08/11/18 20:33: Bedside Glucose (Misc Panel) 142H 08/12/18 05:16: C-Reactive Protein, Quantitative 2.66H 08/12/18 06:15: Bedside Glucose (Misc Panel) 89 08/12/18 08:36: Nucleated Red Blood Cells % (auto) 0.0, Anion Gap 10, Glomerular Filtration Rate 30.1L, Blood Urea Nitrogen 41H, Creatinine 1.73H, Sodium Level 141, Potassium Level 4.2, Chloride Level 106, Carbon Dioxide Level 25, Calcium Level 8.6L 08/12/18 11:52: Bedside Glucose (Misc Panel) 293H CBC/BMP Laboratory Tests 08/12/18 08:36 Red Blood Count 3.78 L, Mean Corpuscular Volume 92.3, Mean Corpuscular Hemoglobin 28.0, Mean Corpuscular Hemoglobin Concent 30.4 L, Red Cell Distribution Width 15.8 H, Calcium Level 8.6 L FSBS Laboratory Tests Test 08/11/18 16:37 08/11/18 20:33 08/12/18 06:15 08/12/18 11:52 Range/Units Bedside Glucose (Misc Panel) 204 142 89 293 83-110 MG/DL Microbiology Microbiology 08/05/18 Blood Culture - Final, Complete NO GROWTH AFTER 5 DAYS 08/05/18 Blood Culture - Final, Complete NO GROWTH AFTER 5 DAYS Discharge Medications Scheduled Amitriptyline HCl (Amitriptyline HCl) 25 Mg Tab, 25 MG PO QHS, (Reported) Aspirin (Aspirin EC) 81 Mg Tabec, 81 MG PO DAILY, (Reported) TAKES AT LUNCHTIME Calcitriol (Calcitriol) 0.25 Mcg Cap, 0.25 MG PO DAILY, (Reported) TAKES AT LUNCHTIME Cholecalciferol (Vitamin D3) 1,000 Unit Tab, 1,000 UNIT PO DAILY, (Reported) TAKES AT LUNCHTIME Cyanocobalamin (Cyanocobalamin) 1,000 Mcg/1 Ml Inj, 1 ML IM QWEEK, (Reported) Ferrous Sulfate (Ferrous Sulfate) 325 Mg Tab, 325 MG PO DAILY, (Reported) Furosemide (Lasix) 40 Mg Tab, 40 MG PO DAILY, (Reported) TAKES AT LUNCHTIME Gabapentin (Gabapentin) 300 Mg Cap, 300 MG PO QHS, (Reported) Glipizide (Glipizide) 5 Mg Tab, 5 MG PO DAILY, (Reported) LUNCHTIME Insulin Glargine (Lantus) 1 Units/0.01 Ml Susp, 15 UNITS SC DAILY, (Reported) Melatonin (Melatonin) 5 Mg Tab, 10 MG PO QHS, (Reported) Prednisone (Prednisone) 10 Mg Tab, 10 MG PO DAILY, (Reported) Salmeterol/Fluticasone (Advair Diskus 250-50 Mcg/Dose) 14 Puff/Inhaler Aerp, 1 PUFF INH BID, (Reported) Tiotropium [place] Monohydrate (Spiriva Handihaler) 18 Mcg Cap, 1 INHALATION INH DAILY, (Reported) Scheduled PRN Albuterol Sulfate (Proair Hfa) 108 Mcg/Act Aer, 2 PUFF INH Q4H PRN for SHORTNESS OF BREATH, (Reported) Albuterol Sulfate (Albuterol Sulfate) 0.63 Mg/3 Ml Neb, 0.63 MG INH Q4H PRN for SHORTNESS OF BREATH, (Reported) Allergies Coded Allergies: Penicillins (Verified Allergy, Intermediate, 08/05/18) DIZZINESS/RASH SAMIR LOZANO MD Aug 12, 2018 15:19
== END 2018-08-12 16:37 | disposition home or self-care (01) | DRG 190 ==
LOC: M ED 13:41 → EDBD 13:41 → M ED INP 17:52 → M PCU 20:32
PROVIDERS: ADMIT Internal Medicine; ATTEND Internal Medicine
DX: J44.1 Chronic obstructive pulmonary disease with (acute) exacerbation (principal); J18.9 Pneumonia, unspecified organism; J96.11 Chronic respiratory failure with hypoxia; N18.4 Chronic kidney disease, stage 4 (severe); I50.32 Chronic diastolic (congestive) heart failure; R91.1 Solitary pulmonary nodule; E11.9 Type 2 diabetes mellitus without complications; D64.9 Anemia, unspecified; K52.9 Noninfective gastroenteritis and colitis, unspecified; Z79.899 Other long term (current) drug therapy; Z79.82 Long term (current) use of aspirin; Z79.4 Long term (current) use of insulin; Z88.0 Allergy status to penicillin; Z99.81 Dependence on supplemental oxygen; I25.10 Atherosclerotic heart disease of native coronary artery without angina pectoris; Z95.0 Presence of cardiac pacemaker; E53.8 Deficiency of other specified B group vitamins; Z87.891 Personal history of nicotine dependence

== ENCOUNTER 2018-08-30 12:02 | Inpatient (IN) | payer MEDICARE ==
[~2018-08-30] VITALS: Ht 154.9 cm; Wt 53.7 kg
[~2018-08-30 12:02] MED LIST changes: +GABA-843 PO
--- NOTE | 2018-08-30 12:57 | REP ---
Chest one-view HISTORY: Cough Comparison: 08/08/2018 A diffuse increase in interstitial markings is present in the lungs consistent with chronic interstitial fibrosis. Parenchymal density is present in the right middle and lower lobes consistent with an infiltrate. The right lower lobe infiltrate is new. The cardiac silhouette is enlarged. The pulmonary vasculature is normal in appearance. A cardiac pacemaker is present. Impression: 1. Chronic interstitial fibrosis. 2. Right middle lobe and lower lobe infiltrates. The right middle lobe infiltrate is new. 3. Cardiomegaly. Electronically Signed by Joshua Kaur MD 08/30/2018 12:49 P
[2018-08-30] MEDS ORDERED: cefTRIAXone SOD 2 GM in D5W MINI-BAG PLUS 50 ML IV ONE (13:00)
[2018-08-30] MEDS ORDERED: AZITHROMYCIN INJ 500 MG, VIAL MATE ADAPTER 1 EACH in D5W 250 ML IV ONE (13:00)
[2018-08-30 13:10] LABS: ABG HCO3 32.3 MEQ/L (22.0-26.0); ABG O2 SATURATION 88.6 % (95.0-99.0); ABG PARTIAL PRESSURE CO2 49.5 mmHg (35.0-45.0); ABG PARTIAL PRESSURE O2 56.9 mmHg (75.0-100.0); ABG STANDARD HCO3 30.7 MEQ/L (22.0-26.0); ABG TOTAL CO2 33.9 MEQ/L (23.0-31.0); ABG pH (ARTERIAL) 7.433 UNITS (7.350-7.450)
[2018-08-30 13:14] LABS: BASO % 0.2 % (0.0-1.0); EOS % 0.3 % (0.0-3.0); HEMATOCRIT 37.1 % (36.0-47.0); HEMOGLOBIN 11.3 g/dl (12.0-15.5); LYMPH # 0.4 10^3/uL (1.5-4.5); MEAN CORPUSCULAR HEMOGLOBIN 27.9 pg (27.0-33.0); MEAN CORPUSCULAR HGB CONC 30.5 g/dl (32.0-36.5); MEAN CORPUSCULAR VOLUME 91.6 fl (80.0-96.0); MONO # 0.5 10^3/uL (0.0-0.8); MONO % 4.4 % (0.0-5.0); NEUTROPHILS # 10.8 10^3/uL (1.8-7.7); NEUTROPHILS % 91.3 % (36.0-66.0); PLATELET COUNT, AUTOMATED 341 10^3/uL (150-450); RED BLOOD COUNT 4.05 10^6/uL (4.00-5.40); WHITE BLOOD COUNT 11.9 10^3/uL (4.0-10.0)
[2018-08-30] MEDS ORDERED: IPRATROPIUM 0.5MG/ALBUTEROL 2.5MG INH SOL UD 3ML (DUONEB)(J7620) NEB ONE (13:15)
[2018-08-30 13:48] LABS: CALCIUM LEVEL 9.9 MG/DL (8.8-10.2); CREATININE FOR GFR 2.01 MG/DL (0.55-1.30); GLOMERULAR FILTRATION RATE 25.3 (>32); MB/CK RELATIVE INDEX 12.08 (< OR =4); POTASSIUM SERUM 4.5 MEQ/L (3.5-5.1); TROPONIN I 0.04 NG/ML (< 0.10)
[2018-08-30] MEDS ORDERED: CITA-229 PO (14:13)
[2018-08-30] MEDS ORDERED: TREL1AER INH (14:13)
[2018-08-30] MEDS ORDERED: ALBUTEROL 90 MCG/ACT 8GM HFA INHALER INH PRN (14:30)
[2018-08-30] MEDS ORDERED: ALBUTEROL SULFATE 2.5 MG/0.5 ML INH NEB SOLN INH PRN (14:30)
[2018-08-30] MEDS ORDERED: HumaLOG INSULIN (NovoLOG) PER UNIT SC ONE (15:00)
[2018-08-30] MEDS ORDERED: LEVEMIR (INSULIN DETEMIR) 1 UNITS/0.01ML SC ONE (15:00)
[2018-08-30] MEDS ORDERED: MEROPENEM INJ 1 GM in APPROPRIATE DILUENT 1 EA IV SCH (16:00)
--- NOTE | 2018-08-30 16:05 | PHACANCOPD ---
PHARMACY VANCOMYCIN DOSING Pt Demographics Demographics Patient Age:82 , Weight:54.550 , Gender: female Adjusted Body Weight Date: 08/30/18, Adjusted Body Weight: 50.5 Kg Events Past 24 Hours Events Past 24 Hours: YES: Elevation in WBC Vancomycin Vancomycin indication: RESPIRATORY INFECTION Vancomycin Target Ranges: 15-20 mcg/ml Vancomycin Load Y/N: Yes Load Dose Date Time Vancomycin Load Dose: 750MG Date: 08/30/18 Time: 2100 Vancomycin Dose Date: 08/30/18. Current Vancomycin Dose: 1 GRAM Q24 HOURS STARTING 08/31/18 @0900 Intermittent Dosing?: No Labs Labs Item Value Date Time White Blood Count 11.9 10^3/uL H 08/30/18 1248 Creatinine 2.01 MG/DL H 08/30/18 1248 Micro Microbiology 08/30/18 Blood Culture, Received Pending 08/30/18 Blood Culture, Received Pending Creatinine Clearance Date:08/30/18. Creatinine Clearance: 17 Assessment and Plan Maintaining Current Dose?: Yes Reason for dose change: No Dose Change Pharmacist Note Pharmacist Note Date: 08/30/18. Pharmacist note: Pharmacy consult placed for this patient being treated for respiratory infection. Patient also receiving meropenem 500mg q12h. Current CrCl is 17 ml/min. Based on patient's history of IV vancomycin here at [facility] and similar renal function I loaded patient with 750mg Vancomycin IV @2100. Then 1G IV vancomycin q24h starting on 08/31/18 @0900. Will continue to monitor patient in am and determine timing of first trough. MO[facility] Aug 30, 2018 16:05
--- NOTE | 2018-08-30 17:36 | HPE ---
DATE OF ADMISSION: 08/30/2018 This is an 82-year-old female with past medical history of chronic obstructive pulmonary disease (COPD) , chronic kidney disease (CKD) IV, diabetes, history of Crohn's disease who presents to the emergency room with generalized weakness and a dry cough with mild chills. She was recently admitted and with a discharge diagnosis of community-acquired pneumonia. It was a right lower lobe consolidation. Patient was on intravenous (IV) meropenem and vancomycin. We switched it to by mouth doxycycline, and she did go home. She said that ever since she has been home she has never been quite the same and has been progressively getting worse. She had mild shortness of breath but no subjective feeling of fevers, but, again, did have chills. Her appetite started decreasing, so she came to the emergency room (ER) for evaluation. In the ER she had a chest x-ray, which shows new right middle lobe pneumonia. Patient was given a nebulizer treatment and was started on Rocephin and Zithromax, and she will be admitted for further management. PAST MEDICAL HISTORY: 1. Oxygen-dependent COPD requiring 2 liters nasal cannula. 2. History of CKD IV. 3. Diabetes. 4. Crohn's disease. 5. Chronic diastolic heart failure. 6. Coronary artery disease, status post percutaneous coronary intervention (PCI). PAST SURGICAL HISTORY: 1. section. 2. Cholecystectomy. 3 Aortobifemoral bypass. 4. Bilateral cataract surgery. ALLERGIES: PENICILLIN. FAMILY HISTORY: Noncontributory. SOCIAL HISTORY: Patient was a heavy smoker. Quit approximately 30 years ago. Denies alcohol or illicit drugs. HOME MEDICATIONS: - albuterol as needed - aspirin 81 mg orally daily - calcitriol 0.25 mg orally daily - Celexa 10 mg orally daily - Lasix 40 mg orally daily - glipizide 5 mg orally daily - Lantus 15 units subcutaneous daily - melatonin 10 mg orally at bedtime - prednisone 10 mg orally daily - Trelegy Ellipta one puff inhaled daily REVIEW OF SYSTEMS: Review for all 10 major systems except what is mentioned in the history of present illness (HPI). VITAL SIGNS: Blood pressure is 139/63, heart rate is 96, regular, respiratory rate is 16, temperature is 98.4, oxygen saturation is 95% on 3 liters nasal cannula. HEAD: Atraumatic, normocephalic. NECK: Supple. No jugular venous distention (JVD). LUNGS: Have diminished breath sounds on the right base. HEART: S1, S2 audible. No murmurs appreciated. ABDOMEN: Soft. Positive bowel sounds. No pedal edema. SKIN: Intact. NEUROLOGIC: Patient awake, alert, oriented times three. LABORATORY DATA: WBC 11.9, hemoglobin 11.3, hematocrit 37.1, platelets are 341,000. Sodium 131, potassium 4.5, chloride 89, CO2 of 34, BUN 46, creatinine 2.01, fasting glucose 578, lactic acid is 1.6. Troponin 0.04. Arterial blood gas: A pH of 7.433, pCO2 of 49.5, pO2 is 56.9. IMPRESSION: Hospital-acquired pneumonia. PLAN: Patient is to be admitted to the medical/surgical floor. Will give the patient IV meropenem 500 every 12 and start her on vancomycin 1 gram daily. Will get sputum cultures if possible, but she has been only having a dry cough. Will continue all her preadmission medications and continue her on her current oxygen regimen.
[2018-08-30] MEDS: MEROPENEM INJ 500 MG in APPROPRIATE DILUENT 1 EA IV SCH (17:38)
--- NOTE | 2018-08-30 19:09 | ECGEPIP ---
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
[2018-08-30] MEDS ORDERED: DEXTROSE 50% 50 ML SYRINGE IV PRN (20:30)
[2018-08-30] MEDS ORDERED: GLUCAGON FOR INJ 1 MG VIAL (J1610) SC PRN (20:30)
[2018-08-30] MEDS ORDERED: GLUCOSE 4 GM CHEW TABLET PO PRN (20:30)
[2018-08-30] MEDS ORDERED: VANCOMYCIN HCL 750 MG, VIAL MATE ADAPTER 1 EACH in D5W 250 ML IV ONE (21:00)
[2018-08-30] MEDS: HumaLOG INSULIN (NovoLOG) PER UNIT SC SCH (21:34)
[2018-08-30 21:40] VITALS: BP 117/74
[2018-08-31 00:35] VITALS: BP 127/91
[2018-08-31 04:15] VITALS: BP 133/60
[2018-08-31] MEDS: MEROPENEM INJ 500 MG in APPROPRIATE DILUENT 1 EA IV SCH ×2 (04:35→18:29)
[2018-08-31] MEDS: IPRATROPIUM 0.5MG/ALBUTEROL 2.5MG INH SOL UD 3ML (DUONEB)(J7620) NEB SCH ×6 (04:36→23:52)
[2018-08-31] MEDS: HEPARIN SOD (PORCINE) 5000 UNITS/ML VIAL SQ SCH ×3 (06:07→22:12)
[2018-08-31 06:44] LABS: ABG BASE EXCESS 10.3 (-2.0-2.0); ABG HCO3 36.3 MEQ/L (22.0-26.0); ABG O2 SATURATION 90.5 % (95.0-99.0); ABG PARTIAL PRESSURE CO2 55.5 mmHg (35.0-45.0); ABG PARTIAL PRESSURE O2 58.3 mmHg (75.0-100.0); ABG STANDARD HCO3 33.9 MEQ/L (22.0-26.0); ABG pH (ARTERIAL) 7.433 UNITS (7.350-7.450)
[2018-08-31 07:19] LABS: BASO % 0.3 % (0.0-1.0); EOS # 0.3 10^3/uL (0.0-0.50); HEMOGLOBIN 10.3 g/dl (12.0-15.5); LYMPH % 7.4 % (24.0-44.0); MEAN CORPUSCULAR HEMOGLOBIN 27.5 pg (27.0-33.0); MEAN CORPUSCULAR HGB CONC 29.4 g/dl (32.0-36.5); MEAN CORPUSCULAR VOLUME 93.6 fl (80.0-96.0); MONO % 7.6 % (0.0-5.0); NEUTROPHILS # 10.7 10^3/uL (1.8-7.7); NEUTROPHILS % 82.2 % (36.0-66.0); PLATELET COUNT, AUTOMATED 318 10^3/uL (150-450); RED BLOOD COUNT 3.74 10^6/uL (4.00-5.40)
[2018-08-31] MEDS: HumaLOG INSULIN (NovoLOG) PER UNIT SC SCH ×4 (07:30→20:17)
[2018-08-31 07:42] LABS: CREATININE FOR GFR 1.74 MG/DL (0.55-1.30); GLOMERULAR FILTRATION RATE 29.9 (>32); POTASSIUM SERUM 3.6 MEQ/L (3.5-5.1)
[2018-08-31 07:48] VITALS: BP 102/56
[2018-08-31] MEDS: LEVEMIR (INSULIN DETEMIR) 1 UNITS/0.01ML SC SCH (08:34)
[2018-08-31] MEDS: VANCOMYCIN HCL 1,000 MG, VIAL MATE ADAPTER 1 EACH in D5W 250 ML IV SCH (08:34)
[2018-08-31] MEDS: ASPIRIN 81 MG ENTERIC TAB PO SCH (08:35)
[2018-08-31] MEDS: CitaloPRAM (CeleXA) 10 MG TABLET PO SCH (08:35)
[2018-08-31] MEDS: predniSONE 10 MG TAB PO SCH (08:35)
[2018-08-31] MEDS: CALCITRIOL 0.25 MCG CAP (S0169) PO SCH (08:35)
[2018-08-31] MEDS: FUROSEMIDE 40 MG TAB PO SCH (08:35)
[2018-08-31] MEDS ORDERED: glipiZIDE (GLUCOTROL) 5 MG TAB PO SCH (09:00)
[2018-08-31] MEDS ORDERED: SODIUM CHLORIDE HYPERTONIC 3% 15ML NEB SOL NEB ONE (12:15)
[2018-08-31 15:48] VITALS: BP 115/56
[2018-08-31 20:30] VITALS: BP 128/80
--- NOTE | 2018-08-31 22:33 | IPNPDOC ---
Text Note Date of Service The patient was seen on 08/31/18. NOTE S: pt seen at bedside in ER. No reported events overnight. Continues feeling sob and requiring 4-5L NC, whereas she is chronically on 2L. Unable to bring up sputum. No f/c/n/v/changes in bowel habits/cp PE: General: pleasant elderly frail-appearing female laying in bed, A&Ox3 HEENT: NCAT, anicteric sclera, MMM CV: RRR Pulm: distant lung sounds, with decreased sounds on rt base and middle compared to left, equal chest rise. No rales GI: normoactive bowel sounds, soft, NT, ND MSK: able to move all extremities Extremities: 2+ radial pulses. A/P: 82 yo F recently discharged for CAP, but didn't improve at home, thus returned to ER and now re-admitted. HCAP rt middle lobe PNA on admission CXR. ABG this am is ~stable from admission continue on Vanc & Odette. Blood cx pending pt unable to cough up sputum. Will attempt hypertonic saline and sputum cx continue supplemental O2, neb tx, maintain O2 88-92% COPD with chronic interstitial fibrosis chronically on 2L NC, but requiring 4-5L her sob may be multifactorial and also have an underlying COPD exacerbation factor triggered by her PNA. Clinically monitor improvement, and will consider started IV steroids if needed currently, continue home chronic po 10mg prednisone & duonebs Chronic Diastolic CHF compensated. Continue home lasix. Of note, Pro-BNP on admit >55,000, although no signs of fluid overload on exam will closely monitor I/O and assess progress. Will consider obtaining repeat level to confirm BNP and starting IV diuresis if needed CAD s/p PCI. Continue ASA CKD IV stable, baseline Cr 1.8-2 Diabetes ISS inpt replacing home Glipizide & Lantus Depression stable, cont celexa Hx Crohn's disease not on any meds DVT ppx: heparin sc DISPO: pending clinical improvement. VS,Fishbone, I+O VS, Fishbone, I+O Laboratory Tests 08/31/18 07:10 Red Blood Count 3.74 L, Mean Corpuscular Volume 93.6, Mean Corpuscular Hemoglobin 27.5, Mean Corpuscular Hemoglobin Concent 29.4 L, Red Cell Distribution Width 15.8 H, Neutrophils (%) (Auto) 82.2 H, Lymphocytes (%) (Auto) 7.4 L, Monocytes (%) (Auto) 7.6 H, Eosinophils (%) (Auto) 2.0, Basophils (%) (Auto) 0.3, Neutrophils # (Auto) 10.7 H, Lymphocytes # (Auto) 1.0 L, Monocytes # (Auto) 1.0 H, Eosinophils # (Auto) 0.3, Basophils # (Auto) 0.0, Calcium Level 10.0 Vital Signs Date Time Temp Pulse Resp B/P (MAP) Pulse Ox O2 Delivery O2 Flow Rate FiO2 08/31/18 15:49 4.5 08/31/18 15:48 98.7 101 22 115/56 (75) 90 08/30/18 17:33 Nasal Cannula I&O- Last 24 Hours up to 6 AM 08/31/18 06:00 Intake Total 760 ml Output Total 700 ml Balance 60 ml GME ATTESTATION GME ATTESTATION My faculty preceptor for this patient encounter was physically present during the encounter and was fully available. All aspects of the patient interview, examination, medical decision making process, and medical care plan development were reviewed and approved by the faculty preceptor. The faculty preceptor is aware and concurs with the plan as stated in the body of this note and will attest to such by his/her cosignature. ROSA BROOKS DO Aug 31, 2018 22:33
[2018-09-01] MEDS: MEROPENEM INJ 500 MG in APPROPRIATE DILUENT 1 EA IV SCH ×2 (04:54→18:01)
[2018-09-01] MEDS: HEPARIN SOD (PORCINE) 5000 UNITS/ML VIAL SQ SCH ×3 (05:39→21:08)
[2018-09-01 06:00] VITALS: BP 118/74
[2018-09-01] MEDS: HumaLOG INSULIN (NovoLOG) PER UNIT SC SCH ×4 (07:30→20:28)
[2018-09-01 08:26] LABS: C REACTIVE PROTEIN QUANTITATIV 3.74 MG/DL (0.00-0.30); VANCOMYCIN LEVEL TROUGH 17.5 UG/ML (10.0-20.0)
[2018-09-01] MEDS: SODIUM CHLORIDE HYPERTONIC 3% 15ML NEB SOL NEB ONE (08:30)
--- NOTE | 2018-09-01 08:39 | PHACANCOPD ---
PHARMACY VANCOMYCIN DOSING Pt Demographics Demographics Patient Age:82 , Weight:54.550 , Gender: female Adjusted Body Weight Date: 08/30/18, Adjusted Body Weight: 50.5 Kg Vancomycin Vancomycin indication: RESPIRATORY INFECTION Vancomycin Target Ranges: 15-20 mcg/ml Vancomycin Load Y/N: Yes Load Dose Date Time Vancomycin Load Dose: 750MG Date: 08/30/18 Time: 2100 Vancomycin Dose Date: 08/30/18. Current Vancomycin Dose: 1 GRAM Q24 HOURS STARTING 08/31/18 @0900 Intermittent Dosing?: No Labs Micro Microbiology 08/30/18 Blood Culture - Preliminary, Resulted No growth after 24 hours . All specim... 08/30/18 Blood Culture - Preliminary, Resulted No growth after 24 hours . All specim... Creatinine Clearance Date:08/30/18. Creatinine Clearance: 17 Assessment and Plan Maintaining Current Dose?: Yes Reason for dose change: No Dose Change Pharmacist Note Pharmacist Note 09/01/18: Vancomycin trough level today resulted at 17.5mcg/ml prior to the 3rd dose. We will continue the patient on her current regimen of 1g IV Q24H for the treatment of HAP. We will continue to monitor and trough further follow-up levels if needed. Date: 08/30/18. Pharmacist note: Pharmacy consult placed for this patient being treated for respiratory infection. Patient also receiving meropenem 500mg q12h. Current CrCl is 17 ml/min. Based on patient's history of IV vancomycin here at [facility] and similar renal function I loaded patient with 750mg Vancomycin IV @2100. Then 1G IV vancomycin q24h starting on 08/31/18 @0900. Will continue to monitor patient in am and determine timing of first trough. SHERYL SCANLON PHARMACY Sep 01, 2018 08:39
[2018-09-01 08:48] LABS: CALCIUM LEVEL 9.4 MG/DL (8.8-10.2); CREATININE FOR GFR 1.72 MG/DL (0.55-1.30); GLOMERULAR FILTRATION RATE 30.3 (>32); MAGNESIUM LEVEL 1.8 MG/DL (1.8-2.4); POTASSIUM SERUM 3.8 MEQ/L (3.5-5.1)
[2018-09-01 08:50] LABS: BASO % 0.3 % (0.0-1.0); EOS # 0.1 10^3/uL (0.0-0.50); EOS % 0.8 % (0.0-3.0); HEMATOCRIT 34.1 % (36.0-47.0); HEMOGLOBIN 10.3 g/dl (12.0-15.5); LYMPH # 0.5 10^3/uL (1.5-4.5); LYMPH % 3.3 % (24.0-44.0); MEAN CORPUSCULAR HGB CONC 30.2 g/dl (32.0-36.5); MEAN CORPUSCULAR VOLUME 92.7 fl (80.0-96.0); MONO # 1.2 10^3/uL (0.0-0.8); NEUTROPHILS # 11.7 10^3/uL (1.8-7.7); NEUTROPHILS % 85.9 % (36.0-66.0); PLATELET COUNT, AUTOMATED 340 10^3/uL (150-450); RED BLOOD COUNT 3.68 10^6/uL (4.00-5.40); WHITE BLOOD COUNT 13.6 10^3/uL (4.0-10.0)
[2018-09-01] MEDS: IPRATROPIUM 0.5MG/ALBUTEROL 2.5MG INH SOL UD 3ML (DUONEB)(J7620) NEB SCH ×5 (09:56→23:22)
[2018-09-01] MEDS: CitaloPRAM (CeleXA) 10 MG TABLET PO SCH (10:04)
[2018-09-01] MEDS: FUROSEMIDE 40 MG TAB PO SCH (10:05)
[2018-09-01] MEDS: VANCOMYCIN HCL 1,000 MG, VIAL MATE ADAPTER 1 EACH in D5W 250 ML IV SCH ×2 (10:05→11:00)
[2018-09-01] MEDS: ASPIRIN 81 MG ENTERIC TAB PO SCH (10:05)
[2018-09-01] MEDS: predniSONE 10 MG TAB PO SCH (10:05)
[2018-09-01] MEDS: LEVEMIR (INSULIN DETEMIR) 1 UNITS/0.01ML SC SCH ×2 (10:06→10:18)
--- NOTE | 2018-09-01 12:03 | REP ---
CT of the chest without IV contrast: Comparison is a 08/05/2018. The right pleural effusion has significantly increased in size. There is focal compression atelectasis of the right lower lobe adjacent to the pleural effusion. There is complete collapse of the right middle lobe as an interval change. I suspect there is inspissated material in the proximal right middle lobe bronchus as an interval change. There is a small volume of ascites adjacent to the liver and spleen in the visualized upper abdomen, increased from the comparison study. The previously identified right upper lobe nodule adjacent to the minor fissure is not identified on the study today, possibly obscured by the right middle lobe atelectasis. There are chronic fibrotic changes throughout the lung nugent, unchanged. Impression: The right pleural effusion has increased in size. There is complete collapse of the right middle lobe as an interval change. Suspect inspissated material in the proximal right middle lobe bronchus. The right upper lobe nodule identified on the comparison study is obscured by the right middle lobe atelectasis on the study today. Ascites in the visualized upper abdomen, slightly increased from the comparison study. Electronically Signed by Bernabe Gorman MD 09/01/2018 11:55 A
[2018-09-01 12:12] VITALS: BP 121/72
[2018-09-01 14:00] VITALS: BP 112/59
[2018-09-01] MEDS: CALCITRIOL 0.25 MCG CAP (S0169) PO SCH (18:00)
--- NOTE | 2018-09-01 20:23 | IPNPDOC ---
Date Seen The patient was seen on 09/01/18. Progress Note S: pt seen at bedside in ER. No reported events overnight. Continues feeling sob and requiring 4-5L NC, whereas she is chronically on 2L. Sputum sample obtained today. No f/c/n/v/changes in bowel habits/cp PE: General: pleasant elderly frail-appearing female laying in bed, A&Ox3, coughing and uncomfortable. Shaking chills HEENT: NCAT, anicteric sclera CV: RRR Pulm: distant lung sounds, with decreased sounds on rt base and middle compared to left, equal chest rise. Diffuse rhonchi GI: normoactive bowel sounds, soft, NT, ND MSK: able to move all extremities Extremities: 2+ radial pulses. 2+ pitting edema b/l A/P: 82 yo F recently discharged for CAP, but didn't improve at home, thus ret urned to ER and now re-admitted. HCAP rt middle lobe PNA on admission CXR. ABG this am is ~stable from admission continue on Vanc & Odette. Blood cx neg so far sputum sample obtained today-send for cx continue supplemental O2, neb tx, maintain O2 88-92% Will also obtain chest CT & resp panel. Closely monitor COPD with chronic interstitial fibrosis chronically on 2L NC, but requiring 4-5L her sob may be multifactorial and also have an underlying COPD exacerbation factor triggered by her PNA. Clinically monitor improvement, and will start IV steroids given lack of improvement and rhonchorous lungs. continue duonebs Chronic Diastolic CHF compensated. Continue home lasix. Pro-BNP rechecked today reduced from ~55,000 to 29,00 with her regular home po lasix will closely monitor I/O and assess progress. Will consider IV Lasix if worsening fluid status CAD s/p PCI. Continue ASA CKD IV stable, baseline Cr 1.8-2 Diabetes ISS inpt replacing home Glipizide & Lantus Depression stable, cont celexa Hx Crohn's disease not on any meds DVT ppx: heparin sc DISPO: pending clinical improvement. VS, I&O, 24H, Fishbone Vital Signs/I&O Vital Signs Date Time Temp Pulse Resp B/P (MAP) Pulse Ox O2 Delivery O2 Flow Rate FiO2 09/01/18 14:00 97.9 106 22 112/59 (76) 92 4.5 2/12/19 17:33 Nasal Cannula I&O- Last 24 Hours up to 6 AM 09/01/18 06:00 Intake Total 820 ml Output Total 1600 ml Balance -780 ml Laboratory Data 24H LABS Laboratory Tests 2 08/31/18 20:09: Bedside Glucose (Misc Panel) 105 09/01/18 07:53: Bedside Glucose (Misc Panel) 77L 09/01/18 07:55: Immature Granulocyte % (Auto) 0.7, White Blood Count 13.6H, Red Blood Count 3.68L, Hemoglobin 10.3L, Hematocrit 34.1L, Mean Corpuscular Volume 92.7, Mean Corpuscular Hemoglobin 28.0, Mean Corpuscular Hemoglobin Concent 30.2L, Red Cell Distribution Width 15.9H, Platelet Count 340, Neutrophils (%) (Auto) 85.9H, Lymphocytes (%) (Auto) 3.3L, Monocytes (%) (Auto) 9.0H, Eosinophils (%) (Auto) 0.8, Basophils (%) (Auto) 0.3, Neutrophils # (Auto) 11.7H, Lymphocytes # (Auto) 0.5L, Monocytes # (Auto) 1.2H, Eosinophils # (Auto) 0.1, Basophils # (Auto) 0.0, Nucleated Red Blood Cells % (auto) 0.0, Anion Gap 7L, Glomerular Filtration Rate 30.3L, Blood Urea Nitrogen 40H, Creatinine 1.72H, Sodium Level 139, Potassium Level 3.8, Chloride Level 99, Carbon Dioxide Level 33H, Calcium Level 9.4, Magnesium Level 1.8, C-Reactive Protein, Quantitative 3.74H, CY-Jac-A-Type Natriuretic Peptide 03107O, Vancomycin Level Trough 17.5 09/01/18 16:11: Bedside Glucose (Misc Panel) 199H CBC/BMP Laboratory Tests 09/01/18 07:55 Red Blood Count 3.68 L, Mean Corpuscular Volume 92.7, Mean Corpuscular Hemoglobin 28.0, Mean Corpuscular Hemoglobin Concent 30.2 L, Red Cell Distribution Width 15.9 H, Neutrophils (%) (Auto) 85.9 H, Lymphocytes (%) (Auto) 3.3 L, Monocytes (%) (Auto) 9.0 H, Eosinophils (%) (Auto) 0.8, Basophils (%) (Auto) 0.3, Neutrophils # (Auto) 11.7 H, Lymphocytes # (Auto) 0.5 L, Monocytes # (Auto) 1.2 H, Eosinophils # (Auto) 0.1, Basophils # (Auto) 0.0, Calcium Level 9.4 Microbiology Microbiology 08/30/18 Blood Culture - Preliminary, Resulted No Growth after 48 hours. All Specime... 08/30/18 Blood Culture - Preliminary, Resulted No Growth after 48 hours. All Specime... 09/01/18 MRSA Screen, Received Pending 09/01/18 Respiratory Virus Panel (PCR) ([facility]), Received Pending GME ATTESTATION GME ATTESTATION My faculty preceptor for this patient encounter was physically present during the encounter and was fully available. All aspects of the patient interview, examination, medical decision making process, and medical care plan development were reviewed and approved by the faculty preceptor. The faculty preceptor is aware and concurs with the plan as stated in the body of this note and will attest to such by his/her cosignature. ROSA BROOKS DO Sep 01, 2018 20:23
[2018-09-01 22:00] VITALS: BP 135/64
[2018-09-02] MEDS: IPRATROPIUM 0.5MG/ALBUTEROL 2.5MG INH SOL UD 3ML (DUONEB)(J7620) NEB SCH ×6 (03:12→23:39)
[2018-09-02] MEDS: HEPARIN SOD (PORCINE) 5000 UNITS/ML VIAL SQ SCH ×3 (04:55→20:52)
[2018-09-02] MEDS: MEROPENEM INJ 500 MG in APPROPRIATE DILUENT 1 EA IV SCH ×2 (04:55→16:58)
[2018-09-02 05:50] LABS: HEMOGLOBIN 9.9 g/dl (12.0-15.5); MEAN CORPUSCULAR HEMOGLOBIN 27.3 pg (27.0-33.0); MEAN CORPUSCULAR VOLUME 91.2 fl (80.0-96.0); PLATELET COUNT, AUTOMATED 327 10^3/uL (150-450); RED BLOOD COUNT 3.62 10^6/uL (4.00-5.40)
[2018-09-02 06:00] VITALS: BP 101/63
[2018-09-02 06:13] LABS: C REACTIVE PROTEIN QUANTITATIV 6.44 MG/DL (0.00-0.30); CALCIUM LEVEL 9.3 MG/DL (8.8-10.2); CREATININE FOR GFR 1.69 MG/DL (0.55-1.30); GLOMERULAR FILTRATION RATE 30.9 (>32); MAGNESIUM LEVEL 1.9 MG/DL (1.8-2.4); POTASSIUM SERUM 3.6 MEQ/L (3.5-5.1)
[2018-09-02] MEDS: HumaLOG INSULIN (NovoLOG) PER UNIT SC SCH ×4 (07:30→20:53)
[2018-09-02 08:30] VITALS: BP 155/69
[2018-09-02] MEDS: ASPIRIN 81 MG ENTERIC TAB PO SCH (08:37)
[2018-09-02] MEDS: FUROSEMIDE 40 MG TAB PO SCH (08:38)
[2018-09-02] MEDS: VANCOMYCIN HCL 1,000 MG, VIAL MATE ADAPTER 1 EACH in D5W 250 ML IV SCH (08:38)
[2018-09-02] MEDS: LEVEMIR (INSULIN DETEMIR) 1 UNITS/0.01ML SC SCH (08:38)
[2018-09-02 08:39] LABS: ALBUMIN 2.8 GM/DL (3.2-5.2); BILIRUBIN,DIRECT 0.2 MG/DL (0.0-0.2); BILIRUBIN,TOTAL 0.5 MG/DL (0.2-1.0); TOTAL PROTEIN 6.2 GM/DL (6.4-8.2)
[2018-09-02] MEDS ORDERED: methylPREDNISolone INJ 125 MG/2 ML VIAL (J2930) IV SCH (09:00)
[2018-09-02] MEDS: IPRATROPIUM 0.5MG/ALBUTEROL 2.5MG INH SOL UD 3ML (DUONEB)(J7620) NEB PRN (09:11)
[2018-09-02 09:37] LABS: INR 1.11; PROTHROMBIN TIME 14.5 SECONDS (12.1-14.4)
[2018-09-02 09:38] LABS: PARTIAL THROMBOPLASTIN TIME 34.9 SECONDS (25.4-37.6)
--- NOTE | 2018-09-02 10:56 | REP ---
PA and lateral chest: Comparisons are the chest CT dated 07/01/2019 and the portable chest of 08/30/2018. There is right perihilar density, similar to the prior study. On the chest CT performed yesterday there was a right middle lobe collapse and inspissated material in the right middle lobe bronchus. There is a right pleural effusion. There is question of a left pleural effusion. No left effusion was identified on the comparison CT. There is chronic interstitial coarsening compatible with fibrosis. Cardiac size appears enlarged. There is a dual-chamber pacemaker entering from the left. Impression: Right perihilar density compatible with the collapsed right middle lobe identified on the comparison CT. Right pleural effusion. Questionable left pleural effusion. Electronically Signed by Bernabe Gorman MD 09/02/2018 10:48 A
--- NOTE | 2018-09-02 11:57 | CR ---
CONSULTATION FOR PULMONARY CRITICAL CARE DATE OF CONSULTATION: 09/02/2018 Ms. Mayda Knight is an 82-year-old female who our service was consulted on for her hypoxia and for her lung nodule. The patient was initially admitted with worsening shortness of breath. The patient was recently discharged on 08/05/2018 with outpatient antibiotics for pneumonia and re-presented on 08/30/2018 for worsening shortness of breath. History of present illness (HPI) is limited as patient is a poor historian. She has been treated for right middle lobe pneumonia for the past 2 days, and her oxygen status has failed to improve. She states that after she came home, she continued to experience fevers, chills, yellow productive sputum, a sore throat, and eventually worsening shortness of breath that brought her to the hospital. She has had no sick contacts and lives at home alone. Currently, she is requiring 6 liters of oxygen to maintain her between 88% and 92% on nasal cannula. She does not follow with pulmonology and only sees her primary care doctor, Dr. Archuleta. She denies any headaches, eye problems, ear pain, sinus pressure or pain. Currently, denies any sore throat. Despite what she said previously, she denies any current coughing, wheezing, chest pain, pressure, or palpitations, orthopnea, paroxysmal nocturnal dyspnea, nausea, vomiting, abdominal pain, constipation, diarrhea, hematuria, dysuria, night sweats. Of note, she was discharged on 08/05/2018 with Spiriva and Advair, yet on her most recent admission, she stated she was not taking these medications. During my interview with the patient, she stated she was taking those medications at home. I feel a component of her shortness of breath is her lack of compliance due to her difficulties with taking her medication. PAST MEDICAL HISTORY: Significant for: 1. Crohn disease. 2. Type 2 diabetes. 3. History of chronic kidney disease (CKD). 4. History of systolic heart failure. 5. Coronary artery disease, status post pacemaker placement. 6. Oxygen-dependent chronic obstructive pulmonary disease (COPD). 7. History of Clostridium (C) difficile infections. 8. Stress incontinence. 9. History of tobacco usage. PAST SURGICAL HISTORY: 1. Aortobifemoral bypass. 2. Cataract surgery. 3. Cholecystectomy. 4. (C) section. ALLERGIES: Reported to [facility]. FAMILY HISTORY: Her son has hypertension, coronary artery disease in sister, history of cancer in mother, sister, and daughter, unknown to the patient, history of COPD in a sister. SOCIAL HISTORY: The patient may have started smoking in her 20s and was at least a [id number] smoker. Claims she has not smoked in at least the last 5 years. No alcohol or illicit drug usage. Lives at home alone. No pets or recent travel. No sick contacts. CURRENT INPATIENT MEDICATIONS: - methylprednisone 60 mg - aspirin 81 mg - Celexa 10 mg - Lasix 40 mg - Levemir - calcitriol - vancomycin - heparin - DuoNebs every 4 - DuoNebs every 2 as needed - meropenem PHYSICAL EXAMINATION: VITAL SIGNS: Heart rate 107, blood pressure 155/69, saturating 91% on 5 liters. HEENT: Dentures. Moist mucous membranes. Mallampati 2. Nares patent bilaterally. No pharyngeal exudate or erythema present. NECK: Supple. No jugular venous distention (JVD) present. No thyromegaly or masses. No lymphadenopathy. CARDIOVASCULAR: Regular rate and rhythm. Normal S1 and S2. No murmurs, rubs, or gallops hear on auscultation. RESPIRATORY: Clear to auscultation bilaterally. The patient has inspiratory crackles in the right lung base, and there is dullness to percussion in that same area. No accessory muscle use or retractions. No wheezing or rhonchi in any of the other lung nugent. ABDOMEN: Soft, nontender, nondistended. Bowel sounds present. No rebound tenderness or rigidity. No guarding. EXTREMITIES: Some mild bilateral lower extremity edema. This was noted with her legs hanging off the bed and may be dependent edema. No cyanosis or clubbing noted on examination. Pulses palpated bilaterally. SKIN: No rashes or significant bruising present. LABORATORY STUDIES: White blood cell count of 10, hemoglobin of 9.9, hematocrit of 33, platelets of 327. Sodium of 135, potassium of 3.6, chloride of 95, bicarbonate of 32, BUN of 39, creatinine of 1.69, glucose 195, CRP of 6.44. PT of 14.5, INR of 1.11. IMAGING: Chest CT without contrast performed on 09/01/2018 shows right pleural effusion increased in size, collapse of right middle lobe as an interval change. Suspect inspissated material in the proximal right middle lobe bronchus. Right upper lobe nodule identified on the comparison study is obscured by the right middle lobe atelectasis on the study today. Ascites in the visualized upper abdomen, slightly increased from the comparison study. ASSESSMENT AND PLAN: 1. The patient is an 82-year-old female with past medical history of oxygen-dependent chronic obstructive pulmonary disease/emphysema and a possible space-occupying nodule. Of note, the space-occupying nodule has been referred to during a previous consultation during her last admission and should not be followed up at this time. As noted on previous consult, these nodules are likely inflammatory in nature, and Dr. Augustine does not recommend followup for these lesions. To be sure that nothing needs to be done about it, we will obtain another x-ray to see if interventional radiology or thoracic surgery needs to do a therapeutic tap. Despite 3 days of antibiotics and lasix, her effusion is still present, her brain natriuretic peptide (BNP) has been going down, and she has been getting Lasix. I understand primary's concern that this is likely not congestive heart failure (CHF). In light of those, we will repeat a chest x-ray to determine whether a diagnostic tap is needed from Dr. Hartmann or interventional radiology. 2. Regarding the patient's hypoxia, the patient is in no acute distress and has no conversational dyspnea. She is sitting up, not leaning over, and states that she is not currently short of breath. We do not feel that she needs to continue on intravenous (IV) Solu-Medrol and can resume her home dose of oral prednisone. She also should be restarted on her Advair, Spiriva, or equivalent medications while she is inpatient and continue these outpatient, as her lack of compliance with these may be a component in her chronic hypoxemia and her worsening respiratory statuses from admission to admission. 3. Heart failure. The patient appears to be compensated at this time. Continue Lasix as per primary. Thank you for this consultation. Please feel free to reach out if you have any further questions. My faculty preceptor for this patient encounter was physically present during the encounter and was fully available. All aspects of the patient interview, examination, medical decision-making process, and medical care plan development were reviewed and approved by the faculty preceptor. The faculty preceptor is aware and concurs with the plan as stated in the body of this note and will attest to such by his/her cosignature. ERICKA
[2018-09-02 12:00] VITALS: BP 125/98
[2018-09-02 14:54] LABS: APPEARANCE, BODY FLUID HAZY (CLEAR); PLEURAL FL COLOR PALE YELLOW (COLORLESS); SOURCE, BODY FLUID PLEURAL
[2018-09-02 14:55] LABS: PH BODY FLUID 7.795 UNITS (NOT ESTABLISHED); SOURCE, BODY FLUID pH PLEURAL
[2018-09-02] MEDS: SYMBICORT 80/4.5MCG INHALER 6GM INH SCH ×2 (15:00→20:32)
--- NOTE | 2018-09-02 15:01 | REP ---
CHEST, TWO VIEWS: Two views of the chest are performed and compared to prior study of the same day. The patient had right thoracentesis. There is no pneumothorax. There is decreased right pleural effusion. Increased interstitial opacities in the lung bases are unchanged. Cardiomediastinal silhouette is unchanged. Electronically Signed by Bernabe Hill MD 09/02/2018 04:14 P
[2018-09-02 15:12] LABS: AMYLASE, BODY FLUID 41 U/L (NOT ESTABLISHED); CHOLESTEROL, BODY FLUID < 50 MG/DL (NOT ESTABLISHED); LDH, BODY FLUID 76 U/L (NOT ESTABLISHED); SOURCE, BODY FLUID AMYLASE PLEURAL; SOURCE, BODY FLUID CHOL PLEURAL; SOURCE, BODY FLUID GLUCOSE PLEURAL; SOURCE, BODY FLUID LDH PLEURAL; SOURCE, BODY FLUID TRIG PLEURAL; TRIGLYCERIDE, BODY FLUID 16 MG/DL (NOT ESTABLISHED)
[2018-09-02 15:14] LABS: SOURCE, BODY FLUID ALBUMIN PLEURAL; SOURCE, BODY FLUID TOT PROTEIN PLEURAL
[2018-09-02] MEDS: CALCITRIOL 0.25 MCG CAP (S0169) PO SCH (15:31)
[2018-09-02] MEDS: CitaloPRAM (CeleXA) 10 MG TABLET PO SCH (15:31)
[2018-09-02] MEDS: TIOTROPIUM INHALER/CAPSULE (SPIRIVA) INH SCH (15:42)
--- NOTE | 2018-09-02 16:32 | REP ---
ULTRASOUND-GUIDED RIGHT THORACENTESIS The procedure was performed under the direct supervision of Dr. hill. The risks and benefits of the procedure were explained to the patient and informed consent was obtained. The right pleural effusion was localized using ultrasound guidance. The skin was prepped and draped in a sterile fashion. 1% lidocaine was used as a local anesthetic. 8-Chile[place] multi side-hole catheter was inserted using trocar technique. 410 ml of yellow fluid was withdrawn and sent to the lab for analysis. The patient tolerated the procedure well and there were no immediate complications. After the appropriate amount of monitored convalescence the patient was discharged from the department. Reviewed by ARYA Ryder 09/02/2018 03:33 P Electronically Signed by Bernabe Hill MD 09/02/2018 04:23 P
[2018-09-02 17:00] VITALS: BP 101/59
[2018-09-02] MEDS ORDERED: SLF 3 ML SYR IV PRN (18:15)
[2018-09-02 20:00] VITALS: BP 110/70
[2018-09-02] MEDS: SLF 3 ML SYR IV SCH (20:49)
--- NOTE | 2018-09-02 21:19 | IPNPDOC ---
Date Seen The patient was seen on 09/02/18. Progress Note S: pt seen at bedside. She feels slightly worse today than yesterday. Still sob and requiring 5L NC, whereas she is chronically on 2L. Still having chills and feeling weak. No f/n/v/changes in bowel habits/cp PE: General: pleasant elderly frail-appearing female laying in bed, A&Ox3, coughing and in mild distress. Still having shaking chills HEENT: EOMI, NCAT, anicteric sclera CV: RRR Pulm: distant lung sounds, with decreased sounds on rt base and middle compared to left, equal chest rise. Accessory muscle usage GI: normoactive bowel sounds, soft, NT, ND MSK: able to move all extremities Extremities: 2+ radial pulses. 1-2+ pitting edema b/l A/P: 82 yo F recently discharged for CAP, but didn't improve at home, thus returned to ER and now re-admitted. HCAP rt middle lobe PNA on admission CXR. Continue on Vanc & Odette started 08/30 Blood cx and resp panel neg. WBC normalized, but CRP trending up and not clinically improving. Will c/s Pulm for worsening effusion on imaging awaiting sputum cx ordered 08/31 continue supplemental O2, neb tx, maintain O2 88-92% collapsed rt middle lobe-continue acapella and IS Moderate Rt pleural effusion source unclear. May be empyema vs chf vs pna Per pulm, will obtain repeat CXR to reassess effusion size, and send to IR for thoracentesis-fluid w/u sent today COPD with chronic interstitial fibrosis chronically on 2L NC, but requiring 4-5L her sob may be multifactorial and also have an underlying COPD exacerbation fa ctor triggered by her PNA. Will start on IV steroids. Pulm consulted continue duonebs Chronic Diastolic CHF compensated. No JVD on exam and BNP trending down on regular home regimen. Continue home lasix. -CAD s/p PCI. Continue ASA -CKD IV stable, baseline Cr 1.8-2 -Diabetes ISS inpt replacing home Glipizide & Lantus -Depression stable, cont celexa -Hx Crohn's disease not on any meds DVT ppx: heparin sc DISPO: pending clinical improvement & Pulm c/s. VS, I&O, 24H, Fishbone Vital Signs/I&O Vital Signs Date Time Temp Pulse Resp B/P (MAP) Pulse Ox O2 Delivery O2 Flow Rate FiO2 09/02/18 20:00 98.7 94 19 110/70 (83) 94 4.0 08/30/18 17:33 Nasal Cannula I&O- Last 24 Hours up to 6 AM 09/02/18 06:00 Intake Total 1070 ml Output Total 750 ml Balance 320 ml Laboratory Data 24H LABS Laboratory Tests 2 09/02/18 05:27: Nucleated Red Blood Cells % (auto) 0.0, Anion Gap 8, Glomerular Filtration Rate 30.9L, Calcium Level 9.3, Magnesium Level 1.9, Aspartate Amino Transf (AST/SGOT) 19, Alanine Aminotransferase (ALT/SGPT) 22, Lactate Dehydrogenase 205, Alkaline Phosphatase 164H, Total Bilirubin 0.5, Direct Bilirubin 0.2, C-Reactive Protein, Quantitative 6.44H, Total Protein 6.2L, Albumin 2.8L, Albumin/Globulin Ratio 0.82L 09/02/18 06:36: Bedside Glucose (Misc Panel) 185H 09/02/18 08:46: Prothrombin Time 14.5H, Prothromb Time International Ratio 1.11, Activated Partial Thromboplast Time 34.9 09/02/18 14:18: Body Fluid pH 7.795, Body Fluid pH Source PLEURAL, Body Fluid WBC (Auto) 968H, Body Fluid RBC (Auto) 3, Body Fluid Mononuclear Cells % Auto 93.9H, Fluid Polymorphonuclear Cell % Auto 6.1H, Body Fluid Glucose Source PLEURAL, Body Fluid Glucose 373, Body Fluid Protein Source PLEURAL, Body Fluid Total Protein 2.0, Body Fluid Albumin Source PLEURAL, Body Fluid Albumin 1.1, Body Fluid LDH Source PLEURAL, Body Fluid Lactate Dehydrogenase 76, Body Fluid Amylase Source PLEURAL, Body Fluid Amylase 41, Body Fluid Cholesterol < 50, Body Fluid Cholesterol Source PLEURAL, Body Fluid Triglyceride Source PLEURAL, Body Fluid Triglycerides 16, Pleural Fluid Source PLEURAL, Pleural Fluid Color PALE YELLOW, Pleural Fluid Appearance HAZY 09/02/18 17:53: Bedside Glucose (Misc Panel) 478H 09/02/18 19:46: Bedside Glucose (Misc Panel) 435H CBC/BMP Laboratory Tests 09/02/18 05:27 Red Blood Count 3.62 L, Mean Corpuscular Volume 91.2, Mean Corpuscular Hemoglobin 27.3, Mean Corpuscular Hemoglobin Concent 30.0 L, Red Cell Distribution Width 15.9 H, Calcium Level 9.3 Microbiology Microbiology 08/30/18 Blood Culture - Preliminary, Resulted No Growth after 72 hours. All specime... 08/30/18 Blood Culture - Preliminary, Resulted No Growth after 72 hours. All specime... 09/02/18 Acid Fast Stain, Received Pending 09/02/18 Mycobacterial Culture, Received Pending 09/02/18 Fungal Smear, Received Pending 09/02/18 Fungal Culture, Received Pending 09/02/18 Gram Stain - Final, Resulted 09/02/18 Anaerobic Culture, Resulted Pending 09/02/18 Body Fluid Culture, Received Pending 09/01/18 MRSA Screen, Received Pending 09/01/18 Respiratory Virus Panel (PCR) ([facility]) - Final, Complete GME ATTESTATION GME ATTESTATION My faculty preceptor for this patient encounter was physically present during the encounter and was fully available. All aspects of the patient interview, examination, medical decision making process, and medical care plan development were reviewed and approved by the faculty preceptor. The faculty preceptor is aware and concurs with the plan as stated in the body of this note and will attest to such by his/her cosignature. ROSA BROOKS DO Sep 02, 2018 21:19
[2018-09-03] VITALS: BP 90/58
[2018-09-03 04:00] VITALS: BP 88/53
[2018-09-03] MEDS: IPRATROPIUM 0.5MG/ALBUTEROL 2.5MG INH SOL UD 3ML (DUONEB)(J7620) NEB SCH ×5 (04:20→23:46)
[2018-09-03] MEDS: MEROPENEM INJ 500 MG in APPROPRIATE DILUENT 1 EA IV SCH ×2 (04:29→18:07)
[2018-09-03] MEDS: HEPARIN SOD (PORCINE) 5000 UNITS/ML VIAL SQ SCH ×3 (05:11→21:12)
[2018-09-03] MEDS: SLF 3 ML SYR IV SCH ×3 (05:11→21:11)
[2018-09-03] MEDS: HumaLOG INSULIN (NovoLOG) PER UNIT SC SCH ×4 (07:30→20:13)
[2018-09-03] MEDS: TIOTROPIUM INHALER/CAPSULE (SPIRIVA) INH SCH (07:30)
[2018-09-03] MEDS: SYMBICORT 80/4.5MCG INHALER 6GM INH SCH ×2 (07:30→20:22)
[2018-09-03 08:00] VITALS: BP 119/60
[2018-09-03 08:26] LABS: HEMATOCRIT 32.6 % (36.0-47.0); HEMOGLOBIN 9.9 g/dl (12.0-15.5); MEAN CORPUSCULAR HEMOGLOBIN 27.2 pg (27.0-33.0); MEAN CORPUSCULAR HGB CONC 30.4 g/dl (32.0-36.5); MEAN CORPUSCULAR VOLUME 89.6 fl (80.0-96.0); PLATELET COUNT, AUTOMATED 351 10^3/uL (150-450); RED BLOOD COUNT 3.64 10^6/uL (4.00-5.40); WHITE BLOOD COUNT 10.6 10^3/uL (4.0-10.0)
[2018-09-03] MEDS: predniSONE 10 MG TAB PO SCH (09:48)
[2018-09-03] MEDS: VANCOMYCIN HCL 1,000 MG, VIAL MATE ADAPTER 1 EACH in D5W 250 ML IV SCH (09:48)
[2018-09-03] MEDS: LEVEMIR (INSULIN DETEMIR) 1 UNITS/0.01ML SC SCH (09:48)
[2018-09-03] MEDS: CitaloPRAM (CeleXA) 10 MG TABLET PO SCH (09:48)
[2018-09-03] MEDS: ASPIRIN 81 MG ENTERIC TAB PO SCH (09:48)
[2018-09-03] MEDS: CALCITRIOL 0.25 MCG CAP (S0169) PO SCH (09:48)
[2018-09-03 09:49] LABS: ALBUMIN 2.9 GM/DL (3.2-5.2); ALT/SGPT 19 U/L (12-78); BILIRUBIN,DIRECT 0.2 MG/DL (0.0-0.2); BILIRUBIN,TOTAL 0.4 MG/DL (0.2-1.0); BLOOD UREA NITROGEN 53 MG/DL (7-18); C REACTIVE PROTEIN QUANTITATIV 6.06 MG/DL (0.00-0.30); CARBON DIOXIDE LEVEL 34 MEQ/L (21-32); CHLORIDE LEVEL 97 MEQ/L (98-107); GAMMA GLUTAMYLTRANSPEPTIDASE 139 U/L (5-55); GLOMERULAR FILTRATION RATE 32.9 (>32); GLUCOSE, FASTING 109 MG/DL (70-100); SODIUM LEVEL 137 MEQ/L (136-145); TOTAL PROTEIN 5.8 GM/DL (6.4-8.2)
[2018-09-03] MEDS: FUROSEMIDE 20 MG TAB PO SCH (09:49)
[2018-09-03 12:00] VITALS: BP 118/54
[2018-09-03] MEDS ORDERED: VANCOMYCIN HCL 750 MG, VIAL MATE ADAPTER 1 EACH in D5W 250 ML IV SCH (12:00)
[2018-09-03 20:00] VITALS: BP 99/53
--- NOTE | 2018-09-03 22:25 | IPNPDOC ---
Date Seen The patient was seen on 09/03/18. Progress Note S: pt seen at bedside. She feels slightly better today. Down to 3-4L N, whereas baseline is 2L. Chills have subsided. Noted to be hypotensive this am, but asymptomatic. Is s/p thoracentesis yesterday, tolerated well. No f/n/v/changes in bowel habits/cp PE: General: pleasant elderly frail-appearing female laying in bed, A&Ox3, coughing. NAD HEENT: EOMI, NCAT, anicteric sclera CV: RRR Pulm: distant lung sounds, with decreased sounds on rt base and middle compared to left, equal chest rise. No accessory muscle use today GI: normoactive bowel sounds, soft, NT, ND MSK: able to move all extremities Extremities: 2+ radial pulses. 1-2+ pitting edema b/l A/P: 82 yo F recently discharged for CAP, but didn't improve at home, thus returned to ER and now re-admitted. HCAP rt middle lobe PNA on admission CXR. Continue on Vanc & Odette started 08/30 Blood cx and resp panel neg. WBC & CRP stable. Pulm c/s'ed, appreciated input: switched from IV steroids to po, and started on Symbicort & Spiriva awaiting sputum cx ordered 08/31 continue supplemental O2, neb tx, maintain O2 88-92% collapsed rt middle lobe-continue acapella and IS Moderate Rt pleural effusion s/p thoracentesis 09/02 with 410mL removed. Per Light's Criteria = 0.3, transudative, CHF vs cirrhosis. Per pulm, unlikely empyema fluid cultures pending. She did have ascites on admission chest ct, and labs [place] pporting cirrhosis. Pt agreeable to further w/u liver New Cirrhosis see above liver US ordered Hypotension s/p thoracentesis yesterday will reduce po lasix from 40 to 20mg and monitor vol status ----- -COPD with chronic interstitial fibrosis chronically on 2L NC, but remains on 3-4L per pulm, continue on maintenance po & inhalers -Chronic Systolic & Diastolic CHF last EF 55%, and grade 1 diastolic dysfunction compensated. No JVD on exam and BNP trending down on regular home regimen. Will reduce po lasix given hypotension this am -CAD s/p PCI. Continue ASA -CKD IV stable, baseline Cr 1.8-2 -Diabetes ISS inpt replacing home Glipizide & Lantus -Depression stable, cont celexa -Hx Crohn's disease not on any meds DVT ppx: heparin sc DISPO: pending clinical improvement. VS, I&O, 24H, Fishbone Vital Signs/I&O Vital Signs Date Time Temp Pulse Resp B/P (MAP) Pulse Ox O2 Delivery O2 Flow Rate FiO2 09/03/18 20:00 3.0 09/03/18 16:00 98.3 85 20 97 09/03/18 12:00 118/54 (75) 08/30/18 17:33 Nasal Cannula I&O- Last 24 Hours up to 6 AM 09/03/18 06:00 Intake Total 1050 ml Output Total 820 ml Balance 230 ml Laboratory Data 24H LABS Laboratory Tests 2 09/03/18 07:39: Bedside Glucose (Misc Panel) 100 09/03/18 08:02: Nucleated Red Blood Cells % (auto) 0.0, Anion Gap 6L, Glomerular Filtration Rate 32.9, Calcium Level 9.0, Magnesium Level 2.0, Aspartate Amino Transf (AST/SGOT) 16, Alanine Aminotransferase (ALT/SGPT) 19, Alkaline Phosphatase 138H, Total Bilirubin 0.4, Direct Bilirubin 0.2, Gamma Glutamyl Transferase 139H, C-Reactive Protein, Quantitative 6.06H, Total Protein 5.8L, Albumin 2.9L, Albumin/Globulin Ratio 1.00, Vancomycin Level Trough 24.0H 09/03/18 11:53: Bedside Glucose (Misc Panel) 280H 09/03/18 17:11: Bedside Glucose (Misc Panel) 80L 09/03/18 19:26: Bedside Glucose (Misc Panel) 83 CBC/BMP Laboratory Tests 09/03/18 08:02 Red Blood Count 3.64 L, Mean Corpuscular Volume 89.6, Mean Corpuscular Hemoglobin 27.2, Mean Corpuscular Hemoglobin Concent 30.4 L, Red Cell Distribution Width 15.7 H Microbiology Microbiology 08/30/18 Blood Culture - Preliminary, Resulted No Growth after 72 hours. All specime... 08/30/18 Blood Culture - Preliminary, Resulted No Growth after 72 hours. All specime... 09/02/18 Acid Fast Stain, Received Pending 09/02/18 Mycobacterial Culture, Received Pending 09/02/18 Fungal Smear, Received Pending 09/02/18 Fungal Culture, Received Pending 09/02/18 Gram Stain - Final, Resulted 09/02/18 Anaerobic Culture, Resulted Pending 09/02/18 Body Fluid Culture, Received Pending 09/01/18 MRSA Screen - Final, Complete 09/01/18 Respiratory Virus Panel (PCR) ([facility]) - Final, Complete GME ATTESTATION GME ATTESTATION My faculty preceptor for this patient encounter was physically present during the encounter and was fully available. All aspects of the patient interview, examination, medical decision making process, and medical care plan development were reviewed and approved by the faculty preceptor. The faculty preceptor is aware and concurs with the plan as stated in the body of this note and will attest to such by his/her cosignature. ROSA BROOKS DO Sep 03, 2018 22:24
[2018-09-04] VITALS (7 sets, daily range): BP systolic 90–106; BP diastolic 56–74
[2018-09-04] MEDS: IPRATROPIUM 0.5MG/ALBUTEROL 2.5MG INH SOL UD 3ML (DUONEB)(J7620) NEB SCH ×5 (04:28→20:00)
[2018-09-04 05:03] LABS: MEAN CORPUSCULAR HEMOGLOBIN 27.1 pg (27.0-33.0); MEAN CORPUSCULAR HGB CONC 30.3 g/dl (32.0-36.5); MEAN CORPUSCULAR VOLUME 89.4 fl (80.0-96.0); PLATELET COUNT, AUTOMATED 365 10^3/uL (150-450); RED BLOOD COUNT 3.69 10^6/uL (4.00-5.40); WHITE BLOOD COUNT 12.8 10^3/uL (4.0-10.0)
[2018-09-04] MEDS: HEPARIN SOD (PORCINE) 5000 UNITS/ML VIAL SQ SCH ×3 (05:09→21:23)
[2018-09-04] MEDS: SLF 3 ML SYR IV SCH ×3 (05:09→21:24)
[2018-09-04] MEDS: MEROPENEM INJ 500 MG in APPROPRIATE DILUENT 1 EA IV SCH ×2 (05:09→16:48)
[2018-09-04 05:19] LABS: C REACTIVE PROTEIN QUANTITATIV 3.29 MG/DL (0.00-0.30); CALCIUM LEVEL 9.5 MG/DL (8.8-10.2); CREATININE FOR GFR 1.77 MG/DL (0.55-1.30); GLOMERULAR FILTRATION RATE 29.3 (>32); POTASSIUM SERUM 4.3 MEQ/L (3.5-5.1)
[2018-09-04] MEDS: TIOTROPIUM INHALER/CAPSULE (SPIRIVA) INH SCH (07:17)
[2018-09-04] MEDS: SYMBICORT 80/4.5MCG INHALER 6GM INH SCH ×2 (07:18→20:33)
[2018-09-04] MEDS: HumaLOG INSULIN (NovoLOG) PER UNIT SC SCH ×4 (07:27→20:10)
--- NOTE | 2018-09-04 07:29 | REP ---
HEPATIC ULTRASOUND: 09/03/2018. CLINICAL HISTORY: Evaluate for possible ascites and cirrhosis. COMPARISON: CT chest with its upper abdominal slices, 09/01/2018 FINDINGS: Sonographic evaluation of the right upper quadrant shows the liver homogeneous in echotexture. It has a vertical length maximum of 16 cm, which is normal. There is no abnormal coarsening of the echotexture or hyperechogenicity to suggest fatty infiltration. There is no intrahepatic biliary dilatation, cyst, or solid mass in the liver. No perihepatic ascites. Small amount of pleural effusion in the right base. The gallbladder is surgically absent. Common duct 4.6 mm and normal, no stone or dilatation. Pancreas is obscured by gas shadowing. Kidney is 9.8 x 5.8 x 4.5 cm. There is a scar in the interpolar region with cortical defect evident. Multiple cysts are noted in the right kidney with the largest along the lower pole 3 x 2.8 cm. The cortex is somewhat hyperechoic but not significantly thinned at this time. No free fluid elsewhere in the abdomen nor around the liver. IMPRESSION: 1. No fatty infiltration or coarsening of the echotexture of the liver, there is no gross hepatomegaly or focal hepatic lesion. 2. No biliary dilatation nor adjacent ascites in the right upper quadrant. 3. Common duct 4.6 mm and normal with the gallbladder surgically absent. 4. Pancreas absent, and the kidney shows slight decrease in overall length, some cortical hyperechogenicity suggesting chronic medical renal disease. There are multiple cysts, the largest 3 x 2.8 cm in the lower pole. Electronically Signed by Chandu Reeves MD 09/04/2018 08:21 A
[2018-09-04] MEDS: CALCITRIOL 0.25 MCG CAP (S0169) PO SCH (08:52)
[2018-09-04] MEDS: FUROSEMIDE 20 MG TAB PO SCH (08:52)
[2018-09-04] MEDS: ASPIRIN 81 MG ENTERIC TAB PO SCH (08:52)
[2018-09-04] MEDS: CitaloPRAM (CeleXA) 10 MG TABLET PO SCH (08:52)
[2018-09-04] MEDS: predniSONE 10 MG TAB PO SCH (08:52)
[2018-09-04] MEDS: LEVEMIR (INSULIN DETEMIR) 1 UNITS/0.01ML SC SCH (08:53)
[2018-09-04 11:02] LABS: MB/CK RELATIVE INDEX 8.39 (< OR =4); TROPONIN I 0.05 NG/ML (< 0.10)
[2018-09-04] MEDS: IPRATROPIUM 0.5MG/ALBUTEROL 2.5MG INH SOL UD 3ML (DUONEB)(J7620) NEB PRN (15:07)
[2018-09-04] MEDS: FUROSEMIDE 40 MG/4 ML VIAL (J1940) IV SCH ×2 (16:48→23:47)
--- NOTE | 2018-09-04 21:09 | IPN ---
DATE: 09/04/2018 SUBJECTIVE: The patient is seen and examined in the room today. This morning the patient stated that she is not breathing well. She feels that her breathing is worse than yesterday. The patient feels she has a chill. Nonproductive cough. OBJECTIVE: VITAL SIGNS: Temperature is 98.8, pulse is 77, respirations 20, blood pressure (BP) 97/74, pulse oximetry 90% with 3 liters nasal canula. GENERAL: Mild distress secondary to persistent shortness of breath, alert and awake. HEENT: Normocephalic, atraumatic. Extraocular movements grossly intact. CARDIOVASCULAR: Positive S1, S2. Regular rate. LUNGS: Distant lung sounds. Positive accessory muscle use today. Positive lung crackles. ABDOMEN: Soft, nontender, nondistended. Bowel sounds are present. EXTREMITIES: Positive lower extremity edema. LABORATORY DATA: White blood count (WBC) is 12.8, hemoglobin 10, hematocrit 33, platelet count is 365, sodium is 138, potassium 4.3, chloride 99, carbon dioxide 34, BUN 51, creatinine is 1.7, glomerular filtration rate (GFR) is 29.3, fasting glucose is 119, calcium is 9.5, magnesium 2, total CK 31, troponin I is 0.05. C-reactive protein is 3.29. ASSESSMENT AND PLAN: 1. Acute on chronic respiratory distress, multifactorial. The patient at baseline has chronic obstructive pulmonary disease (COPD) required 2 liters nasal canula. The patient demonstrated signs of fluid overload. The patient is currently on diuretic. Will adjust based on the patient's fluid status. CT of the chest without contrast I reviewed, demonstrated right pleural effusion has increased in size. Complete collapse of the right middle lobe. Right upper lobe nodule. Pulmonology is consulted. The patient had a diagnostic and therapeutic thoracentesis, pleural fluid analysis reviewed. 2. Liver cirrhosis. 3. Chronic obstructive pulmonary disease (COPD) with chronic interstitial fibrosis. The patient uses 2 liters oxygen at baseline. Currently, the patient is being treated for fluid overload. The patient on baseline diuretics. Baseline steroids. The patient on nebulizer. 4. Diastolic congestive heart failure exacerbation on diuretic. 5. Coronary artery disease, status post PCI, on aspirin. 6. Diabetes on sliding scale. 7. Chronic kidney disease, stage IV. 8. Depression. Continue home medications. 9. Deep vein thrombosis (DVT) prophylaxis on heparin.
[2018-09-04] MEDS: VANCOMYCIN HCL 500 MG in D5W MINI-BAG PLUS 100 ML IV SCH (21:34)
[2018-09-05] VITALS (7 sets, daily range): BP systolic 82–142; BP diastolic 58–67
[2018-09-05] MEDS: IPRATROPIUM 0.5MG/ALBUTEROL 2.5MG INH SOL UD 3ML (DUONEB)(J7620) NEB SCH ×7 (00:49→23:50)
[2018-09-05 05:29] LABS: HEMATOCRIT 35.5 % (36.0-47.0); HEMOGLOBIN 10.6 g/dl (12.0-15.5); MEAN CORPUSCULAR HEMOGLOBIN 27.5 pg (27.0-33.0); MEAN CORPUSCULAR HGB CONC 29.9 g/dl (32.0-36.5); PLATELET COUNT, AUTOMATED 395 10^3/uL (150-450); RED BLOOD COUNT 3.86 10^6/uL (4.00-5.40); WHITE BLOOD COUNT 11.9 10^3/uL (4.0-10.0)
[2018-09-05] MEDS: MEROPENEM INJ 500 MG in APPROPRIATE DILUENT 1 EA IV SCH ×2 (05:49→16:47)
[2018-09-05] MEDS: SLF 3 ML SYR IV SCH ×3 (05:50→22:00)
[2018-09-05] MEDS: HEPARIN SOD (PORCINE) 5000 UNITS/ML VIAL SQ SCH ×3 (05:50→22:56)
[2018-09-05 06:12] LABS: C REACTIVE PROTEIN QUANTITATIV 2.54 MG/DL (0.00-0.30); CREATININE FOR GFR 1.69 MG/DL (0.55-1.30); GLOMERULAR FILTRATION RATE 30.9 (>32); MAGNESIUM LEVEL 2.1 MG/DL (1.8-2.4); POTASSIUM SERUM 3.8 MEQ/L (3.5-5.1)
[2018-09-05] MEDS: SYMBICORT 80/4.5MCG INHALER 6GM INH SCH ×2 (07:32→20:00)
[2018-09-05] MEDS: TIOTROPIUM INHALER/CAPSULE (SPIRIVA) INH SCH (07:32)
[2018-09-05] MEDS: FUROSEMIDE 40 MG/4 ML VIAL (J1940) IV SCH ×2 (07:53→16:47)
[2018-09-05] MEDS: HumaLOG INSULIN (NovoLOG) PER UNIT SC SCH ×4 (07:53→21:00)
--- NOTE | 2018-09-05 08:57 | IPNPDOC ---
Date Seen The patient was seen on 09/05/18. Progress Note S: pt seen at bedside. She feels slightly better today. Having more urine o/p and is on 3L NC, whereas baseline is 2L. Still dry cough, and feels her legs are more swollen. No f/n/v/changes in bowel habits/cp PE: General: pleasant elderly frail-appearing female laying in bed, A&Ox3, coughing. NAD HEENT: EOMI, NCAT, anicteric sclera CV: RRR Pulm: distant lung sounds, with decreased sounds on rt base and middle compared to left, equal chest rise. No accessory muscle use today GI: normoactive bowel sounds, soft, NT, ND MSK: able to move all extremities Extremities: 2+ radial pulses. 1-2+ pitting edema b/l A/P: 82 yo F recently discharged for CAP, but didn't improve at home, thus returned to ER and now re-admitted. Acute on chronic respiratory distress multifactorial: baseline COPD with 2L NC, HCAP, and decompensated CHF rt middle lobe PNA-continue on Vanc & Odette started 08/30. Switched from po to IV lasix, given recent rising BNP. Pulm c/s'ed, appreciated input: switched from IV steroids to po, and started on Symbicort & Spiriva awaiting sputum cx ordered 08/31 continue supplemental O2, neb tx, maintain O2 88-92% collapsed rt middle lobe-continue acapella and IS Moderate Rt pleural effusion s/p thoracentesis 09/02 with 410mL removed. Per Light's Criteria = 0.3, transudative, CHF vs cirrhosis. Per pulm, unlikely empyema fluid cultures & pathology pending. She did have ascites on admission chest ct. Liver US negative for cirrhotic appearing liver. Labs pending effusion likely 2/2 chf vs less likely malignancy. Continue diuresis COPD with chronic interstitial fibrosis chronically on 2L NC, but remains on 3-4L per pulm, continue on maintenance po steroid & inhalers Acutely decompensated diastolic CHF last echo 05/2018: EF 55%, and grade 1 diastolic dysfunction rising BNP, switched from po to IV lasix. Strict I/O, daily wt -------- -CAD s/p PCI. Continue ASA -CKD IV stable, baseline Cr 1.8-2 -Diabetes ISS inpt replacing home Glipizide & Lantus -Depression stable, cont celexa -Hx Crohn's disease not on any meds DVT ppx: heparin sc DISPO: pending clinical improvement. VS, I&O, 24H, Fishbone VS, I&O, 24H, Fishbone Vital Signs/I&O Vital Signs Date Time Temp Pulse Resp B/P (MAP) Pulse Ox O2 Delivery O2 Flow Rate FiO2 09/05/18 04:00 3.0 09/05/18 04:00 98.5 65 18 106/58 (74) 98 08/30/18 17:33 Nasal Cannula I&O- Last 24 Hours up to 6 AM 09/05/18 05:59 Intake Total 890 ml Output Total 1850 ml Balance -960 ml Laboratory Data 24H LABS Laboratory Tests 2 09/04/18 10:56: Vancomycin Level Trough 24.9H 09/04/18 11:32: Bedside Glucose (Misc Panel) 135H 09/04/18 16:18: Bedside Glucose (Misc Panel) 157H 09/04/18 19:19: Bedside Glucose (Misc Panel) 194H 09/05/18 04:57: Nucleated Red Blood Cells % (auto) 0.0, Anion Gap 6L, Glomerular Filtration Rate 30.9L, Blood Urea Nitrogen 50H, Creatinine 1.69H, Sodium Level 138, Potassium Level 3.8, Chloride Level 96L, Carbon Dioxide Level 36H, Calcium Level 10.0, Magnesium Level 2.1, C-Reactive Protein, Quantitative 2.54H, GB-[id number]-Type Natriuretic Peptide 89424F CBC/BMP Laboratory Tests 09/05/18 04:57 Red Blood Count 3.86 L, Mean Corpuscular Volume 92.0, Mean Corpuscular Hemoglobin 27.5, Mean Corpuscular Hemoglobin Concent 29.9 L, Red Cell Distribution Width 15.9 H, Calcium Level 10.0 Microbiology Microbiology 08/30/18 Blood Culture - Final, Complete NO GROWTH AFTER 5 DAYS 08/30/18 Blood Culture - Final, Complete NO GROWTH AFTER 5 DAYS 09/02/18 Acid Fast Stain, Received Pending 09/02/18 Mycobacterial Culture, Received Pending 09/02/18 Fungal Smear, Received Pending 09/02/18 Fungal Culture, Received Pending 09/02/18 Gram Stain - Final, Complete 09/02/18 Anaerobic Culture - Final, Complete 09/02/18 Body Fluid Culture - Final, Complete 09/01/18 MRSA Screen - Final, Complete 09/01/18 Respiratory Virus Panel (PCR) ([facility]) - Final, Complete GME ATTESTATION GME ATTESTATION My faculty preceptor for this patient encounter was physically present during the encounter and was fully available. All aspects of the patient interview, exa mination, medical decision making process, and medical care plan development were reviewed and approved by the faculty preceptor. The faculty preceptor is aware and concurs with the plan as stated in the body of this note and will attest to such by his/her cosignature. ROSA BROOKS DO Sep 05, 2018 08:57
[2018-09-05 09:12] LABS: HEPATITIS B SURFACE ANTIGEN NEGATIVE (NEGATIVE)
[2018-09-05] MEDS: LEVEMIR (INSULIN DETEMIR) 1 UNITS/0.01ML SC SCH (09:21)
[2018-09-05] MEDS: predniSONE 10 MG TAB PO SCH (09:22)
[2018-09-05] MEDS: ASPIRIN 81 MG ENTERIC TAB PO SCH (09:22)
[2018-09-05] MEDS: CitaloPRAM (CeleXA) 10 MG TABLET PO SCH (09:22)
[2018-09-05] MEDS: CALCITRIOL 0.25 MCG CAP (S0169) PO SCH (09:22)
[2018-09-05 09:39] LABS: HEPATITIS C VIRUS ABY INDEX < 0.0 INDEX (<0.8)
[2018-09-05 09:40] LABS: HEPATITIS B CORE ANTIBODY IGM NEGATIVE (NEGATIVE)
[2018-09-05 09:41] LABS: HEPATITIS A ANTIBODY IGM NEGATIVE (NEGATIVE)
[2018-09-05] MEDS: VANCOMYCIN HCL 500 MG in D5W MINI-BAG PLUS 100 ML IV SCH ×2 (22:57→23:44)
[2018-09-06] MEDS: FUROSEMIDE 40 MG/4 ML VIAL (J1940) IV SCH ×3 (00:17→16:56)
[2018-09-06 00:20] VITALS: BP 112/60
[2018-09-06] MEDS: IPRATROPIUM 0.5MG/ALBUTEROL 2.5MG INH SOL UD 3ML (DUONEB)(J7620) NEB SCH ×6 (03:48→23:39)
[2018-09-06] MEDS: HEPARIN SOD (PORCINE) 5000 UNITS/ML VIAL SQ SCH ×3 (04:57→21:38)
[2018-09-06] MEDS: SLF 3 ML SYR IV SCH ×3 (04:57→21:39)
[2018-09-06 05:00] VITALS: BP 122/60
[2018-09-06 05:44] LABS: HEMATOCRIT 32.6 % (36.0-47.0); HEMOGLOBIN 9.8 g/dl (12.0-15.5); MEAN CORPUSCULAR HEMOGLOBIN 27.5 pg (27.0-33.0); MEAN CORPUSCULAR HGB CONC 30.1 g/dl (32.0-36.5); MEAN CORPUSCULAR VOLUME 91.6 fl (80.0-96.0); PLATELET COUNT, AUTOMATED 340 10^3/uL (150-450); RED BLOOD COUNT 3.56 10^6/uL (4.00-5.40); WHITE BLOOD COUNT 8.2 10^3/uL (4.0-10.0)
[2018-09-06 05:57] LABS: C REACTIVE PROTEIN QUANTITATIV 2.58 MG/DL (0.00-0.30); CALCIUM LEVEL 9.7 MG/DL (8.8-10.2); CREATININE FOR GFR 1.62 MG/DL (0.55-1.30); GLOMERULAR FILTRATION RATE 32.5 (>32); MAGNESIUM LEVEL 1.9 MG/DL (1.8-2.4); POTASSIUM SERUM 3.6 MEQ/L (3.5-5.1)
[2018-09-06] MEDS: SYMBICORT 80/4.5MCG INHALER 6GM INH SCH ×2 (07:05→19:31)
[2018-09-06] MEDS: TIOTROPIUM INHALER/CAPSULE (SPIRIVA) INH SCH (07:05)
[2018-09-06] MEDS: HumaLOG INSULIN (NovoLOG) PER UNIT SC SCH ×4 (07:44→20:13)
[2018-09-06 08:00] VITALS: BP 110/68
[2018-09-06] MEDS: CALCITRIOL 0.25 MCG CAP (S0169) PO SCH (08:37)
[2018-09-06] MEDS: ASPIRIN 81 MG ENTERIC TAB PO SCH (08:37)
[2018-09-06] MEDS: CitaloPRAM (CeleXA) 10 MG TABLET PO SCH (08:37)
[2018-09-06] MEDS: LEVEMIR (INSULIN DETEMIR) 1 UNITS/0.01ML SC SCH (08:37)
[2018-09-06] MEDS: predniSONE 10 MG TAB PO SCH (08:37)
[2018-09-06 12:00] VITALS: BP 118/58
--- NOTE | 2018-09-06 15:29 | IPNPDOC ---
Date Seen The patient was seen on 09/06/18. Progress Note S: pt seen at bedside. She feels much improved and is eager to go home. Diuresing well and no issues overnight. No f/n/v/changes in bowel habits/cp PE: General: pleasant elderly frail-appearing female, A&O, NAD HEENT: EOMI, NCAT, anicteric sclera CV: RRR Pulm: distant lung sounds, fine bibasilar crackles, equal chest rise. On 3L NC GI: normoactive bowel sounds, soft, NT, ND MSK: able to move all extremities Extremities: 2+ radial pulses. 2+ pitting edema b/l A/P: 82 yo F recently discharged for CAP, but didn't improve at home, thus returned to ER and now re-admitted. Acute on chronic respiratory distress multifactorial: baseline COPD with 2L NC, HCAP, and decompensated CHF s/p Vanc & roverto continue diuresis with IV lasix Per Pulm, continue maintenance po steroid and Symbicort & Spiriva continue supplemental O2, neb tx, maintain O2 88-92% collapsed rt middle lobe-continue acapella and IS Acutely decompensated diastolic CHF last echo 05/2018: EF 55%, and grade 1 diastolic dysfunction rising BNP, switched from po to IV lasix. Strict I/O, daily wt HCAP of rt middle lobe s/p 7-day course Vanc & Roverto completed 09/05. no fever. Leukocytosis resolved Moderate Rt pleural effusion s/p thoracentesis 09/02 with 410mL removed. Transudative, likely 2/2 decomp ensated CHF. Continue IV lasix fluid cultures & pathology neg thus far. She did have ascites on admission chest ct. Liver US negative for cirrhotic appearing liver. Labs pending COPD with chronic interstitial fibrosis chronically on 2L NC on maintenance po prednisone 10mg & inhalers -------- -CAD s/p PCI. Continue ASA -CKD IV stable, baseline Cr 1.8-2 -Diabetes ISS inpt replacing home Glipizide & Lantus -Depression stable, cont celexa -Hx Crohn's disease not on any meds DVT ppx: heparin sc DISPO: pending clinical improvement. Likely d/c tomorrow. VS, I&O, 24H, Fishbone Vital Signs/I&O Vital Signs Date Time Temp Pulse Resp B/P (MAP) Pulse Ox O2 Delivery O2 Flow Rate FiO2 09/06/18 12:00 99.6 109 20 118/58 (78) 90 3.0 I&O- Last 24 Hours up to 6 AM 09/06/18 06:00 Intake Total 530 ml Output Total 1500 ml Balance -970 ml Laboratory Data 24H LABS Laboratory Tests 2 09/05/18 16:21: Bedside Glucose (Misc Panel) 106 09/05/18 22:36: Bedside Glucose (Misc Panel) 153H 09/06/18 05:24: Nucleated Red Blood Cells % (auto) 0.0, Anion Gap 6L, Glomerular Filtration Rate 32.5, Blood Urea Nitrogen 49H, Creatinine 1.62H, Sodium Level 139, Potassium Level 3.6, Chloride Level 94L, Carbon Dioxide Level 39H, Calcium Level 9.7, Magnesium Level 1.9, C-Reactive Protein, Quantitative 2.58H, [id number]-[id number]-Type Natriuretic Peptide [id number] 09/06/18 11:30: Bedside Glucose (Misc Panel) 141H CBC/BMP Laboratory Tests 09/06/18 05:24 Red Blood Count 3.56 L, Mean Corpuscular Volume 91.6, Mean Corpuscular Hemoglobin 27.5, Mean Corpuscular Hemoglobin Concent 30.1 L, Red Cell Distribution Width 15.8 H, Calcium Level 9.7 Microbiology Microbiology 08/30/18 Blood Culture - Final, Complete NO GROWTH AFTER 5 DAYS 08/30/18 Blood Culture - Final, Complete NO GROWTH AFTER 5 DAYS 09/02/18 Acid Fast Stain, Received Pending 09/02/18 Mycobacterial Culture, Received Pending 09/02/18 Fungal Smear, Received Pending 09/02/18 Fungal Culture, Received Pending 09/02/18 Gram Stain - Final, Complete 09/02/18 Anaerobic Culture - Final, Complete 09/02/18 Body Fluid Culture - Final, Complete 09/01/18 MRSA Screen - Final, Complete 09/01/18 Respiratory Virus Panel (PCR) ([facility]) - Final, Complete GME ATTESTATION GME ATTESTATION My faculty preceptor for this patient encounter was physically present during the encounter and was fully available. All aspects of the patient interview, examination, medical decision making process, and medical care plan development were reviewed and approved by the faculty preceptor. The faculty preceptor is aware and concurs with the plan as stated in the body of this note and will attest to such by his/her cosignature. ROSA BROOKS DO Sep 06, 2018 14:56
[2018-09-06 16:00] VITALS: BP 112/58
[2018-09-06 20:00] VITALS: BP 134/72
[2018-09-07] VITALS: BP 129/60
[2018-09-07 00:07] LABS: ALPHA 1 ANTITRYPSIN 187 mg/dL (90-200); ANTI-MITOCHONDRIAL ANTIBODY <20.0 Units (0.0-20.0); ANTI-SMOOTH MUSCLE ANTIBODY 10 Units (0-19); ANTINUCLEAR ANTIBODIES DIRECT Negative (Negative); CERULOPLASMIN 35.8 mg/dL (19.0-39.0); LIVER-KIDNEY MICROSOMAL ABY <20.1 Units (0.0-20.0)
[2018-09-07] MEDS: FUROSEMIDE 40 MG/4 ML VIAL (J1940) IV SCH ×2 (00:18→08:02)
[2018-09-07 04:00] VITALS: BP 102/64
[2018-09-07] MEDS: IPRATROPIUM 0.5MG/ALBUTEROL 2.5MG INH SOL UD 3ML (DUONEB)(J7620) NEB SCH ×2 (04:00→08:00)
[2018-09-07] MEDS: SLF 3 ML SYR IV SCH (05:05)
[2018-09-07] MEDS: HEPARIN SOD (PORCINE) 5000 UNITS/ML VIAL SQ SCH (05:05)
[2018-09-07 05:09] LABS: HEMATOCRIT 33.6 % (36.0-47.0); MEAN CORPUSCULAR HGB CONC 29.8 g/dl (32.0-36.5); MEAN CORPUSCULAR VOLUME 90.8 fl (80.0-96.0); PLATELET COUNT, AUTOMATED 361 10^3/uL (150-450); WHITE BLOOD COUNT 9.4 10^3/uL (4.0-10.0)
[2018-09-07 05:33] LABS: CALCIUM LEVEL 9.7 MG/DL (8.8-10.2); CREATININE FOR GFR 1.78 MG/DL (0.55-1.30); GLOMERULAR FILTRATION RATE 29.1 (>32); POTASSIUM SERUM 3.5 MEQ/L (3.5-5.1)
[2018-09-07] MEDS ORDERED: LASI40TA9 PO ×2 (07:57→08:10)
[2018-09-07] MEDS ORDERED: TIOT18INH INH (07:57)
[2018-09-07] MEDS ORDERED: SYMB80INH INH ×2 (07:57→11:59)
[2018-09-07] MEDS: HumaLOG INSULIN (NovoLOG) PER UNIT SC SCH ×2 (07:59→12:01)
[2018-09-07 08:00] VITALS: BP 105/72
[2018-09-07] MEDS: LEVEMIR (INSULIN DETEMIR) 1 UNITS/0.01ML SC SCH (08:00)
[2018-09-07] MEDS: ASPIRIN 81 MG ENTERIC TAB PO SCH (08:01)
[2018-09-07] MEDS: CitaloPRAM (CeleXA) 10 MG TABLET PO SCH (08:01)
[2018-09-07] MEDS: CALCITRIOL 0.25 MCG CAP (S0169) PO SCH (08:01)
[2018-09-07] MEDS: predniSONE 10 MG TAB PO SCH (08:01)
[2018-09-07] MEDS: TIOTROPIUM INHALER/CAPSULE (SPIRIVA) INH SCH (08:40)
[2018-09-07] MEDS: SYMBICORT 80/4.5MCG INHALER 6GM INH SCH (08:41)
--- NOTE | 2018-09-07 11:25 | DS.PDOC ---
Discharge Summary General Date of Admission Aug 30, 2018 at 16:46 Date of Discharge 09/07/18 Primary Care Physician: Yaakov Archuleta Attending Physician: ARMANDO CAT MD Specialist/Consultants Involve: Nuzhat CROFT MD Discharge Summary PROCEDURES PERFORMED DURING STAY: right-side thoracentesis ADMITTING DIAGNOSES: 1. Acute hypoxic respiratory distress 2. Right middle lobe hospital-acquired PNA DISCHARGE DIAGNOSES: 1. Acute hypoxic respiratory distress 2. Right middle lobe hospital-acquired PNA 3. Decompensated diastolic CHF 4. Ascites 2/2 decompensated CHF COPD with interstitial fibrosis CAD CKD IV IDDM2 Depression Hx of Crohn's COMPLICATIONS/CHIEF COMPLAINT: Rml Pneumonia. HISTORY OF PRESENT ILLNESS: 82-year-old female recently discharged for community acquired pneumonia, home on by mouth antibiotics, however did not improve. She returned to ER for worsening shortness of breath. On admission, she is fontanelle have a right middle lobe pneumonia, patient was started on Vanco meropenem. On the previous admission and this admission, staff are unable to obtain sputum culture. Patient at baseline is on 2 L nasal cannula however was requiring 45 L on admission. HOSPITAL COURSE: During her stay, she was found to have an elevated proBNP greater than 55,000, however she appeared euvolemic on exam, in BNP improved with her regular home by mouth Lasix 40 MG. Blood cultures and respiratory panel were negative, WBC normalized, however CRP was trending up and she is not clinically improving. Therefore, pulmonology was consulted. Repeat imaging revealed a worsening effusion-source was unclear, and thus she underwent thoracentesis with 410 mL removed. Fluid was transudate is and was likely 2/2 decompensated CHF. Pulmonology resumed her home 10 MG by mouth steroid and started her on Symbicort and Spiriva. She underwent diuresis with IV Lasix, and gradually improved, back down to her baseline 2 L nasal cannula. Her BNP started to trend down, and patient ambulated well with sats remaining in the low 90s on her baseline 2 L nasal cannula. Of note, on admission, she was found to have a scites, as well as decreased albumin and elevated PT. There is concern of possible cirrhosis. Workup was negative, and ascites was likely 2/2 decompensated CHF. Patient felt back to her normal self, and discharged home to follow-up closely with her PCP. At time of discharge, all cultures are negative, however some pleural fluid labs are still pending. Pathology and cytology from thoracentesis was negative. DISCHARGE MEDICATIONS: Please see below. ALLERGIES: Please see below. PHYSICAL EXAMINATION ON DISCHARGE: VITAL SIGNS: Please see below. General: pleasant elderly frail-appearing female laying in bed, A&Ox3 HEENT: NCAT, anicteric sclera, MMM CV: RRR Pulm: distant lung sounds, Equal chest rise. CTAB GI: normoactive bowel sounds, soft, NT, ND MSK: able to move all extremities Extremities: 2+ radial pulses. LABORATORY DATA: Please see below. IMAGING: * 08/30/2018 CXR: 1. Chronic interstitial fibrosis. 2. Right middle lobe and lower lobe infiltrates. The right middle lobe infiltrate is new. 3. Cardiomegaly. * 09/01/[address]: The right pleural effusion has increased in size. There is complete collapse of the right middle lobe as an interval change. Suspect inspissated material in the proximal right middle lobe bronchus. The right upper lobe nodule identified on the comparison study is obscured by the right middle lobe atelectasis on the study today. Ascites in the visualized upper abdomen, slightly increased from the comparison study. * 09/02/2018 CXR: Right perihilar density compatible with the collapsed right middle lobe identified on the comparison CT. Right pleural effusion. Questionable left pleural effusion. * 09/02/2018 thoracentesis ultrasound: 410 ml of yellow fluid was withdrawn and sent to the lab for analysis. * 09/02/2018 post thoracentesis CXR: The patient had right thoracentesis. There is no pneumothorax. There is decreased right pleural effusion. Increased interstitial opacities in the lung bases are unchanged. Cardiomediastinal silhouette is unchanged. * 09/03/2018 liver ultrasound:1. No fatty infiltration or coarsening of the echotexture of the liver, there is no gross hepatomegaly or focal hepatic lesion. 2. No biliary dilatation nor adjacent ascites in the right upper quadrant. 3. Common duct 4.6 mm and normal with the gallbladder surgically absent. 4. Pancreas absent, and the kidney shows slight decrease in overall length, some cortical hyperechogenicity suggesting chronic medical renal disease. There are multiple cysts, the largest 3 x 2.8 cm in the lower pole. PROGNOSIS: fair ACTIVITY: As tolerated. DIET: 2g sodium, 1800cc fluid restriction DISPOSITION: home DISCHARGE INSTRUCTIONS: 1. F/U with PCP within 1 week 2. Return to ER for emergency 3. Med changes: Stop Trelegy. Start Symbicort and Spiriva DISCHARGE CONDITION: Stable. TIME SPENT ON DISCHARGE: Greater than 35 minutes. Vital Signs/I&Os Vital Signs Date Time Temp Pulse Resp B/P (MAP) Pulse Ox O2 Delivery O2 Flow Rate FiO2 09/07/18 08:00 2.0 09/07/18 08:00 99.0 95 20 105/72 (83) 90 09/06/18 23:40 Nasal Cannula I&O- Last 24 Hours up to 6 AM 09/07/18 06:00 Intake Total 1200 ml Output Total 1650 ml Balance -450 ml Laboratory Data Labs 24H Laboratory Tests 2 09/06/18 11:30: Bedside Glucose (Misc Panel) 141H 09/06/18 16:07: Bedside Glucose (Misc Panel) 136H 09/06/18 19:46: Bedside Glucose (Misc Panel) 161H 09/07/18 05:02: Nucleated Red Blood Cells % (auto) 0.0, Anion Gap 5L, Glomerular Filtration Rate 29.1L, Blood Urea Nitrogen 43H, Creatinine 1.78H, Sodium Level 138, Potassium Level 3.5, Chloride Level 95L, Carbon Dioxide Level 38H, Calcium Level 9.7, Magnesium Level 2.0 CBC/BMP Laboratory Tests 09/07/18 05:02 Red Blood Count 3.70 L, Mean Corpuscular Volume 90.8, Mean Corpuscular Hemoglobin 27.0, Mean Corpuscular Hemoglobin Concent 29.8 L, Red Cell Distribution Width 15.9 H, Calcium Level 9.7 FSBS Laboratory Tests Test 09/06/18 11:30 09/06/18 16:07 09/06/18 19:46 Range/Units Bedside Glucose (Misc Panel) 141 136 161 83-110 MG/DL Microbiology Microbiology 08/30/18 Blood Culture - Final, Complete NO GROWTH AFTER 5 DAYS 08/30/18 Blood Culture - Final, Complete NO GROWTH AFTER 5 DAYS 09/02/18 Acid Fast Stain, Received Pending 09/02/18 Mycobacterial Culture, Received Pending 09/02/18 Fungal Smear, Received Pending 09/02/18 Fungal Culture, Received Pending 09/02/18 Gram Stain - Final, Complete 09/02/18 Anaerobic Culture - Final, Complete 09/02/18 Body Fluid Culture - Final, Complete 09/01/18 MRSA Screen - Final, Complete 09/01/18 Respiratory Virus Panel (PCR) ([facility]) - Final, Complete Discharge Medications Scheduled (Trelegy Ellipta 100-62.5-25 Mcg/INH) 1 Aer Aer, 1 PUFF INH DAILY, (Reported) Aspirin (Aspirin EC) 81 Mg Tabec, 81 MG PO DAILY, (Reported) Budesonide/Formoterol (Symbicort 80-4.5 Mcg/Act) 60 Puff/Inhaler Aers, 2 PUFF INH BID Calcitriol (Calcitriol) 0.25 Mcg Cap, 0.25 MG PO DAILY, (Reported) Citalopram Hydrobromide (Citalopram) 10 Mg Tab, 10 MG PO DAILY, (Reported) Furosemide (Lasix) 40 Mg Tab, 40 MG PO DAILY, (Reported) Furosemide (Lasix) 40 Mg Tab, 1 TAB PO DAILY Glipizide (Glipizide) 5 Mg Tab, 5 MG PO DAILY, (Reported) Insulin Glargine (Lantus) 1 Units/0.01 Ml Susp, 15 UNITS SC DAILY, (Reported) Melatonin (Melatonin) 5 Mg Tab, 10 MG PO QHS, (Reported) Prednisone (Prednisone) 10 Mg Tab, 10 MG PO DAILY, (Reported) Tiotropium [place] Monohydrate (Spiriva Handihaler) 5 Inhalation/Inhaler Powd, 1 INHALATION INH DAILY@08 Scheduled PRN Albuterol Sulfate (Proair Hfa) 108 Mcg/Act Aer, 2 PUFF INH Q4H PRN for SHORTNESS OF BREATH, (Reported) Albuterol Sulfate (Albuterol Sulfate) 0.63 Mg/3 Ml Neb, 0.63 MG INH Q4H PRN for SHORTNESS OF BREATH, (Reported) Allergies Coded Allergies: Penicillins (Verified Allergy, Intermediate, DIZZINESS/RASH, 08/30/18) GME ATTESTATION GME ATTESTATION My faculty preceptor for this patient encounter was physically present during the encounter and was fully available. All aspects of the patient interview, examination, medical decision making process, and medical care plan development were reviewed and approved by the faculty preceptor. The faculty preceptor is aware and concurs with the plan as stated in the body of this note and will attest to such by his/her cosignature. ROSA BROOKS DO Sep 07, 2018 11:25
[2018-09-07] MEDS ORDERED: SPIR1CAP INH (11:57)
== END 2018-09-07 12:44 | disposition home or self-care (01) | DRG 193 ==
LOC: M ED 12:02 → M ED INP 14:28 → OBSVTOIN 16:46 → M MSPAV 09-01 12:12 → M ICU 09-02 08:15 → M PCU 09-02 16:51
PROVIDERS: ADMIT Internal Medicine; ATTEND Internal Medicine
PROC: 0W993ZZ Drainage of Right Pleural Cavity, Percutaneous Approach (ICD-10-PCS; principal; 2018-09-02)
DX: J18.9 Pneumonia, unspecified organism (principal); I50.33 Acute on chronic diastolic (congestive) heart failure; N18.4 Chronic kidney disease, stage 4 (severe); I13.0 Hypertensive heart and chronic kidney disease with heart failure and stage 1 through stage 4 chronic kidney disease, or unspecified chronic kidney disease; J44.1 Chronic obstructive pulmonary disease with (acute) exacerbation; R18.8 Other ascites; J90 Pleural effusion, not elsewhere classified; J96.11 Chronic respiratory failure with hypoxia; J84.10 Pulmonary fibrosis, unspecified; E11.9 Type 2 diabetes mellitus without complications; I25.10 Atherosclerotic heart disease of native coronary artery without angina pectoris; F32.9 Major depressive disorder, single episode, unspecified; Z79.82 Long term (current) use of aspirin; Z79.899 Other long term (current) drug therapy; Z79.4 Long term (current) use of insulin; Z88.0 Allergy status to penicillin; Z99.81 Dependence on supplemental oxygen; Z87.891 Personal history of nicotine dependence; Z95.0 Presence of cardiac pacemaker; K52.9 Noninfective gastroenteritis and colitis, unspecified; R91.1 Solitary pulmonary nodule; I95.9 Hypotension, unspecified

== ENCOUNTER 2018-09-09 14:33 | Emergency (ER) | payer MEDICARE ==
[~2018-09-09] VITALS: Ht 154.9 cm; Wt 54.5 kg
[~2018-09-09 14:33] MED LIST changes: +CITA-229 PO; +SYMB80INH INH; +TIOT18INH INH; +TREL1AER INH
[2018-09-09 15:18] LABS: BASO % 0.3 % (0.0-1.0); EOS # 0.1 10^3/uL (0.0-0.50); EOS % 0.7 % (0.0-3.0); HEMATOCRIT 35.7 % (36.0-47.0); HEMOGLOBIN 10.7 g/dl (12.0-15.5); LYMPH # 0.8 10^3/uL (1.5-4.5); LYMPH % 5.6 % (24.0-44.0); MEAN CORPUSCULAR VOLUME 89.9 fl (80.0-96.0); MONO # 0.9 10^3/uL (0.0-0.8); NEUTROPHILS # 12.9 10^3/uL (1.8-7.7); NEUTROPHILS % 86.5 % (36.0-66.0); PLATELET COUNT, AUTOMATED 467 10^3/uL (150-450); RED BLOOD COUNT 3.97 10^6/uL (4.00-5.40); WHITE BLOOD COUNT 14.9 10^3/uL (4.0-10.0)
[2018-09-09] MEDS ORDERED: DEXTROSE 50% 50 ML SYRINGE IV STA (15:52)
[2018-09-09 15:53] LABS: ALBUMIN 3.3 GM/DL (3.2-5.2); BILIRUBIN,DIRECT 0.3 MG/DL (0.0-0.2); BILIRUBIN,TOTAL 0.7 MG/DL (0.2-1.0); CALCIUM LEVEL 10.6 MG/DL (8.8-10.2); CREATININE FOR GFR 1.72 MG/DL (0.55-1.30); GLOMERULAR FILTRATION RATE 30.3 (>32); MB/CK RELATIVE INDEX 7.5 (< OR =4); POTASSIUM SERUM 3.1 MEQ/L (3.5-5.1); TROPONIN I 0.03 NG/ML (< 0.10)
--- NOTE | 2018-09-09 16:30 | REP ---
CT Head without contrast HISTORY: Altered mental status COMPARISON: 08/05/2018 Areas of decreased attenuation are present in the periventricular white matter. This represents small-vessel ischemic disease. There is no intraparenchymal hemorrhage, acute infarct, mass or midline shift. The ventricular system and cortical sulci as well as subarachnoid space in the posterior fossa are dilated consistent with moderate volume loss. There is no extra cerebral collection. There is no fracture. The visualized sinuses are clear. IMPRESSION: 1. Small vessel ischemic disease. 2. Moderate volume loss. Electronically Signed by Joshua Kaur MD 09/09/2018 04:23 P
--- NOTE | 2018-09-09 16:54 | REP ---
CHEST: There is a pacemaker in the left anterior chest. There are two pacemaker leads, one extends in the right atrium and the second into the inflow tract of the right ventricle. The heart is slightly enlarged. The polar vascularity of the right side appears to be slightly prominent but this may be secondary to rotation of the chest. The diaphragms, the main lungs, mediastinum and bony thorax were unremarkable. There are calcified plaques in the aortic arch. IMPRESSION: Cardiac enlargement and vascular congestion. Pacemaker leads as described. Minimal cardiac enlargement. Unreviewed MTDD
[2018-09-09] MEDS ORDERED: POTASSIUM CHLORIDE 10 MEQ SR TABLET PO ONE (17:30)
--- NOTE | 2018-09-09 17:46 | ECGEPIP ---
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
[2018-09-09] MEDS ORDERED: NS 500 ML IV ONE (18:00)
[2018-09-09 19:03] VITALS: BP 95/50
== END 2018-09-09 20:04 | disposition home or self-care (01) ==
LOC: EDBD 14:33 → M ED 14:33
DX: E16.2 Hypoglycemia, unspecified (principal); E87.6 Hypokalemia; Z99.81 Dependence on supplemental oxygen; Z79.899 Other long term (current) drug therapy; Z79.4 Long term (current) use of insulin; Z79.82 Long term (current) use of aspirin

== ENCOUNTER → 2018-10-06 | Outpatient (REF) | payer MEDICARE ==
[2018-10-06 14:03] LABS: HEMATOCRIT 36.5 % (36.0-47.0); HEMOGLOBIN 10.3 g/dl (12.0-15.5); MEAN CORPUSCULAR HEMOGLOBIN 25.8 pg (27.0-33.0); MEAN CORPUSCULAR HGB CONC 28.2 g/dl (32.0-36.5); MEAN CORPUSCULAR VOLUME 91.3 fl (80.0-96.0); PLATELET COUNT, AUTOMATED 356 10^3/uL (150-450)
[2018-10-06 14:10] LABS: ALBUMIN 3.5 GM/DL (3.2-5.2); BILIRUBIN,TOTAL 0.5 MG/DL (0.2-1.0); CALCIUM LEVEL 11.1 MG/DL (8.8-10.2); CREATININE FOR GFR 1.73 MG/DL (0.55-1.30); GLOMERULAR FILTRATION RATE 30.1 (>32); POTASSIUM SERUM 3.9 MEQ/L (3.5-5.1); TOTAL PROTEIN 6.6 GM/DL (6.4-8.2)
[2018-10-06 14:17] LABS: CREATININE, URINE 27.7 MG/DL; MAU/CREAT RATIO 140.7 MCG/MG (0.0-30.0)
[2018-10-06 14:19] LABS: PTH INTACT 24.3 PG/ML (18.5-88.0)
[2018-10-06 14:37] LABS: HEMOGLOBIN A1c 9.5 %
== END ==
LOC: M LABDRAW1 13:09
PROVIDERS: ATTEND Internal Medicine
DX: G62.9 Polyneuropathy, unspecified (principal); E11.22 Type 2 diabetes mellitus with diabetic chronic kidney disease; E61.1 Iron deficiency

== ENCOUNTER 2018-11-10 05:54 | Inpatient (IN) | payer MEDICARE ==
[~2018-11-10] VITALS: Ht 152.4 cm; Wt 50.6 kg
[~2018-11-10 05:54] MED LIST changes: -/ADVA50050; -/GLIM2TA; -/GLIM4TA; -/MOXI40TA; -/TIOT18INH; +ADVA1AER2; +AGGR1CAP; -AGGRCAP; +AMAR1TAB5; +AMAR1TAB6; +AVEL1TAB2; -CITA-229 PO; +CITA10TA6 PO; +METO-745; +SPIR1CAP; -TOPR100T
[2018-11-10 06:28] LABS: ABG BASE EXCESS -3.4 (-2.0-2.0); ABG HCO3 28.3 MEQ/L (22.0-26.0); ABG PARTIAL PRESSURE CO2 92.9 mmHg (35.0-45.0); ABG PARTIAL PRESSURE O2 71.9 mmHg (75.0-100.0); ABG STANDARD HCO3 21.4 MEQ/L (22.0-26.0); ABG TOTAL CO2 31.2 MEQ/L (23.0-31.0); ABG pH (ARTERIAL) 7.102 UNITS (7.350-7.450)
[2018-11-10 06:30] VITALS: O2SAT 93
[2018-11-10 06:34] LABS: HEMATOCRIT 41.4 % (36.0-47.0); HEMOGLOBIN 12.2 g/dl (12.0-15.5); MEAN CORPUSCULAR HEMOGLOBIN 26.9 pg (27.0-33.0); MEAN CORPUSCULAR HGB CONC 29.5 g/dl (32.0-36.5); MEAN CORPUSCULAR VOLUME 91.2 fl (80.0-96.0); PLATELET COUNT, AUTOMATED 430 10^3/uL (150-450); RED BLOOD COUNT 4.54 10^6/uL (4.00-5.40)
[2018-11-10] MEDS ORDERED: ABIL10TA9 PO (06:43)
[2018-11-10] MEDS ORDERED: HUMA75VLDS SC (06:43)
[2018-11-10] MEDS ORDERED: SYMB16INH INH (06:43)
[2018-11-10] MEDS ORDERED: TIOT18INH INH (06:43)
[2018-11-10] MEDS ORDERED: IMIPENEM/CILASTATIN 500 MG in D5W MINI-BAG PLUS 100 ML IV ONE (06:45)
[2018-11-10] MEDS ORDERED: IPRATROPIUM 0.5MG/ALBUTEROL 2.5MG INH SOL UD 3ML (DUONEB)(J7620) NEB SCH (06:45)
[2018-11-10 06:58] LABS: CALCIUM LEVEL 9.7 MG/DL (8.8-10.2); CREATININE FOR GFR 2.16 MG/DL (0.55-1.30); GLOMERULAR FILTRATION RATE 23.3 (>32); MB/CK RELATIVE INDEX 6.2 (< OR =4); TROPONIN I 0.06 NG/ML (< 0.10)
[2018-11-10 07:08] LABS: WHITE BLOOD COUNT 36.3 10^3/uL (4.0-10.0)
[2018-11-10 07:34] LABS: ATYPICAL LYMPH 1 % (0-5); EOSINOPHILS 1 % (0-5); LYMPHOCYTES 26 % (16-52); MONOCYTES 4 % (0-8); NEUTROPHILS 64 % (35-75); PLATELET ESTIMATE NORMAL (NORMAL)
[2018-11-10 07:35] LABS: ANISOCYTOSIS 1+; OVALOCYTES 1+; POIKILOCYTOSIS 1+
[2018-11-10 08:34] LABS: ABG BASE EXCESS -2.6 (-2.0-2.0); ABG O2 SATURATION 99.3 % (95.0-99.0); ABG PARTIAL PRESSURE CO2 49.3 mmHg (35.0-45.0); ABG STANDARD HCO3 22.3 MEQ/L (22.0-26.0); ABG TOTAL CO2 25.5 MEQ/L (23.0-31.0); ABG pH (ARTERIAL) 7.305 UNITS (7.350-7.450)
[2018-11-10] MEDS: DOCUSATE SODIUM 100 MG CAP PO SCH ×2 (09:00→12:13)
[2018-11-10] MEDS ORDERED: CitaloPRAM (CeleXA) 10 MG TABLET PO SCH (09:00)
[2018-11-10] MEDS: SYMBICORT 160/4.5MCG INHALER 6GM INH SCH ×2 (09:00→21:24)
--- NOTE | 2018-11-10 09:09 | REP ---
Chest one-view HISTORY: Cough Comparison: 09/09/2018 Patchy density is present in the left lower lobe consistent with atelectasis or infiltrate. Small bilateral pleural effusions are present. The cardiac silhouette is enlarged. The pulmonary vasculature is normal in appearance. A cardiac pacemaker is present. Impression: 1. Left lower lobe atelectasis or infiltrate. 2. Small bilateral pleural effusions. 3. Cardiomegaly. Electronically Signed by Joshua Kaur MD 11/10/2018 09:00 A
[2018-11-10] MEDS ORDERED: ACETAMINOPHEN TAB 650MG DOSE (2X325MG) PO PRN (09:30)
[2018-11-10 10:44] VITALS: BP 108/55
[2018-11-10] MEDS ORDERED: DEXTROSE 50% 50 ML SYRINGE IV PRN (11:15)
[2018-11-10] MEDS ORDERED: GLUCOSE 4 GM CHEW TABLET PO PRN (11:15)
[2018-11-10] MEDS ORDERED: GLUCAGON FOR INJ 1 MG VIAL (J1610) SC PRN (11:15)
[2018-11-10] MEDS: IPRATROPIUM 0.5MG/ALBUTEROL 2.5MG INH SOL UD 3ML (DUONEB)(J7620) NEB SCH ×3 (12:00→20:00)
[2018-11-10 12:07] VITALS: BP 116/57
[2018-11-10] MEDS: PIPERACILLIN/TAZOBACTAM SOD 2.25 GM in D5W MINI-BAG PLUS 50 ML IV SCH ×2 (12:12→18:14)
[2018-11-10] MEDS: ASPIRIN 81 MG ENTERIC TAB PO SCH (12:13)
[2018-11-10] MEDS: CitaloPRAM (CeleXA) 20 MG TAB PO SCH (12:13)
[2018-11-10] MEDS: FUROSEMIDE 40 MG TAB PO SCH (12:13)
[2018-11-10] MEDS: HEPARIN SOD (PORCINE) 5000 UNITS/ML VIAL SC SCH ×2 (12:14→20:40)
[2018-11-10] MEDS: HumaLOG INSULIN (NovoLOG) PER UNIT SC SCH ×3 (12:23→20:25)
[2018-11-10] MEDS: ARIPiprazole 10 MG TAB PO SCH (13:27)
[2018-11-10 13:29] LABS: ABG BASE EXCESS -4.2 (-2.0-2.0); ABG O2 SATURATION 99.3 % (95.0-99.0); ABG PARTIAL PRESSURE CO2 38.9 mmHg (35.0-45.0); ABG PARTIAL PRESSURE O2 160.4 mmHg (75.0-100.0); ABG TOTAL CO2 22.2 MEQ/L (23.0-31.0)
[2018-11-10] MEDS ORDERED: ALBUTEROL SULFATE 2.5 MG/0.5 ML INH NEB SOLN NEB PRN (15:45)
[2018-11-10 16:13] VITALS: BP 118/59
[2018-11-10] MEDS ORDERED: PNEUMOCOCCAL VACCINE 0.5ML SYRINGE(90732) PNEUMOVAX 23 IM SCH (16:15)
[2018-11-10 17:00] VITALS: BP 123/60
[2018-11-10 20:00] VITALS: BP 115/55
[2018-11-10] MEDS: OMEPRAZOLE 20 MG CAP PO SCH (20:39)
[2018-11-10] MEDS: predniSONE 10 MG TAB PO SCH (20:39)
[2018-11-11] VITALS: BP 131/60
[2018-11-11] MEDS: IPRATROPIUM 0.5MG/ALBUTEROL 2.5MG INH SOL UD 3ML (DUONEB)(J7620) NEB SCH ×6 (01:06→20:00)
[2018-11-11] MEDS: PIPERACILLIN/TAZOBACTAM SOD 2.25 GM in D5W MINI-BAG PLUS 50 ML IV SCH ×4 (01:30→17:17)
[2018-11-11 04:00] VITALS: BP 126/62
[2018-11-11 06:05] LABS: HEMATOCRIT 34.2 % (36.0-47.0); HEMOGLOBIN 10.2 g/dl (12.0-15.5); MEAN CORPUSCULAR HEMOGLOBIN 26.4 pg (27.0-33.0); MEAN CORPUSCULAR HGB CONC 29.8 g/dl (32.0-36.5); MEAN CORPUSCULAR VOLUME 88.6 fl (80.0-96.0); PLATELET COUNT, AUTOMATED 270 10^3/uL (150-450); RED BLOOD COUNT 3.86 10^6/uL (4.00-5.40); WHITE BLOOD COUNT 20.5 10^3/uL (4.0-10.0)
[2018-11-11 06:30] LABS: CALCIUM LEVEL 9.3 MG/DL (8.8-10.2); CREATININE FOR GFR 2.46 MG/DL (0.55-1.30); POTASSIUM SERUM 4.2 MEQ/L (3.5-5.1)
[2018-11-11 08:14] VITALS: BP 105/55
[2018-11-11] MEDS: FUROSEMIDE 40 MG TAB PO SCH (08:34)
[2018-11-11] MEDS: predniSONE 10 MG TAB PO SCH (08:34)
[2018-11-11] MEDS: ASPIRIN 81 MG ENTERIC TAB PO SCH (08:34)
[2018-11-11] MEDS: ARIPiprazole 10 MG TAB PO SCH (08:34)
[2018-11-11] MEDS: OMEPRAZOLE 20 MG CAP PO SCH (08:34)
[2018-11-11] MEDS: DOCUSATE SODIUM 100 MG CAP PO SCH ×2 (08:34→20:53)
[2018-11-11] MEDS: HEPARIN SOD (PORCINE) 5000 UNITS/ML VIAL SC SCH ×3 (08:35→22:40)
[2018-11-11] MEDS: HumaLOG INSULIN (NovoLOG) PER UNIT SC SCH ×4 (08:36→20:54)
[2018-11-11] MEDS: SYMBICORT 160/4.5MCG INHALER 6GM INH SCH ×2 (08:50→20:58)
[2018-11-11] MEDS: CitaloPRAM (CeleXA) 20 MG TAB PO SCH (08:57)
--- NOTE | 2018-11-11 11:48 | HPEPDOC ---
General Date of Admission Nov 10, 2018 at 09:19 Chief Complaint The patient is a 82-year-old female admitted with a reason for visit of Acute On Chronic Respiratory Failure W Hypoxia. Source: Patient, RN/, Old records Exam Limitations: Clinical conditions Severity: Severe History of Present Illness 82-year-old female with past medical history of COPD with chronic hypoxic respiratory failure on 2 L of oxygen at home, CKD IV, DM, Crohn's disease, di astolic CHF, Pacemaker in place for complete heart block , H/O Aortobifemoral bypass, Anemia of chronic disease, Vit B12 deficiency, Iron deficiency, depression, interstitial fibrosis presented to the ED with 1 day history of severe SOB. She had gone to see her PMD for a routine visit 2 days ago and was told she was fine then came back home and started having SOB. She used her nebs without any improvement and her breathing continued to get worse. So called the EMS. She was found to be hypoxic to low 80s at home with her oxygen and so she was brought to the ED. In the ED on presentation she she had ABG done which showed severe respiratory acidosis. Her WBC was elevated to 30K , Cxr was sugge stive of right lower lobe infiltrates Patient was admitted for acute on chronic respiratory failure with hypoxia and hypercarbia Due to Pneumonia and COPD exacerbation Home Medications Scheduled Aripiprazole (Abilify) 10 Mg Tablet, 10 MG PO DAILY, (Reported) Aspirin (Aspirin EC) 81 Mg Tabec, 81 MG PO DAILY, (Reported) Budesonide/Formoterol (Symbicort 160-4.5 Mcg Inhaler) 6 Gm Hfa.aer.ad, 2 PUFF INH BID, (Reported) Calcitriol (Calcitriol) 0.25 Mcg Cap, 0.25 MG PO DAILY, (Reported) Citalopram Hydrobromide (Citalopram HBr) 10 Mg Tab, 20 MG PO DAILY, (Reported) Furosemide (Lasix) 40 Mg Tab, 40 MG PO DAILY, (Reported) Insulin Glargine (Lantus) 1 Units/0.01 Ml Susp, 8 UNITS SC DAILY, (Reported) Insulin Human Lispro (Humalog Mix 75-25 Vial) 100 Unit/1 Ml Vial, 15 UNITS SC DAILY, (Reported) TAKES AT LUNCHTIME Melatonin (Melatonin) 5 Mg Tab, 10 MG PO QHS, (Reported) Prednisone (Prednisone) 10 Mg Tab, 10 MG PO DAILY, (Reported) Tiotropium [place] Monohydrate (Spiriva) 18 Mcg Cap.w.dev, 1 INHALATION INH DAILY, (Reported) Scheduled PRN Albuterol Sulfate (Proair Hfa) 108 Mcg/Act Aer, 2 PUFF INH Q4H PRN for SHORTNESS OF BREATH, (Reported) Albuterol Sulfate (Albuterol Sulfate) 0.63 Mg/3 Ml Neb, 0.63 MG INH Q4H PRN for SHORTNESS OF BREATH, (Reported) Allergies Coded Allergies: Penicillins (Verified Allergy, Intermediate, Rash/Dizziness , 11/10/18) Past Medical History Medical History COPD with chronic hypoxic respiratory failure on 2 L of oxygen at home, CKD IV, DM, Crohn's disease, diastolic CHF, Pacemaker in place for complete heart block , H/O Aortobifemoral bypass, Anemia of chronic disease, Vit B12 deficiency, Iron deficiency, depression, interstitial fibrosis Surgical History Aorto femoral bypass, cataract surgery, cholecystectomy, caesarian section Social History * Smoker: Denies, former Smoker Alcohol: Denies Drugs: denies Review of Systems Constitutional: Reports: Weakness, Fatigue; Denies: Chills, Fever Eyes: Denies: Pain, Vision change, Conjunctivae inflammation ENT: Denies: Head Aches, Ear Pain, Dysphagia, Sinus Congestion Pulmonary: Reports: Dyspnea; Denies: Cough, Pleuritic Chest Pain Cardiovascular: Denies: Chest Pain, Palpitations, Orthopnea, Paroxysmal Noc. Dyspnea, Edema, Lt Headedness Gastrointestinal: Denies: Nausea, Vomiting, Abdominal Pain, Diarrhea Genitourinary: Reports: Frequency Hematologic: Denies: Bruising, Bleeding Excessively, Petecchia, Purpura Musculoskeletal: Denies: Neck Pain, Back Pain, Shoulder Pain Physical Examination General Exam: Positive: Alert, Cooperative, Moderate Distress Eye Exam: Positive: PERRLA, Conjunctiva & lids normal, EOMI ENT Exam: Positive: Atraumatic, Mucous membr. moist/pink, Pharynx Normal Neck Exam: Positive: Supple Chest Exam: Positive: Wheezing (some faint expiratory wheezing heard), Diminished Heart Exam: Positive: Rate Normal, Regular Rhythm, Normal S1, Normal S2; Negative: Gallops, Murmurs, Rubs Abdomen Exam: Positive: Normal bowel sounds, Soft, Other (protuberant) Extremity Exam: Negative: Clubbing, Cyanosis, Edema Vital Signs Vital Signs Date Time Temp Pulse Resp B/P (MAP) Pulse Ox O2 Delivery O2 Flow Rate FiO2 11/10/18 13:52 30 11/10/18 10:15 96 116/55 (75) 95 NIPPV (BIPAP/CPAP) 11/10/18 09:00 26 11/10/18 05:58 98.4 Laboratory Data Labs 24H Laboratory Tests 2 11/10/18 06:09: White Blood Count 36.3*H, Red Blood Count 4.54, Hemoglobin 12.2, Hematocrit 41.4, Mean Corpuscular Volume 91.2, Mean Corpuscular Hemoglobin 26.9L, Mean Corpuscular Hemoglobin Concent 29.5L, Red Cell Distribution Width 18.1H, Platelet Count 430, Neutrophils # (Auto) , Lymphocytes # (Auto) , Nucleated Red Blood Cells % (auto) 0.0, Neutrophils 64, Band Neutrophils 4, Lymphocytes (Manual) 26, Monocytes (Manual) 4, Eosinophils (Manual) 1, Atypical Lymphocytes 1, Platelet Estimate NORMAL, Poikilocytosis 1+, Anisocytosis 1+, Ovalocytes 1+, Blood Gas Bicarbonate Standard 21.4L, Arterial Blood pH 7.102*L, Arterial Blood Partial Pressure CO2 92.9*H, Arterial Blood Partial Pressure O2 71.9L, Arterial Blood Total CO2 31.2H, Arterial Blood HCO3 28.3H, Arterial Blood Base Excess - 3.4L, Arterial Blood Oxygen Saturation 87.0L, Anion Gap 10, Glomerular Filtration Rate 23.3L, Lactic Acid Level 3.3*H, Blood Urea Nitrogen 78H, Creatinine 2.16H, Sodium Level 140, Potassium Level 4.0, Chloride Level 103, Carbon Dioxide Level 27, Calcium Level 9.7, Total Creatine Kinase 71, Creatine Kinase MB 4.0H, Creatine Kinase MB Relative Index 6.20H, Troponin I 0.06, ZQ-[id number]-Type Natriuretic Peptide [id number] 11/10/18 08:20: Blood Gas Bicarbonate Standard 22.3, Arterial Blood pH 7.305L, Arterial Blood Partial Pressure CO2 49.3H, Arterial Blood Partial Pressure O2 199.0H, Arterial Blood Total CO2 25.5, Arterial Blood HCO3 24.0, Arterial Blood Base Excess - 2.6L, Arterial Blood Oxygen Saturation 99.3H 11/10/18 10:44: Lactic Acid Followup at 4 Hours 2.1*H 11/10/18 12:05: Bedside Glucose (Misc Panel) 257H 11/10/18 13:10: Blood Gas Bicarbonate Standard 21.0L, Arterial Blood pH 7.350, Arterial Blood Partial Pressure CO2 38.9, Arterial Blood Partial Pressure O2 160.4H, Arterial Blood Total CO2 22.2L, Arterial Blood HCO3 21.0L, Arterial Blood Base Excess - 4.2L, Arterial Blood Oxygen Saturation 99.3H CBC/BMP Laboratory Tests 11/10/18 06:09 Red Blood Count 4.54, Mean Corpuscular Volume 91.2, Mean Corpuscular Hemoglobin 26.9 L, Mean Corpuscular Hemoglobin Concent 29.5 L, Red Cell Distribution Width 18.1 H, Neutrophils # (Auto) , Lymphocytes # (Auto) , Calcium Level 9.7, Total Creatine Kinase 71 Microbiology Microbiology 11/10/18 Blood Culture, Received Pending 11/10/18 Blood Culture, Received Pending 11/10/18 Respiratory Virus Panel (PCR) ([facility]) - Final, Complete Assessment/Plan 82-year-old female with past medical history of COPD with chronic hypoxic respiratory failure on 2 L of oxygen at home, CKD IV, DM, Crohn's disease, diastolic CHF, Pacemaker in place for complete heart block , H/O Aortobifemoral bypass, Anemia of chronic disease, Vit B12 deficiency, Iron deficiency, depression, interstitial fibrosis presented to the ED with 1 day history of severe SOB. She had gone to see her PMD for a routine visit 2 days ago and was told she was fine then came back home and started having SOB. She used her nebs without any improvement and her breathing continued to get worse. So called the EMS. She was found to be hypoxic to low 80s at home with her oxygen and so she was brought to the ED. In the ED on presentation she she had ABG done which showed severe respiratory acidosis. Her WBC was elevated to 30K , Cxr was suggestive of right lower lobe infiltrates Patient was admitted for acute on chronic respiratory failure with hypoxia and hypercarbia Due to Pneumonia and COPD exacerbation Acute on chronic respiratory failure with hypoxia and hypercarbia needing NIPPV. Bipap settings are 20/8. repeat Abgs showing significant improvement. continue management as per pulmonary recommendation Right lower lower pneumonia Had recent hospitalization will give Zosyn Acute on Chronic Diastolic CHF continues to have bilateral pleural effusions with cardiology in CXR. 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 Normocytic Anemia Anemia of chronic disease Vit b 12 is low, ferritin low normal continue supplementations Chronic Kidney disease stage 4 creatinine slightly worse that baseline may be due to CHF exacerbation will continue lasix increase dose if needed Will continue to monitor for worsening renal function. Diabetes sliding scale insulin, levemir. NPO for now. Plan / VTE VTE Prophylaxis Ordered?: Yes RONALDO VELEZ MD Nov 10, 2018 14:33
[2018-11-11 11:58] LABS: ABG HCO3 22.9 MEQ/L (22.0-26.0); ABG O2 SATURATION 97.4 % (95.0-99.0); ABG PARTIAL PRESSURE CO2 39.8 mmHg (35.0-45.0); ABG PARTIAL PRESSURE O2 97.5 mmHg (75.0-100.0); ABG STANDARD HCO3 22.8 MEQ/L (22.0-26.0); ABG TOTAL CO2 24.1 MEQ/L (23.0-31.0); ABG pH (ARTERIAL) 7.378 UNITS (7.350-7.450)
--- NOTE | 2018-11-11 12:06 | IPNPDOC ---
Subjective Date Seen The patient was seen on 11/11/18. Subjective Chief Complaint/HPI SOB Events since last encounter Feels better this morning. SOB is getting better but she still feels very weak. No fever or chills, no chest pain or sob , no cough or phlegm. She does admit to have been spring cleaning her apartment , cleaning her bathroom with solution with fumes Objective Physical Examination General Exam: Positive: Alert, Cooperative, Moderate Distress Eye Exam: Positive: PERRLA, Conjunctiva & lids normal, EOMI ENT Exam: Positive: Atraumatic, Mucous membr. moist/pink, Pharynx Normal Neck Exam: Positive: Supple Chest Exam: Positive: Rales (bilateral few basal crackles.), Diminished Heart Exam: Positive: Rate Normal, Regular Rhythm, Normal S1, Normal S2; Negative: Gallops, Murmurs, Rubs Telemetry: Positive: No significant arrhythmia Abdomen Exam: Positive: Normal bowel sounds, Soft, Other (protuberant) Extremity Exam: Negative: Clubbing, Cyanosis, Edema Assessment /Plan Assessment 82-year-old female with past medical history of COPD with chronic hypoxic respiratory failure on 2 L of oxygen at home, CKD IV, DM, Crohn's disease, d iastolic CHF, Pacemaker in place for complete heart block , H/O Aortobifemoral bypass, Anemia of chronic disease, Vit B12 deficiency, Iron deficiency, depression, interstitial fibrosis presented to the ED with 1 day history of severe SOB. She had gone to see her PMD for a routine visit 2 days ago and was told she was fine then came back home and started having SOB. She used her nebs without any improvement and her breathing continued to get worse. So called the EMS. She was found to be hypoxic to low 80s at home with her oxygen and so she was brought to the ED. In the ED on presentation she she had ABG done which showed severe respiratory acidosis. Her WBC was elevated to 30K , Cxr was sugg estive of right lower lobe infiltrates Patient was admitted for acute on chronic respiratory failure with hypoxia and hypercarbia Due to Pneumonia and COPD exacerbation Acute on chronic respiratory failure with hypoxia and hypercarbia improved. did not need any BIPAP support overnight. will continue on oxygen supplementation Right lower lower pneumonia Had recent hospitalization will give Zosyn Acute on Chronic Diastolic CHF continues to have bilateral pleural effusions with cardiomegaly in CXR. continue with home lasix Advanced COPD with emphysema and mild pulmonary hypertension Steroid and oxygen dependent now in exacerbation possibly due to Pneumonia, whether change, spring cleaning. continue symbicort, duonebs, prednisone Right middle lobe spiculated nodule 5mm x 7 mm being followed up as outpatient. Normocytic Anemia Anemia of chronic disease Vit b 12 is low, ferritin low normal continue supplementations Chronic Kidney disease stage 4 with ROSENDO may be due to CHF exacerbation Will continue to monitor for worsening renal function. Diabetes sliding scale insulin, levemir. carb consistent diet. Fluid restriction 1.3 liters. Plan/VTE VTE Prophylaxis Ordered?: Yes VS, I&O, 24H, Fishbone Vital Signs/I&O Vital Signs Date Time Temp Pulse Resp B/P (MAP) Pulse Ox O2 Delivery O2 Flow Rate FiO2 11/11/18 08:14 98.4 91 20 105/55 (72) 99 2.0 11/10/18 17:09 30 11/10/18 10:15 NIPPV (BIPAP/CPAP) I&O- Last 24 Hours up to 6 AM 11/11/18 05:59 Intake Total 690 ml Output Total 825 ml Balance -135 ml Laboratory Data 24H LABS Laboratory Tests 2 11/10/18 12:05: Bedside Glucose (Misc Panel) 257H 11/10/18 13:10: Blood Gas Bicarbonate Standard 21.0L, Arterial Blood pH 7.350, Arterial Blood Partial Pressure CO2 38.9, Arterial Blood Partial Pressure O2 160.4H, Arterial Blood Total CO2 22.2L, Arterial Blood HCO3 21.0L, Arterial Blood Base Excess -4 .2L, Arterial Blood Oxygen Saturation 99.3H 11/10/18 17:43: Bedside Glucose (Misc Panel) 65L 11/10/18 20:24: Bedside Glucose (Misc Panel) 151H 11/11/18 05:56: Nucleated Red Blood Cells % (auto) 0.0, Anion Gap 10, Glomerular Filtration Rate 20.0L, Blood Urea Nitrogen 76H, Creatinine 2.46H, Sodium Level 139, Potassium Level 4.2, Chloride Level 104, Carbon Dioxide Level 25, Calcium Level 9.3 11/11/18 11:37: CBC/BMP Laboratory Tests 11/11/18 05:56 Red Blood Count 3.86 L, Mean Corpuscular Volume 88.6, Mean Corpuscular Hemoglobin 26.4 L, Mean Corpuscular Hemoglobin Concent 29.8 L, Red Cell Distribution Width 18.1 H, Calcium Level 9.3 Microbiology Microbiology 11/10/18 Blood Culture - Preliminary, Resulted No growth after 24 hours . All specim... 11/10/18 Blood Culture - Preliminary, Resulted No growth after 24 hours . All specim... 11/10/18 Respiratory Virus Panel (PCR) ([facility]) - Final, Complete RONALDO VELEZ MD Nov 11, 2018 12:06
[2018-11-11 12:50] VITALS: BP 111/54
--- NOTE | 2018-11-11 12:51 | CCN ---
DATE: 11/11/2018 Ms. Knight was seen in the intensive care unit (ICU). She states that she is feeling better today. She was taken off of bilevel yesterday and is on O2 by nasal cannula at 2 liters. Her oxygen saturations have been good, and she denies any current shortness of breath and feels her breathing is baseline. She is being treated for pneumonia. She is on Zosyn. Her white count is down today to 20.5, which is decreased from 36.3 yesterday. She denies fevers or chills. She does have a history of congestive heart failure and he is getting furosemide. She is also on fluid restrictions. She has had some increase in her creatinine. She is producing urine. PHYSICAL EXAMINATION: Vitals: Temperature is 98.4, pulse 97, respiratory rate is 20, blood pressure is 105/55, pulse ox is 91% on 2 liters. General: The patient is alert and oriented. She speaks in complete sentences. Her daughter is at her bedside. HEENT: Normocephalic, atraumatic. Moist mucous membranes. Tongue is midline. Neck: Neck is supple. No cervical lymphadenopathy. No jugular venous distention (JVD). Trachea is midline. Pulmonary: Diminished breath sounds, particularly over the left base. There was increased tactile fremitus over the left base. No wheezes, rales, rhonchi or crackles appreciated. No significant dullness to percussion. Heart: Regular rate and rhythm. S1, S2 no murmurs. Abdomen: Positive bowel sounds, soft, nontender. Extremities: No clubbing, cyanosis or edema. Skin: Skin is warm and dry. Neurologic: Nonfocal grossly. LABORATORY DATA: WBC 20.5, hemoglobin 10.2, hematocrit 34.2, platelets 270. Sodium 139, potassium 4.2, chloride 104, carbon dioxide 25, BUN 76, creatinine 2.46, glucose 235, calcium 9.3. Chest x-ray from 11/10/2018 shows blunting of the costophrenic angle of the left lower lobe, consistent with infiltrate versus effusion. Bedside ultrasound was performed by myself and Dr. Li and the left lower lobe area is consistent with consolidation from pneumonia. ASSESSMENT/PLAN: 1. Pneumonia. The patient has a left lower lobe pneumonia. She is on Zosyn. Her white blood cell count is decreased today to 20.5, which is decreased from 36.3 yesterday. Blood cultures are negative after 24 hours. She is on prednisone. She is currently on 30 mg daily. Plan is to decrease to prednisone 10 mg daily. She is on chronic prednisone therapy of 10 mg daily according to her admission information. She is also on Symbicort for history of chronic obstructive pulmonary disease (COPD). 2. Renal sufficiency. The patient is being diuresed for history of congestive heart failure. Her renal function has increased. Plan is to hold her furosemide and stop her fluid restrictions in the setting of renal insufficiency and pneumonia. Continue to monitor fluid status closely to determine when again to restart furosemide. 3. Congestive heart failure. The patient has been getting furosemide. This will be held in the setting of renal insufficiency and pneumonia. Monitor closely to determine when and if to reinitiate furosemide.
--- NOTE | 2018-11-11 16:29 | CR ---
DATE OF CONSULTATION: 11/10/2018 HISTORY OF PRESENT ILLNESS: Ms. Knight is an 82-year-old white female whose past medical history is detailed below. Apparently she was home in her usual state of health, when she developed shortness of breath and chest pain/pressure. She did not have a cough which was considered significant. She had no wheezing. No postnasal drip. No gastroesophageal reflux disease (GERD). No paroxysmal nocturnal dyspnea (PND) or orthopnea. No lower extremity edema. No perceived fevers. No chills or drenching night sweats. She is on home oxygen chronically. Emergency medical services (EMS) was summoned. They noted that her oxygen saturation was 86% on her home oxygen. She was brought to the emergency department, where her evaluation was remarkable for an elevated white blood cell (WBC) count of 36,300, though there was no shift, a brain natriuretic peptide (BNP) of 11,764, a lactic acid level of 3.3, and acute hypercapnic respiratory failure. She was started on non-invasive mechanical ventilation. I was contacted by Dr. Chung to manage her non-invasive mechanical ventilator. Clinically, when she reached the intensive care unit, she was feeling much better. She denied any shortness of breath. She had no further chest pain or pressure. She feels essentially back to herself. No other history is known. ALLERGIES: PENICILLINS. MEDICATIONS ON ADMISSION: - ProAir two puffs every 4 hours as needed - albuterol nebulizations every 4 hours as needed - aspirin 81 mg by mouth daily - Symbicort 160/4.5 mcg two puffs twice a day - calcitriol 0.25 mg by mouth daily - citalopram 20 mg by mouth daily - Lasix 40 mg by mouth daily - Lantus 8 units subcutaneous daily - Humalog 75/25, 15 units subcutaneous at lunchtime - melatonin 10 mg by mouth at bedtime - prednisone 10 mg by mouth daily - Spiriva one puff daily She is on Abilify as a inpatient 10 mg daily, which may be a possible outpatient medication that I do not see listed in her reconciled medication. PAST MEDICAL HISTORY: 1. Crohn's disease. 2. Diabetes mellitus, type 2, insulin requiring. 3. Chronic kidney disease, stage IV. 4. History of chronic diastolic heart failure. 5. Coronary artery disease (CAD), status post pacemaker placement. Status post percutaneous coronary intervention (PCI). 6. Chronic obstructive pulmonary disease (COPD), oxygen dependent/emphysema. 7. Pulmonary nodule. No further evaluation planned. 8. History of Clostridium (C) difficile colitis. 9. Stress incontinence. 10. Status post aortobifemoral bypass. 11. Status post cataract surgery. 12. Status post cholecystectomy. 13. History of tobacco usage. FAMILY HISTORY: Her son has hypertension. There is coronary artery disease in a sister and son. There is a history of cancer in her mother, sister, and daughter. History of COPD in her sister. SOCIAL HISTORY: She is a former smoker. The reports of how much she smoked and when she smoked vary, but it appears she was a heavy smoker for at least 30 years. No alcohol or illicit drug usage. REVIEW OF SYSTEMS: Per history of present illness (HPI). Remainder of pertinent review of systems is negative. PHYSICAL EXAMINATION: GENERAL: Ms. Knight is lying in bed synchronous with an non-invasive mechanical ventilation (NIVM). She appears comfortable on that device. She can complete full sentences. No cough on evaluation, though she is on the continuous positive airway pressure (CPAP) mask. VITAL SIGNS: Temperature 98.6, pulse 89 and paced, respiratory rate in the 20s, blood pressure 116/57 with a mean arterial pressure (MAP) 76, SpO2 of 94-97% on an FiO2 of 0.4 via NIMV with an expiratory positive airway pressure (EPAP) of 14 and an of 6. HEENT: Anicteric. Pupils symmetric and reactive. Nares and oropharynx not examined secondary to full-face mask. NECK: Supple without thyromegaly or masses. Trache is midline. No apparent jugular venous distention (JVD). CHEST: Mild increased AP diameter. LUNGS: Symmetric excursion. Generalized diminished air entry. Few crackles at the left base, more in the midline. No wheeze or rhonchi. Prolonged expiratory phase. No accessory muscle usage or retractions. CARDIOVASCULAR: Regular rate and rhythm with a normal S1, S2. No murmur, rub, or gallop appreciated. ABDOMEN: Positive bowel sounds, soft, nondistended, nontender. No hepatosplenomegaly or masses appreciated. EXTREMITIES: Warm and well perfused. Without clubbing, cyanosis, or edema. NEUROLOGIC: Awake, alert. Oriented times three. PSYCHIATRIC: Appropriate affect. LABORATORY DATA: CBC showed a hemoglobin of 12.2, hematocrit 41.4, platelet count 430,000, white blood cell count 36,300 with a differential of 64% neutrophils, 4% bands, 26% lymphocytes, and 4% monocytes. Chemistries showed a sodium of 140, potassium 4.0, chloride 103, bicarbonate 27, anion gap 10, BUN 78, creatinine 2.2 (creatinine from 10/06/2018 was 1.73). Glucose 276, lactic acid 3.3 with reflexed value 2.1, calcium 9.7, creatinine 71, troponin I 0.06, BNP 11,764. Arterial blood gas was 7.1/93/72 with a measured saturation of 87% and a base excess of -3.4. I do not know much oxygen that was drawn on. Repeat arterial blood gas on NIMV was 7.31/49/199, measured saturation of 99%, and a base excess of -2.6. I am not certain how much oxygen that was drawn on. A repeat blood gas on NIMV (IPAP 14 and EPAP 6, FiO2 of 0.3) was 7.35/39/160 with a measured saturation of 99% and a base excess of -4.2. I reviewed her chest x-ray as well as the report from earlier today. That x-ray showed enlarged cardiac silhouette with perhaps slight increased interstitial marking. Normal-appearing pulmonary vascular shadows. No consolidated regions. There is an opacification in the left lower lobe region. There are tiny bilateral pleural effusions. 1. Acute hypercapnic respiratory failure. I suspect that this is in part related to a COPD exacerbation, related likely to a pneumonic process. I suspect there is a portion related to congestive heart failure. 2. Left lower lobe pneumonia. 3. Congestive heart failure (CHF). 4. COPD (I do not know spirometric values) with hypoxemia. 5. Emphysema on previous CT scan. 6. Chronic kidney disease. 7. Diabetes mellitus, type 2. On outpatient regimen. RECOMMENDATIONS: 1. Verbally, I have been told that there is some level of dementia, though I do not see that documented. I am concerned regarding possible aspiration, as she now has a left lower lobe infiltrate and in August had right middle lobe infiltrate. Neither time did she give a striking history for a pneumonic process. 2. Agree with antibiotics. Given her recent hospitalization, she needs to be covered for hospital-associated process. She is on Zosyn but may need to expand coverage. Would do an methicillin-resistant Staphylococcus aureus (MRSA) screen. If it is positive, would add vancomycin to her regimen. 3. Otherwise agree with outpatient medications. While she has chronic diastolic heart failure, I do not feel that is a significant portion of her admission. 4. I feel we can discontinue the non-invasive mechanical ventilation at this time. 5. Would rule her out for myocardial infarction given her history as well as her complaints of chest pain. 6. She is on prednisone chronically for unclear reasons. Regardless, she needs to either be placed on that or given a corticosteroid burst. At the present time, she does not appear to have any significant difficulties, but given her acute on chronic respiratory failure, I would increase her daily prednisone to 30 daily for a few days and then clinically decide whether it is appropriate to return her to her baseline leve. If she is only up for a few days, she does not need a taper. 7. Agree with continuing on her outpatient pulmonary inhaler regimen and scheduled and as-needed bronchodilators. 8. Infectious disease. Received meropenem in the emergency department (ED), now on Zosyn. 9. Deep vein thrombosis (DVT) prophylaxis. Subcutaneous heparin. 10. Stress ulcer prophylaxis, not currently on any prophylaxis. Given that she is on a non-invasive mechanical ventilator and on steroids, I would, at least for the short term, place her on a proton pump inhibitor. It can be orally. Agree with discontinuing that, however, later in her hospital course. CRITICAL CARE TIME: 40 minutes, not including procedure time.
--- NOTE | 2018-11-11 19:25 | ECGEPIP ---
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
[2018-11-11 22:00] VITALS: BP 114/60
[2018-11-12] MEDS: IPRATROPIUM 0.5MG/ALBUTEROL 2.5MG INH SOL UD 3ML (DUONEB)(J7620) NEB SCH ×7 (00:31→23:43)
[2018-11-12] MEDS: PIPERACILLIN/TAZOBACTAM SOD 2.25 GM in D5W MINI-BAG PLUS 50 ML IV SCH ×4 (00:35→17:43)
[2018-11-12 06:00] VITALS: BP 125/62
[2018-11-12 07:11] LABS: HEMATOCRIT 31.9 % (36.0-47.0); HEMOGLOBIN 9.7 g/dl (12.0-15.5); MEAN CORPUSCULAR HEMOGLOBIN 26.4 pg (27.0-33.0); MEAN CORPUSCULAR HGB CONC 30.4 g/dl (32.0-36.5); MEAN CORPUSCULAR VOLUME 86.7 fl (80.0-96.0); PLATELET COUNT, AUTOMATED 293 10^3/uL (150-450); RED BLOOD COUNT 3.68 10^6/uL (4.00-5.40); WHITE BLOOD COUNT 17.3 10^3/uL (4.0-10.0)
[2018-11-12 07:23] LABS: CALCIUM LEVEL 8.6 MG/DL (8.8-10.2); CREATININE FOR GFR 2.42 MG/DL (0.55-1.30); GLOMERULAR FILTRATION RATE 20.4 (>32); POTASSIUM SERUM 3.6 MEQ/L (3.5-5.1)
[2018-11-12] MEDS: SYMBICORT 160/4.5MCG INHALER 6GM INH SCH ×2 (08:00→21:05)
[2018-11-12] MEDS: HEPARIN SOD (PORCINE) 5000 UNITS/ML VIAL SC SCH ×2 (08:05→21:46)
[2018-11-12] MEDS: predniSONE 10 MG TAB PO SCH (08:06)
[2018-11-12] MEDS: CitaloPRAM (CeleXA) 20 MG TAB PO SCH (08:06)
[2018-11-12] MEDS: ASPIRIN 81 MG ENTERIC TAB PO SCH (08:06)
[2018-11-12] MEDS: OMEPRAZOLE 20 MG CAP PO SCH (08:06)
[2018-11-12] MEDS: ARIPiprazole 10 MG TAB PO SCH (08:06)
[2018-11-12] MEDS: HumaLOG INSULIN (NovoLOG) PER UNIT SC SCH ×4 (08:06→21:00)
[2018-11-12] MEDS: DOCUSATE SODIUM 100 MG CAP PO SCH ×2 (08:07→21:45)
--- NOTE | 2018-11-12 10:35 | IPNPDOC ---
Subjective Date Seen The patient was seen on 11/12/18. Subjective Chief Complaint/HPI SOB Events since last encounter Feels much better today , back to her usual oxygen supplementation. No fever or chills, No cough or phlegm , no nausea or vomiting or diarrhea. Objective Physical Examination General Exam: Positive: Alert, Cooperative, Moderate Distress Eye Exam: Positive: PERRLA, Conjunctiva & lids normal, EOMI ENT Exam: Positive: Atraumatic, Mucous membr. moist/pink, Pharynx Normal Neck Exam: Positive: Supple Chest Exam: Positive: Rales (left base and midzone crackles.), Diminished Heart Exam: Positive: Rate Normal, Regular Rhythm, Normal S1, Normal S2; Negative: Gallops, Murmurs, Rubs Telemetry: Positive: No significant arrhythmia Abdomen Exam: Positive: Normal bowel sounds, Soft, Other (protuberant) Extremity Exam: Negative: Clubbing, Cyanosis, Edema Assessment /Plan Assessment 82-year-old female with past medical history of COPD with chronic hypoxic respiratory failure on 2 L of oxygen at home, CKD IV, DM, Crohn's disease, diast olic CHF, Pacemaker in place for complete heart block , H/O Aortobifemoral bypass, Anemia of chronic disease, Vit B12 deficiency, Iron deficiency, depression, interstitial fibrosis presented to the ED with 1 day history of severe SOB. She had gone to see her PMD for a routine visit 2 days ago and was told she was fine then came back home and started having SOB. She used her nebs without any improvement and her breathing continued to get worse. So called the EMS. She was found to be hypoxic to low 80s at home with her oxygen and so she was brought to the ED. In the ED on presentation she she had ABG done which showed severe respiratory acidosis. Her WBC was elevated to 30K , Cxr was suggestive of right lower lobe infiltrates Patient was admitted for acute on chronic respiratory failure with hypoxia and hypercarbia Due to Pneumonia and COPD exacerbation Acute on chronic respiratory failure with hypoxia and hypercarbia improved. did not need any BIPAP support overnight. will continue on oxygen supplementation Right lower lower pneumonia Had recent hospitalization so concern for HCAP will give Zosyn Brice on CKD stage 4 creatinine still not improved. May be intravascularly dehydrated. will continue with the fluid restriction. will hold lasix for 2 days. Acute on Chronic Diastolic CHF continues to have bilateral pleural effusions with cardiomegaly in CXR. will hold lasix due to BRICE Advanced COPD with emphysema and mild pulmonary hypertension Steroid and oxygen dependent now in exacerbation possibly due to Pneumonia, whether change, spring. continue symbicort, duonebs, prednisone Right middle lobe spiculated nodule 5mm x 7 mm being followed up as outpatient. Normocytic Anemia Anemia of chronic disease Vit b 12 is low, ferritin low normal continue supplementations Diabetes sliding scale insulin, levemir. carb consistent diet. Fluid restriction 1.3 liters. Plan/VTE VTE Prophylaxis Ordered?: Yes VS, I&O, 24H, Fishbone Vital Signs/I&O Vital Signs Date Time Temp Pulse Resp B/P (MAP) Pulse Ox O2 Delivery O2 Flow Rate FiO2 11/12/18 06:00 97.9 99 18 125/62 (83) 94 2.0 11/10/18 17:09 30 11/10/18 10:15 NIPPV (BIPAP/CPAP) I&O- Last 24 Hours up to 6 AM 11/12/18 06:00 Intake Total 1100 ml Output Total 200 ml Balance 900 ml Laboratory Data 24H LABS Laboratory Tests 2 11/11/18 11:37: Blood Gas Bicarbonate Standard 22.8, Arterial Blood pH 7.378, Arterial Blood Partial Pressure CO2 39.8, Arterial Blood Partial Pressure O2 97.5, Arterial Blo od Total CO2 24.1, Arterial Blood HCO3 22.9, Arterial Blood Base Excess -2.0, Arterial Blood Oxygen Saturation 97.4 11/11/18 12:03: Bedside Glucose (Misc Panel) 128H 11/11/18 16:40: Bedside Glucose (Misc Panel) 364H 11/11/18 20:32: Bedside Glucose (Misc Panel) 189H 11/12/18 06:32: Nucleated Red Blood Cells % (auto) 0.0, Anion Gap 10, Glomerular Filtration Rate 20.4L, Blood Urea Nitrogen 76H, Creatinine 2.42H, Sodium Level 136, Potassium Level 3.6, Chloride Level 102, Carbon Dioxide Level 24, Calcium Level 8.6L CBC/BMP Laboratory Tests 11/12/18 06:32 Red Blood Count 3.68 L, Mean Corpuscular Volume 86.7, Mean Corpuscular Hemoglobin 26.4 L, Mean Corpuscular Hemoglobin Concent 30.4 L, Red Cell Distribution Width 18.2 H, Calcium Level 8.6 L Microbiology Microbiology 11/10/18 Blood Culture - Preliminary, Resulted No Growth after 48 hours. All Specime... 11/10/18 Blood Culture - Preliminary, Resulted No Growth after 48 hours. All Specime... 11/10/18 Respiratory Virus Panel (PCR) ([facility]) - Final, Complete RONALDO VELEZ MD Nov 12, 2018 10:35
[2018-11-12 14:00] VITALS: BP 132/61
[2018-11-12] MEDS ORDERED: RAMELTEON 8 MG TAB (ROZEREM) PO SCH (21:00)
[2018-11-12 22:00] VITALS: BP 153/67
[2018-11-13] MEDS: PIPERACILLIN/TAZOBACTAM SOD 2.25 GM in D5W MINI-BAG PLUS 50 ML IV SCH ×2 (01:13→05:44)
[2018-11-13] MEDS: IPRATROPIUM 0.5MG/ALBUTEROL 2.5MG INH SOL UD 3ML (DUONEB)(J7620) NEB SCH ×2 (04:00→07:57)
[2018-11-13 06:00] VITALS: BP 130/66
[2018-11-13 07:03] LABS: HEMATOCRIT 32.1 % (36.0-47.0); HEMOGLOBIN 9.4 g/dl (12.0-15.5); MEAN CORPUSCULAR HEMOGLOBIN 26.3 pg (27.0-33.0); MEAN CORPUSCULAR HGB CONC 29.3 g/dl (32.0-36.5); MEAN CORPUSCULAR VOLUME 89.7 fl (80.0-96.0); PLATELET COUNT, AUTOMATED 295 10^3/uL (150-450); RED BLOOD COUNT 3.58 10^6/uL (4.00-5.40); WHITE BLOOD COUNT 13.2 10^3/uL (4.0-10.0)
[2018-11-13 07:18] LABS: CALCIUM LEVEL 8.6 MG/DL (8.8-10.2); CREATININE FOR GFR 2.36 MG/DL (0.55-1.30); POTASSIUM SERUM 3.6 MEQ/L (3.5-5.1)
[2018-11-13] MEDS: SYMBICORT 160/4.5MCG INHALER 6GM INH SCH (07:57)
[2018-11-13] MEDS: HEPARIN SOD (PORCINE) 5000 UNITS/ML VIAL SC SCH (08:48)
[2018-11-13] MEDS: ARIPiprazole 10 MG TAB PO SCH (08:49)
[2018-11-13] MEDS: ASPIRIN 81 MG ENTERIC TAB PO SCH (08:49)
[2018-11-13] MEDS: CitaloPRAM (CeleXA) 20 MG TAB PO SCH (08:49)
[2018-11-13] MEDS: DOCUSATE SODIUM 100 MG CAP PO SCH (08:49)
[2018-11-13] MEDS: OMEPRAZOLE 20 MG CAP PO SCH (08:49)
[2018-11-13] MEDS: HumaLOG INSULIN (NovoLOG) PER UNIT SC SCH (08:49)
[2018-11-13] MEDS: predniSONE 10 MG TAB PO SCH (08:50)
[2018-11-13] MEDS ORDERED: LEVEMIR (INSULIN DETEMIR) 1 UNITS/0.01ML SC SCH (09:00)
--- NOTE | 2018-11-13 10:48 | ECHO ---
DATE OF STUDY: 11/11/2018 REFERRING PROVIDER: LATOYA Appiah PATIENT LOCATION: Room 4232. REASON FOR THE ECHOCARDIOGRAM: Shortness of breath. 2D MEASUREMENTS: IVS: 1.0 cm LV: 5.1 cm LVPW: 1.0 cm LA: 3.7 cm Aorta: 2.7 cm IVC: 1.9 cm DOPPLER MEASUREMENTS: Peak velocity across the aortic valve: 1.3 m/s Peak velocity across the LVOT: 0.74 m/s Mitral E: 1.7 2D COMMENTS: 1. Normal left ventricular size and wall thickness but with a depressed global left ventricular systolic function. Wall motion seems to be normal at the level of the mid and the basal portion of the left ventricle, but the apical portion of the left ventricle seems to be both akinetic and dyskinetic. The estimated left ventricular systolic ejection fraction is 35% to 40%. 2. The left atrium appeared to be mildly enlarged. Normal right atrium. The right ventricle appeared to be mildly enlarged but seemed to be luis. 3. The atrial septum appeared to be normal without evidence of defect or shunt. 4. Normal aortic root. 5. Small pericardial effusion noted. No evidence of cardiac tamponade. 6. Mildly calcified aortic valve with normal leaflet excursion. Mildly calcified mitral anulus with normal anterior mitral valve leaflet motion. Normal tricuspid valve. The pulmonic valve and proximal pulmonary artery branches were not well visualized. 7. The inferior vena cava was normal in size, central venous pressure normal. Doppler detects mild mitral regurgitation. Assessment of the left ventricular diastolic function was limited, patient seems to be in atrial fibrillation. IMPRESSION: 1. Probably moderate global left ventricular systolic dysfunction with regional wall motion abnormalities that may be related to underlying coronary artery disease versus Takotsubo cardiomyopathy. The apical compression of the left ventricle seems to be both akinetic and dyskinetic. Assessment of the left ventricular diastolic function was limited, patient seems to be in atrial fibrillation during the test. 2. Aortic valve sclerosis without stenosis or aortic regurgitation. 3. Mitral annulus calcification with mild mitral regurgitation. Severe , the left atrium appeared to be mildly enlarged. 4. A small pericardial effusion was noted, no evidence of cardiac tamponade. . 5. Not motion involved, there are artifacts noted in the right ventricle that may be related to pacemaker/automatic implantable cardioverter defibrillator (AICD) wires. Edited 11/13/2018 aml
[2018-11-13] MEDS ORDERED: OMEP-218 PO (11:20)
[2018-11-13] MEDS ORDERED: CEFD300CAP PO (12:06)
--- NOTE | 2018-11-13 16:54 | DS.PDOC ---
Discharge Summary General Date of Admission Nov 10, 2018 at 09:19 Date of Discharge 11/13/18 Discharge Summary PROCEDURES PERFORMED DURING STAY: [None]. DISCHARGE DIAGNOSES: Acute on chronic respiratory failure with hypoxia and hypercarbia. Pneumonia possibly HCAP End stage COPD exacerbation Chronic systolic and diastolic CHF with EF of 35% to 40% Brice on CKD 4 Diabetes Pacemaker due to h/o complete heart block Crohn's disease Anemia of chronic disease. iron def Vit B12 def Aorto bifemoral bypass. spiculated lung nodule. COMPLICATIONS/CHIEF COMPLAINT: Acute On Chronic Respiratory Failure W Hypoxia. HISTORY OF PRESENT ILLNESS: See history and physical HOSPITAL COURSE: 82-year-old female with past medical history of COPD with chronic hypoxic respiratory failure on 2 L of oxygen at home, CKD IV, DM, Crohn's disease, diastolic CHF, Pacemaker in place for complete heart block , H/O Aortobifemoral bypass, Anemia of chronic disease, Vit B12 deficiency, Iron deficiency, depression, interstitial fibrosis presented to the ED with 1 day history of severe SOB. She had gone to see her PMD for a routine visit 2 days ago and was told she was fine then came back home and started having SOB. She u sed her nebs without any improvement and her breathing continued to get worse. So called the EMS. She was found to be hypoxic to low 80s at home with her oxygen and so she was brought to the ED. In the ED on presentation she she had ABG done which showed severe respiratory acidosis. Her WBC was elevated to 30K , Cxr was suggestive of right lower lobe infiltrates Patient was admitted for acute on chronic respiratory failure with hypoxia and hypercarbia Due to Pneumonia and COPD exacerbation Acute on chronic respiratory failure with hypoxia and hypercarbia improved with BIPAP. will continue on oxygen supplementation Right lower lower pneumonia Had recent hospitalization so concern for HCAP will give cefdinir on discharge. Brice on CKD stage 4 creatinine still not improved. It may be due to progression of CKD and deteriorating cardiac function. restart lasix Chronic systolic and Diastolic CHF New Echo shows decreased EF of 35 to 40%. this is a change from before. continues to have bilateral pleural effusions with cardiomegaly in CXR. continue lasix. follow up with [facility]. Advanced COPD with emphysema and mild pulmonary hypertension Steroid and oxygen dependent now in exacerbation possibly due to Pneumonia, whether change, spring cleaning. continue symbicort, duonebs, prednisone Right middle lobe spiculated nodule 5mm x 7 mm being followed up as outpatient. Normocytic Anemia Anemia of chronic disease Vit b 12 is low, ferritin low normal continue supplementations Diabetes sliding scale insulin, levemir. carb consistent diet. Fluid restriction 1.5 liters. DISCHARGE MEDICATIONS: Please see below. ALLERGIES: Please see below. PHYSICAL EXAMINATION ON DISCHARGE: VITAL SIGNS: Please see below. General Exam: Positive: Alert, Cooperative, Moderate Distress Eye Exam: Positive: PERRLA, Conjunctiva & lids normal, EOMI ENT Exam: Positive: Atraumatic, Mucous membr. moist/pink, Pharynx Normal Neck Exam: Positive: Supple Chest Exam: Positive: Rales (left base and midzone crackles.), Diminished Heart Exam: Positive: Rate Normal, Regular Rhythm, Normal S1, Normal S2; Negative: Gallops, Murmurs, Rubs Telemetry: Positive: No significant arrhythmia Abdomen Exam: Positive: Normal bowel sounds, Soft, Other (protuberant) Extremity Exam: Negative: Clubbing, Cyanosis, Edema LABORATORY DATA: Please see below. ACTIVITY: [As tolerated]. DIET: Carb consistent, Fluid restriction 1.5 liters. DISPOSITION: 01 Home, Self-Care. DISCHARGE INSTRUCTIONS: Follow up PMD in 1 week Follow up with Dr Soria in 2 to 4 weeks Needs referral to Nephrology for progressing CKD. DISCHARGE CONDITION: [Stable]. TIME SPENT ON DISCHARGE: Greater than 30 minutes. Vital Signs/I&Os Vital Signs Date Time Temp Pulse Resp B/P (MAP) Pulse Ox O2 Delivery O2 Flow Rate FiO2 11/13/18 09:00 2.0 11/13/18 06:00 97.8 94 18 130/66 (87) 96 11/10/18 17:09 30 11/10/18 10:15 NIPPV (BIPAP/CPAP) I&O- Last 24 Hours up to 6 AM 11/13/18 06:00 Intake Total 1605 ml Output Total 0 ml Balance 1605 ml Laboratory Data Labs 24H Laboratory Tests 2 11/12/18 16:43: Bedside Glucose (Misc Panel) 273H 11/13/18 06:21: Nucleated Red Blood Cells % (auto) 0.0, Anion Gap 6L, Glomerular Filtration Rate 21.0L, Blood Urea Nitrogen 71H, Creatinine 2.36H, Sodium Level 140, Potassium Level 3.6, Chloride Level 107, Carbon Dioxide Level 27, Calcium Level 8.6L CBC/BMP Laboratory Tests 11/13/18 06:21 Red Blood Count 3.58 L, Mean Corpuscular Volume 89.7, Mean Corpuscular Hemoglobin 26.3 L, Mean Corpuscular Hemoglobin Concent 29.3 L, Red Cell Distribution Width 18.4 H, Calcium Level 8.6 L FSBS Laboratory Tests Test 11/12/18 16:43 Range/Units Bedside Glucose (Misc Panel) 273 83-110 MG/DL Microbiology Microbiology 11/10/18 Blood Culture - Preliminary, Resulted No Growth after 72 hours. All specime... 11/10/18 Blood Culture - Preliminary, Resulted No Growth after 72 hours. All specime... 11/10/18 Respiratory Virus Panel (PCR) ([facility]) - Final, Complete Discharge Medications Scheduled Aripiprazole (Abilify) 10 Mg Tablet, 10 MG PO DAILY, (Reported) Aspirin (Aspirin EC) 81 Mg Tabec, 81 MG PO DAILY, (Reported) Budesonide/Formoterol (Symbicort 160-4.5 Mcg Inhaler) 6 Gm Hfa.aer.ad, 2 PUFF INH BID, (Reported) Calcitriol (Calcitriol) 0.25 Mcg Cap, 0.25 MG PO DAILY, (Reported) Cefdinir (Cefdinir) 300 Mg Capsule, 1 CAP PO BID Citalopram Hydrobromide (Citalopram HBr) 10 Mg Tab, 20 MG PO DAILY, (Reported) Furosemide (Lasix) 40 Mg Tab, 40 MG PO DAILY, (Reported) Insulin Glargine (Lantus) 1 Units/0.01 Ml Susp, 8 UNITS SC DAILY, (Reported) Insulin Human Lispro (Humalog Mix 75-25 Vial) 100 Unit/1 Ml Vial, 15 UNITS SC DAILY, (Reported) TAKES AT LUNCHTIME Melatonin (Melatonin) 5 Mg Tab, 10 MG PO QHS, (Reported) Omeprazole (Omeprazole) 20 Mg Capsule.dr, 20 MG PO DAILY Prednisone (Prednisone) 10 Mg Tab, 10 MG PO DAILY, (Reported) Tiotropium [place] Monohydrate (Spiriva) 18 Mcg Cap.w.dev, 1 INHALATION INH DAILY, (Reported) Scheduled PRN Albuterol Sulfate (Proair Hfa) 108 Mcg/Act Aer, 2 PUFF INH Q4H PRN for SHORTNESS OF BREATH, (Reported) Albuterol Sulfate (Albuterol Sulfate) 0.63 Mg/3 Ml Neb, 0.63 MG INH Q4H PRN for SHORTNESS OF BREATH, (Reported) Allergies Coded Allergies: Penicillins (Verified Allergy, Intermediate, Rash/Dizziness , 11/10/18) RONALDO VELEZ MD Nov 13, 2018 14:16
== END 2018-11-13 12:45 | disposition home or self-care (01) | DRG 193 ==
LOC: EDBD 05:54 → M ED 05:54 → M ED INP 09:19 → M ICU 10:29 → M MSPAV 11-11 12:51
PROVIDERS: ADMIT Internal Medicine Nephrology; ATTEND Internal Medicine Nephrology
DX: J18.9 Pneumonia, unspecified organism (principal); J96.21 Acute and chronic respiratory failure with hypoxia; J96.22 Acute and chronic respiratory failure with hypercapnia; I50.33 Acute on chronic diastolic (congestive) heart failure; J44.1 Chronic obstructive pulmonary disease with (acute) exacerbation; I13.0 Hypertensive heart and chronic kidney disease with heart failure and stage 1 through stage 4 chronic kidney disease, or unspecified chronic kidney disease; N17.9 Acute kidney failure, unspecified; N18.4 Chronic kidney disease, stage 4 (severe); K50.80 Crohn's disease of both small and large intestine without complications; Z95.0 Presence of cardiac pacemaker; D63.1 Anemia in chronic kidney disease; E53.8 Deficiency of other specified B group vitamins; R91.1 Solitary pulmonary nodule; D50.9 Iron deficiency anemia, unspecified; F32.9 Major depressive disorder, single episode, unspecified; I27.20 Pulmonary hypertension, unspecified; Z79.52 Long term (current) use of systemic steroids; Z99.81 Dependence on supplemental oxygen; Z79.82 Long term (current) use of aspirin; Z79.899 Other long term (current) drug therapy; Z88.0 Allergy status to penicillin; Z87.891 Personal history of nicotine dependence; Z79.4 Long term (current) use of insulin; I25.10 Atherosclerotic heart disease of native coronary artery without angina pectoris

== ENCOUNTER 2018-11-22 13:43 | Emergency (ER) | payer MEDICARE ==
[~2018-11-22] VITALS: Ht 154.9 cm; Wt 50.7 kg
[~2018-11-22 13:43] MED LIST changes: +ABIL10TA9 PO; +CEFD300CAP PO; +HUMA75VLDS SC; +OMEP-218 PO; +SYMB16INH INH
[2018-11-22] MEDS ORDERED: NS 500 ML IV ONE (15:15)
[2018-11-22] MEDS ORDERED: ONDANSETRON 4MG/2ML VIAL (J2405) IV ONE (15:30)
[2018-11-22 15:50] LABS: BASO % 0.3 % (0.0-1.0); EOS % 0.1 % (0.0-3.0); HEMOGLOBIN 10.7 g/dl (12.0-15.5); LYMPH # 1.1 10^3/uL (1.5-4.5); LYMPH % 7.9 % (24.0-44.0); MEAN CORPUSCULAR HEMOGLOBIN 27.1 pg (27.0-33.0); MEAN CORPUSCULAR HGB CONC 29.7 g/dl (32.0-36.5); MEAN CORPUSCULAR VOLUME 91.1 fl (80.0-96.0); MONO # 0.5 10^3/uL (0.0-0.8); MONO % 3.8 % (0.0-5.0); NEUTROPHILS # 12.3 10^3/uL (1.8-7.7); NEUTROPHILS % 87.1 % (36.0-66.0); PLATELET COUNT, AUTOMATED 354 10^3/uL (150-450); RED BLOOD COUNT 3.95 10^6/uL (4.00-5.40); WHITE BLOOD COUNT 14.1 10^3/uL (4.0-10.0)
[2018-11-22 16:18] LABS: MB/CK RELATIVE INDEX 5.69 (< OR =4); TROPONIN I 0.05 NG/ML (< 0.10)
--- NOTE | 2018-11-22 16:18 | REP ---
HISTORY: Cough and dyspnea. COMPARISON: The latest prior 11/10/2018, a portable exam which showed bibasilar opacities, cardiomegaly, dual chamber bipolar pacemaker. There is mild cardiomegaly. The pacemaker device is unchanged. The patchy basilar opacities have cleared. There are no new abnormal opacities. Chronic changes are seen involving the imaged spine. IMPRESSION: No evidence of acute cardiopulmonary disease. Findings as described above. Electronically Signed by Payam Ware DO 11/22/2018 04:25 P
[2018-11-22 16:28] LABS: ALBUMIN 3.8 GM/DL (3.2-5.2); BILIRUBIN,TOTAL 0.5 MG/DL (0.2-1.0); CALCIUM LEVEL 9.3 MG/DL (8.8-10.2); CREATININE FOR GFR 1.96 MG/DL (0.55-1.30); GLOMERULAR FILTRATION RATE 26.1 (>32); POTASSIUM SERUM 4.5 MEQ/L (3.5-5.1); TOTAL PROTEIN 6.5 GM/DL (6.4-8.2)
[2018-11-22 17:40] VITALS: BP 167/72
--- NOTE | 2018-11-22 19:56 | ECGEPIP ---
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
== END 2018-11-22 17:40 | disposition home or self-care (01) ==
LOC: M ED 13:43
DX: R11.0 Nausea (principal); N18.9 Chronic kidney disease, unspecified; J44.9 Chronic obstructive pulmonary disease, unspecified; Z79.899 Other long term (current) drug therapy; Z79.82 Long term (current) use of aspirin; Z79.4 Long term (current) use of insulin; Z88.0 Allergy status to penicillin; Z87.891 Personal history of nicotine dependence

== ENCOUNTER 2018-12-17 12:28 | Inpatient (IN) | payer MEDICARE ==
[~2018-12-17] VITALS: Ht 154.9 cm; Wt 53.7 kg
[2018-12-17] VITALS (17 sets, daily range): BP systolic 67–103; BP diastolic 39–60
[2018-12-17] MEDS ORDERED: IPRATROPIUM 0.5MG/ALBUTEROL 2.5MG INH SOL UD 3ML (DUONEB)(J7620) NEB ONE (12:45)
[2018-12-17] MEDS ORDERED: ALBUTEROL SULFATE 2.5 MG/0.5 ML INH NEB SOLN INH ONE (12:45)
[2018-12-17 12:53] LABS: ABG BASE EXCESS 2.1 (-2.0-2.0); ABG HCO3 26.7 MEQ/L (22.0-26.0); ABG O2 SATURATION 98.8 % (95.0-99.0); ABG PARTIAL PRESSURE CO2 41.4 mmHg (35.0-45.0); ABG PARTIAL PRESSURE O2 152.9 mmHg (75.0-100.0); ABG STANDARD HCO3 26.4 MEQ/L (22.0-26.0); ABG TOTAL CO2 27.9 MEQ/L (23.0-31.0); ABG pH (ARTERIAL) 7.427 UNITS (7.350-7.450)
--- NOTE | 2018-12-17 12:55 | REP ---
Clinical: Cough and dyspnea. Technique: Portable semiupright AP view. Comparison: 11/22/2018. Findings: Cardiac silhouette is within normal limits and stable. Dual lead pacemaker in stable position. Lung nugent demonstrate diffuse chronic interstitial changes and mild interstitial edema cannot be excluded. Subtle left lower lobe infiltrate/atelectasis at the costophrenic angle noted. No pneumothorax. Skeletal structures stable. Impression: Small area of atelectasis/infiltrate at the left costophrenic angle. Electronically Signed by Sky Weinberg MD 12/17/2018 12:46 P
[2018-12-17] MEDS ORDERED: NS 1,000 ML IV ONE ×2 (13:15→15:15)
[2018-12-17] MEDS ORDERED: dexameTHASONE 20 MG/5 ML VIAL (J1100) IV ONE (13:15)
[2018-12-17] MEDS ORDERED: PIPERACILLIN/TAZOBACTAM SOD 3.375 GM in D5W MINI-BAG PLUS 50 ML IV ONE (13:15)
[2018-12-17 13:19] LABS: BASO % 0.3 % (0.0-1.0); EOS % 0.2 % (0.0-3.0); HEMATOCRIT 33.4 % (36.0-47.0); LYMPH # 1.3 10^3/uL (1.5-4.5); LYMPH % 8.3 % (24.0-44.0); MEAN CORPUSCULAR HEMOGLOBIN 26.7 pg (27.0-33.0); MEAN CORPUSCULAR HGB CONC 29.9 g/dl (32.0-36.5); MEAN CORPUSCULAR VOLUME 89.3 fl (80.0-96.0); MONO # 0.4 10^3/uL (0.0-0.8); MONO % 2.6 % (0.0-5.0); NEUTROPHILS # 13.5 10^3/uL (1.8-7.7); NEUTROPHILS % 88.1 % (36.0-66.0); PLATELET COUNT, AUTOMATED 329 10^3/uL (150-450); RED BLOOD COUNT 3.74 10^6/uL (4.00-5.40); WHITE BLOOD COUNT 15.3 10^3/uL (4.0-10.0)
[2018-12-17 13:32] LABS: INR 0.97
[2018-12-17 13:34] LABS: D-DIMER QUANT 943.1 ng/ml (<500)
[2018-12-17 13:51] LABS: ALBUMIN 3.2 GM/DL (3.2-5.2); BILIRUBIN,DIRECT 0.2 MG/DL (0.0-0.2); BILIRUBIN,TOTAL 0.5 MG/DL (0.2-1.0); CALCIUM LEVEL 8.8 MG/DL (8.8-10.2); CREATININE FOR GFR 2.48 MG/DL (0.55-1.30); GLOMERULAR FILTRATION RATE 19.8 (>32); MB/CK RELATIVE INDEX 6.04 (< OR =4); POTASSIUM SERUM 4.3 MEQ/L (3.5-5.1); THYROID STIMULATING HORMONE 1.75 uIU/ML (0.358-3.740); TOTAL PROTEIN 6.1 GM/DL (6.4-8.2); TROPONIN I 0.04 NG/ML (< 0.10)
[2018-12-17] MEDS ORDERED: HYDROCORTISONE 100 MG/2 ML VIAL (J1720) IV STA (15:32)
[2018-12-17] MEDS ORDERED: CELE20TA PO (15:37)
[2018-12-17] MEDS ORDERED: OMEP-218 PO (15:37)
[2018-12-17] MEDS ORDERED: IPRATROPIUM 0.5MG/ALBUTEROL 2.5MG INH SOL UD 3ML (DUONEB)(J7620) NEB PRN (15:45)
[2018-12-17] MEDS ORDERED: MEROPENEM INJ 1 GM in APPROPRIATE DILUENT 1 EA IV SCH (15:45)
[2018-12-17] MEDS ORDERED: VANCOMYCIN HCL 1,000 MG, VIAL MATE ADAPTER 1 EACH in D5W 250 ML IV SCH (15:45)
[2018-12-17] MEDS ORDERED: VANCOMYCIN HCL 1,000 MG, VIAL MATE ADAPTER 1 EACH in D5W 250 ML IV ONE (17:00)
--- NOTE | 2018-12-17 17:14 | HPEPDOC ---
[facility] Medical History & Physical Date of Admission Dec 17, 2018 Date of Service: Dec 17, 2018 History and Physical PCP: Yaakov Archuleta CHIEF COMPLAINT:Cough, shortness of breath HISTORY OF PRESENT ILLNESS: Patient who has had 2 recent admission had been doing fairly well at home for the past month. 3-4 days ago she had an 12 hour episode of severe vomiting which resolved and she has noted some choking and coughing while eating regular foods for the past few days as well. She tells me that today she felt more short of breath and light headed today which prompted her to present to the ER today. In the ER she was found to be hypotensive and initially unresponsive but quickly improved and responded by IV fluids. Patient feels improved at this time, she is accompanied by daughter and son who also helps with history. Patient has 2 aids one of which is with her 08/02 . Otherwise patient denies weight loss, hair loss, headache, visual changes, chest pain, diarrhea, abdominal pain, muscle aches, worsening arthritis, change in mood PAST MEDICAL HISTORY: 1. Chronic hypoxic respiratory failure secondary to COPD 2 L O2 baseline with 10 mg of prednisone daily. 2. Chronic kidney disease stage IV. 3. Type 2 diabetes 4. Combined diastolic systolic congestive heart failure ejection fraction 3540% 5. Peripheral arterial disease status post bypass 6. Complete heart block status post permanent pacemaker placement 7. Anemia chronic disease 8. Depression 9. Crohn's disease 10. Gastroesophageal reflux disease HOME MEDICATIONS: Please see below. ALLERGIES: Please see below PAST SURGICAL HISTORY: 1. Aortofemoral bypass. 2. Permanent pacemaker placement. 3. Cataract extraction 4. Cholecystectomy 5. section. SOCIAL HISTORY: Lives with: alone with 08/02 aid care, Employment: retired, Tobacco use:former smoker. ETOH: denies, Illicit drug use: denies, Tattoos done unprofessionally: denies, CODE STATUS: Full Code FAMILY HISTORY:Reviewed and noncontributory REVIEW OF SYSTEMS: 10 systems reviewed and negative other than HPI PHYSICAL EXAMINATION: VITAL SIGNS: Temperature 99 3, pulse 90, respiratory rate 20, blood pressure 93/59, pulse oximetry 98% % on 2 L GENERAL: Pleasant elderly sitting up in bed awake alert oriented speaking in complete sentences no acute distress appears well HEENT: dry mucous membranes no elevation of CVP CARDIOVASCULAR: S1 S2 regular no additional heart sounds appreciated. RESPIRATORY: Clear to auscultation bilaterally. ABDOMINAL: Bowel sounds present abdomen soft and nontender EXTREMITIES: No clubbing cyanosis or edema NEUROLOGICAL: Spontaneously moves all 4 extremities cranial 2 through 12 grossly intact no gross focal deficits appreciated PSYCHOLOGICAL: Appropriate LABORATORY DATA: See below. MICROBIOLOGY: Please see below. IMAGING: Chest x-ray:Small area of atelectasis/infiltrate at the left costophrenic angle. ASSESSMENT & PLAN: This is a 83-year-old female with possible sepsis secondary to left-sided multidrug-resistant versus aspiration pneumonia. PROBLEMS: 1. Sepsis secondary to left-sided multidrug-resistant versus aspiration pneumonia: Patient was initially unresponsive and confused with low blood pressure she did respond to IV fluids and is less confused she is awake and alert at this time. Imaging is suggestive for left-sided pneumonia she certainly has a history of coughing while eating and recent vomiting ring which she could've potentially aspirated. She has a history of questionable aspiration pneumonia back in October as well. She has been hospitalized recently twice putting a potential risk for multidrug resistant pneumonia as well. She'll be admitted to the medical intensive care unit as she still remained somewhat hypotensive I'll continue with aggressive IV fluids vancomycin and meropenem for empiric antibiotics. Follow up her cultures I'll check a pro-calcitonin. She is chronically on steroids at home and given that she is hypotensive at this time will provide her with stress dose hydrocortisone 100 mg 1 now and 50 mg every 8 hours IV.. Reassuringly the patient does have normal lactic acid at this time. Patient's well's criteria is 0 and although she is mildly hypoxic and hypotensive she is not tachycardic at this time I do not feel any further workup is needed or treatment is needed with concern for her elevated d-dimer.. She is on furosemide at home and is a very small woman certainly possible that she is dehydrated secondary to overdiuresis as a contributing factor as well. 2. Acute on chronic kidney disease: She is hypotensive and suspect is likely prerenal I will hold her home furosemide and we're aggressively hydrating her at this time 3. Combined diastolic systolic congestive heart failure ejection fraction 35- 40%: Appears hypovolemic at this time I'll trend her troponin monitor the [facility] intensive care unit on telemetry we are also going to hold her diuretic, she is not on a beta guy, she is not on an KARELY inhibitor secondary to her renal disease she is not on hydralazine and nitrates now and initiate these in this hypertensive patient. She is on continued on an aspirin 4. Chronic hypoxic respiratory failure: She is at 2 L at her baseline and this is what she is using at this time I'll provide her with nebulizer treatments continuous prima and Symbicort she has been provided with steroids as well however I am less suspicious for any acute decompensation of her COPD and suspect this is secondary to pneumonia. 5. Peripheral arterial disease: She is on aspirin and no statin will defer to her outpatient providers 6. Diabetes: Insulin sliding scale 7. Gastroesophageal reflux disease: I'll provide her with a PPI IV 8. Anemia: Anemia of chronic disease and iron deficiency 9. Crohn's disease: Stable without medications for some time DVT PROPHYLAXIS:Heparin every 12 DISPOSITION: Admitted to the medical intensive care unit, given her hypotension renal dysfunction her prognosis is certainly guarded. I did a lengthy discussion with the patient her daughter and son present regarding her frequent hospitalizations into ICU admissions within the 2 month period and an overall poor prognosis. For the time being she was to remain full code Vital Signs Vital Signs Date Time Temp Pulse Resp B/P (MAP) Pulse Ox O2 Delivery O2 Flow Rate FiO2 12/17/18 15:50 92 98 12/17/18 15:45 70/44 (53) 12/17/18 12:59 99.3 20 Non-Rebreather Laboratory Data Labs 24H Laboratory Tests 2 12/17/18 12:47: Blood Gas Bicarbonate Standard 26.4H, Arterial Blood pH 7.427, Arterial Blood Partial Pressure CO2 41.4, Arterial Blood Partial Pressure O2 152.9H, Arterial Blood Total CO2 27.9, Arterial Blood HCO3 26.7H, Arterial Blood Base Excess 2.1H, Arterial Blood Oxygen Saturation 98.8 12/17/18 13:08: Immature Granulocyte % (Auto) 0.5, White Blood Count 15.3H, Red Blood Count 3.74L, Hemoglobin 10.0L, Hematocrit 33.4L, Mean Corpuscular Volume 89.3, Mean Corpuscular Hemoglobin 26.7L, Mean Corpuscular Hemoglobin Concent 29.9L, Red Cell Distribution Width 17.1H, Platelet Count 329, Neutrophils (%) (Auto) 88.1H, Lymphocytes (%) (Auto) 8.3L, Monocytes (%) (Auto) 2.6, Eosinophils (%) (Auto) 0.2, Basophils (%) (Auto) 0.3, Neutrophils # (Auto) 13.5H, Lymphocytes # (Auto) 1.3L, Monocytes # (Auto) 0.4, Eosinophils # (Auto) 0.0, Basophils # (Auto) 0.0, Nucleated Red Blood Cells % (auto) 0.0, Prothrombin Time 13.0, Prothromb Time International Ratio 0.97, D-Dimer, Quantitative 943.10H, Anion Gap 9, Glomerular Filtration Rate 19.8L, Lactic Acid Level 1.3, Calcium Level 8.8, Aspartate Amino Transf (AST/SGOT) 29, Alanine Aminotransferase (ALT/SGPT) 24, Alkaline Phosphatase 113, Total Bilirubin 0.5, Direct Bilirubin 0.2, Total Creatine Kinase 48, Creatine Kinase MB 3.0, Creatine Kinase MB Relative Index 6.04H, Troponin I 0.04, AX-Erv-Y-Type Natriuretic Peptide 47011W, Total Protein 6.1L, Albumin 3.2, Albumin/Globulin Ratio 1.10, Thyroid Stimulating Hormone (TSH) 1.750 CBC/BMP Laboratory Tests 12/17/18 13:08 Red Blood Count 3.74 L, Mean Corpuscular Volume 89.3, Mean Corpuscular Hemoglobin 26.7 L, Mean Corpuscular Hemoglobin Concent 29.9 L, Red Cell Distribution Width 17.1 H, Neutrophils (%) (Auto) 88.1 H, Lymphocytes (%) (Auto) 8.3 L, Monocytes (%) (Auto) 2.6, Eosinophils (%) (Auto) 0.2, Basophils (%) (Auto) 0.3, Neutrophils # (Auto) 13.5 H, Lymphocytes # (Auto) 1.3 L, Monocytes # (Auto) 0.4, Eosinophils # (Auto) 0.0, Basophils # (Auto) 0.0 Microbiology Microbiology 12/17/18 Blood Culture, Received Pending 12/17/18 Blood Culture, Received Pending Home Medications Scheduled Aripiprazole (Abilify) 10 Mg Tablet, 10 MG PO DAILY Aspirin (Aspirin EC) 81 Mg Tabec, 81 MG PO DAILY Budesonide/Formoterol (Symbicort 160-4.5 Mcg Inhaler) 6 Gm Hfa.aer.ad, 2 PUFF INH BID Calcitriol (Calcitriol) 0.25 Mcg Cap, 0.25 MG PO DAILY Citalopram Hydrobromide (Celexa) 20 Mg Tablet, 20 MG PO DAILY Furosemide (Lasix) 40 Mg Tab, 40 MG PO DAILY Insulin Human Lispro (Humalog Mix 75-25 Vial) 100 Unit/1 Ml Vial, 15 UNITS SC DAILY TAKES AT LUNCHTIME Melatonin (Melatonin) 5 Mg Tab, 10 MG PO QHS Omeprazole (Omeprazole) 20 Mg Capsule.dr, 20 MG PO DAILY Prednisone (Prednisone) 10 Mg Tab, 10 MG PO DAILY Tiotropium [place] Monohydrate (Spiriva) 18 Mcg Cap.w.dev, 1 INHALATION INH RANDY Y Scheduled PRN Albuterol Sulfate (Proair Hfa) 108 Mcg/Act Aer, 2 PUFF INH Q4H PRN for SHORTNESS OF BREATH Albuterol Sulfate (Albuterol Sulfate) 0.63 Mg/3 Ml Neb, 0.63 MG INH Q4H PRN for SHORTNESS OF BREATH Allergies Coded Allergies: Penicillins (Verified Allergy, Intermediate, Rash/Dizziness; had zosyn recently on prev admission and ok, 12/17/18) A-FIB/CHADSVASC A-FIB History Current/History of A-Fib/PAF?: No ASUNCION GOMEZ MD Dec 17, 2018 17:14
[2018-12-17] MEDS ORDERED: DEXTROSE 50% 50 ML SYRINGE IV PRN (17:15)
[2018-12-17] MEDS ORDERED: GLUCOSE 4 GM CHEW TABLET PO PRN (17:15)
[2018-12-17] MEDS ORDERED: GLUCAGON FOR INJ 1 MG VIAL (J1610) SC PRN (17:15)
[2018-12-17 17:26] LABS: CALCIUM LEVEL 8.3 MG/DL (8.8-10.2); CREATININE FOR GFR 2.4 MG/DL (0.55-1.30); GLOMERULAR FILTRATION RATE 20.6 (>32); TROPONIN I 0.03 NG/ML (< 0.10)
[2018-12-17] MEDS ORDERED: HumaLOG INSULIN (NovoLOG) PER UNIT SC SCH ×2 (17:30→21:00)
--- NOTE | 2018-12-17 17:33 | REP ---
Clinical: Bilateral lower extremity pain . Technique: Hill scale and color Doppler evaluation using linear high frequency transducer. Findings: Ultrasound examination of the right and left lower extremity deep venous structures from the common femoral vein to the popliteal vein demonstrates normal compressibility flow and wave patterns in response to respiration and augmentation. There is no evidence for deep venous thrombosis. Impression: No evidence for deep venous thrombosis bilateral lower extremities . Electronically Signed by Sky Weinberg MD 12/17/2018 05:25 P
[2018-12-17] MEDS: PANTOPRAZOLE 40MG INJ (PROTONIX) (C9113) IV SCH (18:21)
--- NOTE | 2018-12-17 19:21 | ECGEPIP ---
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
[2018-12-17] MEDS: MEROPENEM INJ 500 MG in APPROPRIATE DILUENT 1 EA IV SCH (20:55)
[2018-12-17] MEDS: HEPARIN SOD (PORCINE) 5000 UNITS/ML VIAL SQ SCH (21:15)
[2018-12-17] MEDS: IPRATROPIUM 0.5MG/ALBUTEROL 2.5MG INH SOL UD 3ML (DUONEB)(J7620) NEB SCH (21:23)
[2018-12-17] MEDS: SYMBICORT 160/4.5MCG INHALER 6GM INH SCH (21:23)
[2018-12-17] MEDS ORDERED: SODIUM CHLORIDE 0.9% 1000ML IV ONE (21:45)
[2018-12-17] MEDS ORDERED: LIDOCAINE 1% MDV 20ML VIAL As Ordered ONE (22:59)
[2018-12-18] VITALS (32 sets, daily range): BP systolic 79–145; BP diastolic 50–81
[2018-12-18] MEDS: NOREPINEPHRINE BITARTRATE 16 MG in D5W 484 ML IV SCH ×2 (00:15→23:30)
[2018-12-18] MEDS: HYDROCORTISONE 100 MG/2 ML VIAL (J1720) IV SCH ×4 (01:17→23:51)
[2018-12-18] MEDS ORDERED: LEVEMIR (INSULIN DETEMIR) 1 UNITS/0.01ML SC ONE (01:30)
[2018-12-18] MEDS: IPRATROPIUM 0.5MG/ALBUTEROL 2.5MG INH SOL UD 3ML (DUONEB)(J7620) NEB SCH ×4 (01:42→20:00)
[2018-12-18] MEDS: HumaLOG INSULIN (NovoLOG) PER UNIT SC SCH ×5 (01:52→20:34)
[2018-12-18] MEDS ORDERED: HumaLOG INSULIN (NovoLOG) PER UNIT SC SCH ×3 (03:00→17:30)
[2018-12-18 03:44] LABS: ABG BASE EXCESS -2.2 (-2.0-2.0); ABG HCO3 22.6 MEQ/L (22.0-26.0); ABG PARTIAL PRESSURE CO2 38.6 mmHg (35.0-45.0); ABG PARTIAL PRESSURE O2 155.6 mmHg (75.0-100.0); ABG STANDARD HCO3 22.7 MEQ/L (22.0-26.0); ABG TOTAL CO2 23.8 MEQ/L (23.0-31.0); ABG pH (ARTERIAL) 7.385 UNITS (7.350-7.450)
[2018-12-18 03:50] LABS: ACETONE/KETONE 1.01 MG/DL (<2.81); CALCIUM LEVEL 7.6 MG/DL (8.8-10.2); CREATININE FOR GFR 2.49 MG/DL (0.55-1.30); GLOMERULAR FILTRATION RATE 19.7 (>32); POTASSIUM SERUM 3.8 MEQ/L (3.5-5.1)
[2018-12-18] MEDS: ACETAMINOPHEN TAB 650MG DOSE (2X325MG) PO PRN (05:35)
--- NOTE | 2018-12-18 05:41 | CR ---
DATE OF CONSULTATION: 12/18/2018 CHIEF COMPLAINT: Coughing and shortness of breath. HISTORY OF PRESENT ILLNESS: Ms. Knight is an 83-year-old female with a past medical history of chronic obstructive pulmonary disease (COPD) with chronic hypoxemic respiratory failure on chronic prednisone and nasal cannula supplementation, congestive heart failure (CHF), diabetes, chronic kidney disease (CKD), pulmonary artery disease (PAD), complete heart block status post pacemaker, Crohn's disease who was recently admitted for pneumonia with acute hypercarbic respiratory failure requiring bilevel positive airway pressure (BiPAP) at that time. The patient reports that she started having a few days ago episodes of vomiting with the last episode approximately more than 24 hours ago. She also had been noticing some episodes of coughing and choking when eating for the past few days as well. The patient has had some more cough recently. It has not been very productive at this time and she did also have more shortness of breath and lightheadedness, which prompted her to present to the emergency department (ED). The patient denied any fevers or chills. She had no chest pain. She denied any abdominal pain. No diarrhea. No blood in her stool. She denied any dysuria. She does have a history of Crohn's disease and she does have some more frequent soft bowel movements but no watery loose stools. In the emergency department (ED), the patient was given intravenous (IV) fluids with 2 liters normal saline bolus. She was also given broad spectrum antibiotics and stress dose steroids with hydrocortisone. She continued to be hypotensive in the intensive care unit (ICU) and she was given an additional 1-liter normal saline bolus however her BP did not respond. Another liter was started and a critical care consult was called at that time. PAST MEDICAL AND PAST SURGICAL HISTORY: 1. Diabetes. 2. Chronic kidney disease (CKD). 3. Congestive heart failure (CHF). Last ejection fraction (EF) of 35-40%. 4. Chronic obstructive pulmonary disease (COPD) with chronic hypoxemic respiratory failure. 5. Crohn's disease. 6. Peripheral arterial disease status post aortobifemoral bypass. 7. Complete heart block status post pacemaker placement. 8. Stress incontinence. 9. Status post cataract surgery. 10. Status post cholecystectomy. FAMILY HISTORY: Son with a history of hypertension, coronary artery disease in the sister and the son and a history of cancer in her mother, sister and daughter. SOCIAL HISTORY: Former smoker for at least 30 years. ALLERGIES: Allergies to PENICILLIN. HOME MEDICATIONS: - Symbicort - aspirin - albuterol - ProAir - calcitriol - citalopram - Lasix - Lantus - Humalog - melatonin - prednisone 10 mg daily - Spiriva - Abilify PHYSICAL EXAMINATION: On physical exam temperature 98.4, pulse 90, respirations 18, blood pressure 83/55, oxygen sat 96% on 2 liters nasal cannula. General: The patient is a frail elderly female and is lying in bed in no acute distress. Is able to speak in complete sentences and is not using any accessory muscles for respiration. HEENT: Normocephalic, atraumatic. Mucous membranes are moist. Neck is supple. Trachea is midline. There is positive jugular venous distention (JVD). Cardiovascular: Regular rate and rhythm. Normal S1, S2, a faint murmur auscultated. Pulmonary: There are diminished breath sounds bilaterally with some crackles at the bases on the right more than the left posteriorly. Anteriorly there is some coarse inspiratory wheeze on the right and some more crackles in the left anterior base of the lung. Abdomen is soft, distended and there appears to be a positive fluid wave. She is nontender to palpation. Lower extremities: There is no significant lower extremity edema noted bilaterally. LABORATORY DATA: White blood cell (WBC) 15.3, hemoglobin 10.0, platelets 329. Chemistry: Sodium is 138, potassium 4.0, chloride 99, bicarbonate 28, BUN 64, creatinine 2.40, glucose 391, INR 0.97, lactic acid 1.3. Troponin was negative. Brain natriuretic peptide (BNP) was 11,776. Arterial blood gas (ABG) was pH 7.427, pCO2 of 41.4, pO2 of 152.9. IMAGING STUDIES: A chest x-ray on this admission showed a small area of infiltrate in the left costophrenic angle with some chronic interstitial changes and possible mild pulmonary vascular congestion. There are cardiac pacemaker leads in place as well. Lower extremity duplex was negative for evidence of deep vein thrombosis (DVT). Echo from her previous admission in October showed an ejection fraction (EF) of 35-40% with regional wall motion abnormalities. There is left atrial dilation, right ventricle is enlarged and there is a small pericardial effusion noted. There is also mild mitral regurgitation (MR). ASSESSMENT AND PLAN: The patient is an 83-year-old female with a past medical history of chronic obstructive pulmonary disease (COPD) with chronic hypoxemic respiratory failure on nasal cannula oxygen supplementation and chronic prednisone, diabetes, chronic kidney disease (CKD), Crohn's disease, coronary artery disease (CAD) and history of congestive heart failure (CHF) who presented with complaints of increased cough and shortness of breath. The patient had episodes of nausea and vomiting and then started noticing coughing and shortness of breath. Her initial chest x-ray showed a possible left basilar infiltrate and she did have leukocytosis on admission. Patient with likely aspiration pneumonia given her history. She was also hypotensive, which was thought to be due to hypovolemia from her vomiting and decreased by mouth intake. She was given intravenous (IV) fluids and started on broad-spectrum antibiotics with vancomycin and meropenem. However, she continued to be hypotensive despite IV fluid resuscitation. It was discussed with the patient about central line placement and vasopressor support and the patient was agreeable. She therefore had a right internal jugular (IJ) triple lumen venous catheter placed for administration of vasopressors. Levophed will be started and titrated to maintain a mean arterial pressure (MAP) above 65. Her initial lactic acid on admission was negative. Will repeat a lactic acid at this time. Her central venous pressure (CVP) measured was increased at 16. Would hold off on further fluid hydration at this time given the elevated central venous pressure (CVP) as well as her history of heart failure. Will check a mixed venous oxygen saturation. Her troponins have been negative. Her brain natriuretic peptide (BNP) is elevated which is likely chronic. She likely has a component of biventricular heart failure given the significantly elevated BNP. She also has increased abdominal distension with a slight fluid wave and I suspect she has some ascites likely due to her right sided congestive heart failure (CHF). Will continue with broad-spectrum antibiotics with vancomycin and meropenem. Will follow up the results of her cultures including gastrointestinal (GI) panel. Continue the patient on stress dose steroids given her chronic steroid use. Continue with DuoNebs and her home inhalers with Symbicort and Spiriva. She does not appear to have significant wheezing on exam currently and does not appear to have an acute chronic obstructive pulmonary disease (COPD) exacerbation. Her arterial blood gas (ABG) did not show any acute respiratory acidosis. The patient's fingerstick glucoses have an elevated likely in the setting of infection as well as with her steroids. Would consider increasing fingerstick glucose monitoring and sliding scale coverage as needed. Would monitor to make sure that patient does not go into diabetic ketoacidosis (DKA). Deep vein thrombosis (DVT) prophylaxis with heparin. GI prophylaxis given her chronic steroid use. Code status. The patient has a previous medical orders for life-sustaining treatment (MOLST) form, which indicates she is DO NOT RESUSCITATE/DO NOT INTUBATE. Total critical care time spent not including any procedures: Approximately 1 hour and 30 minutes. AMBERD
[2018-12-18] MEDS: MEROPENEM INJ 500 MG in APPROPRIATE DILUENT 1 EA IV SCH ×2 (05:52→17:19)
[2018-12-18 06:07] LABS: HEMATOCRIT 32.9 % (36.0-47.0); HEMOGLOBIN 9.7 g/dl (12.0-15.5); MEAN CORPUSCULAR HEMOGLOBIN 26.6 pg (27.0-33.0); MEAN CORPUSCULAR HGB CONC 29.5 g/dl (32.0-36.5); MEAN CORPUSCULAR VOLUME 90.4 fl (80.0-96.0); PLATELET COUNT, AUTOMATED 350 10^3/uL (150-450); RED BLOOD COUNT 3.64 10^6/uL (4.00-5.40); WHITE BLOOD COUNT 15.2 10^3/uL (4.0-10.0)
[2018-12-18 06:26] LABS: CALCIUM LEVEL 7.9 MG/DL (8.8-10.2); CREATININE FOR GFR 2.44 MG/DL (0.55-1.30); GLOMERULAR FILTRATION RATE 20.2 (>32); POTASSIUM SERUM 3.8 MEQ/L (3.5-5.1)
[2018-12-18 07:09] LABS: MAGNESIUM LEVEL 1.7 MG/DL (1.8-2.4)
--- NOTE | 2018-12-18 07:16 | RO ---
DATE OF PROCEDURE: 12/18/18 INDICATION: Vasopressor administration. PREPROCEDURE DIAGNOSIS: Septic shock POSTPROCEDURE DIAGNOSIS: Septic shock. PROCEDURE Central venous line insertion SURGEON: Dr. Viola Cruz CONSENT: The consent was obtained from the patient prior to the procedure. Indication, risks and benefits were explained at length. PROCEDURE SUMMARY: Central line insertion practices form was completed by independent observer. Time-out was performed prior to procedure. Full sterile technique was maintained throughout the procedure including surgical cap, mask, protective eyewear, full gown and sterile gloves. The patient was placed in Trendelenburg position. The right neck region was prepped using chlorhexidine scrub and draped in a sterile fashion using a full drape and a sterile probe cover was employed. The right internal jugular (IJ) vein was identified using ultrasound. Anesthesia was achieved over vein using 1% lidocaine. Using real-time out of plane guidance, the introducer needle was inserted into the right internal jugular vein under direct ultrasound visualization. Venous blood was withdrawn. The introducer was removed over the guidewire. A small incision was made at the skin surface with a scalpel and a dilator was exchanged over the guidewire. After appropriate dilation was obtained, the dilator was exchanged over the wire for a triple lumen central venous catheter. The wire was removed, and the catheter was sutured in place at 17 cm. A sterile chlorhexidine impregnated dressing was placed over the catheter at the insertion site. The patient tolerated procedure without any hemodynamic compromise. A time-out procedure at completion, all ports aspirated and flushed properly. Postprocedure chest x-ray showed the central line in good position with no evidence of pneumothorax. Estimated blood loss is less than 5 mL. MTDD
--- NOTE | 2018-12-18 07:40 | REP ---
Clinical: Central line placement. Comparison: 12/17/2018 12:38 p.m. Findings: Right IJ line with tip in the SVC. Mediastinum and cardiac silhouette are stable. Lung nugent demonstrate diffuse chronic interstitial changes with trace left basilar atelectasis improved from prior examination. Skeletal structures stable. Impression: 1. Right IJ line in satisfactory position. 2. Improved aeration and decreased left lower lobe opacity/atelectasis. Electronically Signed by Sky Weinberg MD 12/18/2018 07:32 A
[2018-12-18] MEDS: TIOTROPIUM INHALER/CAPSULE (SPIRIVA) INH SCH (08:06)
[2018-12-18] MEDS: SYMBICORT 160/4.5MCG INHALER 6GM INH SCH ×2 (08:06→20:12)
[2018-12-18] MEDS: CitaloPRAM (CeleXA) 20 MG TAB PO SCH (08:50)
[2018-12-18] MEDS: VANCOMYCIN HCL 750 MG, VIAL MATE ADAPTER 1 EACH in D5W 250 ML IV SCH (08:50)
[2018-12-18] MEDS: PANTOPRAZOLE 40MG INJ (PROTONIX) (C9113) IV SCH (08:50)
[2018-12-18] MEDS: HEPARIN SOD (PORCINE) 5000 UNITS/ML VIAL SQ SCH ×2 (08:50→20:35)
[2018-12-18] MEDS: ASPIRIN 81 MG ENTERIC TAB PO SCH (08:50)
[2018-12-18] MEDS: ARIPiprazole 10 MG TAB PO SCH (09:00)
[2018-12-18] MEDS ORDERED: MAG SULF 1GM/100ML (MAG RUN) 1 GM in APPROPRIATE DILUENT 1 EA IV ONE (09:30)
--- NOTE | 2018-12-18 09:40 | IPNPDOC ---
Date Seen The patient was seen on 12/18/18. Progress Note SUBJECTIVE: Patient continues to complain of coughing while eating, she complains of some irritation at the site of her central venous catheter insertion. She denies lightheadedness or dizziness until she is actually feeling much better today than she did last several days otherwise patient denies chest pain, shortness breath, nausea, vomiting, fevers, chills OBJECTIVE PHYSICAL EXAMINATION: VITAL SIGNS: Please see below. GENERAL: Pleasant elderly sitting on the edge of her bed awake alert oriented speaking in complete sentences no acute distress feeding herself pineda akfast HEENT: dry mucous membranes some elevation of CVP CARDIOVASCULAR: S1 S2 regular no additional heart sounds appreciated. RESPIRATORY: Clear to auscultation bilaterally. ABDOMINAL: Bowel sounds present abdomen soft and nontender, positive fluid wave EXTREMITIES: No clubbing cyanosis or edema NEUROLOGICAL: Spontaneously moves all 4 extremities cranial 2 through 12 grossly intact no gross focal deficits appreciated PSYCHOLOGICAL: Appropriate LABORATORY DATA: See below. MICROBIOLOGY: Please see below. IMAGING: Chest x-ray:Small area of atelectasis/infiltrate at the left costophrenic angle. ASSESSMENT & PLAN: This is a 83-year-old female with possible sepsis secondary to aspiration pneumonia versus multidrug-resistant pneumonia PROBLEMS: 1. Septic shock secondary to aspiration pneumonia versus lactose likely multidr ug-resistant pneumonia: Patient was initially unresponsive and confused with low blood pressure she did respond to IV fluids with improvement in mentation, however overnight it appears she began to drop her pressures had an elevation in her lactic acid acquired central venous catheter placement and initiation of pressor support. Critical care consult greatly appreciated. This morning she seems to be doing significantly better requiring minimal pressor support. I did discuss with nursing staff will attempt to wean her as tolerated for map greater than 65. She remains on empiric vancomycin and meropenem per calcitonin pending lactic acidosis improving. I continued her on stress dose steroids given her history of chronic steroid use related to chronic hypoxic respiratory failure related to COPD. For now she is on a mechanical soft diet with honey thickened liquids, await a formal speech therapy evaluation tomorrow. 2. Acute on chronic kidney disease: She has been hypotensive and suspect is likely prerenal I will continue to hold her home furosemide renal function has held stable we'll continue to monitor closely 3. 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 She does not appear to be in pulmonary edema or any respiratory distress whatsoever. As outlined above we're holding her home diuretic curiously she is not on heart failure regimen, this is something that should likely be addressed once medically stabilized. She is on continued on an aspirin 4. Chronic hypoxic respiratory failure: She is at 2 L at her baseline and this is what she is using at this time I'll continue to provide her with nebulizer treatments and Symbicort she has been provided with steroids as well however I am less suspicious for any acute decompensation of her COPD and suspect this is secondary to pneumonia. 5. Peripheral arterial disease: She is on aspirin and no statin will defer to her outpatient providers 6. Diabetes: Insulin sliding scale 7. Gastroesophageal reflux disease: I'll provide her with a PPI IV while in the medical intensive care unit 8. Anemia: Anemia of chronic disease and iron deficiency stable continue to monitor 9. Crohn's disease: Stable without medications for some time 10. Hypomagnesemia: We'll replete by mouth DVT PROPHYLAXIS:Heparin every 12 DISPOSITION: Pending clinical improvement, likely eventual return home where she has 24 7 care with AIDS. However she has had 2 admissions to the medical intensive care unit within the last 2 months long-term prognosis would seem to be quite guarded VS, I&O, 24H, Fishbone Vital Signs/I&O Vital Signs Date Time Temp Pulse Resp B/P (MAP) Pulse Ox O2 Delivery O2 Flow Rate FiO2 12/18/18 09:02 96 92/51 (65) 12/18/18 08:30 90 2.0 12/18/18 08:22 16 12/18/18 04:00 98.3 12/17/18 17:15 Nasal Cannula I&O- Last 24 Hours up to 6 AM 12/18/18 06:00 Intake Total 3890.8 ml Output Total 1150 ml Balance 2740.8 ml Laboratory Data 24H LABS Laboratory Tests 2 12/17/18 12:47: Blood Gas Bicarbonate Standard 26.4H, Arterial Blood pH 7.427, Arterial Blood Partial Pressure CO2 41.4, Arterial Blood Partial Pressure O2 152.9H, Arterial Blood Total CO2 27.9, Arterial Blood HCO3 26.7H, Arterial Blood Base Excess 2.1H, Arterial Blood Oxygen Saturation 98.8 12/17/18 13:08: Immature Granulocyte % (Auto) 0.5, White Blood Count 15.3H, Red Blood Count 3.74L, Hemoglobin 10.0L, Hematocrit 33.4L, Mean Corpuscular Volume 89.3, Mean Corpuscular Hemoglobin 26.7L, Mean Corpuscular Hemoglobin Concent 29.9L, Red Cell Distribution Width 17.1H, Platelet Count 329, Neutrophils (%) (Auto) 88.1H, Lymphocytes (%) (Auto) 8.3L, Monocytes (%) (Auto) 2.6, Eosinophils (%) (Auto) 0.2, Basophils (%) (Auto) 0.3, Neutrophils # (Auto) 13.5H, Lymphocytes # (Auto) 1.3L, Monocytes # (Auto) 0.4, Eosinophils # (Auto) 0.0, Basophils # (Auto) 0.0, Nucleated Red Blood Cells % (auto) 0.0, Prothrombin Time 13.0, Prothromb Time International Ratio 0.97, D-Dimer, Quantitative 943.10H, Anion Gap 9, Glomerular Filtration Rate 19.8L, Lactic Acid Level 1.3, Calcium Level 8.8, Aspartate Amino Transf (AST/SGOT) 29, Alanine Aminotransferase (ALT/SGPT) 24, Alkaline Phosphatase 113, Total Bilirubin 0.5, Direct Bilirubin 0.2, Total Creatine Kinase 48, Creatine Kinase MB 3.0, Creatine Kinase MB Relative Index 6.04H, Troponin I 0.04, JO-Gsc-[id number]-Type Natriuretic Peptide 99004U, Total Protein 6.1L, Albumin 3.2, Albumin/Globulin Ratio 1.10, Thyroid Stimulating Hormone (TSH) 1.750 12/17/18 16:47: Anion Gap 11, Glomerular Filtration Rate 20.6L, Calcium Level 8.3L, Troponin I 0.03#, Blood Urea Nitrogen 64H, Creatinine 2.40H, Sodium Level 138, Potassium Level 4.0, Chloride Level 99, Carbon Dioxide Level 28 12/17/18 18:00: Bedside Glucose (Misc Panel) 477H 12/17/18 21:01: Bedside Glucose (Misc Panel) 364H 12/17/18 22:44: Troponin I 0.02# 12/18/18 01:21: Central Line Venous O2 Saturation 73.2, Lactic Acid Level 3.2*H 12/18/18 01:46: Bedside Glucose (Misc Panel) 329H 12/18/18 03:13: Anion Gap 10, Glomerular Filtration Rate 19.7L, Blood Urea Nitrogen 57H, Creatinine 2.49H, Sodium Level 141, Potassium Level 3.8, Chloride Level 103, Carbon Dioxide Level 28, Calcium Level 7.6L, B-Hydroxybutyrate 1.01 12/18/18 03:40: Blood Gas Bicarbonate Standard 22.7, Arterial Blood pH 7.385, Arterial Blood Par tial Pressure CO2 38.6, Arterial Blood Partial Pressure O2 155.6H, Arterial Blood Total CO2 23.8, Arterial Blood HCO3 22.6, Arterial Blood Base Excess - 2.2L, Arterial Blood Oxygen Saturation 99.0 12/18/18 05:39: Anion Gap 10, Glomerular Filtration Rate 20.2L, Blood Urea Nitrogen 54H, Creatinine 2.44H, Sodium Level 142, Potassium Level 3.8, Chloride Level 103, Carbon Dioxide Level 29, Calcium Level 7.9L, Nucleated Red Blood Cells % (auto) 0.0, Lactic Acid Followup at 4 Hours 2.4*H, Magnesium Level 1.7L 12/18/18 05:42: Bedside Glucose (Misc Panel) 260H CBC/BMP Laboratory Tests 12/17/18 13:08 Red Blood Count 3.74 L, Mean Corpuscular Volume 89.3, Mean Corpuscular Hemoglobin 26.7 L, Mean Corpuscular Hemoglobin Concent 29.9 L, Red Cell Distribution Width 17.1 H, Neutrophils (%) (Auto) 88.1 H, Lymphocytes (%) (Auto) 8.3 L, Monocytes (%) (Auto) 2.6, Eosinophils (%) (Auto) 0.2, Basophils (%) (Auto) 0.3, Neutrophils # (Auto) 13.5 H, Lymphocytes # (Auto) 1.3 L, Monocytes # (Auto) 0.4, Eosinophils # (Auto) 0.0, Basophils # (Auto) 0.0 12/17/18 16:47 Calcium Level 8.3 L 12/18/18 03:13 Calcium Level 7.6 L 12/18/18 05:39 Red Blood Count 3.64 L, Mean Corpuscular Volume 90.4, Mean Corpuscular Hemoglobin 26.6 L, Mean Corpuscular Hemoglobin Concent 29.5 L, Red Cell Distribu tion Width 16.7 H, Calcium Level 7.9 L Microbiology Microbiology 12/17/18 Blood Culture, Received Pending 12/17/18 Blood Culture, Received Pending 12/17/18 Gastrointestinal Tract Panel (PCR) - Final, Complete ASUNCION GOMEZ MD Dec 18, 2018 09:40
--- NOTE | 2018-12-18 10:42 | PHACANCOPD ---
PHARMACY VANCOMYCIN DOSING Pt Demographics Demographics Patient Age:83 , Weight:48.180 , Gender: female Adjusted Body Weight Date: 12/18/18, Adjusted Body Weight: Kg Events Past 24 Hours Events Past 24 Hours: YES: Change in CrCl, Elevation in WBC; NO: Dialysis, Diuretic Therapy, Fever, Pending Diagnostics, Pending Procedures, Other Vancomycin Vancomycin indication: MDR pneumonia Vancomycin Target Ranges: 10-20 mcg/ml Vancomycin Load Y/N: Yes Load Dose Date Time Vancomycin Load Dose: 1000mg Date: 12/17 Time: ~18:30 Vancomycin Dose Date: 12/18/18. Current Vancomycin Dose: [750mg IV q24h @09] Intermittent Dosing?: No Labs Labs Item Value Date Time Creatinine 2.48 MG/DL H 12/17/18 1308 White Blood Count 15.3 10^3/uL H 12/17/18 1308 White Blood Count 15.2 10^3/uL H 12/18/18 0539 Creatinine 2.49 MG/DL H 12/18/18 0313 Creatinine 2.44 MG/DL H 12/18/18 0539 Vital Signs Label Value Date Time Patient Temperature 99.3 degrees F 12/17/18 1259 Temperature Source Temporal 12/17/18 1259 Micro Microbiology 12/17/18 Blood Culture, Received Pending 12/17/18 Blood Culture, Received Pending 12/17/18 Gastrointestinal Tract Panel (PCR) - Final, Complete Creatinine Clearance Date:12/18/18. Creatinine Clearance: [<15 ml/min]. Pending Labs Vanco trough scheduled 12/19 @08:00 Assessment and Plan Maintaining Current Dose?: Yes Reason for dose change: No Dose Change Pharmacist Note Pharmacist Note Date: 12/18/18. Pharmacist note: pt has been started on Meropenem and vancomycin for pneumonia. Blood cultures are pending. Her SCr has been elevated for multiple days, baseline appears to be ~1.7 mg/dl. Based on prior consults earlier this year, I have started her on Vancomycin 1g which was given last evening followed by 750mg IV q24h which started ~15 hours after the 1g dose. Inflammatory markers are elevated and relatively unchanged over the past 48 hours. I have a trough scheduled for tomorrow morning. We will continue to monitor and make adjustments as necessary. Cali Espinosa Pharm.D. Dec 18, 2018 10:42
[2018-12-18] MEDS ORDERED: NS 500 ML IV ONE (16:45)
[2018-12-18] MEDS: LEVEMIR (INSULIN DETEMIR) 1 UNITS/0.01ML SC SCH (20:35)
[2018-12-19] VITALS (8 sets, daily range): BP systolic 86–154; BP diastolic 54–67
[2018-12-19] MEDS: IPRATROPIUM 0.5MG/ALBUTEROL 2.5MG INH SOL UD 3ML (DUONEB)(J7620) NEB SCH ×4 (02:00→20:00)
[2018-12-19 05:29] LABS: HEMATOCRIT 31.2 % (36.0-47.0); HEMOGLOBIN 9.5 g/dl (12.0-15.5); MEAN CORPUSCULAR HEMOGLOBIN 28.1 pg (27.0-33.0); MEAN CORPUSCULAR HGB CONC 30.4 g/dl (32.0-36.5); MEAN CORPUSCULAR VOLUME 92.3 fl (80.0-96.0); PLATELET COUNT, AUTOMATED 286 10^3/uL (150-450); RED BLOOD COUNT 3.38 10^6/uL (4.00-5.40); WHITE BLOOD COUNT 14.1 10^3/uL (4.0-10.0)
[2018-12-19] MEDS: MEROPENEM INJ 500 MG in APPROPRIATE DILUENT 1 EA IV SCH ×2 (05:49→17:42)
[2018-12-19 05:58] LABS: CREATININE FOR GFR 2.15 MG/DL (0.55-1.30); GLOMERULAR FILTRATION RATE 23.4 (>32); POTASSIUM SERUM 3.7 MEQ/L (3.5-5.1)
[2018-12-19] MEDS: SYMBICORT 160/4.5MCG INHALER 6GM INH SCH ×2 (07:37→20:06)
[2018-12-19] MEDS: TIOTROPIUM INHALER/CAPSULE (SPIRIVA) INH SCH (07:37)
[2018-12-19] MEDS: CitaloPRAM (CeleXA) 20 MG TAB PO SCH (08:51)
[2018-12-19] MEDS: HYDROCORTISONE 100 MG/2 ML VIAL (J1720) IV SCH ×2 (08:51→17:29)
[2018-12-19] MEDS: PANTOPRAZOLE 40MG INJ (PROTONIX) (C9113) IV SCH (08:51)
[2018-12-19] MEDS: HEPARIN SOD (PORCINE) 5000 UNITS/ML VIAL SQ SCH ×2 (08:51→20:41)
[2018-12-19] MEDS: ASPIRIN 81 MG ENTERIC TAB PO SCH (08:51)
[2018-12-19] MEDS: HumaLOG INSULIN (NovoLOG) PER UNIT SC SCH ×4 (08:52→20:33)
[2018-12-19] MEDS: VANCOMYCIN HCL 750 MG, VIAL MATE ADAPTER 1 EACH in D5W 250 ML IV SCH (08:52)
--- NOTE | 2018-12-19 10:09 | IPNPDOC ---
Subjective Date Seen The patient was seen on 12/19/18. Subjective Chief Complaint/HPI Patient comfortable off Levophed last 24 hours. Offers no new complaints, wants to go home General: Denies: ROS Unobtainable, Chills, Night Sweats, Fatigue, Malaise, Normal Appetite, Other Symptoms Constitutional: Denies: Chills, Fever, Malaise, Night Sweats, Weakness, Fatigue, Weight Loss, Lethargy, Other Eyes: Denies: Pain, Vision change, Conjunctivae inflammation, Eyelid inf lammation, Redness, Other ENT: Denies: Head Aches, Ear Pain, Dysphagia, Sinus Congestion, Post Nasal Drip, Sore Throat, Epistaxis, Other Symptoms Skin: Denies: Rash, Lesions, Jaundice, Bruising, Itching, Dry, Breakdown, Nail Changes, Other Pulmonary: Denies: Dyspnea, Cough, Pleuritic Chest Pain, Other Symptoms Cardiovascular: Denies: Chest Pain, Palpitations, Orthopnea, Paroxysmal Noc. Dyspnea, Edema, Lt Headedness, Other Symptoms Gastrointestinal: Denies: Nausea, Vomiting, Abdominal Pain, Diarrhea, Constipation, Melena, Hematochezia, Other Symptoms Genitourinary: Denies: Dysuria, Frequency, Incontinence, Hematuria, Retention, Other Symptoms Hematologic: Denies: Bruising, Bleeding Excessively, Petecchia, Purpura, Enlarged Lymph Nodes, Other Hematologic Endocrine: Denies: Polydipsia, Polyphagia, Polyuria, Heat Intolerance, Cold Intolerance, Other Endocrine Sx Musculoskeletal: Denies: Neck Pain, Back Pain, Shoulder Pain, Arm Pain, Hand Pain, Leg Pain, Foot Pain, Joint Pain, Muscle Pain, Spasms, Other Symptoms Neurological: Denies: Weakness, Numbness, Incoordination, Change in speech, Confusion, Seizures, Other Symptoms Psych: Denies: Mood Normal, Anxiety, Depression, Memory Issues, Thoughts of Self Harm, Anger, Thoughts of Harming Other, Other Psych Objective Physical Examination General Exam: Positive: Alert, Cooperative Eye Exam: Positive: PERRLA, Conjunctiva & lids normal ENT Exam: Positive: Atraumatic, Mucous membr. moist/pink Neck Exam: Positive: Supple Chest Exam: Positive: Clear to auscultation Heart Exam: Positive: Rate Normal, Normal S1, Normal S2 Abdomen Exam: Positive: Normal bowel sounds Extremity Exam: Positive: Normal pulses Skin Exam: Positive: Nl turgor and temperature Neuro Exam: Positive: Normal Speech, Cranial Nerves 3-12 NL Psych Exam: Positive: Mental status NL, Mood NL Assessment /Plan Problems (1) Acute on chronic respiratory failure with hypoxia and hypercapnia Status: Resolved (2) ROSENDO (acute kidney injury) Status: Acute (3) Septic shock Status: Resolved (4) Diastolic CHF Status: Chronic Plan/VTE VTE Prophylaxis Ordered?: Yes Plan 1. Septic shock secondary to aspiration pneumonia versus lactose likely multidrug-resistant pneumonia: Patient was initially unresponsive and confused with low blood pressure she did respond to IV fluids with improvement in mentation, however overnight it appears she began to drop her pressures had an elevation in her lactic acid acquired central venous catheter placement and initiation of pressor support. Critical care consult greatly appreciated. Patient is improved very well. She is off vasopressor since last 24 hours, discussed with Dr. Cruz. Patient can be discharged to medical floor as she is clinically stable at this point. Patient will be transferred to PCU for day or 2 until she is stable and gets the physical therapy consultation before discharging home 2. Acute on chronic kidney disease: She has been hypotensive and suspect is likely prerenal I will continue to hold her home furosemide renal function has held stable we'll continue to monitor closely 3. 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 She does not appear to be in pulmonary edema or any respiratory distress whatsoever. As outlined above we're holding her home diuretic curiously she is not on heart failure regimen, this is something that should likely be addressed once medically stabilized. She is on continued on an aspirin 4. Chronic hypoxic respiratory failure: She is at 2 L at her baseline and this is what she is using at this time I'll continue to provide her with nebulizer treatments and Symbicort she has been provided with steroids as well however I am less suspicious for any acute decompensation of her COPD and suspect this is secondary to pneumonia. 5. Peripheral arterial disease: She is on aspirin and no statin will defer to her outpatient providers 6. Diabetes: Insulin sliding scale 7. Gastroesophageal reflux disease: I'll provide her with a PPI IV while in the medical intensive care unit 8. Anemia: Anemia of chronic disease and iron deficiency stable continue to monitor 9. Crohn's disease: Stable without medications for some time 10. Hypomagnesemia: We'll replete by mouth VS, I&O, 24H, Fishbone Vital Signs/I&O Vital Signs Date Time Temp Pulse Resp B/P (MAP) Pulse Ox O2 Delivery O2 Flow Rate FiO2 12/19/18 04:00 98.9 109 20 92/62 (72) 95 2.0 12/17/18 17:15 Nasal Cannula I&O- Last 24 Hours up to 6 AM 12/19/18 06:00 Intake Total 1670 ml Output Total 1125 ml Balance 545 ml Laboratory Data 24H LABS Laboratory Tests 2 12/18/18 11:45: Bedside Glucose (Misc Panel) 293H 12/18/18 16:02: Bedside Glucose (Misc Panel) 299H 12/18/18 20:05: Bedside Glucose (Misc Panel) 181H 12/19/18 05:16: Nucleated Red Blood Cells % (auto) 0.0, Anion Gap 8, Glomerular Filtration Rate 23.4L, Blood Urea Nitrogen 51H, Creatinine 2.15H, Sodium Level 143, Potassium Level 3.7, Chloride Level 105, Carbon Dioxide Level 30, Calcium Level 8.0L 12/19/18 07:43: Vancomycin Level Trough 16.2 CBC/BMP Laboratory Tests 12/19/18 05:16 Red Blood Count 3.38 L, Mean Corpuscular Volume 92.3, Mean Corpuscular Hemoglobin 28.1, Mean Corpuscular Hemoglobin Concent 30.4 L, Red Cell Distribution Width 17.2 H, Calcium Level 8.0 L Microbiology Microbiology 12/17/18 Blood Culture - Preliminary, Resulted No growth after 24 hours . All specim... 12/17/18 Blood Culture - Preliminary, Resulted No growth after 24 hours . All specim... 12/17/18 Gastrointestinal Tract Panel (PCR) - Final, Complete DEONNA BOONE MD Dec 19, 2018 10:09
--- NOTE | 2018-12-19 11:12 | NUR ---
Recommend level 2 mechanically altered (NDD) solids w/ extra sauce/gravy/condiments & thin liquids. Recommend MBSS cookie swallow to assess for possible decreased pharyngeal propulsion vs upper esophageal stricture vs reflux. Addendum: 12/19/[address] Amended: Links added.
--- NOTE | 2018-12-19 11:56 | CCN ---
DATE: 12/19/2018 Patient was seen and examined this morning during bedside rounds. She has been off of Levophed since 8:00 a.m. yesterday. Her blood pressures have remained stable. She currently denies any complaints. She has no chest pains. No coughing. She does have some shortness of breath, which she says is her baseline. She has no abdominal pain. No nausea or vomiting. Has not had any diarrhea. She does have some ankle edema which she says is chronic for her. PHYSICAL EXAMINATION: Temperature 98.9, pulse 109, respirations 20, blood pressure 92/62, O2 sat 95% on 2 liters. Ins 1.7, out 1.3. General: Patient is a frail elderly female. She is sitting in the chair in no acute distress, is not using any accessory muscles for respiration. HEENT: Normocephalic, atraumatic. Moist mucous membranes. Pupils are reactive to light. Neck is supple. No Jugular venous distention (JVD) noted. Cardiovascular: Regular rate and rhythm. Normal S1-S2, faint systolic murmur auscultated. Pulmonary: Decreased breath sounds bilaterally. No wheezing or rhonchi. Few crackles at the bases. Abdomen is soft, nontender, appears mildly distended, which she says is her baseline. Lower extremities: There is trace to +1 pitting edema in her bilateral lower extremities. LABORATORY DATA: WBC 14.1, hemoglobin 9.5, platelets 286. Chemistries - sodium 143, potassium 2.7, chloride 105, bicarb 30, BUN 51, creatinine 2.15, glucose is 194. Microbiology: Her gastrointestinal (GI) panel was negative. Blood cultures were no growth to date. ASSESSMENT/PLAN: Patient is an 83-year female with a history of COPD with chronic hypoxemic respiratory failure on nasal cannula oxygen supplementation and chronic prednisone, diabetes, chronic kidney disease (CKD), Crohn's disease, coronary artery disease (CAD), congestive heart failure (CHF), who presented with increased cough and shortness of breath. The patient had been having episodes of nausea and vomiting for a few days prior to her presentation. She then started having some coughing and shortness of breath and there was concern for possible aspiration. Her chest x-ray showed a possible left base of infiltrate and she did have some leukocytosis on admission. The patient was started on antibiotics for possible aspiration pneumonia. She did receive IV fluids, but was still hypotensive and had increasing lactic acidosis and she was started on Levophed for septic shock. The patient has been off of Levophed for more than 24 hours and her blood pressures have been stable. Her lactic acid has also trended down. - Would discontinue Levophed and remove her triple lumen venous catheter when she has peripheral access. - Continue broad-spectrum antibiotics with vancomycin and meropenem. Would check a procalcitonin to help guide de-escalation of her antibiotics. - Patient is on chronic steroids and it is receiving stress dose steroids with hydrocortisone. Would taper down her hydrocortisone and continue tapering her steroids to her home dose of prednisone. - The patient has some increased lower extremity the edema today compared to previous. Would need to closely monitor her fluid status given her history of reduced ejection fraction (EF) heart failure and right ventricular heart failure. - Continue with DuoNebs and Symbicort and Spiriva. Continue with her nasal cannula oxygen supplementation. She is on her baseline at 2 liters per minute. Deep vein thrombosis (DVT) prophylaxis. Gastrointestinal (GI) prophylaxis. Code status: DO NOT RESUSCITATE, DO NOT INTUBATE. Total critical care time spent, not including procedures, approximately 30 minutes. Please do not hesitate to call for any further questions or concerns. MTDD
[2018-12-19] MEDS: ARIPiprazole 10 MG TAB PO SCH (13:05)
--- NOTE | 2018-12-19 14:34 | NUR ---
Recommend level 2 mechanically altered (NDD) solids, nectar thick liquids. Upright position & OOB as able for meals. Small bites/sips. Dysphagia tx for compensatory strategy training. Addendum: 12/19/18 at 1435 by JUNITO ANTON [facility] Amended: Links added.
[2018-12-19] MEDS: LEVEMIR (INSULIN DETEMIR) 1 UNITS/0.01ML SC SCH (20:41)
[2018-12-20] VITALS (8 sets, daily range): BP systolic 100–151; BP diastolic 56–85
[2018-12-20] MEDS: HYDROCORTISONE 100 MG/2 ML VIAL (J1720) IV SCH ×2 (01:00→09:25)
[2018-12-20] MEDS: IPRATROPIUM 0.5MG/ALBUTEROL 2.5MG INH SOL UD 3ML (DUONEB)(J7620) NEB SCH ×4 (02:00→20:00)
[2018-12-20] MEDS: MEROPENEM INJ 500 MG in APPROPRIATE DILUENT 1 EA IV SCH ×2 (05:32→17:12)
[2018-12-20 06:08] LABS: CALCIUM LEVEL 7.7 MG/DL (8.8-10.2); CREATININE FOR GFR 1.92 MG/DL (0.55-1.30); GLOMERULAR FILTRATION RATE 26.6 (>32); POTASSIUM SERUM 3.8 MEQ/L (3.5-5.1)
[2018-12-20] MEDS: TIOTROPIUM INHALER/CAPSULE (SPIRIVA) INH SCH (07:31)
[2018-12-20] MEDS: SYMBICORT 160/4.5MCG INHALER 6GM INH SCH ×2 (07:31→20:14)
[2018-12-20] MEDS: VANCOMYCIN HCL 750 MG, VIAL MATE ADAPTER 1 EACH in D5W 250 ML IV SCH (09:24)
[2018-12-20] MEDS: PANTOPRAZOLE 40MG INJ (PROTONIX) (C9113) IV SCH (09:24)
[2018-12-20] MEDS: HumaLOG INSULIN (NovoLOG) PER UNIT SC SCH ×4 (09:25→21:00)
[2018-12-20] MEDS: HEPARIN SOD (PORCINE) 5000 UNITS/ML VIAL SQ SCH ×2 (09:25→22:15)
[2018-12-20] MEDS: ASPIRIN 81 MG ENTERIC TAB PO SCH (09:26)
[2018-12-20] MEDS: ARIPiprazole 10 MG TAB PO SCH (09:26)
[2018-12-20] MEDS: CitaloPRAM (CeleXA) 20 MG TAB PO SCH (09:26)
--- NOTE | 2018-12-20 11:54 | REP ---
Examination Requested: Cookie Swallow Reason For Exam: Dysphasia The procedure was performed by ARYA Vaz, under the direct supervision of Dr. Hill. The procedure was performed with Jessica Alvarenga from speech pathology present. 5 ml aliquots of thin, pudding, mixed fruit, soft food, hard food, and nectar consistency barium was administered. Penetration was noted with the thin consistency of barium. The detailed report of this examination will be provided by speech pathology. 2.1 minutes of fluoroscopy time was utilized for this procedure. Reviewed by ARYA Estrada 12/19/2018 12:36 P Electronically Signed by Bernabe Hill MD 12/20/2018 11:44 A
[2018-12-20] MEDS ORDERED: predniSONE 20 MG TAB PO ONE (16:45)
--- NOTE | 2018-12-20 17:07 | IPNPDOC ---
Subjective Date Seen The patient was seen on 12/20/18. Subjective Chief Complaint/HPI The patient wants to go home, but after I explained her disease course, she is ok with staying in the hospital. She admits to shortness of breath, but feels that breathing has improved. She still has mild cough. No other complaints. No GI symptoms including nausea, vomiting, or diarrhea. No chest pain or palpitation. General: Denies: ROS Unobtainable, Chills, Night Sweats, Fatigue, Malaise, Normal Appetite, Other Symptoms Constitutional: Denies: Chills, Fever, Malaise, Night Sweats, Weakness, Fati alanna, Weight Loss, Lethargy, Other Eyes: Denies: Pain, Vision change, Conjunctivae inflammation, Eyelid inflammation, Redness, Other ENT: Denies: Head Aches, Ear Pain, Dysphagia, Sinus Congestion, Post Nasal Drip, Sore Throat, Epistaxis, Other Symptoms Skin: Denies: Rash, Lesions, Jaundice, Bruising, Itching, Dry, Breakdown, Nail Changes, Other Pulmonary: Reports: Dyspnea, Cough Cardiovascular: Denies: Chest Pain, Palpitations, Orthopnea, Paroxysmal Noc. Dyspnea, Edema, Lt Headedness, Other Symptoms Gastrointestinal: Denies: Nausea, Vomiting, Abdominal Pain, Diarrhea, Constipation, Melena, Hematochezia, Other Symptoms Genitourinary: Denies: Dysuria, Frequency, Incontinence, Hematuria, Retention, Other Symptoms Hematologic: Denies: Bruising, Bleeding Excessively, Petecchia, Purpura, Enlarged Lymph Nodes, Other Hematologic Endocrine: Denies: Polydipsia, Polyphagia, Polyuria, Heat Intolerance, Cold Intolerance, Other Endocrine Sx Musculoskeletal: Denies: Neck Pain, Back Pain, Shoulder Pain, Arm Pain, Hand Pain, Leg Pain, Foot Pain, Joint Pain, Muscle Pain, Spasms, Other Symptoms Neurological: Denies: Weakness, Numbness, Incoordination, Change in speech, Confusion, Seizures, Other Symptoms Objective Physical Examination General Exam: Positive: Alert, Cooperative Eye Exam: Positive: PERRLA, Conjunctiva & lids normal ENT Exam: Positive: Atraumatic, Mucous membr. moist/pink Neck Exam: Positive: Supple Chest Exam: Positive: Clear to auscultation Heart Exam: Positive: Rate Normal, Normal S1, Normal S2 Abdomen Exam: Positive: Normal bowel sounds Extremity Exam: Positive: Normal pulses Skin Exam: Positive: Nl turgor and temperature Neuro Exam: Positive: Normal Speech, Cranial Nerves 3-12 NL Psych Exam: Positive: Mental status NL, Mood NL Assessment /Plan Problems (1) Acute on chronic respiratory failure with hypoxia and hypercapnia Status: Resolved Problem Text: # Septic shock from pneumonia, COPD acute exacerbation - The patient was temporarily on pressor to maintain BP, and currently, BP is well maintained. - Blood culture does not grow any bacteria over 72 hours, and will stop vancomycin. Continue meropenem to finish a 7 day course. - If the final report of blood culture confirms no growth, will stop meropenem, and start levaquin. - She was receiving IV hydration, but given lower ext edema and a history of CHF, will stop IV hydration. - She is on 2 L home O2 at baseline, and she has COPD exacerbation. She was also receiving stress dose of hydrocortisone, but will stop it. Instead, will start prednisone 40 mg daily to treat COPD exacerbation. # Acute on chronic kidney disease - Likely from hypotension and ATN. - Cr improving, today 1.92, from 2.48 on admission - Continue to monitor Cr. 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 - She was taking lasix 40 mg daily, but given ROSENDO, will continue to hold off lasix. Currently, she is clinically euvolemic. - Continue aspirin. # Peripheral arterial disease - Cont. aspirin # Diabetes - Cont. insulin sliding scale # Gastroesophageal reflux disease - Continue PPI # Normocytic anemia - Etiology is not clear. She will need colonoscopy as an outpatient. - Hb stable. No acute intervention is indicated. # Crohn's disease - Stable without medications for some time Disposition: clinical improvement and PT (2) ROSENDO (acute kidney injury) Status: Acute (3) Septic shock Status: Resolved (4) Diastolic CHF Status: Chronic Plan/VTE VTE Prophylaxis Ordered?: Yes VS, I&O, 24H, Fishbone Vital Signs/I&O Vital Signs Date Time Temp Pulse Resp B/P (MAP) Pulse Ox O2 Delivery O2 Flow Rate FiO2 12/20/18 16:03 98.8 110 22 134/60 (84) 97 2.0 12/17/18 17:15 Nasal Cannula I&O- Last 24 Hours up to 6 AM 12/20/18 06:00 Intake Total 1530 ml Output Total 975 ml Balance 555 ml Laboratory Data 24H LABS Laboratory Tests 2 12/19/18 17:28: Bedside Glucose (Misc Panel) 168H 12/19/18 20:33: Bedside Glucose (Misc Panel) 155H 12/20/18 05:22: Anion Gap 6L, Glomerular Filtration Rate 26.6L, Blood Urea Nitrogen 41H, Creatinine 1.92H, Sodium Level 142, Potassium Level 3.8, Chloride Level 107, Carbon Dioxide Level 29, Calcium Level 7.7L 12/20/18 12:17: Bedside Glucose (Misc Panel) 251H CBC/BMP Laboratory Tests 12/20/18 05:22 Calcium Level 7.7 L Microbiology Microbiology 12/17/18 Blood Culture - Preliminary, Resulted No Growth after 72 hours. All specime... 12/17/18 Blood Culture - Preliminary, Resulted No Growth after 72 hours. All specime... 12/17/18 Gastrointestinal Tract Panel (PCR) - Final, Complete KRISTIN GLOVER MD Dec 20, 2018 17:07
[2018-12-20] MEDS: LEVEMIR (INSULIN DETEMIR) 1 UNITS/0.01ML SC SCH (22:14)
[2018-12-21] MEDS: IPRATROPIUM 0.5MG/ALBUTEROL 2.5MG INH SOL UD 3ML (DUONEB)(J7620) NEB SCH ×4 (02:00→19:50)
[2018-12-21 03:30] VITALS: BP 164/86
[2018-12-21] MEDS ORDERED: LevoFLOXacin 750 MG TABLET PO SCH (06:00)
[2018-12-21 06:20] LABS: HEMATOCRIT 32.1 % (36.0-47.0); HEMOGLOBIN 9.5 g/dl (12.0-15.5); MEAN CORPUSCULAR HEMOGLOBIN 26.8 pg (27.0-33.0); MEAN CORPUSCULAR HGB CONC 29.6 g/dl (32.0-36.5); MEAN CORPUSCULAR VOLUME 90.4 fl (80.0-96.0); PLATELET COUNT, AUTOMATED 306 10^3/uL (150-450); RED BLOOD COUNT 3.55 10^6/uL (4.00-5.40); WHITE BLOOD COUNT 10.7 10^3/uL (4.0-10.0)
[2018-12-21 06:44] LABS: ALBUMIN 3.1 GM/DL (3.2-5.2); BILIRUBIN,TOTAL 0.4 MG/DL (0.2-1.0); CALCIUM LEVEL 8.2 MG/DL (8.8-10.2); CREATININE FOR GFR 1.73 MG/DL (0.55-1.30); POTASSIUM SERUM 4.2 MEQ/L (3.5-5.1); TOTAL PROTEIN 5.7 GM/DL (6.4-8.2)
[2018-12-21] MEDS: HumaLOG INSULIN (NovoLOG) PER UNIT SC SCH ×4 (07:30→21:00)
[2018-12-21] MEDS: TIOTROPIUM INHALER/CAPSULE (SPIRIVA) INH SCH (07:39)
[2018-12-21] MEDS: SYMBICORT 160/4.5MCG INHALER 6GM INH SCH ×2 (07:39→19:50)
[2018-12-21 08:00] VITALS: BP 102/56
[2018-12-21] MEDS: HEPARIN SOD (PORCINE) 5000 UNITS/ML VIAL SQ SCH ×2 (09:07→21:26)
[2018-12-21] MEDS: predniSONE 20 MG TAB PO SCH (09:07)
[2018-12-21] MEDS: PANTOPRAZOLE 40MG INJ (PROTONIX) (C9113) IV SCH (09:07)
[2018-12-21] MEDS: ASPIRIN 81 MG ENTERIC TAB PO SCH (09:07)
[2018-12-21] MEDS: CitaloPRAM (CeleXA) 20 MG TAB PO SCH (09:07)
[2018-12-21] MEDS: MEROPENEM INJ 500 MG in APPROPRIATE DILUENT 1 EA IV SCH (09:08)
[2018-12-21] MEDS: ARIPiprazole 10 MG TAB PO SCH (10:48)
[2018-12-21 12:00] VITALS: BP 140/62
[2018-12-21 16:00] VITALS: BP 119/60
--- NOTE | 2018-12-21 16:11 | NUR ---
Discharge recommendations: level 2 solids, nectar thick liquids, small bites/sips, slow pace. D/C recommendations were reported to daughter. Pt will have 08/02 care at home. Caregiver is familiar w/ thickening liquids & modified diets d/t work experience at [employer]. Instructed to call [employer] w/ any questions. Pt discharged from dysphagia therapy this date. Addendum: 12/21/[address] Amended: Links added.
[2018-12-21 19:02] VITALS: BP 138/63
[2018-12-21] MEDS: LEVEMIR (INSULIN DETEMIR) 1 UNITS/0.01ML SC SCH (21:26)
[2018-12-21] MEDS: ACETAMINOPHEN TAB 650MG DOSE (2X325MG) PO PRN (21:27)
[2018-12-21 22:00] VITALS: BP 137/69
--- NOTE | 2018-12-21 22:25 | IPNPDOC ---
Subjective Date Seen The patient was seen on 12/21/18. Subjective Chief Complaint/HPI The patient feels much better. She finished working with PT, and she became mildly short of breath after finishing the lap. Mild cough, but overall she feels much better. Denies a fever, chills, nausea, vomiting, or diarrhea. General: Denies: ROS Unobtainable, Chills, Night Sweats, Fatigue, Malaise, Normal Appetite, Other Symptoms Constitutional: Denies: Chills, Fever, Malaise, Night Sweats, Weakness, Fatigue, Weight Loss, Lethargy, Other Eyes: Denies: Pain, Vision change, Conjunctivae inflammation, Eyelid inflammation, Redness, Other ENT: Denies: Head Aches, Ear Pain, Dysphagia, Sinus Congestion, Post Nasal Drip, Sore Throat, Epistaxis, Other Symptoms Skin: Denies: Rash, Lesions, Jaundice, Bruising, Itching, Dry, Breakdown, Nail Changes, Other Pulmonary: Reports: Dyspnea, Cough Cardiovascular: Denies: Chest Pain, Palpitations, Orthopnea, Paroxysmal Noc. Dyspnea, Edema, Lt Headedness, Other Symptoms Gastrointestinal: Denies: Nausea, Vomiting, Abdominal Pain, Diarrhea, Constipation, Melena, Hematochezia, Other Symptoms Genitourinary: Denies: Dysuria, Frequency, Incontinence, Hematuria, Retention, Other Symptoms Hematologic: Denies: Bruising, Bleeding Excessively, Petecchia, Purpura, Enlarged Lymph Nodes, Other Hematologic Endocrine: Denies: Polydipsia, Polyphagia, Polyuria, Heat Intolerance, Cold Intolerance, Other Endocrine Sx Musculoskeletal: Denies: Neck Pain, Back Pain, Shoulder Pain, Arm Pain, Hand Pain, Leg Pain, Foot Pain, Joint Pain, Muscle Pain, Spasms, Other Symptoms Neurological: Denies: Weakness, Numbness, Incoordination, Change in speech, Confusion, Seizures, Other Symptoms Psych: Denies: Mood Normal, Anxiety, Depression, Memory Issues, Thoughts of Self Harm, Anger, Thoughts of Harming Other, Other Psych Objective Physical Examination General Exam: Positive: Alert, Cooperative Eye Exam: Positive: PERRLA, Conjunctiva & lids normal ENT Exam: Positive: Atraumatic, Mucous membr. moist/pink Neck Exam: Positive: Supple Chest Exam: Positive: Clear to auscultation Heart Exam: Positive: Rate Normal, Normal S1, Normal S2 Abdomen Exam: Positive: Normal bowel sounds Extremity Exam: Positive: Normal pulses Skin Exam: Positive: Nl turgor and temperature Neuro Exam: Positive: Normal Speech, Cranial Nerves 3-12 NL Psych Exam: Positive: Mental status NL, Mood NL Assessment /Plan Problems (1) Acute on chronic respiratory failure with hypoxia and hypercapnia Status: Resolved Problem Text: # Septic shock from pneumonia, COPD acute exacerbation - The patient was temporarily on pressor to maintain BP, and currently, BP is well maintained. - Blood culture does not grow any bacteria over 72 hours. Vancomycin was stopped yesterday, and meropenem was converted to levaquin. - IV hydration was discontinued yesterday. She still has mildly elevated Cr, will continue to hold lasix. - She is on 2 L home O2 at baseline, and she has COPD exacerbation. Prednisone 40 mg daily was started yesterday, continue it to treat COPD exacerbation. # Acute on chronic kidney disease - Likely from hypotension and ATN. Improving. - Continue to monitor Cr. 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 - She was taking lasix 40 mg daily, but given ROSENDO, will continue to hold off l asix. Currently, she is clinically euvolemic. - Continue aspirin. # Peripheral arterial disease - Cont. aspirin # Diabetes - Cont. insulin sliding scale # Gastroesophageal reflux disease - Continue PPI # Normocytic anemia - Etiology is not clear. She will need colonoscopy as an outpatient. - Hb stable. No acute intervention is indicated. # Crohn's disease - Stable without medications for some time Disposition: clinical improvement. PT cleared the patient. Likely d/c tomorrow. (2) ROSENDO (acute kidney injury) Status: Acute (3) Septic shock Status: Resolved (4) Diastolic CHF Status: Chronic Plan/VTE VTE Prophylaxis Ordered?: Yes VS, I&O, 24H, Fishbone Vital Signs/I&O Vital Signs Date Time Temp Pulse Resp B/P (MAP) Pulse Ox O2 Delivery O2 Flow Rate FiO2 12/21/18 19:02 98.0 103 19 138/63 (88) 97 2.0 12/17/18 17:15 Nasal Cannula I&O- Last 24 Hours up to 6 AM 12/21/18 06:00 Intake Total 660 ml Output Total 450 ml Balance 210 ml Laboratory Data 24H LABS Laboratory Tests 2 12/21/18 06:04: Nucleated Red Blood Cells % (auto) 0.0, Anion Gap 7L, Glomerular Filtration Rate 30.0L, Blood Urea Nitrogen 41H, Creatinine 1.73H, Sodium Level 141, Potassium Level 4.2, Chloride Level 106, Carbon Dioxide Level 28, Calcium Level 8.2L, Aspartate Amino Transf (AST/SGOT) 23, Alanine Aminotransferase (ALT/SGPT) 30, Alkaline Phosphatase 87, Total Bilirubin 0.4, Total Protein 5.7L, Albumin 3.1L, Albumin/Globulin Ratio 1.19 12/21/18 13:07: Bedside Glucose (Misc Panel) 231H 12/21/18 16:45: Bedside Glucose (Misc Panel) 96 12/21/18 19:48: Bedside Glucose (Misc Panel) 167H CBC/BMP Laboratory Tests 12/21/18 06:04 Red Blood Count 3.55 L, Mean Corpuscular Volume 90.4, Mean Corpuscular Hemoglobin 26.8 L, Mean Corpuscular Hemoglobin Concent 29.6 L, Red Cell Distribution Width 17.0 H, Calcium Level 8.2 L, Aspartate Amino Transf (AST/SGOT) 23, Alanine Aminotransferase (ALT/SGPT) 30, Alkaline Phosphatase 87, Total Bilirubin 0.4, Total Protein 5.7 L, Albumin 3.1 L Microbiology Microbiology 12/17/18 Blood Culture - Preliminary, Resulted No Growth after 72 hours. All specime... 12/17/18 Blood Culture - Preliminary, Resulted No Growth after 72 hours. All specime... 12/17/18 Gastrointestinal Tract Panel (PCR) - Final, Complete KRISTIN GLOVER MD Dec 21, 2018 22:25
[2018-12-22] MEDS: IPRATROPIUM 0.5MG/ALBUTEROL 2.5MG INH SOL UD 3ML (DUONEB)(J7620) NEB SCH ×2 (02:00→07:23)
[2018-12-22 06:00] VITALS: BP 139/73
[2018-12-22 06:21] LABS: HEMATOCRIT 32.3 % (36.0-47.0); HEMOGLOBIN 9.7 g/dl (12.0-15.5); MEAN CORPUSCULAR HEMOGLOBIN 26.8 pg (27.0-33.0); MEAN CORPUSCULAR VOLUME 89.2 fl (80.0-96.0); PLATELET COUNT, AUTOMATED 291 10^3/uL (150-450); RED BLOOD COUNT 3.62 10^6/uL (4.00-5.40); WHITE BLOOD COUNT 11.1 10^3/uL (4.0-10.0)
[2018-12-22 06:52] LABS: BILIRUBIN,TOTAL 0.3 MG/DL (0.2-1.0); CALCIUM LEVEL 8.4 MG/DL (8.8-10.2); CREATININE FOR GFR 1.86 MG/DL (0.55-1.30); GLOMERULAR FILTRATION RATE 27.6 (>32); POTASSIUM SERUM 3.7 MEQ/L (3.5-5.1)
[2018-12-22] MEDS: TIOTROPIUM INHALER/CAPSULE (SPIRIVA) INH SCH (07:23)
[2018-12-22] MEDS: SYMBICORT 160/4.5MCG INHALER 6GM INH SCH (07:23)
[2018-12-22] MEDS: PANTOPRAZOLE 40MG INJ (PROTONIX) (C9113) IV SCH ×2 (08:04→09:00)
[2018-12-22] MEDS: HumaLOG INSULIN (NovoLOG) PER UNIT SC SCH (08:05)
[2018-12-22] MEDS: CitaloPRAM (CeleXA) 20 MG TAB PO SCH (08:05)
[2018-12-22] MEDS: HEPARIN SOD (PORCINE) 5000 UNITS/ML VIAL SQ SCH (08:05)
[2018-12-22] MEDS: ASPIRIN 81 MG ENTERIC TAB PO SCH (08:05)
[2018-12-22] MEDS ORDERED: PANTOPRAZOLE 40MG TAB (PROTONIX) PO SCH (09:00)
[2018-12-22] MEDS: predniSONE 20 MG TAB PO SCH (09:56)
[2018-12-22] MEDS: ARIPiprazole 10 MG TAB PO SCH (09:56)
[2018-12-22] MEDS ORDERED: PRED20TA PO (10:31)
[2018-12-22] MEDS ORDERED: LEVA750T7 PO (10:31)
[2018-12-22] MEDS ORDERED: LASI20TA3 PO (10:33)
--- NOTE | 2018-12-22 18:25 | DS.PDOC ---
Discharge Summary General Date of Admission Dec 17, 2018 at 15:27 Date of Discharge 12/22/2018 Discharge Summary PROCEDURES PERFORMED DURING STAY: [None]. ADMITTING DIAGNOSES: 1. Hypotension DISCHARGE DIAGNOSES: 1. Septic shock from pneumonia COMPLICATIONS/CHIEF COMPLAINT: Hypotension. HISTORY OF PRESENT ILLNESS: Patient who has had 2 recent admission had been doing fairly well at home for the past month. 3-4 days ago she had an 12 hour episode of severe vomiting which resolved and she has noted some choking and coughing while eating regular foods for the past few days as well. She tells me that today she felt more short of breath and light headed today which prompted her to present to the ER today. In the ER she was found to be hypotensive and initially unresponsive but quickly improved and responded by IV fluids. Patient feels improved at this time, she is accompanied by daughter and son who also helps with history. Patient has 2 aids one of which is with her 08/02 . Otherwise patient denies weight loss, hair loss, headache, visual changes, chest pain, diarrhea, abdominal pain, muscle a ches, worsening arthritis, change in mood HOSPITAL COURSE: She was found to acute hypoxic and hypercarbic respiratory failure with septic shock. She was found to have pneumonia in the setting of worsening pneumonia. She was put on meropenem and vancomycin. She received pressor, and she was tapered off of it. Blood cultures did not grow any bacteria over 72 hours. Vancomycin was stopped, and meropenem was converted to levaquin. The patient has tolerated medications well. IV hydration was also discontinued. She still has mildly elevated Cr, lasix was held off, but she was prescribed with lasix 20 mg daily. She was taking 40 mg at home. She is on 2 L home O2 at baseline, and she has COPD exacerbation. Initially, she was put on stress dose of hydrocortisone 50 q8h, and later it was converted to prednisone 40 mg daily. She also had acute on chronic kidney disease. It is likely from hypotension and ATN. Cr has improved. 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 She was taking lasix 40 mg daily, but given ROSENDO, was held off. Currently, she is clinically euvolemic. Continue aspirin. For peripheral arterial disease, cont. aspirin. For diabetes, we continued insulin sliding scale. She is going back to her home medications. She was found to have normocytic anemia. Etiology is not clear. She will need colonoscopy as an outpatient. Hb stable. No acute intervention is indicated. For Crohn's disease, it has been stable without medications for some time. DISCHARGE MEDICATIONS: Please see below. ALLERGIES: Please see below. PHYSICAL EXAMINATION ON DISCHARGE: VITAL SIGNS: Please see below. General Exam: Positive: Alert, Cooperative Eye Exam: Positive: PERRLA, Conjunctiva & lids normal ENT Exam: Positive: Atraumatic, Mucous membr. moist/pink Neck Exam: Positive: Supple Chest Exam: Positive: Clear to auscultation Heart Exam: Positive: Rate Normal, Normal S1, Normal S2 Abdomen Exam: Positive: Normal bowel sounds Extremity Exam: Positive: Normal pulses Skin Exam: Positive: Nl turgor and temperature Neuro Exam: Positive: Normal Speech, Cranial Nerves 3-12 NL Psych Exam: Positive: Mental status NL, Mood NL LABORATORY DATA: Please see below. DISCHARGE PLAN: The patient will follow her primary care physician within 1 week. DISPOSITION: Home, Self-Care. Vital Signs/I&Os Vital Signs Date Time Temp Pulse Resp B/P (MAP) Pulse Ox O2 Delivery O2 Flow Rate FiO2 12/22/18 08:00 2.0 12/22/18 06:00 97.9 92 18 139/73 (95) 100 12/17/18 17:15 Nasal Cannula I&O- Last 24 Hours up to 6 AM 12/22/18 06:00 Intake Total 800 ml Balance 800 ml Laboratory Data Labs 24H Laboratory Tests 2 12/21/18 19:48: Bedside Glucose (Misc Panel) 167H 12/22/18 05:37: Nucleated Red Blood Cells % (auto) 0.0, Anion Gap 8, Glomerular Filtration Rate 27.6L, Blood Urea Nitrogen 47H, Creatinine 1.86H, Sodium Level 143, Potassium Level 3.7, Chloride Level 109H, Carbon Dioxide Level 26, Calcium Level 8.4L, Aspartate Amino Transf (AST/SGOT) 37, Alanine Aminotransferase (ALT/SGPT) 36, Alkaline Phosphatase 98, Total Bilirubin 0.3, Total Protein 6.0L, Albumin 3.0L, Albumin/Globulin Ratio 1.00 CBC/BMP Laboratory Tests 12/22/18 05:37 Red Blood Count 3.62 L, Mean Corpuscular Volume 89.2, Mean Corpuscular Hemoglobin 26.8 L, Mean Corpuscular Hemoglobin Concent 30.0 L, Red Cell Distribution Width 17.0 H, Calcium Level 8.4 L, Aspartate Amino Transf (AST/SGOT) 37, Alanine Aminotransferase (ALT/SGPT) 36, Alkaline Phosphatase 98, Total Bilirubin 0.3, Total Protein 6.0 L, Albumin 3.0 L FSBS Laboratory Tests Test 12/21/18 19:48 Range/Units Bedside Glucose (Misc Panel) 167 83-110 MG/DL Microbiology Microbiology 12/17/18 Blood Culture - Final, Complete NO GROWTH AFTER 5 DAYS 12/17/18 Blood Culture - Final, Complete NO GROWTH AFTER 5 DAYS 12/17/18 Gastrointestinal Tract Panel (PCR) - Final, Complete Discharge Medications Scheduled Aripiprazole (Abilify) 10 Mg Tablet, 10 MG PO DAILY, (Reported) Aspirin (Aspirin EC) 81 Mg Tabec, 81 MG PO DAILY, (Reported) Budesonide/Formoterol (Symbicort 160-4.5 Mcg Inhaler) 6 Gm Hfa.aer.ad, 2 PUFF INH BID, (Reported) Calcitriol (Calcitriol) 0.25 Mcg Cap, 0.25 MG PO DAILY, (Reported) Citalopram Hydrobromide (Celexa) 20 Mg Tablet, 20 MG PO DAILY, (Reported) Furosemide (Lasix) 20 Mg Tablet, 20 MG PO DAILY Insulin Human Lispro (Humalog Mix 75-25 Vial) 100 Unit/1 Ml Vial, 15 UNITS SC DAILY, (Reported) TAKES AT LUNCHTIME Levofloxacin (Levaquin) 750 Mg Tablet, 750 MG PO Q48H start from 12/23/2018 at 9am, once every 48 hours Melatonin (Melatonin) 5 Mg Tab, 10 MG PO QHS, (Reported) Omeprazole (Omeprazole) 20 Mg Capsule.dr, 20 MG PO DAILY, (Reported) Prednisone (Prednisone) 10 Mg Tab, 10 MG PO DAILY, (Reported) Prednisone (Prednisone) 20 Mg Tablet, 40 MG PO DAILY Tiotropium [place] Monohydrate (Spiriva) 18 Mcg Cap.w.dev, 1 INHALATION INH DAILY, (Reported) Scheduled PRN Albuterol Sulfate (Proair Hfa) 108 Mcg/Act Aer, 2 PUFF INH Q4H PRN for SHORTNESS OF BREATH, (Reported) Albuterol Sulfate (Albuterol Sulfate) 0.63 Mg/3 Ml Neb, 0.63 MG INH Q4H PRN for SHORTNESS OF BREATH, (Reported) Allergies Coded Allergies: Penicillins (Verified Allergy, Intermediate, Rash/Dizziness; had zosyn recently on prev admission and ok, 12/17/18) KRISTIN GLOVER MD Dec 22, 2018 18:25
== END 2018-12-22 12:05 | disposition home or self-care (01) | DRG 871 ==
LOC: EDBD 12:28 → M ED 12:28 → M ED INP 15:27 → M ICU 17:31 → M PCU 12-20 02:24 → M MS5PR 12-21 18:48
PROVIDERS: ADMIT Internal Medicine; ATTEND Internal Medicine
PROC: 02HV33Z Insertion of Infusion Device into Superior Vena Cava, Percutaneous Approach (ICD-10-PCS; principal; 2018-12-18)
DX: A41.9 Sepsis, unspecified organism (principal); J69.0 Pneumonitis due to inhalation of food and vomit; J96.21 Acute and chronic respiratory failure with hypoxia; R65.21 Severe sepsis with septic shock; I50.42 Chronic combined systolic (congestive) and diastolic (congestive) heart failure; E87.2 Acidosis; N18.4 Chronic kidney disease, stage 4 (severe); E11.51 Type 2 diabetes mellitus with diabetic peripheral angiopathy without gangrene; D50.9 Iron deficiency anemia, unspecified; Z79.82 Long term (current) use of aspirin; Z79.899 Other long term (current) drug therapy; Z88.0 Allergy status to penicillin; K21.9 Gastro-esophageal reflux disease without esophagitis; Z95.0 Presence of cardiac pacemaker; Z87.891 Personal history of nicotine dependence; Z79.4 Long term (current) use of insulin; Z79.52 Long term (current) use of systemic steroids; Z66 Do not resuscitate; E83.42 Hypomagnesemia

== ENCOUNTER 2018-12-30 11:54 | Inpatient (IN) | payer MEDICARE ==
[2018-12-30] VITALS (10 sets, daily range): BP systolic 93–162; BP diastolic 54–70; O2SAT 95–98
[~2018-12-30] VITALS: Ht 157.5 cm; Wt 51.7 kg
[~2018-12-30 11:54] MED LIST changes: +CELE20TA PO; +LASI20TA3 PO; +LEVA750T7 PO; +PRED20TA PO
[2018-12-30] MEDS ORDERED: ALBUTEROL SULFATE 2.5 MG/0.5 ML INH NEB SOLN INH ONE (12:30)
[2018-12-30] MEDS ORDERED: NS 1,000 ML IV ONE ×2 (12:30→14:00)
[2018-12-30] MEDS ORDERED: MEROPENEM INJ 1 GM in APPROPRIATE DILUENT 1 EA IV ONE (12:30)
[2018-12-30] MEDS ORDERED: IPRATROPIUM 0.5MG/ALBUTEROL 2.5MG INH SOL UD 3ML (DUONEB)(J7620) NEB ONE (12:30)
[2018-12-30] MEDS ORDERED: HYDROCORTISONE 100 MG/2 ML VIAL (J1720) IV ONE (12:30)
[2018-12-30 13:00] LABS: ABG BASE EXCESS 11.2 (-2.0-2.0); ABG HCO3 37.3 MEQ/L (22.0-26.0); ABG O2 SATURATION 98.6 % (95.0-99.0); ABG PARTIAL PRESSURE CO2 57.1 mmHg (35.0-45.0); ABG PARTIAL PRESSURE O2 140.6 mmHg (75.0-100.0); ABG TOTAL CO2 39.1 MEQ/L (23.0-31.0); ABG pH (ARTERIAL) 7.433 UNITS (7.350-7.450)
[2018-12-30] MEDS ORDERED: PRED20TA PO (13:15)
[2018-12-30] MEDS ORDERED: FURO40TA2 PO (13:15)
--- NOTE | 2018-12-30 13:30 | ECGEPIP ---
[facility] - ED Test Date: 2018-12-30 Pat Name: PINKY COOPER Department: Room: - Gender: Female Spot Remover: : 1935 Requested By: Karlos Xiong Order Number: [id number] Reading MD: Gwyn Gaines Measurements Intervals [place] Rate: 94 P: 97 NE: 187 QRS: QRSD: 174 T: 99 QT: 401 QTc: 502 Interpretive Statements ELECTRONIC VENTRICULAR PACEMAKER SIMILAR TO 12/17/18 Electronically Signed on 12-30-2018 13:30:37 EDT by Gwyn Gaines
[2018-12-30 13:31] LABS: BASO % 0.1 % (0.0-1.0); HEMATOCRIT 36.8 % (36.0-47.0); HEMOGLOBIN 11.1 g/dl (12.0-15.5); LYMPH # 1.7 10^3/uL (1.5-4.5); LYMPH % 8.4 % (24.0-44.0); MEAN CORPUSCULAR HEMOGLOBIN 27.9 pg (27.0-33.0); MEAN CORPUSCULAR HGB CONC 30.2 g/dl (32.0-36.5); MEAN CORPUSCULAR VOLUME 92.5 fl (80.0-96.0); MONO # 0.9 10^3/uL (0.0-0.8); MONO % 4.5 % (0.0-5.0); NEUTROPHILS # 17.7 10^3/uL (1.8-7.7); NEUTROPHILS % 86.5 % (36.0-66.0); PLATELET COUNT, AUTOMATED 239 10^3/uL (150-450); RED BLOOD COUNT 3.98 10^6/uL (4.00-5.40); WHITE BLOOD COUNT 20.5 10^3/uL (4.0-10.0)
--- NOTE | 2018-12-30 13:36 | REP ---
PORTABLE CHEST: AP portable view of the chest is performed and compared to prior study, 12/17/2018. Mild patchy infiltrates are seen in each lung base with small effusions. Upper lungs are clear and unchanged. There is calcification of the thoracic aorta. Heart size is not well evaluated due to obscuration of the heart borders. There is a left dual-lead pacemaker. IMPRESSION: Mild bibasilar infiltrates and effusions. Electronically Signed by Bernabe Hill MD 12/30/2018 07:29 P
[2018-12-30 14:08] LABS: ALBUMIN 3.1 GM/DL (3.2-5.2); BILIRUBIN,DIRECT 0.2 MG/DL (0.0-0.2); BILIRUBIN,TOTAL 0.5 MG/DL (0.2-1.0); CK-MB VALUE MASS 1.9 NG/ML (<3.6); MB/CK RELATIVE INDEX 6.55 (< OR =4); THYROID STIMULATING HORMONE 1.08 uIU/ML (0.358-3.740); THYROXINE (T4) 7.6 UG/DL (4.5-12.0); TOTAL PROTEIN 5.9 GM/DL (6.4-8.2); TROPONIN I 0.06 NG/ML (< 0.10)
[2018-12-30] MEDS ORDERED: ACETAMINOPHEN TAB 650MG DOSE (2X325MG) PO PRN (15:15)
[2018-12-30] MEDS: LACTOBACILLUS ACIDOPHILUS CAP (BACID) PO SCH (17:59)
[2018-12-30] MEDS ORDERED: IPRATROPIUM 0.5MG/ALBUTEROL 2.5MG INH SOL UD 3ML (DUONEB)(J7620) NEB PRN (18:30)
[2018-12-30] MEDS ORDERED: DEXTROSE 50% 50 ML SYRINGE IV PRN (18:30)
[2018-12-30] MEDS ORDERED: GLUCOSE 4 GM CHEW TABLET PO PRN (18:30)
[2018-12-30] MEDS ORDERED: GLUCAGON FOR INJ 1 MG VIAL (J1610) SC PRN (18:30)
--- NOTE | 2018-12-30 18:45 | HPEPDOC ---
General Date of Admission Dec 30, 2018 at 15:01 Date of Service: Dec 30, 2018 Chief Complaint The patient is a 83-year-old female admitted with a reason for visit of Acute Pneumonia. History of Present Illness 83-year-old female with past medical history of hypertension, diabetes mellitus, chronic kidney disease stage III-IV, chronic systolic congestive heart failure with an EF of 35-40%, COPD on chronic steroids and 2 L of oxygen at baseline, and Crohn's disease presented to the ER with chief complaint of worsening shortness of breath, and cough productive of greenish/brown sputum. Of note, the patient has been admitted to this hospital 7 times over the last 7 months for complaints of the same. Most recently, she was hospitalized from 12/17-12/22 for aspiration pneumonia. The patient was treated with empiric antibiotic therapy and her clinical condition improved. The patient was seen by speech therapy and it was recommended that the patient modify her diet to soft mechanical, level II solids, and nectar thick liquids. Apparently, the patient states that she went home and did not follow the dietary restrictions because she was told otherwise upon discharge. She states that her symptoms of productive cough, and worsening shortness of breath have been persistently worsening over the last 3 days. She denies any complaints of fevers, chills, chest pain, palpitations, abdominal pain, PND, orthopnea, lower extremity swelling, or any nausea/vomiting/diarrhea. In the ER, the patient was noted to have bilateral infiltrates suggestive of aspiration pneumonia. She was initially noted to be hypotensive, but this did respond to IV fluid hydration. She will be started on empiric antibiotic therapy and admitted to the hospitalist service for further evaluation and management Home Medications Scheduled Aripiprazole (Abilify) 10 Mg Tablet, 10 MG PO DAILY, (Reported) Budesonide/Formoterol (Symbicort 160-4.5 Mcg Inhaler) 6 Gm Hfa.aer.ad, 2 PUFF INH BID, (Reported) Calcitriol (Calcitriol) 0.25 Mcg Cap, 0.25 MG PO DAILY, (Reported) Citalopram Hydrobromide (Celexa) 20 Mg Tablet, 20 MG PO DAILY, (Reported) Furosemide (Furosemide) 40 Mg Tablet, 60 MG PO DAILY, (Reported) Insulin Human Lispro (Humalog Mix 75-25 Vial) 100 Unit/1 Ml Vial, 15 UNITS SC DAILY, (Reported) TAKES AT LUNCHTIME Melatonin (Melatonin) 5 Mg Tab, 10 MG PO QHS, (Reported) Omeprazole (Omeprazole) 20 Mg Capsule.dr, 20 MG PO DAILY, (Reported) Prednisone (Prednisone) 20 Mg Tablet, 40 MG PO DAILY, (Reported) Tiotropium [place] Monohydrate (Spiriva) 18 Mcg Cap.w.dev, 1 INHALATION INH DA TAURUS, (Reported) Scheduled PRN Albuterol Sulfate (Proair Hfa) 108 Mcg/Act Aer, 2 PUFF INH Q4H PRN for SHORTNESS OF BREATH, (Reported) Albuterol Sulfate (Albuterol Sulfate) 0.63 Mg/3 Ml Neb, 0.63 MG INH Q4H PRN for SHORTNESS OF BREATH, (Reported) Allergies Coded Allergies: Penicillins (Verified Allergy, Intermediate, Rash/Dizziness; had zosyn recently on prev admission and ok, 12/17/18) Past Medical History Medical History As noted in HPI. Social History * Smoker: former Smoker (Smoked 1-2 packs per day for 30 years. Quit 26 years ago.) Alcohol: Denies Drugs: denies Review of Systems Other systems 10 point review of systems negative unless otherwise specified in HPI. Physical Examination General Exam: Positive: Alert, Cooperative, No Acute Distress ENT Exam: Positive: Atraumatic, Mucous membr. moist/pink, Other ENT (cachectic appearing with bi temporal wasting noted) Chest Exam: Positive: Diminished Heart Exam: Positive: Rate Normal, Normal S1, Normal S2 Abdomen Exam: Positive: Soft; Negative: Tenderness Extremity Exam: Negative: Tenderness, Swelling Psych Exam: Positive: Oriented x 3 Vital Signs Vital Signs Date Time Temp Pulse Resp B/P (MAP) Pulse Ox O2 Delivery O2 Flow Rate FiO2 12/30/18 16:09 92 95 Nasal Cannula 2.0 12/30/18 15:15 77/50 (59) 12/30/18 11:55 96.6 20 Laboratory Data Labs 24H Laboratory Tests 2 12/30/18 12:34: Blood Gas Bicarbonate Standard 35.0H, Arterial Blood pH 7.433, Arterial Blood Partial Pressure CO2 57.1H, Arterial Blood Partial Pressure O2 140.6H, Arterial Blood Total CO2 39.1H, Arterial Blood HCO3 37.3H, Arterial Blood Base Excess 11.2H, Arterial Blood Oxygen Saturation 98.6 12/30/18 12:49: Aspartate Amino Transf (AST/SGOT) 17, Alanine Aminotransferase (ALT/SGPT) 27, Alkaline Phosphatase 103, Total Bilirubin 0.5, Direct Bilirubin 0.2, Total Creatine Kinase 29, Creatine Kinase MB 1.9, Creatine Kinase MB Relative Index 6.55H, Troponin I 0.06, LP-Mhn-Z-Type Natriuretic Peptide 15750F, Total Protein 5.9L, Albumin 3.1L, Albumin/Globulin Ratio 1.11, Thyroid Stimulating Hormone (TSH) 1.080, Thyroxine (T4) 7.6 12/30/18 13:12: Immature Granulocyte % (Auto) 0.5, White Blood Count 20.5H, Red Blood Count 3.98L, Hemoglobin 11.1L, Hematocrit 36.8, Mean Corpuscular Volume 92.5, Mean Corpuscular Hemoglobin 27.9, Mean Corpuscular Hemoglobin Concent 30.2L, Red Cell Distribution Width 16.5H, Platelet Count 239, Neutrophils (%) (Auto) 86.5H, Ly mphocytes (%) (Auto) 8.4L, Monocytes (%) (Auto) 4.5, Eosinophils (%) (Auto) 0.0, Basophils (%) (Auto) 0.1, Neutrophils # (Auto) 17.7H, Lymphocytes # (Auto) 1.7, Monocytes # (Auto) 0.9H, Eosinophils # (Auto) 0.0, Basophils # (Auto) 0.0, Nucleated Red Blood Cells % (auto) 0.0 12/30/18 13:20: POC Glucose (Misc Panel) 341H, POC Sodium (Misc Panel) 134L, POC Potassium (Misc Panel) 4.3, POC Chloride (Misc Panel) 87L, POC Total CO2 (Misc Panel) 38.0H, POC Blood Urea Nitrogen (Misc Panel 40H, POC Ionized Calcium (Misc Panel) 4.9, POC Creatinine (Misc Panel) 2.2H, POC Hematocrit (Misc Panel) 36.0L 12/30/18 15:19: Lactic Acid Level 1.9 CBC/BMP Laboratory Tests 12/30/18 13:12 Red Blood Count 3.98 L, Mean Corpuscular Volume 92.5, Mean Corpuscular Hemoglobin 27.9, Mean Corpuscular Hemoglobin Concent 30.2 L, Red Cell Distribution Width 16.5 H, Neutrophils (%) (Auto) 86.5 H, Lymphocytes (%) (Auto) 8.4 L, Monocytes (%) (Auto) 4.5, Eosinophils (%) (Auto) 0.0, Basophils (%) (Auto) 0.1, Neutrophils # (Auto) 17.7 H, Lymphocytes # (Auto) 1.7, Monocytes # (Auto) 0.9 H, Eosinophils # (Auto) 0.0, Basophils # (Auto) 0.0 Microbiology Microbiology 12/30/18 Blood Culture, Received Pending 12/30/18 Blood Culture, Received Pending 12/30/18 Gram Stain - Final, Resulted 12/30/18 Sputum Culture, Resulted Pending Plan / VTE VTE Prophylaxis Ordered?: Yes Plan Plan Sepsis 2/2 Recurrent Aspiration PNA 2/2 Dietary Non-discretion CXR notable for b/l lower lobe infiltrates Sputum culture, pro-calcitonin levels ordered We will empirically start the patient on meropenem IV fluid hydration ordered We will continue to closely monitor the patient's respiratory status Septic Shock 2/2 Above Responsive to IVF Hydration, s/p IV Hydrocortisone given in the ER due to history of chronic steroid dependence We will admit the patient to the ICU for closer monitoring in case she needs central access and pressors. This was discussed at length with the patient and she is amenable to central access obtainment and vasopressor therapy if necessary. Hx of COPD on 2L of Oxygen, PO Prednisone at Baseline Continue inhaler, serial nebulizer therapy as ordered IV Solu-Medrol ordered Hx of Chronic systolic congestive heart failure with an EF of 35-40% Patient does not appear decompensated, in fact the patient is intravascularly depleted due to aforementioned aspiration pneumonia IV fluid hydration ordered, with a close eye on the patient's respiratory status Hold Lasix at this time Chronic kidney disease stage III-IV Serum creatine at baseline Diabetes mellitus Continue insulin regimen as ordered History of anxiety/depression Continue Abilify, Celexa Hx of Crohn's disease History of GERD Continue PPI DVT prophylaxis Heparin subcutaneous Code Status: DNR/DNI, MOLST form noted in the system, and confirmed with patient/daughter Althea at the bedside. Guarded Clinical Condition, with Poor Pairing Machine Operator Prognosis--goals of care discussed at length with the patient and her daughter Althea at the bedside. My concern is the patient's recurrent admissions (7) over the last 7 months. The patient is adamant that she would like to return home once she is treated, and does not want to change anything at this time regarding her advanced directive/goals of care. ARMANDO CAT MD Dec 30, 2018 18:45
[2018-12-30] MEDS: IPRATROPIUM 0.5MG/ALBUTEROL 2.5MG INH SOL UD 3ML (DUONEB)(J7620) NEB SCH ×2 (19:51→23:17)
[2018-12-30] MEDS: SYMBICORT 160/4.5MCG INHALER 6GM INH SCH (19:51)
[2018-12-30] MEDS: HumaLOG INSULIN (NovoLOG) PER UNIT SC SCH (20:55)
[2018-12-30] MEDS ORDERED: HumaLOG INSULIN (NovoLOG) PER UNIT SC ONE (21:00)
[2018-12-30] MEDS: HEPARIN SOD (PORCINE) 5000 UNITS/ML VIAL SC SCH (21:02)
[2018-12-31] VITALS (12 sets, daily range): BP systolic 114–169; BP diastolic 49–83; O2SAT 98
[2018-12-31] MEDS ORDERED: HumaLOG INSULIN (NovoLOG) PER UNIT SC ONE (01:00)
[2018-12-31] MEDS: MEROPENEM INJ 500 MG in APPROPRIATE DILUENT 1 EA IV SCH ×2 (01:28→13:52)
[2018-12-31] MEDS: IPRATROPIUM 0.5MG/ALBUTEROL 2.5MG INH SOL UD 3ML (DUONEB)(J7620) NEB SCH ×6 (04:15→23:41)
[2018-12-31 04:31] LABS: HEMATOCRIT 31.3 % (36.0-47.0); HEMOGLOBIN 9.2 g/dl (12.0-15.5); MEAN CORPUSCULAR HEMOGLOBIN 27.1 pg (27.0-33.0); MEAN CORPUSCULAR HGB CONC 29.4 g/dl (32.0-36.5); MEAN CORPUSCULAR VOLUME 92.3 fl (80.0-96.0); PLATELET COUNT, AUTOMATED 225 10^3/uL (150-450); RED BLOOD COUNT 3.39 10^6/uL (4.00-5.40); WHITE BLOOD COUNT 12.4 10^3/uL (4.0-10.0)
[2018-12-31 04:49] LABS: CALCIUM LEVEL 9.1 MG/DL (8.8-10.2); CREATININE FOR GFR 1.98 MG/DL (0.55-1.30); GLOMERULAR FILTRATION RATE 25.7 (>32); POTASSIUM SERUM 3.8 MEQ/L (3.5-5.1)
[2018-12-31] MEDS ORDERED: HumaLOG 75/25 MIX INSULIN PER UNIT SC SCH (07:30)
[2018-12-31] MEDS: SYMBICORT 160/4.5MCG INHALER 6GM INH SCH ×2 (07:31→20:18)
[2018-12-31] MEDS: OMEPRAZOLE 20 MG CAP PO SCH (08:03)
[2018-12-31] MEDS: LACTOBACILLUS ACIDOPHILUS CAP (BACID) PO SCH ×2 (08:03→17:15)
[2018-12-31] MEDS: HEPARIN SOD (PORCINE) 5000 UNITS/ML VIAL SC SCH ×2 (08:03→20:17)
[2018-12-31] MEDS: ARIPiprazole 10 MG TAB PO SCH (08:03)
[2018-12-31] MEDS: methylPREDNISolone INJ 40 MG/1 ML VIAL (J2920) IV SCH ×2 (08:03→20:17)
[2018-12-31] MEDS: HumaLOG INSULIN (NovoLOG) PER UNIT SC SCH ×4 (08:03→20:16)
[2018-12-31] MEDS: CitaloPRAM (CeleXA) 20 MG TAB PO SCH (08:04)
--- NOTE | 2018-12-31 09:30 | IPNPDOC ---
Subjective Date Seen The patient was seen on 12/31/18. Subjective Chief Complaint/HPI Patient seen and examined at the bedside. No acute overnight events noted. Patient's blood pressure stabilized following IV fluid hydration. She reports that her respiratory status and her overall clinical condition is significantly improved. Objective Physical Examination General Exam: Positive: Alert, Cooperative, No Acute Distress ENT Exam: Positive: Atraumatic, Mucous membr. moist/pink, Other ENT (cachectic appearing with bi temporal wasting noted) Chest Exam: Positive: Diminished Heart Exam: Positive: Rate Normal, Normal S1, Normal S2 Abdomen Exam: Positive: Soft; Negative: Tenderness Extremity Exam: Positive: Edema (2+ in the lower extremities bilaterally); Negative: Tenderness Psych Exam: Positive: Oriented x 3 Assessment /Plan Plan/VTE VTE Prophylaxis Ordered?: Yes Plan Sepsis 2/2 Recurrent Aspiration PNA 2/2 Dietary Non-discretion CXR notable for b/l lower lobe infiltrates Sputum culture notable for staph, pro-calcitonin pending Continue on meropenem s/p IV fluid hydration We will continue to closely monitor the patient's respiratory status Septic Shock 2/2 Above, resolved s/p IVF Hydration, s/p IV Hydrocortisone given in the ER Hx of COPD on 2L of Oxygen, PO Prednisone at Baseline Continue inhaler, serial nebulizer therapy as ordered IV Solu-Medrol Hx of Chronic systolic congestive heart failure with an EF of 35-40% Lasix restarted Chronic kidney disease stage III-IV Serum creatine at baseline Diabetes mellitus Continue insulin regimen as ordered History of anxiety/depression Continue Abilify, Celexa Hx of Crohn's disease History of GERD Continue PPI DVT prophylaxis Heparin subcutaneous Code Status: DNR/DNI VS, I&O, 24H, [facility] Vital Signs/I&O Vital Signs Date Time Temp Pulse Resp B/P (MAP) Pulse Ox O2 Delivery O2 Flow Rate FiO2 12/31/18 07:41 2.0 12/31/18 07:33 96 12/31/18 06:00 100 114/54 (74) 12/31/18 04:15 Nasal Cannula 12/31/18 04:00 97.9 22 I&O- Last 24 Hours up to 6 AM 12/31/18 06:00 Intake Total 3835 ml Output Total 575 ml Balance 3260 ml Laboratory Data 24H LABS Laboratory Tests 2 12/30/18 12:34: Blood Gas Bicarbonate Standard 35.0H, Arterial Blood pH 7.433, Arterial Blood Partial Pressure CO2 57.1H, Arterial Blood Partial Pressure O2 140.6H, Arterial Blood Total CO2 39.1H, Arterial Blood HCO3 37.3H, Arterial Blood Base Excess 11. 2H, Arterial Blood Oxygen Saturation 98.6 12/30/18 12:49: Aspartate Amino Transf (AST/SGOT) 17, Alanine Aminotransferase (ALT/SGPT) 27, Alkaline Phosphatase 103, Total Bilirubin 0.5, Direct Bilirubin 0.2, Total Creatine Kinase 29, Creatine Kinase MB 1.9, Creatine Kinase MB Relative Index 6.55H, Troponin I 0.06, YK-Hhs-A-Type Natriuretic Peptide 71558Y, Total Protein 5.9L, Albumin 3.1L, Albumin/Globulin Ratio 1.11, Thyroid Stimulating Hormone (TSH) 1.080, Thyroxine (T4) 7.6 12/30/18 13:12: Immature Granulocyte % (Auto) 0.5, White Blood Count 20.5H, Red Blood Count 3.98L, Hemoglobin 11.1L, Hematocrit 36.8, Mean Corpuscular Volume 92.5, Mean Corpuscular Hemoglobin 27.9, Mean Corpuscular Hemoglobin Concent 30.2L, Red Cell Distribution Width 16.5H, Platelet Count 239, Neutrophils (%) (Auto) 86.5H, Lymphocytes (%) (Auto) 8.4L, Monocytes (%) (Auto) 4.5, Eosinophils (%) (Auto) 0.0, Basophils (%) (Auto) 0.1, Neutrophils # (Auto) 17.7H, Lymphocytes # (Auto) 1.7, Monocytes # (Auto) 0.9H, Eosinophils # (Auto) 0.0, Basophils # (Auto) 0.0, Nucleated Red Blood Cells % (auto) 0.0 12/30/18 13:20: POC Glucose (Misc Panel) 341H, POC Sodium (Misc Panel) 134L, POC Potassium (Misc Panel) 4.3, POC Chloride (Misc Panel) 87L, POC Total CO2 (Misc Panel) 38.0H, POC Blood Urea Nitrogen (Misc Panel 40H, POC Ionized Calcium (Misc Panel) 4.9, POC Creatinine (Misc Panel) 2.2H, POC Hematocrit (Misc Panel) 36.0L 12/30/18 15:19: Lactic Acid Level 1.9 12/30/18 20:28: Bedside Glucose (Misc Panel) 550*H 12/31/18 00:07: Bedside Glucose (Misc Panel) 455H 12/31/18 03:56: Nucleated Red Blood Cells % (auto) 0.0, Anion Gap 7L, Glomerular Filtration Rate 25.7L, Blood Urea Nitrogen 45H, Creatinine 1.98H, Sodium Level 143, Potassium Level 3.8, Chloride Level 98, Carbon Dioxide Level 38H, Calcium Level 9.1 12/31/18 07:39: Bedside Glucose (Misc Panel) 174H CBC/BMP Laboratory Tests 12/30/18 13:12 Red Blood Count 3.98 L, Mean Corpuscular Volume 92.5, Mean Corpuscular Hemoglobin 27.9, Mean Corpuscular Hemoglobin Concent 30.2 L, Red Cell Distribution Width 16.5 H, Neutrophils (%) (Auto) 86.5 H, Lymphocytes (%) (Auto) 8.4 L, Monocytes (%) (Auto) 4.5, Eosinophils (%) (Auto) 0.0, Basophils (%) (Auto) 0.1, Neutrophils # (Auto) 17.7 H, Lymphocytes # (Auto) 1.7, Monocytes # (Auto) 0.9 H, Eosinophils # (Auto) 0.0, Basophils # (Auto) 0.0 12/31/18 03:56 Red Blood Count 3.39 L, Mean Corpuscular Volume 92.3, Mean Corpuscular Hemoglobin 27.1, Mean Corpuscular Hemoglobin Concent 29.4 L, Red Cell Distribution Width 16.4 H, Calcium Level 9.1 Microbiology Microbiology 12/30/18 Blood Culture, Received Pending 12/30/18 Blood Culture, Received Pending 12/30/18 Gram Stain - Final, Resulted 12/30/18 Sputum Culture - Preliminary, Resulted Staphylococcus Aureus Yeast Like Organism ARMANDO CAT MD Dec 31, 2018 09:30
[2018-12-31] MEDS: FUROSEMIDE 20 MG TAB PO SCH (09:58)
[2018-12-31] MEDS ORDERED: HumaLOG 75/25 MIX INSULIN PER UNIT SC ONE (10:15)
[2019-01-01] VITALS: BP 134/61
[2019-01-01] MEDS: MEROPENEM INJ 500 MG in APPROPRIATE DILUENT 1 EA IV SCH (03:02)
[2019-01-01] MEDS: IPRATROPIUM 0.5MG/ALBUTEROL 2.5MG INH SOL UD 3ML (DUONEB)(J7620) NEB SCH ×2 (03:18→07:53)
[2019-01-01 04:00] VITALS: BP 155/74
[2019-01-01 04:46] LABS: HEMATOCRIT 32.6 % (36.0-47.0); HEMOGLOBIN 9.8 g/dl (12.0-15.5); MEAN CORPUSCULAR HEMOGLOBIN 27.8 pg (27.0-33.0); MEAN CORPUSCULAR HGB CONC 30.1 g/dl (32.0-36.5); MEAN CORPUSCULAR VOLUME 92.4 fl (80.0-96.0); PLATELET COUNT, AUTOMATED 225 10^3/uL (150-450); RED BLOOD COUNT 3.53 10^6/uL (4.00-5.40); WHITE BLOOD COUNT 11.4 10^3/uL (4.0-10.0)
[2019-01-01 05:27] LABS: CALCIUM LEVEL 8.6 MG/DL (8.8-10.2); CREATININE FOR GFR 2.05 MG/DL (0.55-1.30); GLOMERULAR FILTRATION RATE 24.7 (>32); POTASSIUM SERUM 3.6 MEQ/L (3.5-5.1)
[2019-01-01] MEDS ORDERED: HumaLOG 75/25 MIX INSULIN PER UNIT SC SCH (07:30)
[2019-01-01 07:50] VITALS: BP 133/61
[2019-01-01] MEDS: SYMBICORT 160/4.5MCG INHALER 6GM INH SCH (07:53)
[2019-01-01] MEDS: HEPARIN SOD (PORCINE) 5000 UNITS/ML VIAL SC SCH (09:00)
[2019-01-01] MEDS ORDERED: predniSONE 20 MG TAB PO SCH (09:00)
[2019-01-01] MEDS: CitaloPRAM (CeleXA) 20 MG TAB PO SCH (09:07)
[2019-01-01] MEDS: ARIPiprazole 10 MG TAB PO SCH (09:07)
[2019-01-01] MEDS: FUROSEMIDE 20 MG TAB PO SCH (09:07)
[2019-01-01] MEDS: OMEPRAZOLE 20 MG CAP PO SCH (09:07)
[2019-01-01] MEDS: LACTOBACILLUS ACIDOPHILUS CAP (BACID) PO SCH (09:07)
[2019-01-01] MEDS: HumaLOG INSULIN (NovoLOG) PER UNIT SC SCH (09:08)
[2019-01-01] MEDS ORDERED: CEFD1CAP8 PO (10:24)
--- NOTE | 2019-01-01 14:26 | DS.PDOC ---
Discharge Summary General Date of Admission Dec 30, 2018 at 15:01 Date of Discharge 01/01/19 Discharge Summary PROCEDURES PERFORMED DURING STAY: None. ADMITTING/DISCHARGE DIAGNOSES: Sepsis 2/2 Recurrent Aspiration PNA 2/2 Dietary Non-discretion Septic Shock 2/2 Above, resolved Hx of COPD on 2L of Oxygen, PO Prednisone at Baseline Hx of Chronic systolic congestive heart failure with an EF of 35-40% Chronic kidney disease stage III-IV COMPLICATIONS/CHIEF COMPLAINT: Acute Pneumonia. HISTORY OF PRESENT ILLNESS: . 83-year-old female with past medical history of hypertension, diabetes mellitus, chronic kidney disease stage III-IV, chronic systolic congestive heart failure with an EF of 35-40%, COPD on chronic steroids and 2 L of oxygen at baseline, and Crohn's disease presented to the ER with chief complaint of worsening shortness of breath, and cough productive of greenish/brown sputum. Of note, the patient has been admitted to this hospital 7 times over the last 7 months for complaints of the same. Most recently, she was hospitalized from 12/17-12/22 for aspiration pneumonia. The patient was treated with empiric antibiotic therapy and her clinical condition improved. The patient was seen by speech therapy and it was recommended that the patient modify her diet to soft mechanical, level II solids, and nectar thick liquids. Apparently, the patient states that she went home and did not follow the dietary restrictions because she was told otherwise upon discharge. She states that her symptoms of productive cough, and worsening shortness of breath have been persistently worsening over the last 3 days. She denies any complaints of fevers, chills, chest pain, palpitations, abdominal pain, PND, orthopnea, lower extremity swelling, or any nausea/vomiting/diarrhea. In the ER, the patient was noted to have bilateral infiltrates suggestive of aspiration pneumonia. She was initially noted to be hypotensive, but this did respond to IV fluid hydration. She was started on empiric antibiotic therapy and admitted to the hospitalist service for further evaluation and management Sepsis 2/2 Recurrent Aspiration PNA 2/2 Dietary Non-discretion CXR notable for b/l lower lobe infiltrates Sputum culture notable for staph, Blood cultures unrevealing Meropenem transitioned to PO Cefdinir Septic Shock 2/2 Above, resolved s/p IVF Hydration, s/p IV Hydrocortisone given in the ER Blood pressures have been stable thereafter Hx of COPD on 2L of Oxygen, PO Prednisone at Baseline Continue inhaler, serial nebulizer therapy as ordered IV Solu-Medrol transitioned to PO Prednisone Hx of Chronic systolic congestive heart failure with an EF of 35-40% Lasix restarted Chronic kidney disease stage III-IV Serum creatine at baseline Diabetes mellitus Continue insulin regimen as ordered History of anxiety/depression Continue Abilify, Celexa Hx of Crohn's disease History of GERD Continue PPI DVT prophylaxis Heparin subcutaneous Code Status: DNR/DNI DISCHARGE MEDICATIONS: Please see below. ALLERGIES: Please see below. PHYSICAL EXAMINATION ON DISCHARGE: VITAL SIGNS: Please see below. General Exam: Positive: Alert, Cooperative, No Acute Distress ENT Exam: Positive: Atraumatic, Mucous membr. moist/pink, Other ENT (cachectic appearing with bi temporal wasting noted) Chest Exam: Positive: Diminished Heart Exam: Positive: Rate Normal, Normal S1, Normal S2 Abdomen Exam: Positive: Soft; Negative: Tenderness Extremity Exam: Negative: Tenderness, Edema Psych Exam: Positive: Oriented x 3 LABORATORY DATA: Please see below. IMAGING: PORTABLE CHEST: AP portable view of the chest is performed and compared to prior study, 12/17/2018. Mild patchy infiltrates are seen in each lung base with small effusions. Upper lungs are clear and unchanged. There is calcification of the thoracic aorta. Heart size is not well evaluated due to obscuration of the heart borders. There is a left dual-lead pacemaker. IMPRESSION: Mild bibasilar infiltrates and effusions. PROGNOSIS: Poor long-term prognosis ACTIVITY: As tolerated. DIET: 2 g low sodium--mechanical soft, level II solids, nectar thickened diet, 1500 mL fluid restricted diet DISCHARGE PLAN: DISPOSITION: Home, Self-Care. DISCHARGE INSTRUCTIONS: Follow-up with primary care physician within 7 days. Adhere to dietary recommendations. Return to the ER for any acute emergencies. DISCHARGE CONDITION: Stable. TIME SPENT ON DISCHARGE: Greater than 30 minutes. Vital Signs/I&Os Vital Signs Date Time Temp Pulse Resp B/P (MAP) Pulse Ox O2 Delivery O2 Flow Rate FiO2 01/01/19 08:00 2.0 01/01/19 07:50 98.0 105 22 133/61 (85) 96 12/31/18 23:41 Nasal Cannula I&O- Last 24 Hours up to 6 AM 01/01/19 06:00 Intake Total 1165 ml Output Total 1775 ml Balance -610 ml Laboratory Data Labs 24H Laboratory Tests 2 12/31/18 17:10: Bedside Glucose (Misc Panel) 263H 12/31/18 20:13: Bedside Glucose (Misc Panel) 270H 01/01/19 04:29: Nucleated Red Blood Cells % (auto) 0.0, Anion Gap 6L, Glomerular Filtration Rate 24.7L, Blood Urea Nitrogen 47H, Creatinine 2.05H, Sodium Level 142, Potassium Level 3.6, Chloride Level 100, Carbon Dioxide Level 36H, Calcium Level 8.6L 01/01/19 07:47: Bedside Glucose (Misc Panel) 375H CBC/BMP Laboratory Tests 01/01/19 04:29 Red Blood Count 3.53 L, Mean Corpuscular Volume 92.4, Mean Corpuscular Hemoglobin 27.8, Mean Corpuscular Hemoglobin Concent 30.1 L, Red Cell Distribution Width 16.4 H, Calcium Level 8.6 L FSBS Laboratory Tests Test 12/31/18 17:10 12/31/18 20:13 01/01/19 07:47 Range/Units Bedside Glucose (Misc Panel) 263 270 375 83-110 MG/DL Microbiology Microbiology 12/30/18 Blood Culture - Preliminary, Resulted No Growth after 48 hours. All Specime... 12/30/18 Blood Culture - Preliminary, Resulted No Growth after 48 hours. All Specime... 12/30/18 Gram Stain - Final, Complete 12/30/18 Sputum Culture - Final, Complete Staphylococcus Aureus Yeast Like Organism Discharge Medications Scheduled Aripiprazole (Abilify) 10 Mg Tablet, 10 MG PO DAILY, (Reported) Budesonide/Formoterol (Symbicort 160-4.5 Mcg Inhaler) 6 Gm Hfa.aer.ad, 2 PUFF INH BID, (Reported) Calcitriol (Calcitriol) 0.25 Mcg Cap, 0.25 MG PO DAILY, (Reported) Cefdinir (Cefdinir) 300 Mg Capsule, 1 CAP PO DAILY Citalopram Hydrobromide (Celexa) 20 Mg Tablet, 20 MG PO DAILY, (Reported) Furosemide (Furosemide) 40 Mg Tablet, 60 MG PO DAILY, (Reported) Insulin Human Lispro (Humalog Mix 75-25 Vial) 100 Unit/1 Ml Vial, 15 UNITS SC DAILY, (Reported) TAKES AT LUNCHTIME Melatonin (Melatonin) 5 Mg Tab, 10 MG PO QHS, (Reported) Omeprazole (Omeprazole) 20 Mg Capsule.dr, 20 MG PO DAILY, (Reported) Prednisone (Prednisone) 20 Mg Tablet, 40 MG PO DAILY, (Reported) Tiotropium [place] Monohydrate (Spiriva) 18 Mcg Cap.w.dev, 1 INHALATION INH DAILY, (Reported) Scheduled PRN Albuterol Sulfate (Proair Hfa) 108 Mcg/Act Aer, 2 PUFF INH Q4H PRN for SHORTNESS OF BREATH, (Reported) Albuterol Sulfate (Albuterol Sulfate) 0.63 Mg/3 Ml Neb, 0.63 MG INH Q4H PRN for SHORTNESS OF BREATH, (Reported) Allergies Coded Allergies: Penicillins (Verified Allergy, Intermediate, Rash/Dizziness; had zosyn recently on prev admission and ok, 12/17/18) ARMANDO CAT MD Jan 01, 2019 14:26
== END 2019-01-01 11:20 | disposition home or self-care (01) | DRG 871 ==
LOC: M ED 11:54 → M ED INP 15:01 → M ICU 17:19
PROVIDERS: ADMIT Internal Medicine; ATTEND Internal Medicine
DX: A41.9 Sepsis, unspecified organism (principal); J69.0 Pneumonitis due to inhalation of food and vomit; R65.21 Severe sepsis with septic shock; I50.22 Chronic systolic (congestive) heart failure; J44.0 Chronic obstructive pulmonary disease with (acute) lower respiratory infection; N18.4 Chronic kidney disease, stage 4 (severe); I13.0 Hypertensive heart and chronic kidney disease with heart failure and stage 1 through stage 4 chronic kidney disease, or unspecified chronic kidney disease; E11.9 Type 2 diabetes mellitus without complications; Z79.52 Long term (current) use of systemic steroids; K52.9 Noninfective gastroenteritis and colitis, unspecified; F41.9 Anxiety disorder, unspecified; F32.9 Major depressive disorder, single episode, unspecified; K21.9 Gastro-esophageal reflux disease without esophagitis; Z66 Do not resuscitate; Z79.899 Other long term (current) drug therapy; Z88.0 Allergy status to penicillin

== ENCOUNTER 2019-01-22 22:39 | Inpatient (IN) | payer MEDICARE ==
[~2019-01-22] VITALS: Ht 157.5 cm; Wt 52.1 kg
[2019-01-22] MEDS: DOCUSATE SODIUM 100 MG CAP PO SCH (21:00)
[~2019-01-22 22:39] MED LIST changes: +ASPI-524 PO; -ASPI1TAB20 PO; +CEFD1CAP8 PO; -MELA5TAB17 PO; +MELA5TAB31 PO
[2019-01-22] MEDS ORDERED: ASPIRIN 81 MG CHEW TABLET PO ONE (23:00)
[2019-01-22] MEDS ORDERED: FUROSEMIDE 100 MG/10 ML VIAL (J1940) IV ONE (23:15)
[2019-01-22 23:39] LABS: BASO % 0.2 % (0.0-1.0); EOS % 0.1 % (0.0-3.0); HEMATOCRIT 27.3 % (36.0-47.0); HEMOGLOBIN 8.1 g/dl (12.0-15.5); LYMPH # 1.2 10^3/uL (1.5-4.5); LYMPH % 11.1 % (24.0-44.0); MEAN CORPUSCULAR HEMOGLOBIN 27.5 pg (27.0-33.0); MEAN CORPUSCULAR HGB CONC 29.7 g/dl (32.0-36.5); MEAN CORPUSCULAR VOLUME 92.5 fl (80.0-96.0); MONO # 0.6 10^3/uL (0.0-0.8); MONO % 5.8 % (0.0-5.0); NEUTROPHILS # 8.8 10^3/uL (1.8-7.7); NEUTROPHILS % 82.1 % (36.0-66.0); PLATELET COUNT, AUTOMATED 323 10^3/uL (150-450); RED BLOOD COUNT 2.95 10^6/uL (4.00-5.40); WHITE BLOOD COUNT 10.7 10^3/uL (4.0-10.0)
[2019-01-22 23:50] LABS: INR 1.02; PROTHROMBIN TIME 13.1 SECONDS (11.8-14.0)
[2019-01-22] MEDS: IPRATROPIUM 0.5MG/ALBUTEROL 2.5MG INH SOL UD 3ML (DUONEB)(J7620) NEB PRN (23:57)
[2019-01-23 00:12] LABS: BILIRUBIN,DIRECT 0.2 MG/DL (0.0-0.2); BILIRUBIN,TOTAL 0.3 MG/DL (0.2-1.0); CALCIUM LEVEL 8.4 MG/DL (8.8-10.2); CK-MB VALUE MASS 2.6 NG/ML (<3.6); CREATININE FOR GFR 2.05 MG/DL (0.55-1.30); GLOMERULAR FILTRATION RATE 24.7 (>32); MB/CK RELATIVE INDEX 10.4 (< OR =4); POTASSIUM SERUM 4.2 MEQ/L (3.5-5.1); TOTAL PROTEIN 6.3 GM/DL (6.4-8.2); TROPONIN I 0.02 NG/ML (< 0.10)
[2019-01-23] MEDS: IPRATROPIUM 0.5MG/ALBUTEROL 2.5MG INH SOL UD 3ML (DUONEB)(J7620) NEB PRN (00:15)
[2019-01-23] MEDS ORDERED: MOM 30ML SUSPENSION UDC PO PRN (00:30)
[2019-01-23] MEDS ORDERED: MAALOX 30 ML SUSP *UDC PO PRN (00:30)
[2019-01-23] MEDS ORDERED: ACETAMINOPHEN TAB 650MG DOSE (2X325MG) PO PRN (00:30)
[2019-01-23] MEDS ORDERED: PRED10TA2 PO (00:42)
[2019-01-23] MEDS ORDERED: ASPI81TA21 PO (00:42)
[2019-01-23] MEDS ORDERED: ALBUTEROL SULFATE 2.5 MG/0.5 ML INH NEB SOLN NEB PRN (02:00)
[2019-01-23] MEDS ORDERED: DEXTROSE 50% 50 ML SYRINGE IV PRN (02:00)
[2019-01-23] MEDS ORDERED: GLUCAGON FOR INJ 1 MG VIAL (J1610) SC PRN (02:00)
[2019-01-23] MEDS ORDERED: GLUCOSE 4 GM CHEW TABLET PO PRN (02:00)
[2019-01-23 02:25] VITALS: BP 125/64
--- NOTE | 2019-01-23 03:56 | REP ---
Clinical: Cough and dyspnea. Comparison: 12/30/2018. Findings: Cardiomegaly is stable. Pacemaker again noted. Lung nugent demonstrate chronic interstitial changes. No acute consolidation, effusion, or pneumothorax. Skeletal structures intact. Impression: Chronic fibrosis and interstitial changes. No acute consolidation appreciated. Electronically Signed by Sky Weinberg MD 01/23/2019 03:48 A
--- NOTE | 2019-01-23 05:38 | HPEPDOC ---
General Date of Admission 01/23/19 Date of Service: Jan 23, 2019 Primary Care Physician: Yaakov Archuleta Attending Physician: ROSAS RAMOS DO Chief Complaint The patient is a 83-year-old female admitted with a reason for visit of SOB. Source: Patient, Family, Old records Exam Limitations: No limitations Timing/Duration: Week(s) (2-3), Getting worse (x2-3 days) Severity: Moderate Associated Symptoms: Chest Pain, Cough, Shortness of breath, Weakness History of Present Illness 83 yo female with history of chronic hypoxic respiratory failure due to COPD (on 2 liter oxygen at home), chronic systolic CHF with EF 35-40% (echo 10/2018) who was recently discharged on 01/01/19 with Sepsis due to Recurrent Aspiration pneumonia. She presented to ED with increasing SOB and found to be in CHF - given IV lasix 60mg. She was too weak today to get off toilet and family states she has had progressive weakness since discharged from hospital. Family state that patient was supposed to go to rehab for strengthening but was discharged to home instead. Patient states tonight had sudden episode of air hunger , anxiety associated with SOB/GARVEY and no relief with increased oxygen or nebs. Patient states has been occuring 2-3 x day since discharged but worse over past 2-3 days. Daughter states that the caregiver during the day has not been putting on pateint VEENA hose and her feet more swollen. They are not checking daily weights. Patient has had a white frothy cough over past 2 days which is different than her usual moist COPD cough. She states she is intermittently using thicken liquids and following dysphagia type diet. Patient and daughter have noticed increased leg edema over past week. Patient was seen and examined with daughter and son present. son is healthcare proxy (LUZ) and to bring in paperwork. Home Medications Scheduled Aripiprazole (Abilify) 10 Mg Tablet, 10 MG PO DAILY, (Reported) Aspirin (Aspir-Low) 81 Mg Tablet.dr, 81 MG PO DAILY, (Reported) Budesonide/Formoterol (Symbicort 160-4.5 Mcg Inhaler) 6 Gm Hfa.aer.ad, 2 PUFF INH BID, (Reported) Calcitriol (Calcitriol) 0.25 Mcg Cap, 0.25 MG PO DAILY, (Reported) Citalopram Hydrobromide (Celexa) 20 Mg Tablet, 20 MG PO DAILY, (Reported) Furosemide (Furosemide) 40 Mg Tablet, 40 MG PO DAILY, (Reported) FROM PREVIOUS ADMISSION (12/30/18) WAS INPUT 60 MG QD; FROM EXT MED HISTORY LOOKS LIKE 40 MG QD. Insulin Human Lispro (Humalog Mix 75-25 Vial) 100 Unit/1 Ml Vial, 15 UNITS SC DAILY, (Reported) TAKES AT LUNCHTIME Melatonin (Melatonin) 5 Mg Tab, 10 MG PO QHS, (Reported) Omeprazole (Omeprazole) 20 Mg Capsule.dr, 20 MG PO DAILY, (Reported) Prednisone (Prednisone) 10 Mg Tablet, 10 MG PO DAILY, (Reported) FROM PREVIOUS ADMISSION (12/30/18) WAS INPUT 40 MG QD; FROM EXT MED HISTORY LOOKS LIKE 10 MG QD. Tiotropium [place] Monohydrate (Spiriva) 18 Mcg Cap.w.dev, 1 INHALATION INH DAILY, (Reported) Scheduled PRN Albuterol Sulfate (Proair Hfa) 108 Mcg/Act Aer, 2 PUFF INH Q4H PRN for SHORTNESS OF BREATH, (Reported) Albuterol Sulfate (Albuterol Sulfate) 0.63 Mg/3 Ml Neb, 0.63 MG INH Q4H PRN for SHORTNESS OF BREATH, (Reported) Allergies Coded Allergies: Penicillins (Verified Allergy, Intermediate, Rash/Dizziness; had zosyn recently on prev admission and ok, 12/17/18) Past Medical History Medical History hypertension, diabetes mellitus, c hronic kidney disease stage IV, chronic systolic congestive heart failure with an EF of 35-40%, COPD on chronic steroids and 2 L of oxygen at baseline, Crohn's disease , PAD S/P Bypass, complete heart block (s/p permanent pacemaker), anemia chronic disease,depression, GERD Surgical History 1. Aortofemoral bypass. 2. Permanent pacemaker placement. 3. Cataract extraction 4. Cholecystectomy 5. section. Family History Significant Family History: No pertinent family hx Social History Lives with [facility] care, former smoker; no EtOH use A-FIB/CHADSVASC A-FIB History Current/History of A-Fib/PAF?: No Current PO Anticoag Therapy: No Review of Systems Constitutional: Reports: Weakness, Fatigue; Denies: Chills, Fever, Night Sweats, Weight Loss Pulmonary: Reports: Cough, Pleuritic Chest Pain Cardiovascular: Reports: Chest Pain, Paroxysmal Noc. Dyspnea, Edema Gastrointestinal: Reports: Nausea; Denies: Vomiting, Abdominal Pain, Diarrhea, Constipation Neurological: Reports: Weakness Other systems 10 comprehensive systems reviewed and negative except as above or in HPI Physical Examination General Exam: Positive: Alert, Cooperative, Mild Distress (with moists yellow/white cough but able to speak full sentences and no use of accessory muscles) Eye Exam: Positive: PERRLA, Conjunctiva & lids normal, EOMI ENT Exam: Positive: Atraumatic, Mucous membr. moist/pink, Pharynx Normal Neck Exam: Positive: Supple, JVD, Other (HJR present) Chest Exam: Positive: Clear to auscultation, Rales (course scattered), Diminished (at bases), Other (kyphosis) Heart Exam: Positive: Rate Normal, Regular Rhythm, Normal S1, Normal S2 Telemetry: Positive: Sinus, Other Telemetry: (paced at 94) Extremity Exam: Positive: Edema (1+ pitting to pretibia and ankles bilaterally), Normal pulses Skin Exam: Positive: Nl turgor and temperature, Pruritus, Other skin issue (thin, capillary pooling) Neuro Exam: Positive: Normal Speech, Sensation Intact, Other (proximal muscle weakness to thighs with muscle wasting) Psych Exam: Positive: Mental status NL, Mood NL, Oriented x 3, Other (memory deficits) Other physical findings EKG reviewed and paced /sinus Vital Signs Vital Signs Date Time Temp Pulse Resp B/P (MAP) Pulse Ox O2 Delivery O2 Flow Rate FiO2 01/22/19 22:52 84 18 134/58 (83) 100 Nasal Cannula 01/22/19 22:46 97.7 4.0 Laboratory Data Labs 24H Laboratory Tests 2 01/22/19 23:25: Immature Granulocyte % (Auto) 0.7, White Blood Count 10.7H, Red Blood Count 2.95L, Hemoglobin 8.1L, Hematocrit 27.3L, Mean Corpuscular Volume 92.5, Mean Corpuscular Hemoglobin 27.5, Mean Corpuscular Hemoglobin Concent 29.7L, Red Cell Distribution Width 15.3H, Platelet Count 323, Neutrophils (%) (Auto) 82.1H, Lymphocytes (%) (Auto) 11.1L, Monocytes (%) (Auto) 5.8H, Eosinophils (%) (Auto) 0.1, Basophils (%) (Auto) 0.2, Neutrophils # (Auto) 8.8H, Lymphocytes # (Auto) 1.2L, Monocytes # (Auto) 0.6, Eosinophils # (Auto) 0.0, Basophils # (Auto) 0.0, Nucleated Red Blood Cells % (auto) 0.0, Prothrombin Time 13.1, Prothromb Time International Ratio 1.02, Anion Gap 10, Glomerular Filtration Rate 24.7L, Lactic Acid Level 2.4*H, Calcium Level 8.4L, Aspartate Amino Transf (AST/SGOT) 20, Alanine Aminotransferase (ALT/SGPT) 28, Alkaline Phosphatase 161H, Total Bilirubin 0.3, Direct Bilirubin 0.2, Total Creatine Kinase 25L, Creatine Kinase MB 2.6, Creatine Kinase MB Relative Index 10.40H, Troponin I 0.02, YV-Lbd-D-Type Natriuretic Peptide 64029V, Total Protein 6.3L, Albumin 3.0L, Albumin/Globulin Ratio 0.91L CBC/BMP Laboratory Tests 01/22/19 23:25 Red Blood Count 2.95 L, Mean Corpuscular Volume 92.5, Mean Corpuscular Hemoglobin 27.5, Mean Corpuscular Hemoglobin Concent 29.7 L, Red Cell Distribution Width 15.3 H, Neutrophils (%) (Auto) 82.1 H, Lymphocytes (%) (Auto) 11.1 L, Monocytes (%) (Auto) 5.8 H, Eosinophils (%) (Auto) 0.1, Basophils (%) (Auto) 0.2, Neutrophils # (Auto) 8.8 H, Lymphocytes # (Auto) 1.2 L, Monocytes # (Auto) 0.6, Eosinophils # (Auto) 0.0, Basophils # (Auto) 0.0 Microbiology Microbiology 01/22/19 Blood Culture, Received Pending RAD Interpretation STUDY: CXR Rad Actions: Report Reviewed, Films Reviewed, Discussed with the pt RAD Interpretation: Other Result Comments: (Impression: Chronic fibrosis and interstitial changes.) Assessment/Plan 1) systolic CHF acute on chronic - IV Lasix given in ED with improvement. scheduled IV lasix BID and adjust daily. check troponin. cardiac rehab consult and may benefit from tele home health monitoring of daily weights; continue current medication regimen (await med rec) and consider added low dose KARELY and low dose betablocker if it doesn't worse her underlying COPD or CKD. She had echo performed in 10/2018 with EF 35- 40%. 2) Lactic acidosis - suspect respiratory etiology but NO SIGNS OF SEPSIS. monitor. avoid metformen 3) COPD without exacerbation - on chronic 2 liter. continue nebs, she has been tapered off prednisone - but await med rec. consider adding brovana or pulmonary consult because of intermittent air hunger/COPD and pulmonary fibrosis seen on CXR; may benefit from pulmonary rehab 4) CKD stage IV - monitor with increased IV lasix use. 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 May benefit from rehab. patient and family agreeable to rehab when current illness is stabilized. Code status: DNR (per health care proxy - LUZ, and patient wishes) DVT prophylaxis: renal dose enoxaprin Plan / VTE VTE Prophylaxis Ordered?: Yes ROSAS RAMOS DO Jan 23, 2019 00:23
[2019-01-23 06:00] VITALS: BP 115/72
[2019-01-23] MEDS: BUDESONIDE 0.5 MG/2 ML INHALATION SUSPENSION INH SCH ×2 (07:20→20:58)
[2019-01-23] MEDS: IPRATROPIUM 0.5MG/ALBUTEROL 2.5MG INH SOL UD 3ML (DUONEB)(J7620) NEB SCH ×3 (07:20→20:00)
[2019-01-23] MEDS: HumaLOG INSULIN (NovoLOG) PER UNIT SC SCH ×4 (07:48→21:37)
[2019-01-23] MEDS: FUROSEMIDE 40 MG/4 ML VIAL (J1940) IV SCH ×2 (08:53→17:02)
[2019-01-23] MEDS: DOCUSATE SODIUM 100 MG CAP PO SCH ×2 (08:53→21:36)
[2019-01-23] MEDS: ENOXAPARIN 30 MG/0.3 ML SYR (J1650) SC SCH (08:53)
[2019-01-23] MEDS: predniSONE 10 MG TAB PO SCH (08:54)
[2019-01-23] MEDS: guaiFENesin ER 600 MG TAB PO SCH ×2 (08:54→21:36)
[2019-01-23 14:00] VITALS: BP 130/59
--- NOTE | 2019-01-23 16:45 | ECGEPIP ---
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
[2019-01-23 22:00] VITALS: BP 156/84
[2019-01-24] MEDS: IPRATROPIUM 0.5MG/ALBUTEROL 2.5MG INH SOL UD 3ML (DUONEB)(J7620) NEB SCH ×4 (01:26→18:02)
[2019-01-24 06:00] VITALS: BP 101/55
[2019-01-24 06:13] LABS: HEMOGLOBIN 8.9 g/dl (12.0-15.5); MEAN CORPUSCULAR HEMOGLOBIN 26.7 pg (27.0-33.0); MEAN CORPUSCULAR HGB CONC 29.7 g/dl (32.0-36.5); MEAN CORPUSCULAR VOLUME 90.1 fl (80.0-96.0); PLATELET COUNT, AUTOMATED 362 10^3/uL (150-450); RED BLOOD COUNT 3.33 10^6/uL (4.00-5.40); WHITE BLOOD COUNT 12.6 10^3/uL (4.0-10.0)
[2019-01-24 06:41] LABS: CALCIUM LEVEL 9.1 MG/DL (8.8-10.2); CREATININE FOR GFR 1.86 MG/DL (0.55-1.30); GLOMERULAR FILTRATION RATE 27.6 (>32); MAGNESIUM LEVEL 1.9 MG/DL (1.8-2.4)
[2019-01-24] MEDS: BUDESONIDE 0.5 MG/2 ML INHALATION SUSPENSION INH SCH ×2 (07:37→18:02)
[2019-01-24] MEDS: HumaLOG INSULIN (NovoLOG) PER UNIT SC SCH ×4 (08:27→21:20)
[2019-01-24] MEDS: ENOXAPARIN 30 MG/0.3 ML SYR (J1650) SC SCH (08:27)
[2019-01-24] MEDS: DOCUSATE SODIUM 100 MG CAP PO SCH ×2 (08:28→21:20)
[2019-01-24] MEDS: predniSONE 10 MG TAB PO SCH (08:28)
[2019-01-24] MEDS: FUROSEMIDE 40 MG/4 ML VIAL (J1940) IV SCH ×2 (08:28→16:56)
[2019-01-24] MEDS: guaiFENesin ER 600 MG TAB PO SCH ×2 (08:28→21:20)
--- NOTE | 2019-01-24 11:10 | IPNPDOC ---
Date Seen The patient was seen on 01/24/19. Progress Note SUBJECTIVE: 83 Y female, with history of COPD on 2L O2, CHF, DM T2, CKD stage 4, dysphagia presents with shortness of breath she had frequent admissions here recently for the same problem Reviews of Systems no fever no chills no chest pain no abdominal pain no diarrhea positive cough PHYSICAL EXAMINATION: VITAL SIGNS: Please see below. GENERAL: AA Ox3, she is in moderate respiratory distress, daughter at bedside HEENT: Atraumatic CARDIOVASCULAR: S1S2 regular mild tachy, no murmur RESPIRATORY: diffusing rhochi; no wheezing ABDOMINAL: soft BS +; non tenderness EXTREMITIES: +2-3 edema in legs NEUROLOGICAL: non focal PSYCHOLOGICAL: no acute Psychosis LABORATORY DATA, IMAGING STUDIES, MICROBIOLOGY: Please see below. DVT prophylaxis ordered?: yes ASSESSMENT AND PLAN: 1. Chronic respiratory failure, in her baseline on 2L O2 NC 2. Acute on chronic systolic CHF EF 35-40% will continue IV lasix 3) COPD/pul fibrosis without exacerbation will continue her regular regimen 4) CKD stage IV - monitor with increased IV lasix use. 5) NIDDM - hold oral agents and cover with SSI 6) Dysphagia, on modified thicken liquid diet 7) DISPOSITION: she is DNR/DNI; per daughter, patient does not want to come back to hospital anymore, she has 24h care at home will consult palliative care if she qualify Hospice. VS, I&O, 24H, Tine Vital Signs/I&O Vital Signs Date Time Temp Pulse Resp B/P (MAP) Pulse Ox O2 Delivery O2 Flow Rate FiO2 01/24/19 06:00 97.6 101 20 101/55 (70) 93 2.0 01/23/19 00:54 Room Air I&O- Last 24 Hours up to 6 AM 01/24/19 06:00 Intake Total 800 ml Output Total 1000 ml Balance -200 ml Laboratory Data 24H LABS Laboratory Tests 2 01/23/19 11:34: Bedside Glucose (Misc Panel) 116H 01/23/19 20:42: Bedside Glucose (Misc Panel) 252H 01/24/19 05:42: Nucleated Red Blood Cells % (auto) 0.0, Anion Gap 5L, Glomerular Filtration Rate 27.6L, Lactic Acid Level 1.2, Blood Urea Nitrogen 51H, Creatinine 1.86H, Sodium Level 136, Potassium Level 4.0, Chloride Level 97L, Carbon Dioxide Level 34H, C alcium Level 9.1, Magnesium Level 1.9, NS-Hjy-X-Type Natriuretic Peptide 17496Y CBC/BMP Laboratory Tests 01/24/19 05:42 Red Blood Count 3.33 L, Mean Corpuscular Volume 90.1, Mean Corpuscular Hemoglobin 26.7 L, Mean Corpuscular Hemoglobin Concent 29.7 L, Red Cell Distribution Width 15.2 H, Calcium Level 9.1 Microbiology Microbiology 01/23/19 Blood Culture - Preliminary, Resulted No growth after 24 hours . All specim... 01/22/19 Blood Culture - Preliminary, Resulted No growth after 24 hours . All specim... TIM FAUSTIN MD Jan 24, 2019 11:10
[2019-01-24 14:00] VITALS: BP 102/43
[2019-01-24 22:00] VITALS: BP 116/58
[2019-01-25] MEDS: IPRATROPIUM 0.5MG/ALBUTEROL 2.5MG INH SOL UD 3ML (DUONEB)(J7620) NEB SCH ×2 (01:27→07:48)
[2019-01-25 06:00] VITALS: BP 101/53
[2019-01-25] MEDS: BUDESONIDE 0.5 MG/2 ML INHALATION SUSPENSION INH SCH (07:48)
[2019-01-25] MEDS: predniSONE 10 MG TAB PO SCH (08:40)
[2019-01-25] MEDS: guaiFENesin ER 600 MG TAB PO SCH (08:40)
[2019-01-25] MEDS: FUROSEMIDE 40 MG/4 ML VIAL (J1940) IV SCH (08:40)
[2019-01-25] MEDS: DOCUSATE SODIUM 100 MG CAP PO SCH (08:40)
[2019-01-25] MEDS: HumaLOG INSULIN (NovoLOG) PER UNIT SC SCH ×2 (08:40→12:00)
[2019-01-25] MEDS: ENOXAPARIN 30 MG/0.3 ML SYR (J1650) SC SCH (08:41)
[2019-01-25] MEDS ORDERED: TORS20TA2 PO (11:50)
--- NOTE | 2019-01-25 16:52 | DS.PDOC ---
Discharge Summary General Date of Admission Jan 23, 2019 at 00:25 Date of Discharge 01/25/19 Primary Care Physician: Yaakov Archuleta Attending Physician: TIM FAUSTIN MD Discharge Summary PROCEDURES PERFORMED DURING STAY: none ADMITTING DIAGNOSES: 1. acute on chronic diastolic CHF DISCHARGE DIAGNOSES: 1. Chronic respiratory failure, in her baseline on 2L O2 NC 2. Acute on chronic systolic CHF EF 35-40% 3) COPD/pul fibrosis 4) CKD stage IV 5) NIDDM 6) Dysphagia, on modified thicken liquid diet COMPLICATIONS/CHIEF COMPLAINT: Diastolic Chf. HISTORY OF PRESENT ILLNESS: 83 yo female with history of chronic hypoxic respiratory failure due to COPD (on 2 liter oxygen at home), chronic systolic CHF with EF 35-40% (echo 10/2018) who was recently discharged on 01/01/19 with Sepsis due to Recurrent Aspiration pneumonia. She presented to ED with increasing SOB and found to be in CHF - g iven IV lasix 60mg. She was too weak today to get off toilet and family states she has had progressive weakness since discharged from hospital. Family state that patient was supposed to go to rehab for strengthening but was discharged to home instead. Patient states tonight had sudden episode of air hunger , anxiety associated with SOB/GARVEY and no relief with increased oxygen or nebs. Patient states has been occuring 2-3 x day since discharged but worse over past 2-3 days. Daughter states that the caregiver during the day has not been putting on pateint VEENA hose and her feet more swollen. They are not checking daily weights. Patient has had a white frothy cough over past 2 days which is different than her usual moist COPD cough. She states she is intermittently using thicken liquids and following dysphagia type diet. Patient and daughter have noticed increased leg edema over past week. HOSPITAL COURSE: after admission, she was treated with IV lasix; she is improving gradually; due to frequent admissions, patient and her daughter discussed for possible no hospitalization anymore; palliative team was consulted and decided to follow her as an outpatient; I changed her from oral lasix to oral Torsemide for better diuresis and now she is in her baseline and will go home today. she has 24h care at home. DISCHARGE MEDICATIONS: Please see below. ALLERGIES: Please see below. PHYSICAL EXAMINATION ON DISCHARGE: VITAL SIGNS: Please see below. GENERAL: AA Ox3 HEENT: atraumatic NECK: no JVD CARDIOVASCULAR EXAMINATION: S1 S2 regular, no murmur RESPIRATORY EXAMINATION: diminished breath sound, no rales no wheezing ABDOMINAL EXAMINATION: soft BS positive non tenderness EXTREMITIES: +1 edema SKIN: no rash NEUROLOGICAL EXAMINATION: non focal PSYCHIATRIC EXAMINATION: no acute psychosis LABORATORY DATA: Please see below. PROGNOSIS: guarded ACTIVITY: [As tolerated]. DIET: regular DISCHARGE PLAN: Hospice will follow DISPOSITION: 01 Home, Self-Care. ITEMS TO FOLLOWUP ON ON OUTPATIENT: PCP as needed DISCHARGE CONDITION: stable TIME SPENT ON DISCHARGE: Greater than 35 minutes. Vital Signs/I&Os Vital Signs Date Time Temp Pulse Resp B/P (MAP) Pulse Ox O2 Delivery O2 Flow Rate FiO2 01/25/19 06:00 98.5 104 20 101/53 (69) 93 2.0 01/23/19 00:54 Room Air I&O- Last 24 Hours up to 6 AM 01/25/19 06:00 Intake Total 740 ml Output Total 200 ml Balance 540 ml Laboratory Data Labs 24H Laboratory Tests 2 01/24/19 20:43: Bedside Glucose (Misc Panel) 252H 01/25/19 06:09: Bedside Glucose (Misc Panel) 268H 01/25/19 11:27: Bedside Glucose (Misc Panel) 249H FSBS Laboratory Tests Test 01/24/19 20:43 01/25/19 06:09 01/25/19 11:27 Range/Units Bedside Glucose (Misc Panel) 252 268 249 83-110 MG/DL Microbiology Microbiology 01/23/19 Blood Culture - Preliminary, Resulted No Growth after 48 hours. All Specime... 01/22/19 Blood Culture - Preliminary, Resulted No Growth after 48 hours. All Specime... Discharge Medications Scheduled Aripiprazole (Abilify) 10 Mg Tablet, 10 MG PO DAILY, (Reported) Aspirin (Aspir-Low) 81 Mg Tablet.dr, 81 MG PO DAILY, (Reported) Budesonide/Formoterol (Symbicort 160-4.5 Mcg Inhaler) 6 Gm Hfa.aer.ad, 2 PUFF INH BID, (Reported) Calcitriol (Calcitriol) 0.25 Mcg Cap, 0.25 MG PO DAILY, (Reported) Citalopram Hydrobromide (Celexa) 20 Mg Tablet, 20 MG PO DAILY, (Reported) Insulin Human Lispro (Humalog Mix 75-25 Vial) 100 Unit/1 Ml Vial, 15 UNITS SC DAILY, (Reported) TAKES AT LUNCHTIME Melatonin (Melatonin) 5 Mg Tab, 10 MG PO QHS, (Reported) Omeprazole (Omeprazole) 20 Mg Capsule.dr, 20 MG PO DAILY, (Reported) Tiotropium [place] Monohydrate (Spiriva) 18 Mcg Cap.w.dev, 1 INHALATION INH DAILY, (Reported) Torsemide (Torsemide) 20 Mg Tablet, 20 MG PO QAM Scheduled PRN Albuterol Sulfate (Proair Hfa) 108 Mcg/Act Aer, 2 PUFF INH Q4H PRN for SHORTNESS OF BREATH, (Reported) Albuterol Sulfate (Albuterol Sulfate) 0.63 Mg/3 Ml Neb, 0.63 MG INH Q4H PRN for SHORTNESS OF BREATH, (Reported) Allergies Coded Allergies: Penicillins (Verified Allergy, Intermediate, Rash/Dizziness; had zosyn recently on prev admission and ok, 12/17/18) TIM FAUSTIN MD Jan 25, 2019 16:52
[2019-01-26] MEDS ORDERED: TORS20TA2 PO (16:55)
== END 2019-01-25 12:45 | disposition home or self-care (01) | DRG 291 ==
LOC: M ED 22:39 → M ED INP 01-23 00:25 → M MSPAV 01-23 02:11
PROVIDERS: ADMIT Family Medicine; ATTEND Hospitalist
DX: I13.0 Hypertensive heart and chronic kidney disease with heart failure and stage 1 through stage 4 chronic kidney disease, or unspecified chronic kidney disease (principal); I50.23 Acute on chronic systolic (congestive) heart failure; N18.4 Chronic kidney disease, stage 4 (severe); J96.11 Chronic respiratory failure with hypoxia; E87.2 Acidosis; J44.9 Chronic obstructive pulmonary disease, unspecified; J84.10 Pulmonary fibrosis, unspecified; E11.9 Type 2 diabetes mellitus without complications; R13.10 Dysphagia, unspecified; Z79.82 Long term (current) use of aspirin; Z79.899 Other long term (current) drug therapy; Z88.0 Allergy status to penicillin; Z95.0 Presence of cardiac pacemaker; Z87.891 Personal history of nicotine dependence; Z66 Do not resuscitate; K21.9 Gastro-esophageal reflux disease without esophagitis; D63.1 Anemia in chronic kidney disease

== ENCOUNTER 2019-01-26 16:14 | Inpatient (IN) | payer MEDICARE ==
[~2019-01-26] VITALS: Ht 154.9 cm; Wt 50.7 kg
[~2019-01-26 16:14] MED LIST changes: -ASPI-222 PO; -ASPI-524 PO; +ASPI-527 PO; +ASPI325T57 PO; +ASPI81TA21 PO; +CLON0.5T2; +CLON0.5T2 PO; -CLON0.5T8; -CLON0.5T8 PO; +TORS20TA2 PO
[2019-01-26] MEDS ORDERED: TORS20TA2 PO (16:55)
[2019-01-26 17:13] LABS: BASO % 0.4 % (0.0-1.0); EOS % 0.4 % (0.0-3.0); HEMATOCRIT 28.5 % (36.0-47.0); HEMOGLOBIN 8.5 g/dl (12.0-15.5); LYMPH # 1.2 10^3/uL (1.5-4.5); LYMPH % 13.8 % (24.0-44.0); MEAN CORPUSCULAR HEMOGLOBIN 27.3 pg (27.0-33.0); MEAN CORPUSCULAR HGB CONC 29.8 g/dl (32.0-36.5); MEAN CORPUSCULAR VOLUME 91.6 fl (80.0-96.0); MONO # 0.8 10^3/uL (0.0-0.8); MONO % 9.3 % (0.0-5.0); NEUTROPHILS # 6.7 10^3/uL (1.8-7.7); NEUTROPHILS % 75.2 % (36.0-66.0); PLATELET COUNT, AUTOMATED 378 10^3/uL (150-450); RED BLOOD COUNT 3.11 10^6/uL (4.00-5.40)
[2019-01-26 17:23] LABS: INR 1.01; PROTHROMBIN TIME 13.1 SECONDS (11.8-14.0)
[2019-01-26 17:45] LABS: ALBUMIN 2.9 GM/DL (3.2-5.2); BILIRUBIN,DIRECT 0.1 MG/DL (0.0-0.2); BILIRUBIN,TOTAL 0.3 MG/DL (0.2-1.0); CALCIUM LEVEL 9.2 MG/DL (8.8-10.2); CK-MB VALUE MASS 3.1 NG/ML (<3.6); CREATININE FOR GFR 2.19 MG/DL (0.55-1.30); GLOMERULAR FILTRATION RATE 22.9 (>32); MB/CK RELATIVE INDEX 5.85 (< OR =4); POTASSIUM SERUM 3.7 MEQ/L (3.5-5.1); THYROID STIMULATING HORMONE 1.95 uIU/ML (0.358-3.740); TROPONIN I 0.3 NG/ML (< 0.10)
[2019-01-26] MEDS ORDERED: NITROGLYCERIN 2% OINT 1 GM *U/D* PKT TOP ONE (17:45)
[2019-01-26] MEDS ORDERED: FUROSEMIDE 40 MG/4 ML VIAL (J1940) IV ONE (17:45)
--- NOTE | 2019-01-26 18:32 | REP ---
CHEST, PORTABLE: AP portable view of the chest was performed and compared to prior study of 01/22/2019. There is mild cardiomegaly. There is no change in bibasilar and mild bibasilar interstitial opacities. There is calcification of the thoracic aorta. Left pace maker is unchanged. IMPRESSION: Stable exam. Electronically Signed by Bernabe Hill MD 01/28/2019 10:34 A
[2019-01-26 18:40] VITALS: BP 139/67
--- NOTE | 2019-01-26 18:53 | REPVR ---
EXAM: CT Chest Without Contrast EXAM DATE/TIME: 01/26/2019 6:15 PM CLINICAL HISTORY: 83 years old, female; Other: Hypoxia TECHNIQUE: Imaging protocol: Axial computed tomography images of the chest without intravenous contrast. Coronal and sagittal reformatted images were created and reviewed. 3D rendering: MIP reconstructed images were created and reviewed. Radiation optimization: All CT scans at this facility use at least one of these dose optimization techniques: automated exposure control; mA and/or kV adjustment per patient size (includes targeted exams where dose is matched to clinical indication); or iterative reconstruction. COMPARISON: CT Chest without contrast 09/01/2018 11:18 AM FINDINGS: Lungs: Moderate centrilobular emphysema demonstrated throughout both lungs. COPD. Coarse infiltrates at the right lung base are more aerated and demonstrated previously. Finding may represent chronic atelectasis although infectious etiologies not excluded. Basilar atelectasis left lower lobe. Scattered less than 3 mm subpleural noncalcified pulmonary parenchymal nodules likely postinflammatory and stable in appearance. No followup suggested. Calcified tracheobronchial tree. Soft tissue density surrounds the proximal bronchus intermedius on the right. Findings may be related to chronic retained secretions however neoplasm or other inflammatory etiologies not excluded. Pleural space: Small right pleural effusion substantially decreased in comparison to the prior study of 09/01/2018. Heart: Severe coronary calcifications. Cardiac pacing wires identified. Aorta: The aorta demonstrates moderate atherosclerotic calcification. Lymph nodes: Multiple small mediastinal lymph nodes likely postinflammatory. Bones/joints: The spine demonstrates mild degenerative changes. Soft tissues: Unremarkable. Gallbladder and bile ducts: Cholecystectomy. Adrenals: There is bilateral adrenal hyperplasia. IMPRESSION: 1. Moderate centrilobular emphysema demonstrated throughout both lungs. COPD. 2. Coarse infiltrates at the right lung base are more aerated and demonstrated previously. Finding may represent chronic atelectasis although infectious etiologies not excluded. 3. There is bilateral adrenal hyperplasia. 4. Soft tissue density surrounds the proximal bronchus intermedius on the right. Findings may be related to chronic retained secretions however neoplasm or other inflammatory etiologies not excluded. Electronically signed by: Dandy Carballo On 01/26/2019 18:52:43 PM
--- NOTE | 2019-01-26 19:34 | ECGEPIP ---
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
[2019-01-26] MEDS: SYMBICORT 160/4.5MCG INHALER 6GM INH SCH (20:00)
[2019-01-26] MEDS: HumaLOG INSULIN (NovoLOG) PER UNIT SC SCH (21:00)
[2019-01-26] MEDS ORDERED: ACETAMINOPHEN TAB 650MG DOSE (2X325MG) PO PRN (21:30)
[2019-01-26] MEDS ORDERED: GLUCAGON FOR INJ 1 MG VIAL (J1610) SC PRN (21:30)
[2019-01-26] MEDS ORDERED: GLUCOSE 4 GM CHEW TABLET PO PRN (21:30)
[2019-01-26] MEDS ORDERED: IPRATROPIUM 0.5MG/ALBUTEROL 2.5MG INH SOL UD 3ML (DUONEB)(J7620) NEB PRN (21:30)
[2019-01-26] MEDS ORDERED: DEXTROSE 50% 50 ML SYRINGE IV PRN (21:30)
--- NOTE | 2019-01-26 21:49 | HPEPDOC ---
General Date of Admission 01/26/19 Date of Service: Jan 26, 2019 Chief Complaint The patient is a 83-year-old female admitted with a reason for visit of Diff Breathing. History of Present Illness 83-year-old female with past medical history of hypertension, diabetes mellitus, chronic kidney disease stage III-IV, chronic systolic congestive heart failure with an EF of 35-40%, COPD on 4 L of oxygen at baseline, and Crohn's disease presented to the ER with chief complaint of worsening shortness of breath, and cough productive of greenish/brown sputum as well as increased swelling in her lower extremities bilaterally. The patient was just discharged from the hospital yesterday. This is the patient's ninth hospitalization in the last 8 months. There was a discussion about the patient following up with palliative care as an outpatient. The patient denies any acute complaints of fevers, chills, chest pain, palpitations, abdominal pain, or any nausea/vomiting/diarrhea. The patient will be admitted under the hospitalist service for further evaluation and management. Home Medications Scheduled Aripiprazole (Abilify) 10 Mg Tablet, 10 MG PO DAILY, (Reported) Aspirin (Aspir-Low) 81 Mg Tablet.dr, 81 MG PO DAILY, (Reported) Budesonide/Formoterol (Symbicort 160-4.5 Mcg Inhaler) 6 Gm Hfa.aer.ad, 2 PUFF INH BID, (Reported) Calcitriol (Calcitriol) 0.25 Mcg Cap, 0.25 MG PO DAILY, (Reported) Citalopram Hydrobromide (Celexa) 20 Mg Tablet, 20 MG PO DAILY, (Reported) Insulin Human Lispro (Humalog Mix 75-25 Vial) 100 Unit/1 Ml Vial, 15 UNITS SC DAILY, (Reported) TAKES AT LUNCHTIME Melatonin (Melatonin) 5 Mg Tab, 10 MG PO QHS, (Reported) Omeprazole (Omeprazole) 20 Mg Capsule.dr, 20 MG PO DAILY, (Reported) Tiotropium [place] Monohydrate (Spiriva) 18 Mcg Cap.w.dev, 1 PUFF INH DAILY, (Re ported) Torsemide (Torsemide) 20 Mg Tablet, 20 MG PO DAILY, (Reported) Scheduled PRN Albuterol Sulfate (Proair Hfa) 108 Mcg/Act Aer, 2 PUFF INH Q4H PRN for SHORTNESS OF BREATH, (Reported) Albuterol Sulfate (Albuterol Sulfate) 0.63 Mg/3 Ml Neb, 0.63 MG INH Q4H PRN for SHORTNESS OF BREATH, (Reported) Allergies Coded Allergies: Penicillins (Verified Allergy, Intermediate, Rash/Dizziness; had zosyn recently on prev admission and ok, 01/26/19) Past Medical History Medical History As noted in HPI. Social History * Smoker: former Smoker (Smoked 1-2 packs per day for 30 years. Quit 26 years ago) Review of Systems Other systems 10 point review of systems negative unless otherwise specified in HPI. Physical Examination General Exam: Positive: Alert, Cooperative, No Acute Distress ENT Exam: Positive: Atraumatic, Mucous membr. moist/pink Chest Exam: Positive: Wheezing (expiratory wheezing noted on auscultation), Diminished Heart Exam: Positive: Rate Normal, Normal S1, Normal S2 Abdomen Exam: Positive: Soft; Negative: Tenderness Extremity Exam: Positive: Other (1+ pitting edema in the lower extremities bilaterally); Negative: Tenderness Psych Exam: Positive: Oriented x 3 Vital Signs Vital Signs Date Time Temp Pulse Resp B/P (MAP) Pulse Ox O2 Delivery O2 Flow Rate FiO2 01/26/19 21:40 86 20 153/71 (98) 100 Nasal Cannula 6.0 01/26/19 17:44 98.4 Laboratory Data Labs 24H Laboratory Tests 2 01/26/19 16:48: Lactic Acid Level 2.3*H 01/26/19 16:58: Immature Granulocyte % (Auto) 0.9, White Blood Count 9.0, Red Blood Count 3.11L, Hemoglobin 8.5L, Hematocrit 28.5L, Mean Corpuscular Volume 91.6, Mean Corpuscular Hemoglobin 27.3, Mean Corpuscular Hemoglobin Concent 29.8L, Red Cell Distribution Width 15.8H, Platelet Count 378, Neutrophils (%) (Auto) 75.2H, Lymphocytes (%) (Auto) 13.8L, Monocytes (%) (Auto) 9.3H, Eosinophils (%) (Auto) 0.4, Basophils (%) (Auto) 0.4, Neutrophils # (Auto) 6.7, Lymphocytes # (Auto) 1.2L, Monocytes # (Auto) 0.8, Eosinophils # (Auto) 0.0, Basophils # (Auto) 0.0, Nucleated Red Blood Cells % (auto) 0.0, Prothrombin Time 13.1, Prothromb Time International Ratio 1.01, Anion Gap 6L, Glomerular Filtration Rate 22.9L, Calcium Level 9.2, Aspartate Amino Transf (AST/SGOT) 34, Alanine Aminotransferase (ALT/SGPT) 46, Alkaline Phosphatase 249H, Total Bilirubin 0.3, Direct Bilirubin 0.1, Total Creatine Kinase 53, Creatine Kinase MB 3.1, Creatine Kinase MB Relative Index 5.85H, Troponin I 0.30H, ZL-Nxd-[id number]-Type Natriuretic Peptide 22096P, Total Protein 6.0L, Albumin 2.9L, Albumin/Globulin Ratio 0.94L, Thyroid Stimulating Hormone (TSH) 1.950 01/26/19 17:56: POC pH (Misc Panel) 7.434, POC Base Excess (Misc Panel) 9.0H, POC Saturated Percent O2 (Misc) 99H, POC pO2 (Misc Panel) 153.0H, POC pCO2 (Misc Panel) 48.9H, POC HCO3 (Misc Panel) 32.8H, POC Total CO2 (Misc Panel) 34.0H CBC/BMP Laboratory Tests 01/26/19 16:58 Red Blood Count 3.11 L, Mean Corpuscular Volume 91.6, Mean Corpuscular Hemoglobin 27.3, Mean Corpuscular Hemoglobin Concent 29.8 L, Red Cell Distribution Width 15.8 H, Neutrophils (%) (Auto) 75.2 H, Lymphocytes (%) (Auto) 13.8 L, Monocytes (%) (Auto) 9.3 H, Eosinophils (%) (Auto) 0.4, Basophils (%) (Auto) 0.4, Neutrophils # (Auto) 6.7, Lymphocytes # (Auto) 1.2 L, Monocytes # (Auto) 0.8, Eosinophils # (Auto) 0.0, Basophils # (Auto) 0.0 Microbiology Microbiology 01/26/19 Blood Culture, Received Pending 01/26/19 Blood Culture, Received Pending Plan / VTE VTE Prophylaxis Ordered?: Yes Plan Plan SOB 2/2 COPD Exacerbation, Decompensated Systolic CHF CT Chest imaging noted IV Lasix ordered Strict I/O's Daily Weights Fluid Restriction IV Solumedrol, Inhaler therapy, and Serial Nebs ordered We will continue to monitor the patient's respiratory/volume status Soft Tissue Density surrounding right proximal bronchus Chronic retained secretion vs neoplasm as per radiology report--these findings and implications were discussed at length at the bedside with the patient, her daughter, her son, as well as her sister. They have verbalized understanding of the same, and the need to follow-up with these results. They tell me that the patient does not follow with a assistant housekeeping manager, but has been trying to establish an appointment as an outpatient. Consider pulmonary consultation in the a.m. Elevated Troponin Level Troponin in the ER noted to be 0.30--likely 2/2 decompensated CHF, respiratory insufficiency EKG notable for electronic ventricular pacing We will serially trend cardiac markers Monitor on Telemetry Consider Cardiac consult in the AM if troponin continues to uptrend Chronic kidney disease stage III-IV Serum creatine at baseline Diabetes mellitus Continue insulin regimen as ordered History of anxiety/depression Continue Abilify, Celexa Hx of Crohn's disease History of GERD Continue PPI DVT prophylaxis Heparin subcutaneous Code Status: DNR/DNI Poor long-term prognosis--- I did discuss the patient's recurrent admissions to the hospital, and the need to consider placement given her advanced COPD, heart failure, and underlying kidney disease with frequent decompensations of the same. The patient and her family has agreed to see palliative care here for further discussion regarding goals of care. Update 6:10 am: Called to the bedside emergently by the patient's nurse as the patient was complaining of substernal chest pain, and was noted to be hypotensive with a pale appearance. Upon my arrival the patient was able to fully answer questions. Her clinical condition improved rather quickly with increased supplemental oxygen, and fortunately so did her chest pain, which she states has resolved at this time. The patient's repeat blood pressure has returned to within normal limits. An EKG was inconclusive due to the patient's history of electronic ventricular pacing. At this time, we will transfer the patient to the ICU. A heparin gtt has been ordered, and we will follow up with troponin markers. Cardiology will need to be consulted this AM. I did place a call to the patient's daughter; Arline Burks to update her about the aforementioned events, but there was no answer. A message was left. Once again, I had an extensive conversation with the patient regarding her overall clinical condition which has been deteriorating over the last several months. We may need to transfer the patient for a cardiac catheterization depending on how she fares, and cardiology's recommendations. The patient is reluctant to make any decisions regarding this at this time, we will continue to have an open dialogue with her and her family about their goals of care. ARMANDO CAT MD Jan 26, 2019 21:49
[2019-01-26] MEDS ORDERED: AZITHROMYCIN 250 MG TAB PO ONE (23:00)
[2019-01-26] MEDS: RAMELTEON 8 MG TAB (ROZEREM) PO SCH (23:01)
[2019-01-26] MEDS: methylPREDNISolone INJ 40 MG/1 ML VIAL (J2920) IV SCH (23:01)
[2019-01-26] MEDS: IPRATROPIUM 0.5MG/ALBUTEROL 2.5MG INH SOL UD 3ML (DUONEB)(J7620) NEB SCH (23:23)
[2019-01-27] VITALS (14 sets, daily range): BP systolic 111–146; BP diastolic 50–67
[2019-01-27 01:04] LABS: CK-MB VALUE MASS 2.8 NG/ML (<3.6); MB/CK RELATIVE INDEX 7.37 (< OR =4); TROPONIN I 0.48 NG/ML (< 0.10)
[2019-01-27] MEDS: IPRATROPIUM 0.5MG/ALBUTEROL 2.5MG INH SOL UD 3ML (DUONEB)(J7620) NEB SCH ×6 (03:52→23:45)
[2019-01-27] MEDS ORDERED: HEPARIN DRIP 25,000 UNITS in IV 1 EA IV SCH ×2 (05:25→05:35)
[2019-01-27] MEDS ORDERED: NOREPINEPHRINE 4 MG/4 ML AMP As Ordered ONE ×2 (05:25→05:26)
[2019-01-27] MEDS ORDERED: HEPARIN SOD (PORCINE) 5000 UNITS/ML VIAL IV PRN ×2 (05:30→05:45)
[2019-01-27] MEDS ORDERED: NOREPINEPHRINE BITARTRATE 8 MG in D5W 492 ML IV SCH (05:30)
[2019-01-27] MEDS ORDERED: HEPARIN 25,000 UNITS/250 ML D5W BAG (100 UNITS/ML) As Ordered ONE (05:33)
[2019-01-27] MEDS ORDERED: HEPARIN SOD (PORCINE) 5000 UNITS/ML VIAL IV ONE (05:45)
[2019-01-27] MEDS: HumaLOG INSULIN (NovoLOG) PER UNIT SC SCH ×4 (07:30→21:00)
[2019-01-27 07:47] LABS: ALBUMIN 2.9 GM/DL (3.2-5.2); BILIRUBIN,TOTAL 0.5 MG/DL (0.2-1.0); CALCIUM LEVEL 8.9 MG/DL (8.8-10.2); CREATININE FOR GFR 2.14 MG/DL (0.55-1.30); GLOMERULAR FILTRATION RATE 23.5 (>32); MAGNESIUM LEVEL 2.1 MG/DL (1.8-2.4); POTASSIUM SERUM 4.1 MEQ/L (3.5-5.1)
[2019-01-27] MEDS: TIOTROPIUM INHALER/CAPSULE (SPIRIVA) INH SCH (08:13)
[2019-01-27] MEDS: SYMBICORT 160/4.5MCG INHALER 6GM INH SCH ×2 (08:13→19:33)
[2019-01-27] MEDS ORDERED: AZITHROMYCIN 250 MG TAB PO SCH ×2 (09:00)
[2019-01-27] MEDS ORDERED: HEPARIN SOD (PORCINE) 5000 UNITS/ML VIAL SC SCH (09:00)
[2019-01-27 09:10] LABS: BASO % 0.2 % (0.0-1.0); HEMATOCRIT 28.6 % (36.0-47.0); HEMOGLOBIN 8.5 g/dl (12.0-15.5); LYMPH # 0.7 10^3/uL (1.5-4.5); LYMPH % 6.4 % (24.0-44.0); MEAN CORPUSCULAR HEMOGLOBIN 26.5 pg (27.0-33.0); MEAN CORPUSCULAR HGB CONC 29.7 g/dl (32.0-36.5); MEAN CORPUSCULAR VOLUME 89.1 fl (80.0-96.0); MONO # 0.2 10^3/uL (0.0-0.8); MONO % 1.4 % (0.0-5.0); NEUTROPHILS # 10.1 10^3/uL (1.8-7.7); NEUTROPHILS % 91.1 % (36.0-66.0); PLATELET COUNT, AUTOMATED 364 10^3/uL (150-450); RED BLOOD COUNT 3.21 10^6/uL (4.00-5.40)
[2019-01-27 09:31] LABS: CK-MB VALUE MASS 2.7 NG/ML (<3.6); MB/CK RELATIVE INDEX 7.3 (< OR =4); TROPONIN I 0.28 NG/ML (< 0.10)
--- NOTE | 2019-01-27 09:34 | REP ---
PORTABLE CHEST: AP portable view of the chest is performed and compared to a prior exam 01/26/2019. There is mild increase in right basilar infiltrate and effusion. The left lung is unchanged in appearance. The heart and mediastinum are unchanged. Left dual lead pacemaker is again noted. Electronically Signed by Bernabe Hill MD 01/28/2019 10:41 A
--- NOTE | 2019-01-27 10:15 | ECGEPIP ---
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
[2019-01-27] MEDS: FUROSEMIDE 40 MG/4 ML VIAL (J1940) IV SCH ×2 (11:32→17:25)
[2019-01-27] MEDS: OMEPRAZOLE 20 MG CAP PO SCH (11:44)
[2019-01-27] MEDS: ASPIRIN 81 MG ENTERIC TAB PO SCH (11:44)
[2019-01-27] MEDS: ARIPiprazole 10 MG TAB PO SCH (11:44)
[2019-01-27] MEDS: methylPREDNISolone INJ 40 MG/1 ML VIAL (J2920) IV SCH ×2 (11:44→20:12)
[2019-01-27] MEDS: CitaloPRAM (CeleXA) 20 MG TAB PO SCH (11:44)
[2019-01-27] MEDS ORDERED: HumaLOG 75/25 MIX INSULIN PER UNIT SC SCH (12:30)
[2019-01-27] MEDS ORDERED: ENOXAPARIN 60 MG/0.6 ML SYR (J1650) SC SCH (15:00)
--- NOTE | 2019-01-27 16:23 | CR.PDOC ---
General Date of Consultation: Jan 27, 2019 Referring Provider: RANI PHILLIPS MD Attending Physician: Raymond Lanier MD Consultation REASON FOR CONSULTATION/CHIEF COMPLAINT: 83 year old Caucasina with CHF, COPD, renal disease. She has been referred to [facility] clinic previously but has been to weak and tired to make an appointment. Claudia Larae HARDBOARD FACTORY WORKER and I saw her today at the bedside. Her son Chris was present for the visit We explained how we might be able to help her managed her chronic illness and stay out of the hospital. She is willing to come to clinic for an appointment. We will follow up with her next week. Nursing reports family dynamics are challenging inasmuch as some members feel she is ready for hospice. Mayda herself feels she might imprve health chatman. We will need to work with her regarding acceptance of her medical condition and the likelihood she will continue to deteriorate. Vital Signs/I&O Vital Signs Date Time Temp Pulse Resp B/P (MAP) Pulse Ox O2 Delivery O2 Flow Rate FiO2 01/27/19 07:08 88 24 118/56 (76) 92 Venturi Mask 12.0 35 01/26/19 23:45 97.4 Laboratory Data Labs 24H Laboratory Tests 2 01/26/19 16:48: Lactic Acid Level 2.3*H 01/26/19 16:58: Immature Granulocyte % (Auto) 0.9, White Blood Count 9.0, Red Blood Count 3.11L, Hemoglobin 8.5L, Hematocrit 28.5L, Mean Corpuscular Volume 91.6, Mean Kacie uscular Hemoglobin 27.3, Mean Corpuscular Hemoglobin Concent 29.8L, Red Cell Distribution Width 15.8H, Platelet Count 378, Neutrophils (%) (Auto) 75.2H, Lymphocytes (%) (Auto) 13.8L, Monocytes (%) (Auto) 9.3H, Eosinophils (%) (Auto) 0.4, Basophils (%) (Auto) 0.4, Neutrophils # (Auto) 6.7, Lymphocytes # (Auto) 1.2L, Monocytes # (Auto) 0.8, Eosinophils # (Auto) 0.0, Basophils # (Auto) 0.0, Nucleated Red Blood Cells % (auto) 0.0, Prothrombin Time 13.1, Prothromb Time International Ratio 1.01, Anion Gap 6L, Glomerular Filtration Rate 22.9L, Calcium Level 9.2, Aspartate Amino Transf (AST/SGOT) 34, Alanine Aminotransferase (ALT/SGPT) 46, Alkaline Phosphatase 249H, Total Bilirubin 0.3, Direct Bilirubin 0.1, Total Creatine Kinase 53, Creatine Kinase MB 3.1, Creatine Kinase MB Relative Index 5.85H, Troponin I 0.30H, BY-Rcy-Q-Type Natriuretic Peptide 77897E, Total Protein 6.0L, Albumin 2.9L, Albumin/Globulin Ratio 0.94L, Thyroid Stimulating Hormone (TSH) 1.950 01/26/19 17:56: POC pH (Misc Panel) 7.434, POC Base Excess (Misc Panel) 9.0H, POC Saturated Percent O2 (Misc) 99H, POC pO2 (Misc Panel) 153.0H, POC pCO2 (Misc Panel) 48.9H, POC HCO3 (Misc Panel) 32.8H, POC Total CO2 (Misc Panel) 34.0H 01/26/19 21:46: Bedside Glucose (Misc Panel) 51L 01/26/19 23:06: Bedside Glucose (Misc Panel) 107 01/27/19 00:28: Lactic Acid Followup at 4 Hours 0.8, Total Creatine Kinase 38, Creatine Kinase MB 2.8, Creatine Kinase MB Relative Index 7.37H, Troponin I 0.48#H 01/27/19 05:29: Bedside Glucose (Misc Panel) 236H 01/27/19 05:44: Troponin I 0.30#H 01/27/19 06:18: Anion Gap 8, Glomerular Filtration Rate 23.5L, Blood Urea Nitrogen 51H, Creatinine 2.14H, Sodium Level 140, Potassium Level 4.1, Chloride Level 99, Carbon Dioxide Level 33H, Calcium Level 8.9, Aspartate Amino Transf (AST/SGOT) 40H, Alanine Aminotransferase (ALT/SGPT) 42, Alkaline Phosphatase 236H, Total Bilirubin 0.5#, Total Protein 6.0L, Albumin 2.9L, Magnesium Level 2.1, Albumin/Globulin Ratio 0.94L 01/27/19 08:57: Immature Granulocyte % (Auto) 0.9, White Blood Count 11.0H, Red Blood Count 3.21L, Hemoglobin 8.5L, Hematocrit 28.6L, Mean Corpuscular Volume 89.1, Mean Co rpuscular Hemoglobin 26.5L, Mean Corpuscular Hemoglobin Concent 29.7L, Red Cell Distribution Width 15.5H, Platelet Count 364, Neutrophils (%) (Auto) 91.1H, Lymphocytes (%) (Auto) 6.4L, Monocytes (%) (Auto) 1.4, Eosinophils (%) (Auto) 0.0, Basophils (%) (Auto) 0.2, Neutrophils # (Auto) 10.1H, Lymphocytes # (Auto) 0.7L, Monocytes # (Auto) 0.2, Eosinophils # (Auto) 0.0, Basophils # (Auto) 0.0, Nucleated Red Blood Cells % (auto) 0.0, Total Creatine Kinase 37, Creatine Kinase MB 2.7, Creatine Kinase MB Relative Index 7.30H, Troponin I 0.28H 01/27/19 12:29: Bedside Glucose (Misc Panel) 444H 01/27/19 13:03: Activated Partial Thromboplast Time 105.1H CBC/BMP Laboratory Tests 01/26/19 16:58 Red Blood Count 3.11 L, Mean Corpuscular Volume 91.6, Mean Corpuscular Hemoglobin 27.3, Mean Corpuscular Hemoglobin Concent 29.8 L, Red Cell Distri bution Width 15.8 H, Neutrophils (%) (Auto) 75.2 H, Lymphocytes (%) (Auto) 13.8 L, Monocytes (%) (Auto) 9.3 H, Eosinophils (%) (Auto) 0.4, Basophils (%) (Auto) 0.4, Neutrophils # (Auto) 6.7, Lymphocytes # (Auto) 1.2 L, Monocytes # (Auto) 0.8, Eosinophils # (Auto) 0.0, Basophils # (Auto) 0.0 01/27/19 06:18 Calcium Level 8.9, Aspartate Amino Transf (AST/SGOT) 40 H, Alanine Ami notransferase (ALT/SGPT) 42, Alkaline Phosphatase 236 H, Total Bilirubin 0.5 #, Total Protein 6.0 L, Albumin 2.9 L 01/27/19 08:57 Red Blood Count 3.21 L, Mean Corpuscular Volume 89.1, Mean Corpuscular Hemoglobin 26.5 L, Mean Corpuscular Hemoglobin Concent 29.7 L, Red Cell Dist ribution Width 15.5 H, Neutrophils (%) (Auto) 91.1 H, Lymphocytes (%) (Auto) 6.4 L, Monocytes (%) (Auto) 1.4, Eosinophils (%) (Auto) 0.0, Basophils (%) (Auto) 0.2, Neutrophils # (Auto) 10.1 H, Lymphocytes # (Auto) 0.7 L, Monocytes # (Auto) 0.2, Eosinophils # (Auto) 0.0, Basophils # (Auto) 0.0 Microbiology Microbiology 01/26/19 Blood Culture, Received Pending 01/26/19 Blood Culture, Received Pending Allergies Coded Allergies: Penicillins (Verified Allergy, Intermediate, Rash/Dizziness; had zosyn recently on prev admission and ok, 01/26/19) Home Medications Scheduled Aripiprazole (Abilify) 10 Mg Tablet, 10 MG PO DAILY, (Reported) Aspirin (Aspir-Low) 81 Mg Tablet.dr, 81 MG PO DAILY, (Reported) Budesonide/Formoterol (Symbicort 160-4.5 Mcg Inhaler) 6 Gm Hfa.aer.ad, 2 PUFF INH BID, (Reported) Calcitriol (Calcitriol) 0.25 Mcg Cap, 0.25 MG PO DAILY, (Reported) Citalopram Hydrobromide (Celexa) 20 Mg Tablet, 20 MG PO DAILY, (Reported) Doxycycline Monohydrate (Doxycycline) 100 Mg Capsule, 1 CAP PO BID for 7 Days, #14 Insulin Human Lispro (Humalog Mix 75-25 Vial) 100 Unit/1 Ml Vial, 15 UNITS SC DAILY, (Reported) TAKES AT LUNCHTIME Melatonin (Melatonin) 5 Mg Tab, 10 MG PO QHS, (Reported) Omeprazole (Omeprazole) 20 Mg Capsule.dr, 20 MG PO DAILY, (Reported) Prednisone (Prednisone) 10 Mg Tablet, 10 MG PO TAPER, #30 Take 4 tabs daily x 3 days, then 3 tabs daily x 3 days, then 2 tabs daily x 3 days, then 1 tab daily x 3 days and stop Tiotropium Delevan Monohydrate (Spiriva) 18 Mcg Cap.w.dev, 1 PUFF INH DAILY, (Reported) Torsemide (Torsemide) 20 Mg Tablet, 20 MG PO DAILY, (Reported) Scheduled PRN Albuterol Sulfate (Proair Hfa) 108 Mcg/Act Aer, 2 PUFF INH Q4H PRN for SHORTNESS OF BREATH, (Reported) Albuterol Sulfate (Albuterol Sulfate) 0.63 Mg/3 Ml Neb, 0.63 MG INH Q4H PRN for SHORTNESS OF BREATH, (Reported) Joyce MARTINEZ TRAVELING SALES EXECUTIVE Jan 27, 2019 16:23
--- NOTE | 2019-01-27 17:18 | IPNPDOC ---
Date Seen The patient was seen on 01/27/19. Progress Note SUBJECn TIVE: Pt's blood pressure improved without requiring levophed iv gtt. Chest pain subsided. on lovenox for demand-mediated ischemia r/o ACS s/p IV heparin gtt. pt still c/o sob even at rest. 2 daughters at the bedside understand that pt has poor overall prognosis and agreed to hospice referral. they are not ready for electrical engineering draftsperson, but pt has confirmed DNR DNI. OBJECTIVE VITALS: PLS SEE BELOW HEENT: Anicteric. Pupils symmetric and reactive. NECK: Supple without thyromegaly or masses. Trachea is midline. No apparent jugular venous distention (JVD). CHEST: Mild increased AP diameter. LUNGS: Symmetric excursion. Generalized diminished air entry. Few crackles at the left base, more in the midline. No wheeze or rhonchi. Prolonged expiratory phase. No accessory muscle usage or retractions. CARDIOVASCULAR: Regular rate and rhythm with a normal S1, S2. No murmur, rub, or gallop appreciated. ABDOMEN: Positive bowel sounds, soft, nondistended, nontender. No hepatosplenomegaly or masses appreciated. EXTREMITIES: Warm and well perfused. Without clubbing, cyanosis, or edema. NEUROLOGIC: Awake, alert. Oriented times three. LABORATORY DATA, I/O, WT, IMAGING STUDIES, MICROBIOLOGY: PLS SEE BELOW ASSESSMENT AND PLAN 83-year-old female with past medical history of hypertension, diabetes mellitus, chronic kidney disease stage III-IV, chronic systolic congestive heart failure with an EF of 35-40%, COPD on 4 L of oxygen at baseline, and Crohn's disease presented to the ER with chief complaint of worsening shortness of breath, and cough productive of greenish/brown sputum as well as increased swelling in her lower extremities bilaterally. The patient was just discharged from the hospital yesterday. This is the patient's ninth hospitalization in the last 8 months. There was a discussion about the patient following up with palliative care as an outpatient. The patient denies any acute complaints of fevers, chills, chest pain, palpitations, abdominal pain, or any nausea/vomiting/diarrhea. The patient will be admitted under the hospitalist service for further evaluation and management. SOB 2/2 COPD Exacerbation, Decompensated Systolic CHF CT Chest imaging noted IV Lasix ordered Strict I/O's Daily Weights Fluid Restriction IV Solumedrol, Inhaler therapy, and Serial Nebs ordered We will continue to monitor the patient's respiratory/volume status Soft Tissue Density surrounding right proximal bronchus pt is too frail to undergo biopsy, and wound not be a candidate for chemo family is aware of likelihood of malignancy and poor overall functional status due to chronic comorbid conditions Pulmologists-Dr. Augustine, Dr. Cruz has previously discussed this with family, but was not ready for BSA/AML COMPLIANCE OFFICER at that time. Pulmonary consulted to discuss overall prognosis. Elevated Troponin Level Troponin in the ER noted to be 0.30--likely 2/2 decompensated CHF, respiratory insufficiency EKG notable for electronic ventricular pacing We will serially trend cardiac markers Monitor on Telemetry due to c/o chest pain and hypotension this morning, pt was transferred to ICU for iv heparin gtt and possible vasopressor. Chronic kidney disease stage III-IV Serum creatine at baseline Diabetes mellitus Continue insulin regimen as ordered History of anxiety/depression Continue Abilify, Celexa Hx of Crohn's disease History of GERD Continue PPI DVT prophylaxis Heparin subcutaneous Code Status: DNR/DNI Poor long-term prognosis---Hospice consulted. VS, I&O, 24H, Fishbone Vital Signs/I&O Vital Signs Date Time Temp Pulse Resp B/P (MAP) Pulse Ox O2 Delivery O2 Flow Rate FiO2 01/27/19 07:08 88 24 118/56 (76) 92 Venturi Mask 12.0 35 01/26/19 23:45 97.4 Laboratory Data 24H LABS Laboratory Tests 2 01/26/19 16:48: Lactic Acid Level 2.3*H 01/26/19 16:58: Immature Granulocyte % (Auto) 0.9, White Blood Count 9.0, Red Blood Count 3.11L, Hemoglobin 8.5L, Hematocrit 28.5L, Mean Corpuscular Volume 91.6, Mean Corpuscular Hemoglobin 27.3, Mean Corpuscular Hemoglobin Concent 29.8L, Red Cell Distribution Width 15.8H, Platelet Count 378, Neutrophils (%) (Auto) 75.2H, Lymphocytes (%) (Auto) 13.8L, Monocytes (%) (Auto) 9.3H, Eosinophils (%) (Auto) 0.4, Basophils (%) (Auto) 0.4, Neutrophils # (Auto) 6.7, Lymphocytes # (Auto) 1.2L, Monocytes # (Auto) 0.8, Eosinophils # (Auto) 0.0, Basophils # (Auto) 0.0, Nucleated Red Blood Cells % (auto) 0.0, Prothrombin Time 13.1, Prothromb Time International Ratio 1.01, Anion Gap 6L, Glomerular Filtration Rate 22.9L, Calcium Level 9.2, Aspartate Amino Transf (AST/SGOT) 34, Alanine Aminotransferase (ALT/SGPT) 46, Alkaline Phosphatase 249H, Total Bilirubin 0.3, Direct Bilirubin 0.1, Total Creatine Kinase 53, Creatine Kinase MB 3.1, Creatine Kinase MB Relative Index 5.85H, Troponin I 0.30H, HI-Cpk-E-Type Natriuretic Peptide [id number], Total Protein 6.0L, Albumin 2.9L, Albumin/Globulin Ratio 0.94L, Thyroid Stimulating Hormone (TSH) 1.950 01/26/19 17:56: POC pH (Misc Panel) 7.434, POC Base Excess (Misc Panel) 9.0H, POC Saturated Percent O2 (Misc) 99H, POC pO2 (Misc Panel) 153.0H, POC pCO2 (Misc Panel) 48.9H, POC HCO3 (Misc Panel) 32.8H, POC Total CO2 (Misc Panel) 34.0H 01/26/19 21:46: Bedside Glucose (Misc Panel) 51L 01/26/19 23:06: Bedside Glucose (Misc Panel) 107 01/27/19 00:28: Lactic Acid Followup at 4 Hours 0.8, Total Creatine Kinase 38, Creatine Kinase MB 2.8, Creatine Kinase MB Relative Index 7.37H, Troponin I 0.48#H 01/27/19 05:29: Bedside Glucose (Misc Panel) 236H 01/27/19 05:44: Troponin I 0.30#H 01/27/19 06:18: Anion Gap 8, Glomerular Filtration Rate 23.5L, Blood Urea Nitrogen 51H, Creatinine 2.14H, Sodium Level 140, Potassium Level 4.1, Chloride Level 99, Carbon Dioxide Level 33H, Calcium Level 8.9, Aspartate Amino Transf (AST/SGOT) 40H, Alanine Aminotransferase (ALT/SGPT) 42, Alkaline Phosphatase 236H, Total Bilirubin 0.5#, Total Protein 6.0L, Albumin 2.9L, Magnesium Level 2.1, Albumin/Globulin Ratio 0.94L CBC/BMP Laboratory Tests 01/26/19 16:58 Red Blood Count 3.11 L, Mean Corpuscular Volume 91.6, Mean Corpuscular Hemoglobin 27.3, Mean Corpuscular Hemoglobin Concent 29.8 L, Red Cell Distribution Width 15.8 H, Neutrophils (%) (Auto) 75.2 H, Lymphocytes (%) (Auto) 13.8 L, Monocytes (%) (Auto) 9.3 H, Eosinophils (%) (Auto) 0.4, Basophils (%) (Auto) 0.4, Neutrophils # (Auto) 6.7, Lymphocytes # (Auto) 1.2 L, Monocytes # (Auto) 0.8, Eosinophils # (Auto) 0.0, Basophils # (Auto) 0.0 01/27/19 06:18 Calcium Level 8.9, Aspartate Amino Transf (AST/SGOT) 40 H, Alanine Aminotransfer ase (ALT/SGPT) 42, Alkaline Phosphatase 236 H, Total Bilirubin 0.5 #, Total Protein 6.0 L, Albumin 2.9 L Microbiology Microbiology 01/26/19 Blood Culture, Received Pending 01/26/19 Blood Culture, Received Pending KRISTEN BONILLA MD Jan 27, 2019 08:37
[2019-01-27 17:35] LABS: CK-MB VALUE MASS 2.5 NG/ML (<3.6); MB/CK RELATIVE INDEX 6.76 (< OR =4); TROPONIN I 0.2 NG/ML (< 0.10)
[2019-01-27] MEDS: RAMELTEON 8 MG TAB (ROZEREM) PO SCH (20:12)
--- NOTE | 2019-01-27 20:27 | ECGEPIP ---
[facility] - ED Test Date: 2019-01-27 Pat Name: PINKY COOPER Department: Room: [place] [address] Gender: Female Warehousing Technician: herminio : 1935 Requested By: ARMANDO CAT Order Number: [id number] Reading MD: Karlos Xiong Measurements Intervals [place] Rate: 114 P: [place]: -1 QRS: QRSD: 182 T: 105 QT: 385 QTc: 532 Interpretive Statements ELECTRONIC VENTRICULAR PACEMAKER ABNORMAL RHYTHM ECG CW 01/26/19 RATE INCREASED Electronically Signed on 01-27-2019 20:27:18 EDT by Karlos Xiong
[2019-01-28] VITALS: BP 134/63
[2019-01-28 01:00] VITALS: BP 122/64
[2019-01-28] MEDS: IPRATROPIUM 0.5MG/ALBUTEROL 2.5MG INH SOL UD 3ML (DUONEB)(J7620) NEB SCH ×2 (03:29→08:00)
[2019-01-28 04:00] VITALS: BP 131/63
[2019-01-28 05:14] LABS: BASO % 0.1 % (0.0-1.0); HEMATOCRIT 26.8 % (36.0-47.0); HEMOGLOBIN 7.9 g/dl (12.0-15.5); LYMPH # 0.5 10^3/uL (1.5-4.5); LYMPH % 4.7 % (24.0-44.0); MEAN CORPUSCULAR HEMOGLOBIN 26.2 pg (27.0-33.0); MEAN CORPUSCULAR HGB CONC 29.5 g/dl (32.0-36.5); MEAN CORPUSCULAR VOLUME 88.7 fl (80.0-96.0); MONO # 0.3 10^3/uL (0.0-0.8); MONO % 2.7 % (0.0-5.0); NEUTROPHILS # 9.1 10^3/uL (1.8-7.7); NEUTROPHILS % 91.5 % (36.0-66.0); PLATELET COUNT, AUTOMATED 354 10^3/uL (150-450); RED BLOOD COUNT 3.02 10^6/uL (4.00-5.40)
[2019-01-28 05:40] LABS: CALCIUM LEVEL 8.7 MG/DL (8.8-10.2); CREATININE FOR GFR 2.2 MG/DL (0.55-1.30); GLOMERULAR FILTRATION RATE 22.7 (>32)
[2019-01-28] MEDS: HumaLOG INSULIN (NovoLOG) PER UNIT SC SCH (06:09)
[2019-01-28 08:00] VITALS: BP 135/69
[2019-01-28] MEDS ORDERED: LEVEMIR (INSULIN DETEMIR) 1 UNITS/0.01ML SC ONE (08:00)
[2019-01-28] MEDS: TIOTROPIUM INHALER/CAPSULE (SPIRIVA) INH SCH (08:23)
[2019-01-28] MEDS: SYMBICORT 160/4.5MCG INHALER 6GM INH SCH (08:23)
--- NOTE | 2019-01-28 08:35 | REP ---
Portable chest x-ray: Single view. History: Shortness of breath. Comparison study: January 27, 2019. Findings: A bipolar pacemaker is seen within the right heart via the left side as before. EKG electrodes are noted. There is an infiltrate in the right base again noted somewhat improved. Slight blunting of the right lateral pleural angle is noted. Left lung remains clear. Heart size is unchanged. Impression: Right base infiltrate slightly less prominent. Electronically Signed by Michael Barclay MD 01/28/2019 08:27 A
[2019-01-28] MEDS ORDERED: DOXY-350 PO (08:39)
[2019-01-28] MEDS ORDERED: PRED10TA2 PO (08:39)
[2019-01-28] MEDS: OMEPRAZOLE 20 MG CAP PO SCH (08:56)
[2019-01-28] MEDS: ARIPiprazole 10 MG TAB PO SCH (08:56)
[2019-01-28] MEDS: ASPIRIN 81 MG ENTERIC TAB PO SCH (08:56)
[2019-01-28] MEDS: CitaloPRAM (CeleXA) 20 MG TAB PO SCH (08:56)
[2019-01-28] MEDS ORDERED: predniSONE 20 MG TAB PO SCH (09:00)
[2019-01-28] MEDS ORDERED: FUROSEMIDE 40 MG TAB PO SCH (09:00)
[2019-01-28] MEDS ORDERED: DOXYCYCLINE HYCLATE 100 MG in D5W MINI-BAG PLUS 100 ML IV SCH (09:00)
[2019-01-28] MEDS ORDERED: MOXIFLOXACIN 400 MG TAB PO ONE (09:00)
--- NOTE | 2019-01-28 09:23 | ECGEPIP ---
[facility] Test Date: 2019-01-28 Pat Name: PINKY COOPER Department: Room: [place] [address] Gender: Female Graphic Artist: ARIANA : 1935 Requested By: KRISTEN Rush Order Number: [id number] Reading MD: France Castellanos Measurements Intervals [place] Rate: 101 P: 79 GA: 179 QRS: QRSD: 177 T: 98 QT: 411 QTc: 534 Interpretive Statements ELECTRONIC VENTRICULAR PACEMAKER NSR ABNORMAL RHYTHM ECG STABLE C/W 01/27/19 Electronically Signed on 01-28-2019 9:23:16 EDT by France Castellanos
--- NOTE | 2019-01-28 12:39 | IPNPDOC ---
Date Seen The patient was seen on 01/28/19. Progress Note SUBJECTIVE: Pt is insistent on going home. family agrees with dc home with hospice consult. Pt had steroid-induced hyperglycemia due to iv solumedrol. on levemir insulin and prednisone this am. repeat cxr 01/27/19 increased infiltrate and effusion. on avelox s/p azithromycin creat at baseline 2.2 and on po lasix 40mg bid with no recurrent hypotension. OBJECTIVE VITALS: PLS SEE BELOW HEENT: Anicteric. Pupils symmetric and reactive. NECK: Supple without thyromegaly or masses. Trachea is midline. No apparent jugular venous distention (JVD). CHEST: Mild increased AP diameter. LUNGS: Symmetric excursion. Generalized diminished air entry. Few crackles at the left base, more in the midline. No wheeze or rhonchi. Prolonged expiratory phase. No accessory muscle usage or retractions. CARDIOVASCULAR: Regular rate and rhythm with a normal S1, S2. No murmur, rub, or gallop appreciated. ABDOMEN: Positive bowel sounds, soft, nondistended, nontender. No hepatosplenomegaly or masses appreciated. EXTREMITIES: Warm and well perfused. Without clubbing, cyanosis, or edema. NEUROLOGIC: Awake, alert. Oriented times three. LABORATORY DATA, I/O, WT, IMAGING STUDIES, MICROBIOLOGY: PLS SEE BELOW ASSESSMENT AND PLAN 83-year-old female with past medical history of hypertension, diabetes mellitus, chronic kidney disease stage III-IV, chronic systolic congestive heart failure with an EF of 35-40%, COPD on 4 L of oxygen at baseline, and Crohn's disease presented to the ER with chief complaint of worsening shortness of breath, and cough productive of greenish/brown sputum as well as increased swelling in her lower extremities bilaterally. The patient was just discharged from the hospital yesterday. This is the patient's ninth hospitalization in the last 8 months. There was a discussion about the patient following up with palliative care as an outpatient. The patient denies any acute complaints of fevers, chills, chest pain, palpitations, abdominal pain, or any nausea/vomiting/diarrhea. The patient will be admitted under the hospitalist service for further evaluation and management. SOB 2/2 COPD Exacerbation, Decompensated Systolic CHF CT Chest imaging noted s/p IV Lasix but developed hypotension Strict I/O's Daily Weights Fluid Restriction s/p IV Solumedrol, but developed hyperglycemia 500's on po prednisone on po lasix Inhaler therapy, and Serial Nebs ordered We will continue to monitor the patient's respiratory/volume status Soft Tissue Density surrounding right proximal bronchus pt is too frail to undergo biopsy, and wound not be a candidate for chemo family is aware of likelihood of malignancy and poor overall functional status due to chronic comorbid conditions Pulmologists-Dr. Augustine, Dr. Cruz has previously discussed this with family, but was not ready for MANAGED SERVICES CONSULTANT at that time. Pulmonary consulted to discuss overall prognosis. Elevated Troponin Level Troponin in the ER noted to be 0.30--likely 2/2 decompensated CHF, respiratory insufficiency EKG notable for electronic ventricular pacing We will serially trend cardiac markers Monitor on Telemetry due to c/o chest pain and hypotension this morning, pt was transferred to ICU for iv heparin gtt and possible vasopressor. s/p iv heparin gtt s/p lovenox renally dosed Chronic kidney disease stage III-IV Serum creatine at baseline Diabetes mellitus developed steroid induced hyperglycemia on levemir bid Continue insulin regimen as ordered History of anxiety/depression Continue Abilify, Celexa Hx of Crohn's disease History of GERD Continue PPI DVT prophylaxis Heparin subcutaneous Code Status: DNR/DNI Poor long-term prognosis---Hospice consulted. VS, I&O, 24H, Fishbone Vital Signs/I&O Vital Signs Date Time Temp Pulse Resp B/P (MAP) Pulse Ox O2 Delivery O2 Flow Rate FiO2 01/28/19 04:00 4.0 01/28/19 04:00 97.6 92 20 131/63 (85) 97 01/27/19 07:08 Venturi Mask 35 I&O- Last 24 Hours up to 6 AM 01/28/19 06:00 Intake Total 1210 ml Output Total 675 ml Balance 535 ml Laboratory Data 24H LABS Laboratory Tests 2 01/27/19 08:57: Immature Granulocyte % (Auto) 0.9, White Blood Count 11.0H, Red Blood Count 3.21L, Hemoglobin 8.5L, Hematocrit 28.6L, Mean Corpuscular Volume 89.1, Mean Corpuscular Hemoglobin 26.5L, Mean Corpuscular Hemoglobin Concent 29.7L, Red Cell Distribution Width 15.5H, Platelet Count 364, Neutrophils (%) (Auto) 91.1H, Lymphocytes (%) (Auto) 6.4L, Monocytes (%) (Auto) 1.4, Eosinophils (%) (Auto) 0.0, Basophils (%) (Auto) 0.2, Neutrophils # (Auto) 10.1H, Lymphocytes # (Auto) 0.7L, Monocytes # (Auto) 0.2, Eosinophils # (Auto) 0.0, Basophils # (Auto) 0.0, Nucleated Red Blood Cells % (auto) 0.0, Total Creatine Kinase 37, Creatine Kinase MB 2.7, Creatine Kinase MB Relative Index 7.30H, Troponin I 0.28H 01/27/19 12:29: Bedside Glucose (Misc Panel) 444H 01/27/19 13:03: Activated Partial Thromboplast Time 105.1H 01/27/19 16:54: Total Creatine Kinase 37, Creatine Kinase MB 2.5, Creatine Kinase MB Relative Index 6.76H, Troponin I 0.20#H 01/27/19 17:20: Bedside Glucose (Misc Panel) 312H 01/27/19 20:19: Bedside Glucose (Misc Panel) 235H 01/28/19 04:43: Immature Granulocyte % (Auto) 1.0, White Blood Count 10.0, Red Blood Count 3.02L, Hemoglobin 7.9L, Hematocrit 26.8L, Mean Corpuscular Volume 88.7, Mean Corpuscular Hemoglobin 26.2L, Mean Corpuscular Hemoglobin Concent 29.5L, Red Cell Distribution Width 15.7H, Platelet Count 354, Neutrophils (%) (Auto) 91.5H, Lymphocytes (%) (Auto) 4.7L, Monocytes (%) (Auto) 2.7, Eosinophils (%) (Auto) 0.0, Basophils (%) (Auto) 0.1, Neutrophils # (Auto) 9.1H, Lymphocytes # (Auto) 0.5L, Monocytes # (Auto) 0.3, Eosinophils # (Auto) 0.0, Basophils # (Auto) 0.0, Nucleated Red Blood Cells % (auto) 0.0, Anion Gap 6L, Glomerular Filtration Rate 22.7L, Blood Urea Nitrogen 53H, Creatinine 2.20H, Sodium Level 135L, Potassium Level 4.0, Chloride Level 97L, Carbon Dioxide Level 32, Calcium Level 8.7L 01/28/19 06:08: Bedside Glucose ([facility]) 506*H CBC/BMP Laboratory Tests 01/27/19 08:57 Red Blood Count 3.21 L, Mean Corpuscular Volume 89.1, Mean Corpuscular Hemoglobin 26.5 L, Mean Corpuscular Hemoglobin Concent 29.7 L, Red Cell Distribution Width 15.5 H, Neutrophils (%) (Auto) 91.1 H, Lymphocytes (%) (Auto) 6.4 L, Monocytes (%) (Auto) 1.4, Eosinophils (%) (Auto) 0.0, Basophils (%) (Auto) 0.2, Neutrophils # (Auto) 10.1 H, Lymphocytes # (Auto) 0.7 L, Monocytes # (Auto) 0.2, Eosinophils # (Auto) 0.0, Basophils # (Auto) 0.0 01/28/19 04:43 Red Blood Count 3.02 L, Mean Corpuscular Volume 88.7, Mean Corpuscular Hemoglobin 26.2 L, Mean Corpuscular Hemoglobin Concent 29.5 L, Red Cell Distribution Width 15.7 H, Neutrophils (%) (Auto) 91.5 H, Lymphocytes (%) (Auto) 4.7 L, Monocytes (%) (Auto) 2.7, Eosinophils (%) (Auto) 0.0, Basophils (%) (Auto) 0.1, Neutrophils # (Auto) 9.1 H, Lymphocytes # (Auto) 0.5 L, Monocytes # (Auto) 0.3, Eosinophils # (Auto) 0.0, Basophils # (Auto) 0.0, Calcium Level 8.7 L Microbiology Microbiology 01/26/19 Blood Culture - Preliminary, Resulted No growth after 24 hours . All specim... 01/26/19 Blood Culture - Preliminary, Resulted No growth after 24 hours . All specim... KRISTEN BONILLA MD Jan 28, 2019 07:14
--- NOTE | 2019-01-28 12:50 | DS.PDOC ---
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 HISTORY OF PRESENTING ILLNESS: 83-year-old female with past medical history of hypertension, diabetes mellitus, chronic kidney disease stage III-IV, chronic systolic congestive heart failure with an EF of 35-40%, COPD on 4 L of oxygen at baseline, and Crohn's disease presented to the ER with chief complaint of worsening shortness of breath, and cough productive of greenish/brown sputum as well as increased swelling in her lower extremities bilaterally. The patient was just discharged from the hospital yesterday. This is the patient's ninth hospitalization in the last 8 months. There was a discussion about the patient following up with palliative care as an outpatient. The patient denies any acute complaints of fevers, chills, chest pain, palpitations, abdominal pain, or any nausea/vomiting/diarrhea. The patient will be admitted under the hospitalist service for further evaluation and management. Acute on chronic Hypoxic Respiratory Failure 2/2 COPD Exacerbation, Decompensated Systolic CHF CT Chest imaging noted s/p IV Lasix but developed hypotension Strict I/O's Daily Weights Fluid Restriction s/p IV Solumedrol, but developed hyperglycemia 500's on po prednisone on po lasix Inhaler therapy, and Serial Nebs ordered We will continue to monitor the patient's respiratory/volume status Soft Tissue Density surrounding right proximal bronchus pt is too frail to undergo biopsy, and wound not be a candidate for chemo family is aware of likelihood of malignancy and poor overall functional status due to chronic comorbid conditions Pulmologists-Dr. Augustine, Dr. Cruz has previously discussed this with family, but was not ready for SPECIAL TESTER at that time. poor overall prognosis Elevated Troponin Level Troponin in the ER noted to be 0.30--likely 2/2 decompensated CHF, respiratory insufficiency EKG notable for electronic ventricular pacing We will serially trend cardiac markers Monitor on Telemetry due to c/o chest pain and hypotension this morning, pt was transferred to ICU for iv heparin gtt and possible vasopressor. s/p iv heparin gtt s/p lovenox renally dosed Chronic kidney disease stage III-IV Serum creatinine at baseline Diabetes mellitus developed steroid induced hyperglycemia on levemir bid Continue insulin regimen as ordered History of anxiety/depression Continue Abilify, Celexa Hx of Crohn's disease History of GERD Continue PPI DVT prophylaxis Heparin subcutaneous Code Status: DNR/DNI Poor long-term prognosis---Hospice consulted. Disposition: Pt is insistent on going home. family agrees with dc home with hospice consult. DISCHARGE PHYSICAL EXAMINATION: VITALS: PLS SEE BELOW HEENT: Anicteric. Pupils symmetric and reactive. NECK: Supple without thyromegaly or masses. Trachea is midline. jugular venous distention (JVD). CHEST: Mild increased AP diameter. LUNGS: Symmetric excursion. Generalized diminished air entry. Few crackles at the left base, more in the midline. No wheeze or rhonchi. Prolonged expiratory phase. No accessory muscle usage or retractions. CARDIOVASCULAR: Regular rate and rhythm with a normal S1, S2. No murmur, rub, or gallop appreciated. ABDOMEN: Positive bowel sounds, soft, nondistended, nontender. No hepatosplenomegaly or masses appreciated. EXTREMITIES: Warm and well perfused. Without clubbing, cyanosis, or edema. NEUROLOGIC: Awake, alert. Oriented times three. LABORATORY DATA, I/O, WT, IMAGING STUDIES, MICROBIOLOGY: PLS SEE BELOW TIME SPENT ON HOSPITAL DISCHARGE: 32 MIN Vital Signs/I&Os Vital Signs Date Time Temp Pulse Resp B/P (MAP) Pulse Ox O2 Delivery O2 Flow Rate FiO2 01/28/19 08:00 97.2 107 20 135/69 (91) 98 5.0 01/27/19 07:08 Venturi Mask 35 I&O- Last 24 Hours up to 6 AM 01/28/19 06:00 Intake Total 1210 ml Output Total 675 ml Balance 535 ml Laboratory Data Labs 24H Laboratory Tests 2 01/27/19 13:03: Activated Partial Thromboplast Time 105.1H 01/27/19 16:54: Total Creatine Kinase 37, Creatine Kinase MB 2.5, Creatine Kinase MB Relative Index 6.76H, Troponin I 0.20#H 01/27/19 17:20: Bedside Glucose (Misc Panel) 312H 01/27/19 20:19: Bedside Glucose (Misc Panel) 235H 01/28/19 04:43: Immature Granulocyte % (Auto) 1.0, White Blood Count 10.0, Red Blood Count 3.02L, Hemoglobin 7.9L, Hematocrit 26.8L, Mean Corpuscular Volume 88.7, Mean Corpuscular Hemoglobin 26.2L, Mean Corpuscular Hemoglobin Concent 29.5L, Red Cell Distribution Width 15.7H, Platelet Count 354, Neutrophils (%) (Auto) 91.5H, Lymphocytes (%) (Auto) 4.7L, Monocytes (%) (Auto) 2.7, Eosinophils (%) (Auto) 0.0, Basophils (%) (Auto) 0.1, Neutrophils # (Auto) 9.1H, Lymphocytes # (Auto) 0.5L, Monocytes # (Auto) 0.3, Eosinophils # (Auto) 0.0, Basophils # (Auto) 0.0, Nucleated Red Blood Cells % (auto) 0.0, Anion Gap 6L, Glomerular Filtration Rate 22.7L, Blood Urea Nitrogen 53H, Creatinine 2.20H, Sodium Level 135L, Potassium Level 4.0, Chloride Level 97L, Carbon Dioxide Level 32, Calcium Level 8.7L 01/28/19 06:08: Bedside Glucose (Misc Panel) 506*H CBC/BMP Laboratory Tests 01/28/19 04:43 Red Blood Count 3.02 L, Mean Corpuscular Volume 88.7, Mean Corpuscular Hemoglobin 26.2 L, Mean Corpuscular Hemoglobin Concent 29.5 L, Red Cell Distribution Width 15.7 H, Neutrophils (%) (Auto) 91.5 H, Lymphocytes (%) (Auto) 4.7 L, Monocytes (%) (Auto) 2.7, Eosinophils (%) (Auto) 0.0, Basophils (%) (Auto) 0.1, Neutrophils # (Auto) 9.1 H, Lymphocytes # (Auto) 0.5 L, Monocytes # (Auto) 0.3, Eosinophils # (Auto) 0.0, Basophils # (Auto) 0.0, Calcium Level 8.7 L FSBS Laboratory Tests Test 01/27/19 17:20 01/27/19 20:19 01/28/19 06:08 Range/Units Bedside Glucose (Misc Panel) 312 235 506 83-110 MG/DL Microbiology Microbiology 01/26/19 Blood Culture - Preliminary, Resulted No growth after 24 hours . All specim... 01/26/19 Blood Culture - Preliminary, Resulted No growth after 24 hours . All specim... Discharge Medications Scheduled Aripiprazole (Abilify) 10 Mg Tablet, 10 MG PO DAILY, (Reported) Aspirin (Aspir-Low) 81 Mg Tablet.dr, 81 MG PO DAILY, (Reported) Budesonide/Formoterol (Symbicort 160-4.5 Mcg Inhaler) 6 Gm Hfa.aer.ad, 2 PUFF INH BID, (Reported) Calcitriol (Calcitriol) 0.25 Mcg Cap, 0.25 MG PO DAILY, (Reported) Citalopram Hydrobromide (Celexa) 20 Mg Tablet, 20 MG PO DAILY, (Reported) Doxycycline Monohydrate (Doxycycline) 100 Mg Capsule, 1 CAP PO BID Insulin Human Lispro (Humalog Mix 75-25 Vial) 100 Unit/1 Ml Vial, 15 UNITS SC DAILY, (Reported) TAKES AT LUNCHTIME Melatonin (Melatonin) 5 Mg Tab, 10 MG PO QHS, (Reported) Omeprazole (Omeprazole) 20 Mg Capsule.dr, 20 MG PO DAILY, (Reported) Prednisone (Prednisone) 10 Mg Tablet, 10 MG PO TAPER Take 4 tabs daily x 3 days, then 3 tabs daily x 3 days, then 2 tabs daily x 3 days, then 1 tab daily x 3 days and stop Tiotropium [place] Monohydrate (Spiriva) 18 Mcg Cap.w.dev, 1 PUFF INH DAILY, (Reported) Torsemide (Torsemide) 20 Mg Tablet, 20 MG PO DAILY, (Reported) Scheduled PRN Albuterol Sulfate (Proair Hfa) 108 Mcg/Act Aer, 2 PUFF INH Q4H PRN for SHORTNESS OF BREATH, (Reported) Albuterol Sulfate (Albuterol Sulfate) 0.63 Mg/3 Ml Neb, 0.63 MG INH Q4H PRN for SHORTNESS OF BREATH, (Reported) Allergies Coded Allergies: Penicillins (Verified Allergy, Intermediate, Rash/Dizziness; had zosyn recently on prev admission and ok, 01/26/19) KRISTEN BONILLA MD Jan 28, 2019 12:50
[2019-01-28] MEDS ORDERED: LEVEMIR (INSULIN DETEMIR) 1 UNITS/0.01ML SC SCH (21:00)
[2019-01-29] MEDS ORDERED: MOXIFLOXACIN 400 MG TAB PO SCH (06:00)
== END 2019-01-28 10:30 | disposition hospice, home (50) | DRG 291 ==
LOC: M ED 16:14 → M ED INP 21:22 → M ICU 01-27 08:42
PROVIDERS: ADMIT Internal Medicine; ATTEND General Practice
DX: I13.0 Hypertensive heart and chronic kidney disease with heart failure and stage 1 through stage 4 chronic kidney disease, or unspecified chronic kidney disease (principal); I50.21 Acute systolic (congestive) heart failure; J96.21 Acute and chronic respiratory failure with hypoxia; N18.4 Chronic kidney disease, stage 4 (severe); C34.90 Malignant neoplasm of unspecified part of unspecified bronchus or lung; J44.1 Chronic obstructive pulmonary disease with (acute) exacerbation; E11.65 Type 2 diabetes mellitus with hyperglycemia; K52.9 Noninfective gastroenteritis and colitis, unspecified; Z51.5 Encounter for palliative care; Z66 Do not resuscitate; Z79.899 Other long term (current) drug therapy; Z79.52 Long term (current) use of systemic steroids; Z88.0 Allergy status to penicillin; Z79.82 Long term (current) use of aspirin; F32.9 Major depressive disorder, single episode, unspecified; F41.9 Anxiety disorder, unspecified; K21.9 Gastro-esophageal reflux disease without esophagitis